=== PATIENT | female | born 1950 | race Caucasian/White ===

== ENCOUNTER → 2017-04-08 | Outpatient (CLI) | payer MEDICARE ==
[~2017-04-08] MED LIST: CLAR10CA3 PO; FURO20TA2 PO; HYDR-3716 PO; ISOS60TA2 PO; LIDO5DIS41 TD; LISI-538 PO; PLAV1TAB2 PO; TIZA2CAP3 PO
[2017-04-08 09:18] LABS: BASO % 0.6 % (0.0-1.0); EOS % 0.4 % (0.0-3.0); LARGE UNSTAINED CELL # 0.2 K/mm3 (0.0-0.4); LARGE UNSTAINED CELL % 2.7 % (0.0-4.0); LYMPH # 1.2 K/mm3 (1.5-4.5); LYMPH % 21.8 % (24.0-44.0); MEAN CORPUSCULAR HEMOGLOBIN 32.7 pg (27.0-33.0); MEAN CORPUSCULAR HGB CONC 33.8 g/dl (32.0-36.5); MEAN CORPUSCULAR VOLUME 96.7 fl (80.0-96.0); MONO # 0.4 K/mm3 (0.0-0.8); MONO % 7.3 % (0.0-5.0); NEUTROPHILS # 3.8 K/mm3 (1.8-7.7); NEUTROPHILS % 67.2 % (36.0-66.0); PLATELET COUNT, AUTOMATED 214 k/mm3 (150-450); RED CELL DISTRIBUTION WIDTH 13.7 % (11.5-14.5); WHITE BLOOD COUNT 5.6 K/mm3 (4.0-10.0)
[2017-04-08 09:41] LABS: ALBUMIN 3.7 GM/DL (3.2-5.2); ALKALINE PHOSPHATASE 71 U/L (45-117); ALT/SGPT 18 U/L (12-78); ANION GAP 8 MEQ/L (8-16); AST/SGOT 13 U/L (15-37); BILIRUBIN,TOTAL 0.4 MG/DL (0.2-1.0); BLOOD UREA NITROGEN 15 MG/DL (7-18); CARBON DIOXIDE LEVEL 28 MEQ/L (21-32); CHLORIDE LEVEL 109 MEQ/L (98-107); CHOLESTEROL LEVEL 157 MG/DL (<200); CREATININE FOR GFR 0.66 MG/DL (0.55-1.02); GLOMERULAR FILTRATION RATE > 60.0 (>45); GLUCOSE, FASTING 116 MG/DL (80-110); SODIUM LEVEL 145 MEQ/L (136-145); TOTAL PROTEIN 7.4 GM/DL (6.4-8.2); TRIGLYCERIDES LEVEL 193 MG/DL (<150)
== END ==
LOC: M WUC 08:19
PROVIDERS: ATTEND Physician Assistant
DX: I50.9 Heart failure, unspecified (principal); I11.0 Hypertensive heart disease with heart failure; R73.09 Other abnormal glucose; I25.10 Atherosclerotic heart disease of native coronary artery without angina pectoris; E55.9 Vitamin D deficiency, unspecified

== ENCOUNTER → 2017-07-15 | Outpatient (REF) | payer MEDICARE ==
[2017-07-15 14:57] LABS: BASO # 0.1 10^3/uL (0.0-0.2); BASO % 1.3 % (0.0-1.0); EOS # 0.1 10^3/uL (0.0-0.50); EOS % 1.1 % (0.0-3.0); IMMATURE GRANULOCYTE % 0.3 % (0-0); LYMPH # 1.8 10^3/uL (1.5-4.5); LYMPH % 28.2 % (24.0-44.0); MEAN CORPUSCULAR HEMOGLOBIN 30.9 pg (27.0-33.0); MEAN CORPUSCULAR HGB CONC 32.4 g/dl (32.0-36.5); MEAN CORPUSCULAR VOLUME 95.4 fl (80.0-96.0); MONO # 0.4 10^3/uL (0.0-0.8); MONO % 5.6 % (0.0-5.0); NEUTROPHILS # 4.1 10^3/uL (1.8-7.7); NEUTROPHILS % 63.5 % (36.0-66.0); PLATELET COUNT, AUTOMATED 240 10^3/uL (150-450); RED CELL DISTRIBUTION WIDTH 14.6 % (11.5-14.5); WHITE BLOOD COUNT 6.4 10^3/uL (4.0-10.0)
[2017-07-15 15:31] LABS: ALBUMIN 3.6 GM/DL (3.2-5.2); ALBUMIN/GLOBULIN RATIO 1.03 (1.00-1.93); ALKALINE PHOSPHATASE 73 U/L (45-117); ALT/SGPT 15 U/L (12-78); ANION GAP 8 MEQ/L (8-16); AST/SGOT 12 U/L (7-37); BILIRUBIN,TOTAL 0.2 MG/DL (0.2-1.0); BLOOD UREA NITROGEN 15 MG/DL (7-18); CALCIUM LEVEL 9.4 MG/DL (8.8-10.2); CARBON DIOXIDE LEVEL 25 MEQ/L (21-32); CHLORIDE LEVEL 113 MEQ/L (98-107); CHOLESTEROL LEVEL 148 MG/DL (<200); CREATININE FOR GFR 0.72 MG/DL (0.55-1.02); FREE T4 1.04 NG/DL (0.76-1.46); GLOMERULAR FILTRATION RATE > 60.0 (>45); GLUCOSE, FASTING 110 MG/DL (80-110); POTASSIUM SERUM 4.2 MEQ/L (3.5-5.1); SODIUM LEVEL 146 MEQ/L (136-145); TOTAL PROTEIN 7.1 GM/DL (6.4-8.2); TRIGLYCERIDES LEVEL 97 MG/DL (<150)
== END ==
LOC: M SFHCSACK 08:46
PROVIDERS: ATTEND Physician Assistant
DX: I11.0 Hypertensive heart disease with heart failure (principal); E11.65 Type 2 diabetes mellitus with hyperglycemia; Z13.29 Encounter for screening for other suspected endocrine disorder; E78.5 Hyperlipidemia, unspecified; E55.9 Vitamin D deficiency, unspecified; I50.9 Heart failure, unspecified; I25.2 Old myocardial infarction; Z00.00 Encounter for general adult medical examination without abnormal findings; Z23 Encounter for immunization
CPT/HCPCS: 36415; 80053; 80061; 82043; 82306; 83036; 84439; 84443; 85025; 90662; G0008

== ENCOUNTER 2017-08-11 16:06 | Emergency (ER) | payer MEDICARE ==
[~2017-08-11] VITALS: Ht 162.6 cm; Wt 71.4 kg
[2017-08-11] MEDS ORDERED: TRIA37.53 (16:16)
[2017-08-11] MEDS ORDERED: NORCO, ANEXSIA 5/325MG TABLET (HYDROcodone/ACETAMINOPHEN) PO ONE (17:15)
[2017-08-11] MEDS ORDERED: methylPREDNISolone INJ 125 MG/2 ML VIAL (J2930) IV ONE (17:15)
[2017-08-11 18:08] LABS: BASO # 0.1 10^3/uL (0.0-0.2); BASO % 0.9 % (0.0-1.0); EOS # 0.1 10^3/uL (0.0-0.50); EOS % 0.6 % (0.0-3.0); IMMATURE GRANULOCYTE % 0.1 % (0-0); LYMPH # 3.2 10^3/uL (1.5-4.5); LYMPH % 33.8 % (24.0-44.0); MEAN CORPUSCULAR HEMOGLOBIN 31.5 pg (27.0-33.0); MEAN CORPUSCULAR HGB CONC 34.6 g/dl (32.0-36.5); MONO # 0.8 10^3/uL (0.0-0.8); MONO % 8.2 % (0.0-5.0); NEUTROPHILS # 5.3 10^3/uL (1.8-7.7); NEUTROPHILS % 56.4 % (36.0-66.0); PLATELET COUNT, AUTOMATED 206 10^3/uL (150-450); RED CELL DISTRIBUTION WIDTH 13.9 % (11.5-14.5); WHITE BLOOD COUNT 9.4 10^3/uL (4.0-10.0)
[2017-08-11 18:39] LABS: ANION GAP 8 MEQ/L (8-16); BLOOD UREA NITROGEN 24 MG/DL (7-18); CALCIUM LEVEL 8.7 MG/DL (8.8-10.2); CARBON DIOXIDE LEVEL 26 MEQ/L (21-32); CHLORIDE LEVEL 106 MEQ/L (98-107); GLOMERULAR FILTRATION RATE > 60.0 (>45); GLUCOSE, FASTING 105 MG/DL (80-110); POTASSIUM SERUM 3.2 MEQ/L (3.5-5.1); SODIUM LEVEL 140 MEQ/L (136-145)
[2017-08-11 18:52] LABS: ERYTHROCYTE SEDIMENTATION RATE 8 mm/hr (0-30)
[2017-08-11] MEDS ORDERED: MORPHINE 2 MG/ML 1ML SYRINGE IV ONE (19:00)
[2017-08-11] MEDS ORDERED: NORCOTAB PO (19:02)
[2017-08-11] MEDS ORDERED: CLEO300C2 PO (19:02)
[2017-08-11] MEDS ORDERED: PRED20TA PO (19:02)
[2017-08-11 19:08] VITALS: BP 118/72
[2017-08-11] MEDS ORDERED: CLINDAMYCIN 150 MG CAP PO ONE (19:15)
[2017-08-11] MEDS ORDERED: NORCO 5/325MG TABLET (BULK FOR ED) PO ONE (19:15)
--- NOTE | 2017-08-12 01:18 | REP ---
Clinical: Right knee pain. Technique: AP, lateral, bilateral oblique and sunrise views of the right knee. Findings: Mild age-related changes include increased sclerosis to the tibial plateau and minimal medial joint space narrowing. No further overt osteoarthritic degenerative changes are appreciated. No acute fracture or dislocation. No effusion. Impression: Mild age-related degenerative changes. Signed by Shaan Vora MD 08/11/2017 10:09 P
== END 2017-08-11 19:36 | disposition home or self-care (01) ==
LOC: M ED 16:06
DX: M25.561 Pain in right knee (principal); I25.2 Old myocardial infarction; I10 Essential (primary) hypertension; Z95.5 Presence of coronary angioplasty implant and graft; F17.200 Nicotine dependence, unspecified, uncomplicated; Z79.899 Other long term (current) drug therapy; Z88.6 Allergy status to analgesic agent; Z91.02 Food additives allergy status
CPT/HCPCS: 73564; 80048; 85025; 85652; 86140; 96374; 96375; 99284; J2930

== ENCOUNTER → 2017-08-30 | Outpatient (CLI) | payer MEDICARE | LOC: M RAD 09:46 | DX: Z12.2 Encounter for screening for malignant neoplasm of respiratory organs (principal); F17.200 Nicotine dependence, unspecified, uncomplicated; F17.210 Nicotine dependence, cigarettes, uncomplicated | CPT/HCPCS: G0297 ==

== ENCOUNTER → 2017-10-28 | Outpatient (REF) | payer MEDICARE ==
[2017-10-28 14:39] LABS: BASO % 0.5 % (0.0-1.0); EOS % 0.4 % (0.0-3.0); HEMATOCRIT 43.7 % (36.0-47.0); HEMOGLOBIN 14.5 g/dl (12.0-16.0); IMMATURE GRANULOCYTE % 0.4 % (0-3.0); LYMPH # 2.2 10^3/uL (1.5-4.5); LYMPH % 29.6 % (24.0-44.0); MEAN CORPUSCULAR HEMOGLOBIN 30.3 pg (27.0-33.0); MEAN CORPUSCULAR HGB CONC 33.2 g/dl (32.0-36.5); MEAN CORPUSCULAR VOLUME 91.4 fl (80.0-96.0); MONO # 0.6 10^3/uL (0.0-0.8); MONO % 8.3 % (0.0-5.0); NEUTROPHILS # 4.4 10^3/uL (1.8-7.7); NEUTROPHILS % 60.8 % (36.0-66.0); PLATELET COUNT, AUTOMATED 273 10^3/uL (150-450); RED BLOOD COUNT 4.78 10^6/uL (4.00-5.40); RED CELL DISTRIBUTION WIDTH 13.4 % (11.5-14.5); WHITE BLOOD COUNT 7.3 10^3/uL (4.0-10.0)
[2017-10-28 15:18] LABS: ALBUMIN 3.7 GM/DL (3.2-5.2); ALBUMIN/GLOBULIN RATIO 0.93 (1.00-1.93); ALKALINE PHOSPHATASE 78 U/L (45-117); ALT/SGPT 19 U/L (12-78); ANION GAP 10 MEQ/L (8-16); AST/SGOT 15 U/L (7-37); BILIRUBIN,TOTAL 0.3 MG/DL (0.2-1.0); BLOOD UREA NITROGEN 18 MG/DL (7-18); CALCIUM LEVEL 9.6 MG/DL (8.8-10.2); CARBON DIOXIDE LEVEL 27 MEQ/L (21-32); CHLORIDE LEVEL 104 MEQ/L (98-107); CREATININE FOR GFR 0.86 MG/DL (0.55-1.30); FREE T4 1.21 NG/DL (0.76-1.46); GLOMERULAR FILTRATION RATE > 60.0 (>45); GLUCOSE, FASTING 85 MG/DL (70-100); SODIUM LEVEL 141 MEQ/L (136-145); THYROID STIMULATING HORMONE 0.266 uIU/ML (0.358-3.740); TOTAL PROTEIN 7.7 GM/DL (6.4-8.2)
[2017-10-28 15:32] LABS: ESTIMATED AVERAGE GLUCOSE 157 MG/DL (60-110); HEMOGLOBIN A1c 7.1 %
== END ==
LOC: M SFHCSACK 08:34
DX: I10 Essential (primary) hypertension (principal); E11.65 Type 2 diabetes mellitus with hyperglycemia; R94.6 Abnormal results of thyroid function studies
CPT/HCPCS: 84443

== ENCOUNTER 2017-11-06 07:44 | Emergency (ER) | payer MEDICARE ==
[2017-11-06] MEDS: LIDOCAINE 2% MDV 20 ML VIAL SC (08:15)
== END 2017-11-06 09:20 | disposition home or self-care (01) ==
LOC: M ED 07:44
DX: S93.114A Dislocation of interphalangeal joint of right lesser toe(s), initial encounter (principal); W10.8XXA Fall (on) (from) other stairs and steps, initial encounter; Y92.098 Other place in other non-institutional residence as the place of occurrence of the external cause; I10 Essential (primary) hypertension; I25.2 Old myocardial infarction; F17.200 Nicotine dependence, unspecified, uncomplicated; Z88.8 Allergy status to other drugs, medicaments and biological substances; Z91.02 Food additives allergy status; Z79.899 Other long term (current) drug therapy; Z79.02 Long term (current) use of antithrombotics/antiplatelets
CPT/HCPCS: 73630

== ENCOUNTER → 2017-11-15 | Outpatient (REF) | payer MEDICARE | LOC: M LAB REF 12:37 | DX: C09.0 Malignant neoplasm of tonsillar fossa (principal) | CPT/HCPCS: 88313 ==

== ENCOUNTER → 2017-11-18 | Outpatient (CLI) | payer MEDICARE ==
[~2017-11-18] MED LIST changes: -CLAR10CA3 PO; -FURO20TA2 PO; -HYDR-3716 PO; -ISOS60TA2 PO; +ISOVUE-370 76% 100ML VIAL (Q9967) As Ordered; -LIDO5DIS41 TD; -LISI-538 PO; -PLAV1TAB2 PO; -TIZA2CAP3 PO
== END ==
LOC: M RAD 17:37
DX: C09.0 Malignant neoplasm of tonsillar fossa (principal); R59.0 Localized enlarged lymph nodes; M50.20 Other cervical disc displacement, unspecified cervical region; I65.23 Occlusion and stenosis of bilateral carotid arteries
CPT/HCPCS: Q9967

== ENCOUNTER → 2017-11-26 | Outpatient (CLI) | payer MEDICARE | LOC: M RAD 17:35 | DX: Z01.818 Encounter for other preprocedural examination (principal); J44.9 Chronic obstructive pulmonary disease, unspecified; I25.2 Old myocardial infarction; F41.9 Anxiety disorder, unspecified; R91.8 Other nonspecific abnormal finding of lung field | CPT/HCPCS: 71046 ==

== ENCOUNTER → 2017-12-10 | Outpatient (CLI) | payer MEDICARE | LOC: M PLARAD 10:40 | DX: C83.31 Diffuse large B-cell lymphoma, lymph nodes of head, face, and neck (principal); C09.0 Malignant neoplasm of tonsillar fossa | CPT/HCPCS: 78815 ==

== ENCOUNTER → 2017-12-17 | Outpatient (CLI) | payer MEDICARE | LOC: M ONCR 12-17 09:40 | DX: C83.31 Diffuse large B-cell lymphoma, lymph nodes of head, face, and neck (principal) | CPT/HCPCS: G0463 ==

== ENCOUNTER → 2017-12-19 | Outpatient (CLI) | payer MEDICARE | LOC: M CARPUL 10:53 | DX: C85.90 Non-Hodgkin lymphoma, unspecified, unspecified site (principal) | CPT/HCPCS: 93306 ==

== ENCOUNTER → 2017-12-23 | Outpatient (REF) | payer MEDICARE ==
[2017-12-23 13:58] LABS: HEPATITIS B SURFACE ANTIBODY NEGATIVE (POSITIVE)
[2017-12-23 14:09] LABS: HEPATITIS B SURFACE ANTIGEN NEGATIVE (NEGATIVE)
[2017-12-23 14:37] LABS: HEPATITIS B CORE ANTIBODY IGM NEGATIVE (NEGATIVE)
== END ==
LOC: M LAB REF 13:01
DX: Z51.11 Encounter for antineoplastic chemotherapy (principal); C83.30 Diffuse large B-cell lymphoma, unspecified site
CPT/HCPCS: 86706

== ENCOUNTER 2018-01-05 19:07 | Emergency (ER) | payer MEDICARE ==
[2018-01-05] MEDS: MORPHINE 4 MG/ML 1ML VIAL/SYRINGE (J2270) IV (19:51)
[2018-01-05] MEDS: GI COCKTAIL 50ML BTL(HYOSCYAMINE/MAALOX/LIDOCAINE VISCOUS)(1:3:1) PO (19:54)
[2018-01-05] MEDS: CLOPIDOGREL 75 MG TAB PO (19:54)
[2018-01-05 19:57] LABS: HEMATOCRIT 42.5 % (36.0-47.0); HEMOGLOBIN 14.2 g/dl (12.0-15.5); MEAN CORPUSCULAR HEMOGLOBIN 30.5 pg (27.0-33.0); MEAN CORPUSCULAR HGB CONC 33.4 g/dl (32.0-36.5); MEAN CORPUSCULAR VOLUME 91.2 fl (80.0-96.0); PLATELET COUNT, AUTOMATED 429 10^3/uL (150-450); RED BLOOD COUNT 4.66 10^6/uL (4.00-5.40); RED CELL DISTRIBUTION WIDTH 15.1 % (11.5-14.5); WHITE BLOOD COUNT 23.1 10^3/uL (4.0-10.0)
[2018-01-05 19:59] LABS: ADD MANUAL DIFFER YES; DIFF SLIDE NUMBER 134; POS COUNT POS FLAG; POSITIVE MORPH POS FLAG
[2018-01-05 20:01] LABS: INR 1.12; PROTHROMBIN TIME 14.6 SECONDS (12.4-14.5)
[2018-01-05 20:02] LABS: PARTIAL THROMBOPLASTIN TIME 29.7 SECONDS (26.8-37.9)
[2018-01-05] MEDS: ONDANSETRON 4MG/2ML VIAL (J2405) IV (20:02)
[2018-01-05] MEDS: PANTOPRAZOLE 40MG INJ (PROTONIX) (C9113) IV (20:10)
[2018-01-05 20:11] LABS: ALBUMIN 3.2 GM/DL (3.2-5.2); ALBUMIN/GLOBULIN RATIO 0.65 (1.00-1.93); ALKALINE PHOSPHATASE 144 U/L (45-117); ALT/SGPT 18 U/L (12-78); ANION GAP 13 MEQ/L (8-16); AST/SGOT 15 U/L (7-37); BILIRUBIN,DIRECT 0.1 MG/DL (0.0-0.2); BILIRUBIN,TOTAL 0.3 MG/DL (0.2-1.0); BLOOD UREA NITROGEN 39 MG/DL (7-18); CALCIUM LEVEL 9.4 MG/DL (8.8-10.2); CARBON DIOXIDE LEVEL 24 MEQ/L (21-32); CHLORIDE LEVEL 100 MEQ/L (98-107); CK-MB VALUE MASS < 1.0 NG/ML (<3.6); CPK CREATINE PHOSPHOKINASE 20 U/L (26-192); CREATININE FOR GFR 1.35 MG/DL (0.55-1.30); GLOMERULAR FILTRATION RATE 41.8 (>45); GLUCOSE, FASTING 172 MG/DL (70-100); LIPASE 149 U/L (73-393); POTASSIUM SERUM 4.1 MEQ/L (3.5-5.1); SODIUM LEVEL 137 MEQ/L (136-145); TOTAL PROTEIN 8.1 GM/DL (6.4-8.2); TROPONIN I < 0.02 NG/ML (< 0.10)
[2018-01-05 20:14] LABS: BANDS 1 % (< 11); LYMPHOCYTES 3 % (16-52); MONOCYTES 2 % (0-8); NEUTROPHILS 94 % (35-75); PLATELET ESTIMATE NORMAL (NORMAL)
[2018-01-05] MEDS: HALOPERIDOL 5 MG/ML VIAL (J1630) IV (20:37)
[2018-01-05] MEDS: NS 1,000 ML IV (20:37)
[2018-01-05] MEDS: diphenhydrAMINE INJ 50MG/ML VIAL (J1200) IV (20:37)
[2018-01-05] MEDS ORDERED: ISOVUE-370 76% 100ML VIAL (Q9967) As Ordered (21:11)
[2018-01-06 00:06] LABS: CK-MB VALUE MASS < 1.0 NG/ML (<3.6); CPK CREATINE PHOSPHOKINASE 18 U/L (26-192); MB/CK RELATIVE INDEX 5.55 (< OR =4); TROPONIN I < 0.02 NG/ML (< 0.10)
== END 2018-01-06 01:50 | disposition home or self-care (01) ==
LOC: M ED 01-06 01:50
DX: K20.9 Esophagitis, unspecified (principal); R00.0 Tachycardia, unspecified; I10 Essential (primary) hypertension; E78.5 Hyperlipidemia, unspecified; K21.9 Gastro-esophageal reflux disease without esophagitis; G89.29 Other chronic pain; M54.9 Dorsalgia, unspecified; F17.200 Nicotine dependence, unspecified, uncomplicated; Z95.5 Presence of coronary angioplasty implant and graft; Z79.899 Other long term (current) drug therapy; Z88.6 Allergy status to analgesic agent; Z91.02 Food additives allergy status
CPT/HCPCS: C9113

== ENCOUNTER → 2018-01-13 | Outpatient (REF) | payer MEDICARE | LOC: M LAB REF 12:36 | DX: C83.30 Diffuse large B-cell lymphoma, unspecified site (principal) | CPT/HCPCS: 87493 ==

== ENCOUNTER → 2018-01-13 | Outpatient (CLI) | payer MEDICARE ==
[~2018-01-13] MED LIST changes: +GASTROGRAFIN SOLUTION 30ML (Q9963) As Ordered
== END ==
LOC: M RAD 11:50
DX: N28.1 Cyst of kidney, acquired (principal); R10.9 Unspecified abdominal pain; K92.1 Melena; C83.30 Diffuse large B-cell lymphoma, unspecified site; Z90.710 Acquired absence of both cervix and uterus; Z98.890 Other specified postprocedural states
CPT/HCPCS: Q9963

== ENCOUNTER 2018-01-15 15:42 | Inpatient (IN) | payer MEDICARE ==
[2018-01-15] MEDS: NS 1,000 ML IV ×2 (16:52→19:51)
[2018-01-15] MEDS: ONDANSETRON 4MG/2ML VIAL (J2405) IV (17:00)
[2018-01-15] MEDS: NS 500 ML IV (17:00)
[2018-01-15 17:19] LABS: BASO # 0.1 10^3/uL (0.0-0.2); BASO % 0.3 % (0.0-1.0); HEMATOCRIT 33.8 % (36.0-47.0); IMMATURE GRANULOCYTE % 3.2 % (0-3.0); LYMPH # 0.6 10^3/uL (1.5-4.5); LYMPH % 3.3 % (24.0-44.0); MEAN CORPUSCULAR HEMOGLOBIN 30.6 pg (27.0-33.0); MEAN CORPUSCULAR HGB CONC 32.5 g/dl (32.0-36.5); MEAN CORPUSCULAR VOLUME 93.9 fl (80.0-96.0); MONO # 0.8 10^3/uL (0.0-0.8); MONO % 4.5 % (0.0-5.0); NEUTROPHILS # 15.9 10^3/uL (1.8-7.7); NEUTROPHILS % 88.7 % (36.0-66.0); PLATELET COUNT, AUTOMATED 433 10^3/uL (150-450); RED CELL DISTRIBUTION WIDTH 15.8 % (11.5-14.5); WHITE BLOOD COUNT 17.9 10^3/uL (4.0-10.0)
[2018-01-15] MEDS: HYDROmorphone HCL 1 MG/ML SYRINGE (J1170) IV ×2 (17:33→19:47)
[2018-01-15 17:37] LABS: INR 0.96; PROTHROMBIN TIME 12.9 SECONDS (12.4-14.5)
[2018-01-15 17:45] LABS: ALBUMIN 2.2 GM/DL (3.2-5.2); ALBUMIN/GLOBULIN RATIO 0.51 (1.00-1.93); ALKALINE PHOSPHATASE 106 U/L (45-117); ALT/SGPT 12 U/L (12-78); ANION GAP 9 MEQ/L (8-16); AST/SGOT 14 U/L (7-37); BILIRUBIN,DIRECT < 0.1 MG/DL (0.0-0.2); BILIRUBIN,TOTAL < 0.1 MG/DL (0.2-1.0); BLOOD UREA NITROGEN 28 MG/DL (7-18); CALCIUM LEVEL 8.2 MG/DL (8.8-10.2); CARBON DIOXIDE LEVEL 23 MEQ/L (21-32); CHLORIDE LEVEL 112 MEQ/L (98-107); CREATININE FOR GFR 1.05 MG/DL (0.55-1.30); GLOMERULAR FILTRATION RATE 55.8 (>45); GLUCOSE, FASTING 125 MG/DL (70-100); LIPASE 99 U/L (73-393); POTASSIUM SERUM 4.3 MEQ/L (3.5-5.1); SODIUM LEVEL 144 MEQ/L (136-145); TOTAL PROTEIN 6.5 GM/DL (6.4-8.2)
[2018-01-15 19:27] LABS: LACTIC ACID SEPSIS PROTOCOL 2.8 MMOL/L (0.4-2.0)
[2018-01-15] MEDS: VANCOMYCIN ORAL SOL 250MG/5ML ORAL SYRINGE PO ×2 (19:58→23:03)
[2018-01-15] MEDS ORDERED: HYDROMORPHONE HCL 0.5 MG/ 0.5 ML SYRINGE (J1170 PER 1) IV (20:15)
[2018-01-15] MEDS ORDERED: ONDANSETRON 4 MG TAB (S0181) PO (21:00)
[2018-01-15] MEDS ORDERED: NITROGLYCERIN 0.4 MG SUBL TABLET SL (21:00)
[2018-01-15] MEDS: HYDROMORPHONE HCL 0.5 MG/ 0.5 ML SYRINGE (J1170 PER 1) IV (21:19)
[2018-01-16] MEDS: HYDROMORPHONE HCL 0.5 MG/ 0.5 ML SYRINGE (J1170 PER 1) IV ×4 (01:00→10:43)
[2018-01-16] MEDS: VANCOMYCIN ORAL SOL 250MG/5ML ORAL SYRINGE PO ×4 (05:00→23:56)
[2018-01-16] MEDS: NS 1,000 ML IV (05:58)
[2018-01-16 06:45] LABS: HEMATOCRIT 30.4 % (36.0-47.0); HEMOGLOBIN 9.9 g/dl (12.0-15.5); MEAN CORPUSCULAR HEMOGLOBIN 30.5 pg (27.0-33.0); MEAN CORPUSCULAR HGB CONC 32.6 g/dl (32.0-36.5); MEAN CORPUSCULAR VOLUME 93.5 fl (80.0-96.0); PLATELET COUNT, AUTOMATED 379 10^3/uL (150-450); RED BLOOD COUNT 3.25 10^6/uL (4.00-5.40); RED CELL DISTRIBUTION WIDTH 15.7 % (11.5-14.5); WHITE BLOOD COUNT 13.6 10^3/uL (4.0-10.0)
[2018-01-16 07:07] LABS: ANION GAP 7 MEQ/L (8-16); BLOOD UREA NITROGEN 17 MG/DL (7-18); CARBON DIOXIDE LEVEL 24 MEQ/L (21-32); CHLORIDE LEVEL 112 MEQ/L (98-107); CREATININE FOR GFR 0.68 MG/DL (0.55-1.30); GLOMERULAR FILTRATION RATE > 60.0 (>45); GLUCOSE, FASTING 75 MG/DL (70-100); POTASSIUM SERUM 3.6 MEQ/L (3.5-5.1); SODIUM LEVEL 143 MEQ/L (136-145)
[2018-01-16] MEDS: predniSONE 50 MG TAB PO (08:54)
[2018-01-16] MEDS: CLOPIDOGREL 75 MG TAB PO (08:54)
[2018-01-16] MEDS: ATORVASTATIN 20 MG TAB PO (08:54)
[2018-01-16] MEDS: OMEPRAZOLE 20 MG CAP PO (08:54)
[2018-01-16] MEDS: ENOXAPARIN 30 MG/0.3 ML SYR (J1650) SC (08:55)
[2018-01-16] MEDS: METOPROLOL SUCC (TopROL XL) 50MG **XL** TAB PO (08:55)
[2018-01-16] MEDS: ACETAMINOPHEN TAB 650MG DOSE (2X325MG) PO (10:42)
[2018-01-16] MEDS: MORPHINE 30 MG SA TAB PO ×2 (13:03→21:46)
[2018-01-17] MEDS: ONDANSETRON 4MG/2ML VIAL (J2405) IV (02:08)
[2018-01-17] MEDS: MORPHINE 4 MG/ML 1ML VIAL/SYRINGE (J2270) IV ×8 (02:34→22:42)
[2018-01-17] MEDS: HYDROMORPHONE HCL 0.5 MG/ 0.5 ML SYRINGE (J1170 PER 1) IV ×2 (04:38)
[2018-01-17] MEDS: VANCOMYCIN ORAL SOL 250MG/5ML ORAL SYRINGE PO ×3 (06:15→17:51)
[2018-01-17 06:57] LABS: HEMATOCRIT 33.3 % (36.0-47.0); MEAN CORPUSCULAR HEMOGLOBIN 30.3 pg (27.0-33.0); MEAN CORPUSCULAR VOLUME 91.7 fl (80.0-96.0); PLATELET COUNT, AUTOMATED 347 10^3/uL (150-450); RED BLOOD COUNT 3.63 10^6/uL (4.00-5.40); RED CELL DISTRIBUTION WIDTH 15.7 % (11.5-14.5); WHITE BLOOD COUNT 15.9 10^3/uL (4.0-10.0)
[2018-01-17 07:09] LABS: ANION GAP 9 MEQ/L (8-16); BLOOD UREA NITROGEN 13 MG/DL (7-18); CALCIUM LEVEL 8.5 MG/DL (8.8-10.2); CARBON DIOXIDE LEVEL 24 MEQ/L (21-32); CHLORIDE LEVEL 108 MEQ/L (98-107); CREATININE FOR GFR 0.55 MG/DL (0.55-1.30); GLOMERULAR FILTRATION RATE > 60.0 (>45); GLUCOSE, FASTING 106 MG/DL (70-100); POTASSIUM SERUM 3.4 MEQ/L (3.5-5.1); SODIUM LEVEL 141 MEQ/L (136-145)
[2018-01-17] MEDS: ENOXAPARIN 30 MG/0.3 ML SYR (J1650) SC (08:12)
[2018-01-17] MEDS: OMEPRAZOLE 20 MG CAP PO (08:13)
[2018-01-17] MEDS: MORPHINE 30 MG SA TAB PO ×2 (08:13→20:24)
[2018-01-17] MEDS: predniSONE 50 MG TAB PO (08:13)
[2018-01-17] MEDS: ATORVASTATIN 20 MG TAB PO (08:13)
[2018-01-17] MEDS: CLOPIDOGREL 75 MG TAB PO (08:13)
[2018-01-17] MEDS: METOPROLOL SUCC (TopROL XL) 50MG **XL** TAB PO (08:13)
[2018-01-17] MEDS ORDERED: HYDROMORPHONE HCL 0.5 MG/ 0.5 ML SYRINGE (J1170 PER 1) IV (18:00)
[2018-01-17] MEDS: METOCLOPRAMIDE 10 MG TAB PO (21:32)
[2018-01-17] MEDS: FAMOTIDINE 20 MG TAB PO (21:44)
[2018-01-17] MEDS: SIMETHICONE 80 MG CHEW TAB PO (21:44)
[2018-01-18] MEDS: MORPHINE 4 MG/ML 1ML VIAL/SYRINGE (J2270) IV ×9 (01:13→22:56)
[2018-01-18] MEDS: VANCOMYCIN ORAL SOL 250MG/5ML ORAL SYRINGE PO ×4 (01:13→17:15)
[2018-01-18 06:53] LABS: HEMOGLOBIN 10.8 g/dl (12.0-15.5); MEAN CORPUSCULAR HEMOGLOBIN 30.4 pg (27.0-33.0); MEAN CORPUSCULAR HGB CONC 32.7 g/dl (32.0-36.5); PLATELET COUNT, AUTOMATED 335 10^3/uL (150-450); RED BLOOD COUNT 3.55 10^6/uL (4.00-5.40); RED CELL DISTRIBUTION WIDTH 15.7 % (11.5-14.5); WHITE BLOOD COUNT 12.2 10^3/uL (4.0-10.0)
[2018-01-18 07:14] LABS: ANION GAP 6 MEQ/L (8-16); BLOOD UREA NITROGEN 13 MG/DL (7-18); CALCIUM LEVEL 8.7 MG/DL (8.8-10.2); CARBON DIOXIDE LEVEL 28 MEQ/L (21-32); CHLORIDE LEVEL 109 MEQ/L (98-107); CREATININE FOR GFR 0.64 MG/DL (0.55-1.30); GLOMERULAR FILTRATION RATE > 60.0 (>45); GLUCOSE, FASTING 101 MG/DL (70-100); POTASSIUM SERUM 3.7 MEQ/L (3.5-5.1); SODIUM LEVEL 143 MEQ/L (136-145)
[2018-01-18] MEDS: predniSONE 50 MG TAB PO (08:38)
[2018-01-18] MEDS: ATORVASTATIN 20 MG TAB PO (08:38)
[2018-01-18] MEDS: OMEPRAZOLE 20 MG CAP PO (08:39)
[2018-01-18] MEDS: METOPROLOL SUCC (TopROL XL) 50MG **XL** TAB PO (08:39)
[2018-01-18] MEDS: MORPHINE 30 MG SA TAB PO (08:39)
[2018-01-18] MEDS: CLOPIDOGREL 75 MG TAB PO (08:39)
[2018-01-18] MEDS: ENOXAPARIN 30 MG/0.3 ML SYR (J1650) SC (08:39)
[2018-01-18] MEDS: MORPHINE 15 MG SA TAB PO (21:39)
[2018-01-18 23:26] LABS: LIPASE 53 U/L (73-393)
[2018-01-18 23:35] LABS: LACTIC ACID SEPSIS PROTOCOL 2.2 MMOL/L (0.4-2.0)
[2018-01-18] MEDS: NS 500 ML IV (23:45)
[2018-01-19] MEDS: VANCOMYCIN ORAL SOL 250MG/5ML ORAL SYRINGE PO ×4 (01:05→17:38)
[2018-01-19] MEDS: MORPHINE 4 MG/ML 1ML VIAL/SYRINGE (J2270) IV ×3 (05:57→17:39)
[2018-01-19 06:16] LABS: HEMATOCRIT 31.6 % (36.0-47.0); HEMOGLOBIN 10.1 g/dl (12.0-15.5); MEAN CORPUSCULAR HEMOGLOBIN 30.1 pg (27.0-33.0); PLATELET COUNT, AUTOMATED 297 10^3/uL (150-450); RED BLOOD COUNT 3.36 10^6/uL (4.00-5.40); RED CELL DISTRIBUTION WIDTH 15.6 % (11.5-14.5); WHITE BLOOD COUNT 9.5 10^3/uL (4.0-10.0)
[2018-01-19 06:40] LABS: ANION GAP 6 MEQ/L (8-16); BLOOD UREA NITROGEN 12 MG/DL (7-18); CALCIUM LEVEL 8.3 MG/DL (8.8-10.2); CARBON DIOXIDE LEVEL 30 MEQ/L (21-32); CHLORIDE LEVEL 109 MEQ/L (98-107); CREATININE FOR GFR 0.57 MG/DL (0.55-1.30); GLOMERULAR FILTRATION RATE > 60.0 (>45); GLUCOSE, FASTING 86 MG/DL (70-100); POTASSIUM SERUM 3.8 MEQ/L (3.5-5.1); SODIUM LEVEL 145 MEQ/L (136-145)
[2018-01-19] MEDS: MORPHINE 15 MG SA TAB PO ×2 (08:49→20:38)
[2018-01-19] MEDS: METOPROLOL SUCC (TopROL XL) 50MG **XL** TAB PO (08:50)
[2018-01-19] MEDS: ENOXAPARIN 30 MG/0.3 ML SYR (J1650) SC (08:50)
[2018-01-19] MEDS: predniSONE 50 MG TAB PO (08:50)
[2018-01-19] MEDS: ATORVASTATIN 20 MG TAB PO (08:50)
[2018-01-19] MEDS: OMEPRAZOLE 20 MG CAP PO (08:50)
[2018-01-19] MEDS: CLOPIDOGREL 75 MG TAB PO (08:50)
[2018-01-19] MEDS ORDERED: ISOVUE-370 76% 100ML VIAL (Q9967) As Ordered (13:36)
[2018-01-20] MEDS: VANCOMYCIN ORAL SOL 250MG/5ML ORAL SYRINGE PO ×4 (01:14→17:06)
[2018-01-20] MEDS: MORPHINE 4 MG/ML 1ML VIAL/SYRINGE (J2270) IV ×4 (04:50→19:14)
[2018-01-20 06:32] LABS: HEMATOCRIT 32.5 % (36.0-47.0); HEMOGLOBIN 10.6 g/dl (12.0-15.5); MEAN CORPUSCULAR HEMOGLOBIN 30.5 pg (27.0-33.0); MEAN CORPUSCULAR HGB CONC 32.6 g/dl (32.0-36.5); MEAN CORPUSCULAR VOLUME 93.7 fl (80.0-96.0); PLATELET COUNT, AUTOMATED 282 10^3/uL (150-450); RED BLOOD COUNT 3.47 10^6/uL (4.00-5.40); RED CELL DISTRIBUTION WIDTH 15.5 % (11.5-14.5); WHITE BLOOD COUNT 11.5 10^3/uL (4.0-10.0)
[2018-01-20 06:58] LABS: ANION GAP 6 MEQ/L (8-16); BLOOD UREA NITROGEN 11 MG/DL (7-18); CALCIUM LEVEL 8.6 MG/DL (8.8-10.2); CARBON DIOXIDE LEVEL 31 MEQ/L (21-32); CHLORIDE LEVEL 104 MEQ/L (98-107); CREATININE FOR GFR 0.58 MG/DL (0.55-1.30); GLOMERULAR FILTRATION RATE > 60.0 (>45); GLUCOSE, FASTING 86 MG/DL (70-100); SODIUM LEVEL 141 MEQ/L (136-145)
[2018-01-20] MEDS: ENOXAPARIN 30 MG/0.3 ML SYR (J1650) SC (08:07)
[2018-01-20] MEDS: predniSONE 50 MG TAB PO (08:07)
[2018-01-20] MEDS: ATORVASTATIN 20 MG TAB PO (08:07)
[2018-01-20] MEDS: MORPHINE 15 MG SA TAB PO ×2 (08:07→22:17)
[2018-01-20] MEDS: METOPROLOL SUCC (TopROL XL) 50MG **XL** TAB PO (08:07)
[2018-01-20] MEDS: CLOPIDOGREL 75 MG TAB PO (08:08)
[2018-01-20] MEDS: OMEPRAZOLE 20 MG CAP PO (08:08)
[2018-01-21] MEDS: VANCOMYCIN ORAL SOL 250MG/5ML ORAL SYRINGE PO ×4 (00:56→18:18)
[2018-01-21] MEDS: MORPHINE 4 MG/ML 1ML VIAL/SYRINGE (J2270) IV ×6 (01:04→22:51)
[2018-01-21 06:57] LABS: HEMATOCRIT 33.6 % (36.0-47.0); HEMOGLOBIN 10.7 g/dl (12.0-15.5); MEAN CORPUSCULAR HEMOGLOBIN 30.1 pg (27.0-33.0); MEAN CORPUSCULAR HGB CONC 31.8 g/dl (32.0-36.5); MEAN CORPUSCULAR VOLUME 94.4 fl (80.0-96.0); PLATELET COUNT, AUTOMATED 289 10^3/uL (150-450); RED BLOOD COUNT 3.56 10^6/uL (4.00-5.40); RED CELL DISTRIBUTION WIDTH 15.5 % (11.5-14.5); WHITE BLOOD COUNT 10.9 10^3/uL (4.0-10.0)
[2018-01-21 07:21] LABS: ANION GAP 7 MEQ/L (8-16); BLOOD UREA NITROGEN 15 MG/DL (7-18); CALCIUM LEVEL 8.7 MG/DL (8.8-10.2); CARBON DIOXIDE LEVEL 33 MEQ/L (21-32); CHLORIDE LEVEL 102 MEQ/L (98-107); GLOMERULAR FILTRATION RATE > 60.0 (>45); GLUCOSE, FASTING 82 MG/DL (70-100); SODIUM LEVEL 142 MEQ/L (136-145)
[2018-01-21] MEDS: CLOPIDOGREL 75 MG TAB PO (09:06)
[2018-01-21] MEDS: predniSONE 50 MG TAB PO (09:06)
[2018-01-21] MEDS: OMEPRAZOLE 20 MG CAP PO (09:07)
[2018-01-21] MEDS: ATORVASTATIN 20 MG TAB PO (09:07)
[2018-01-21] MEDS: METOPROLOL SUCC (TopROL XL) 50MG **XL** TAB PO (09:07)
[2018-01-21] MEDS: MORPHINE 15 MG SA TAB PO ×2 (09:08→21:27)
[2018-01-21] MEDS: ENOXAPARIN 30 MG/0.3 ML SYR (J1650) SC (09:09)
[2018-01-22] MEDS: VANCOMYCIN ORAL SOL 250MG/5ML ORAL SYRINGE PO ×3 (00:48→11:34)
[2018-01-22] MEDS: MORPHINE 4 MG/ML 1ML VIAL/SYRINGE (J2270) IV ×3 (00:51→05:13)
[2018-01-22 06:51] LABS: HEMATOCRIT 31.3 % (36.0-47.0); MEAN CORPUSCULAR HEMOGLOBIN 30.1 pg (27.0-33.0); MEAN CORPUSCULAR HGB CONC 31.9 g/dl (32.0-36.5); MEAN CORPUSCULAR VOLUME 94.3 fl (80.0-96.0); PLATELET COUNT, AUTOMATED 264 10^3/uL (150-450); RED BLOOD COUNT 3.32 10^6/uL (4.00-5.40); RED CELL DISTRIBUTION WIDTH 15.5 % (11.5-14.5)
[2018-01-22 07:11] LABS: ANION GAP 6 MEQ/L (8-16); BLOOD UREA NITROGEN 19 MG/DL (7-18); CALCIUM LEVEL 8.6 MG/DL (8.8-10.2); CARBON DIOXIDE LEVEL 32 MEQ/L (21-32); CHLORIDE LEVEL 104 MEQ/L (98-107); CREATININE FOR GFR 0.58 MG/DL (0.55-1.30); GLOMERULAR FILTRATION RATE > 60.0 (>45); GLUCOSE, FASTING 109 MG/DL (70-100); POTASSIUM SERUM 3.7 MEQ/L (3.5-5.1); SODIUM LEVEL 142 MEQ/L (136-145)
[2018-01-22] MEDS: OMEPRAZOLE 20 MG CAP PO (08:15)
[2018-01-22] MEDS: CLOPIDOGREL 75 MG TAB PO (08:16)
[2018-01-22] MEDS: predniSONE 50 MG TAB PO (08:16)
[2018-01-22] MEDS: MORPHINE 15 MG SA TAB PO (08:16)
[2018-01-22] MEDS: ATORVASTATIN 20 MG TAB PO (08:17)
[2018-01-22] MEDS: ENOXAPARIN 30 MG/0.3 ML SYR (J1650) SC (08:17)
[2018-01-22] MEDS: METOPROLOL SUCC (TopROL XL) 50MG **XL** TAB PO (08:17)
== END 2018-01-22 12:45 | disposition home or self-care (01) | DRG 372 ==
LOC: M MS5PR 01-16 17:00 → M ED 15:42 → M ED INP 18:07 → M MS4PR 21:03
DX: A04.72 Enterocolitis due to Clostridium difficile, not specified as recurrent (principal); E87.2 Acidosis; C85.90 Non-Hodgkin lymphoma, unspecified, unspecified site; M10.9 Gout, unspecified; E78.5 Hyperlipidemia, unspecified; I10 Essential (primary) hypertension; I25.10 Atherosclerotic heart disease of native coronary artery without angina pectoris; I25.2 Old myocardial infarction; Z79.899 Other long term (current) drug therapy; Z88.6 Allergy status to analgesic agent; Z88.8 Allergy status to other drugs, medicaments and biological substances; M54.5 Low back pain

== ENCOUNTER → 2018-02-06 | Outpatient (REF) | payer MEDICARE | LOC: M LAB REF 17:14 | DX: R19.7 Diarrhea, unspecified (principal) ==

== ENCOUNTER 2018-02-07 20:42 | Inpatient (IN) | payer MEDICARE ==
[2018-02-07 23:50] LABS: BASO % 0.2 % (0.0-1.0); EOS % 0.1 % (0.0-3.0); HEMATOCRIT 31.6 % (36.0-47.0); HEMOGLOBIN 10.6 g/dl (12.0-15.5); IMMATURE GRANULOCYTE % 1.1 % (0-3.0); LYMPH # 0.9 10^3/uL (1.5-4.5); LYMPH % 8.3 % (24.0-44.0); MEAN CORPUSCULAR HEMOGLOBIN 29.8 pg (27.0-33.0); MEAN CORPUSCULAR HGB CONC 33.5 g/dl (32.0-36.5); MEAN CORPUSCULAR VOLUME 88.8 fl (80.0-96.0); MONO # 0.7 10^3/uL (0.0-0.8); MONO % 6.3 % (0.0-5.0); NEUTROPHILS # 9.2 10^3/uL (1.8-7.7); PLATELET COUNT, AUTOMATED 187 10^3/uL (150-450); RED BLOOD COUNT 3.56 10^6/uL (4.00-5.40); RED CELL DISTRIBUTION WIDTH 16.6 % (11.5-14.5); WHITE BLOOD COUNT 10.9 10^3/uL (4.0-10.0)
[2018-02-08] LABS: INR 1.19; PROTHROMBIN TIME 15.3 SECONDS (12.4-14.5)
[2018-02-08] MEDS ORDERED: GLUCAGON FOR INJ 1 MG VIAL (J1610) SC (00:15)
[2018-02-08] MEDS ORDERED: DEXTROSE 50% 50 ML SYRINGE IV (00:15)
[2018-02-08] MEDS ORDERED: GLUCOSE 4 GM CHEW TABLET PO (00:15)
[2018-02-08] MEDS ORDERED: METOPROLOL 5 MG/5 ML VIAL IV (00:15)
[2018-02-08] MEDS: PERCOCET 5MG/325MG TAB PO ×5 (00:22→20:53)
[2018-02-08] MEDS: NS 1,000 ML IV ×4 (00:25→20:53)
[2018-02-08 00:31] LABS: BEDSIDE GLUCOSE 115 MG/DL (80-115)
[2018-02-08 00:43] LABS: ALBUMIN 2.7 GM/DL (3.2-5.2); ALBUMIN/GLOBULIN RATIO 0.66 (1.00-1.93); ALKALINE PHOSPHATASE 112 U/L (45-117); ALT/SGPT 18 U/L (12-78); ANION GAP 14 MEQ/L (8-16); AST/SGOT 18 U/L (7-37); BILIRUBIN,TOTAL 0.3 MG/DL (0.2-1.0); BLOOD UREA NITROGEN 58 MG/DL (7-18); CARBON DIOXIDE LEVEL 20 MEQ/L (21-32); CHLORIDE LEVEL 101 MEQ/L (98-107); CREATININE FOR GFR 1.41 MG/DL (0.55-1.30); GLOMERULAR FILTRATION RATE 39.7 (>45); GLUCOSE, FASTING 123 MG/DL (70-100); POTASSIUM SERUM 4.6 MEQ/L (3.5-5.1); SODIUM LEVEL 135 MEQ/L (136-145); TOTAL PROTEIN 6.8 GM/DL (6.4-8.2)
[2018-02-08] MEDS: HumaLOG INSULIN (NovoLOG) PER UNIT SC ×4 (00:50→17:35)
[2018-02-08] MEDS: HYDROCORTISONE 100 MG/2 ML VIAL (J1720) IV ×3 (02:16→17:36)
[2018-02-08] MEDS: MORPHINE 4 MG/ML 1ML VIAL/SYRINGE (J2270) IV ×4 (02:18→17:36)
[2018-02-08 06:33] LABS: BEDSIDE GLUCOSE 133 MG/DL (80-115)
[2018-02-08 07:30] LABS: HEMATOCRIT 26.8 % (36.0-47.0); HEMOGLOBIN 9.1 g/dl (12.0-15.5); IMMATURE GRANULOCYTE % 1.5 % (0-3.0); LYMPH # 0.4 10^3/uL (1.5-4.5); LYMPH % 6.4 % (24.0-44.0); MEAN CORPUSCULAR HEMOGLOBIN 29.7 pg (27.0-33.0); MEAN CORPUSCULAR VOLUME 87.6 fl (80.0-96.0); MONO # 0.2 10^3/uL (0.0-0.8); MONO % 3.3 % (0.0-5.0); NEUTROPHILS % 88.8 % (36.0-66.0); PLATELET COUNT, AUTOMATED 157 10^3/uL (150-450); RED BLOOD COUNT 3.06 10^6/uL (4.00-5.40); RED CELL DISTRIBUTION WIDTH 16.7 % (11.5-14.5); WHITE BLOOD COUNT 6.7 10^3/uL (4.0-10.0)
[2018-02-08 07:57] LABS: ALBUMIN 2.2 GM/DL (3.2-5.2); ALBUMIN/GLOBULIN RATIO 0.65 (1.00-1.93); ALKALINE PHOSPHATASE 92 U/L (45-117); ALT/SGPT 15 U/L (12-78); ANION GAP 16 MEQ/L (8-16); AST/SGOT 11 U/L (7-37); BILIRUBIN,TOTAL 0.4 MG/DL (0.2-1.0); BLOOD UREA NITROGEN 43 MG/DL (7-18); CARBON DIOXIDE LEVEL 19 MEQ/L (21-32); CHLORIDE LEVEL 105 MEQ/L (98-107); CREATININE FOR GFR 0.83 MG/DL (0.55-1.30); GLOMERULAR FILTRATION RATE > 60.0 (>45); GLUCOSE, FASTING 129 MG/DL (70-100); MAGNESIUM LEVEL 2.1 MG/DL (1.8-2.4); POTASSIUM SERUM 3.5 MEQ/L (3.5-5.1); SODIUM LEVEL 140 MEQ/L (136-145); TOTAL PROTEIN 5.6 GM/DL (6.4-8.2)
[2018-02-08] MEDS ORDERED: GASTROGRAFIN SOLUTION 30ML (Q9963) As Ordered (08:50)
[2018-02-08] MEDS: METOPROLOL TART 50 MG TAB PO ×2 (09:00→20:53)
[2018-02-08] MEDS: PANTOPRAZOLE 40MG INJ (PROTONIX) (C9113) IV (10:06)
[2018-02-08 12:22] LABS: BEDSIDE GLUCOSE 112 MG/DL (80-115)
[2018-02-08] MEDS ORDERED: NITROGLYCERIN 0.4 MG SUBL TABLET SL (12:30)
[2018-02-08] MEDS: ATORVASTATIN 20 MG TAB PO (16:36)
[2018-02-08] MEDS: ISOSORBIDE MON. (IMDUR) 60 MG XR TAB PO (16:36)
[2018-02-08 16:49] LABS: BEDSIDE GLUCOSE 154 MG/DL (80-115)
[2018-02-08] MEDS: CLOPIDOGREL 75 MG TAB PO (18:44)
[2018-02-08] MEDS: ENOXAPARIN 40 MG/0.4 ML SYRINGE (J1650) SC (18:44)
[2018-02-09] MEDS: MORPHINE 4 MG/ML 1ML VIAL/SYRINGE (J2270) IV ×5 (00:01→19:28)
[2018-02-09 00:14] LABS: BEDSIDE GLUCOSE 109 MG/DL (80-115)
[2018-02-09] MEDS: HumaLOG INSULIN (NovoLOG) PER UNIT SC ×4 (00:16→18:10)
[2018-02-09] MEDS: HYDROCORTISONE 100 MG/2 ML VIAL (J1720) IV ×3 (02:09→18:10)
[2018-02-09] MEDS: PERCOCET 5MG/325MG TAB PO ×5 (02:15→22:12)
[2018-02-09] MEDS: NS 1,000 ML IV ×3 (05:32→22:11)
[2018-02-09 06:16] LABS: HEMATOCRIT 24.2 % (36.0-47.0); HEMOGLOBIN 8.1 g/dl (12.0-15.5); IMMATURE GRANULOCYTE % 1.1 % (0-3.0); LYMPH # 0.4 10^3/uL (1.5-4.5); LYMPH % 6.4 % (24.0-44.0); MEAN CORPUSCULAR HEMOGLOBIN 29.8 pg (27.0-33.0); MEAN CORPUSCULAR HGB CONC 33.5 g/dl (32.0-36.5); MONO # 0.3 10^3/uL (0.0-0.8); MONO % 5.3 % (0.0-5.0); NEUTROPHILS # 4.9 10^3/uL (1.8-7.7); NEUTROPHILS % 87.2 % (36.0-66.0); PLATELET COUNT, AUTOMATED 134 10^3/uL (150-450); RED BLOOD COUNT 2.72 10^6/uL (4.00-5.40); WHITE BLOOD COUNT 5.6 10^3/uL (4.0-10.0)
[2018-02-09 06:27] LABS: BEDSIDE GLUCOSE 118 MG/DL (80-115)
[2018-02-09 06:55] LABS: ALBUMIN 1.9 GM/DL (3.2-5.2); ALBUMIN/GLOBULIN RATIO 0.56 (1.00-1.93); ALKALINE PHOSPHATASE 74 U/L (45-117); ALT/SGPT 15 U/L (12-78); ANION GAP 11 MEQ/L (8-16); AST/SGOT 13 U/L (7-37); BILIRUBIN,TOTAL 0.2 MG/DL (0.2-1.0); BLOOD UREA NITROGEN 17 MG/DL (7-18); CALCIUM LEVEL 8.1 MG/DL (8.8-10.2); CARBON DIOXIDE LEVEL 23 MEQ/L (21-32); CHLORIDE LEVEL 110 MEQ/L (98-107); CREATININE FOR GFR 0.47 MG/DL (0.55-1.30); GLOMERULAR FILTRATION RATE > 60.0 (>45); GLUCOSE, FASTING 110 MG/DL (70-100); MAGNESIUM LEVEL 1.7 MG/DL (1.8-2.4); SODIUM LEVEL 144 MEQ/L (136-145); TOTAL PROTEIN 5.3 GM/DL (6.4-8.2)
[2018-02-09 07:31] LABS: POTASSIUM SERUM 2.9 MEQ/L (3.5-5.1)
[2018-02-09] MEDS: POTASSIUM CHLORIDE 10 MEQ SR TABLET PO ×2 (08:57→13:08)
[2018-02-09] MEDS: PANTOPRAZOLE 40MG INJ (PROTONIX) (C9113) IV (08:57)
[2018-02-09] MEDS: ATORVASTATIN 20 MG TAB PO (08:58)
[2018-02-09] MEDS: ISOSORBIDE MON. (IMDUR) 60 MG XR TAB PO (08:58)
[2018-02-09] MEDS: CLOPIDOGREL 75 MG TAB PO (08:58)
[2018-02-09] MEDS: METOPROLOL TART 50 MG TAB PO ×2 (08:58→21:00)
[2018-02-09] MEDS: ENOXAPARIN 40 MG/0.4 ML SYRINGE (J1650) SC (08:59)
[2018-02-09] MEDS: MAG SULF 1GM/100ML (MAG RUN) 1 GM in APPROPRIATE DILUENT 1 EA IV (08:59)
[2018-02-09 12:21] LABS: BEDSIDE GLUCOSE 120 MG/DL (80-115)
[2018-02-09 18:04] LABS: BEDSIDE GLUCOSE 170 MG/DL (80-115)
[2018-02-10 00:23] LABS: BEDSIDE GLUCOSE 209 MG/DL (80-115)
[2018-02-10] MEDS: MORPHINE 4 MG/ML 1ML VIAL/SYRINGE (J2270) IV ×5 (00:34→21:15)
[2018-02-10] MEDS: HumaLOG INSULIN (NovoLOG) PER UNIT SC ×5 (00:34→21:00)
[2018-02-10] MEDS: HYDROCORTISONE 100 MG/2 ML VIAL (J1720) IV ×3 (02:21→18:06)
[2018-02-10] MEDS: PERCOCET 5MG/325MG TAB PO ×5 (02:21→23:35)
[2018-02-10] MEDS: NS 1,000 ML IV (05:57)
[2018-02-10 06:34] LABS: BEDSIDE GLUCOSE 116 MG/DL (80-115)
[2018-02-10 06:54] LABS: HEMATOCRIT 24.8 % (36.0-47.0); HEMOGLOBIN 8.3 g/dl (12.0-15.5); LYMPH # 0.3 10^3/uL (1.5-4.5); LYMPH % 7.8 % (24.0-44.0); MEAN CORPUSCULAR HGB CONC 33.5 g/dl (32.0-36.5); MEAN CORPUSCULAR VOLUME 89.5 fl (80.0-96.0); MONO # 0.3 10^3/uL (0.0-0.8); MONO % 7.3 % (0.0-5.0); NEUTROPHILS # 3.3 10^3/uL (1.8-7.7); NEUTROPHILS % 82.9 % (36.0-66.0); PLATELET COUNT, AUTOMATED 138 10^3/uL (150-450); RED BLOOD COUNT 2.77 10^6/uL (4.00-5.40); RED CELL DISTRIBUTION WIDTH 17.8 % (11.5-14.5)
[2018-02-10 07:27] LABS: ALBUMIN 1.8 GM/DL (3.2-5.2); ALBUMIN/GLOBULIN RATIO 0.58 (1.00-1.93); ALKALINE PHOSPHATASE 81 U/L (45-117); ALT/SGPT 20 U/L (12-78); ANION GAP 10 MEQ/L (8-16); AST/SGOT 17 U/L (7-37); BILIRUBIN,TOTAL 0.2 MG/DL (0.2-1.0); BLOOD UREA NITROGEN 8 MG/DL (7-18); CALCIUM LEVEL 8.1 MG/DL (8.8-10.2); CARBON DIOXIDE LEVEL 19 MEQ/L (21-32); CHLORIDE LEVEL 116 MEQ/L (98-107); CREATININE FOR GFR 0.39 MG/DL (0.55-1.30); GLOMERULAR FILTRATION RATE > 60.0 (>45); GLUCOSE, FASTING 104 MG/DL (70-100); MAGNESIUM LEVEL 1.6 MG/DL (1.8-2.4); POTASSIUM SERUM 3.1 MEQ/L (3.5-5.1); SODIUM LEVEL 145 MEQ/L (136-145); TOTAL PROTEIN 4.9 GM/DL (6.4-8.2)
[2018-02-10] MEDS: CLOPIDOGREL 75 MG TAB PO (08:27)
[2018-02-10] MEDS: ATORVASTATIN 20 MG TAB PO (08:27)
[2018-02-10] MEDS: METOPROLOL TART 50 MG TAB PO ×2 (08:27→21:14)
[2018-02-10] MEDS: ISOSORBIDE MON. (IMDUR) 60 MG XR TAB PO (08:27)
[2018-02-10] MEDS: ENOXAPARIN 40 MG/0.4 ML SYRINGE (J1650) SC (08:28)
[2018-02-10] MEDS: PANTOPRAZOLE 40MG INJ (PROTONIX) (C9113) IV (08:28)
[2018-02-10] MEDS: MAG SULF 1GM/100ML (MAG RUN) 1 GM in APPROPRIATE DILUENT 1 EA IV (11:13)
[2018-02-10] MEDS: POTASSIUM CHLORIDE 10 MEQ SR TABLET PO (11:14)
[2018-02-10] MEDS: FUROSEMIDE 20 MG/2 ML VIAL (J1940) IV (11:14)
[2018-02-10 12:26] LABS: BEDSIDE GLUCOSE 190 MG/DL (80-115)
[2018-02-10 16:44] LABS: BEDSIDE GLUCOSE 146 MG/DL (80-115)
[2018-02-10 21:20] LABS: BEDSIDE GLUCOSE 187 MG/DL (80-115)
[2018-02-11] MEDS: MORPHINE 4 MG/ML 1ML VIAL/SYRINGE (J2270) IV ×5 (01:31→21:18)
[2018-02-11] MEDS: HYDROCORTISONE 100 MG/2 ML VIAL (J1720) IV ×3 (01:31→17:37)
[2018-02-11] MEDS: PERCOCET 5MG/325MG TAB PO ×4 (03:41→17:38)
[2018-02-11 06:30] LABS: HEMATOCRIT 25.5 % (36.0-47.0); HEMOGLOBIN 8.5 g/dl (12.0-15.5); LYMPH # 0.5 10^3/uL (1.5-4.5); LYMPH % 9.9 % (24.0-44.0); MEAN CORPUSCULAR HEMOGLOBIN 30.2 pg (27.0-33.0); MEAN CORPUSCULAR HGB CONC 33.3 g/dl (32.0-36.5); MEAN CORPUSCULAR VOLUME 90.7 fl (80.0-96.0); MONO # 0.4 10^3/uL (0.0-0.8); MONO % 7.6 % (0.0-5.0); NEUTROPHILS # 3.7 10^3/uL (1.8-7.7); NEUTROPHILS % 78.5 % (36.0-66.0); PLATELET COUNT, AUTOMATED 149 10^3/uL (150-450); RED BLOOD COUNT 2.81 10^6/uL (4.00-5.40); RED CELL DISTRIBUTION WIDTH 18.1 % (11.5-14.5); WHITE BLOOD COUNT 4.7 10^3/uL (4.0-10.0)
[2018-02-11 06:47] LABS: ALBUMIN 1.8 GM/DL (3.2-5.2); ALBUMIN/GLOBULIN RATIO 0.58 (1.00-1.93); ALKALINE PHOSPHATASE 82 U/L (45-117); ALT/SGPT 23 U/L (12-78); ANION GAP 11 MEQ/L (8-16); AST/SGOT 15 U/L (7-37); BILIRUBIN,TOTAL 0.3 MG/DL (0.2-1.0); BLOOD UREA NITROGEN 5 MG/DL (7-18); CARBON DIOXIDE LEVEL 23 MEQ/L (21-32); CHLORIDE LEVEL 113 MEQ/L (98-107); CREATININE FOR GFR 0.49 MG/DL (0.55-1.30); GLOMERULAR FILTRATION RATE > 60.0 (>45); GLUCOSE, FASTING 126 MG/DL (70-100); MAGNESIUM LEVEL 1.6 MG/DL (1.8-2.4); POTASSIUM SERUM 3.2 MEQ/L (3.5-5.1); SODIUM LEVEL 147 MEQ/L (136-145); TOTAL PROTEIN 4.9 GM/DL (6.4-8.2)
[2018-02-11] MEDS: HumaLOG INSULIN (NovoLOG) PER UNIT SC ×4 (08:01→21:00)
[2018-02-11] MEDS: ISOSORBIDE MON. (IMDUR) 60 MG XR TAB PO (08:02)
[2018-02-11] MEDS: PANTOPRAZOLE 40MG INJ (PROTONIX) (C9113) IV (08:02)
[2018-02-11] MEDS: ENOXAPARIN 40 MG/0.4 ML SYRINGE (J1650) SC (08:02)
[2018-02-11] MEDS: ATORVASTATIN 20 MG TAB PO (08:03)
[2018-02-11] MEDS: METOPROLOL TART 50 MG TAB PO ×2 (08:03→21:17)
[2018-02-11] MEDS: POTASSIUM CHLORIDE 10 MEQ SR TABLET PO ×2 (10:40→12:21)
[2018-02-11 12:03] LABS: BEDSIDE GLUCOSE 119 MG/DL (80-115)
[2018-02-11] MEDS: MAG SULF 1GM/100ML (MAG RUN) 1 GM in APPROPRIATE DILUENT 1 EA IV (12:20)
[2018-02-11] MEDS: MIRALAX *UNIT DOSE* 17GM PACKET PO (13:59)
[2018-02-11 17:17] LABS: BEDSIDE GLUCOSE 157 MG/DL (80-115)
[2018-02-11] MEDS: GOLYTELY SOLN 4000 ML BTL PO (17:36)
[2018-02-11 20:40] LABS: BEDSIDE GLUCOSE 109 MG/DL (80-115)
[2018-02-12] MEDS: PERCOCET 5MG/325MG TAB PO ×5 (01:14→20:25)
[2018-02-12] MEDS: HYDROCORTISONE 100 MG/2 ML VIAL (J1720) IV ×3 (01:14→17:50)
[2018-02-12] MEDS: MORPHINE 4 MG/ML 1ML VIAL/SYRINGE (J2270) IV ×6 (02:28→22:09)
[2018-02-12 06:14] LABS: HEMATOCRIT 26.1 % (36.0-47.0); HEMOGLOBIN 8.6 g/dl (12.0-15.5); MEAN CORPUSCULAR HEMOGLOBIN 29.9 pg (27.0-33.0); MEAN CORPUSCULAR VOLUME 90.6 fl (80.0-96.0); PLATELET COUNT, AUTOMATED 147 10^3/uL (150-450); RED BLOOD COUNT 2.88 10^6/uL (4.00-5.40); RED CELL DISTRIBUTION WIDTH 18.4 % (11.5-14.5); WHITE BLOOD COUNT 3.9 10^3/uL (4.0-10.0)
[2018-02-12 06:22] LABS: ADD MANUAL DIFFER YES; DIFF SLIDE NUMBER 16; POS COUNT POS FLAG; POSITIVE MORPH POS FLAG
[2018-02-12 06:34] LABS: ALBUMIN 1.9 GM/DL (3.2-5.2); ALBUMIN/GLOBULIN RATIO 0.66 (1.00-1.93); ALKALINE PHOSPHATASE 78 U/L (45-117); ALT/SGPT 25 U/L (12-78); ANION GAP 10 MEQ/L (8-16); AST/SGOT 24 U/L (7-37); BILIRUBIN,TOTAL 0.2 MG/DL (0.2-1.0); BLOOD UREA NITROGEN 2 MG/DL (7-18); CALCIUM LEVEL 7.1 MG/DL (8.8-10.2); CARBON DIOXIDE LEVEL 29 MEQ/L (21-32); CHLORIDE LEVEL 111 MEQ/L (98-107); CREATININE FOR GFR 0.47 MG/DL (0.55-1.30); GLOMERULAR FILTRATION RATE > 60.0 (>45); GLUCOSE, FASTING 108 MG/DL (70-100); MAGNESIUM LEVEL 1.4 MG/DL (1.8-2.4); POTASSIUM SERUM 2.4 MEQ/L (3.5-5.1); SODIUM LEVEL 150 MEQ/L (136-145); TOTAL PROTEIN 4.8 GM/DL (6.4-8.2)
[2018-02-12] MEDS: POTASSIUM CHLORIDE 10 MEQ SR TABLET PO ×3 (06:51→09:57)
[2018-02-12 08:00] LABS: BANDS 1 % (< 11); EOSINOPHILS 1 % (0-5); LYMPHOCYTES 18 % (16-52); METAMYELOCYTES 1 % (0-0); MONOCYTES 2 % (0-8); MYELOCYTES 2 % (0-0); NEUTROPHILS 75 % (35-75)
[2018-02-12 08:01] LABS: ANISOCYTOSIS 2+; PLATELET ESTIMATE NORMAL (NORMAL); POIKILOCYTOSIS 1+; POLYCHROMASIA 1+
[2018-02-12] MEDS: HumaLOG INSULIN (NovoLOG) PER UNIT SC ×4 (08:27→20:24)
[2018-02-12] MEDS: MAG SULF 1GM/100ML (MAG RUN) 1 GM in APPROPRIATE DILUENT 1 EA IV ×4 (08:28→12:53)
[2018-02-12] MEDS: PANTOPRAZOLE 40MG INJ (PROTONIX) (C9113) IV (08:28)
[2018-02-12] MEDS: ENOXAPARIN 40 MG/0.4 ML SYRINGE (J1650) SC (08:28)
[2018-02-12] MEDS: ISOSORBIDE MON. (IMDUR) 60 MG XR TAB PO (08:29)
[2018-02-12] MEDS: ATORVASTATIN 20 MG TAB PO (08:29)
[2018-02-12] MEDS: METOPROLOL TART 50 MG TAB PO ×2 (08:29→20:23)
[2018-02-12] MEDS: POTASSIUM CHLORIDE INJ 40 MEQ in D5W 1,000 ML IV (09:59)
[2018-02-12] MEDS ORDERED: PROPOFOL 200 MG/20 ML VIAL As Ordered ×3 (10:31→14:55)
[2018-02-12] MEDS ORDERED: LIDOCAINE 2% INJ 100 MG/5 ML SDV (FOR ANES.) As Ordered (10:32)
[2018-02-12 11:30] LABS: BEDSIDE GLUCOSE 97 MG/DL (80-115)
[2018-02-12 12:12] LABS: ANION GAP 10 MEQ/L (8-16); BLOOD UREA NITROGEN 3 MG/DL (7-18); CALCIUM LEVEL 7.2 MG/DL (8.8-10.2); CARBON DIOXIDE LEVEL 30 MEQ/L (21-32); CHLORIDE LEVEL 109 MEQ/L (98-107); CREATININE FOR GFR 0.64 MG/DL (0.55-1.30); GLOMERULAR FILTRATION RATE > 60.0 (>45); GLUCOSE, FASTING 90 MG/DL (70-100); MAGNESIUM LEVEL 2.4 MG/DL (1.8-2.4); PHOSPHORUS LEVEL 1.6 MG/DL (2.5-4.9); POTASSIUM SERUM 3.1 MEQ/L (3.5-5.1); SODIUM LEVEL 149 MEQ/L (136-145)
[2018-02-12] MEDS: POTASSIUM PHOSPHATE INJ 30 MMOL in D5W 500 ML IV (16:17)
[2018-02-12 16:53] LABS: BEDSIDE GLUCOSE 115 MG/DL (80-115)
[2018-02-12 17:14] LABS: ANION GAP 11 MEQ/L (8-16); BLOOD UREA NITROGEN 2 MG/DL (7-18); CALCIUM LEVEL 7.6 MG/DL (8.8-10.2); CARBON DIOXIDE LEVEL 30 MEQ/L (21-32); CHLORIDE LEVEL 108 MEQ/L (98-107); GLOMERULAR FILTRATION RATE > 60.0 (>45); GLUCOSE, FASTING 113 MG/DL (70-100); MAGNESIUM LEVEL 2.5 MG/DL (1.8-2.4); PHOSPHORUS LEVEL 1.8 MG/DL (2.5-4.9); POTASSIUM SERUM 3.9 MEQ/L (3.5-5.1); SODIUM LEVEL 149 MEQ/L (136-145)
[2018-02-12] MEDS: PIPERACILLIN/TAZOBACTAM SOD 3.375 GM in D5W MINI-BAG PLUS 50 ML IV (20:25)
[2018-02-12 20:27] LABS: BEDSIDE GLUCOSE 168 MG/DL (80-115)
[2018-02-12 21:25] LABS: PHOSPHORUS LEVEL 1.9 MG/DL (2.5-4.9)
[2018-02-13] MEDS: PERCOCET 5MG/325MG TAB PO ×3 (00:07→08:29)
[2018-02-13] MEDS: MORPHINE 4 MG/ML 1ML VIAL/SYRINGE (J2270) IV ×8 (02:05→22:17)
[2018-02-13] MEDS: HYDROCORTISONE 100 MG/2 ML VIAL (J1720) IV ×3 (02:06→17:32)
[2018-02-13] MEDS: PIPERACILLIN/TAZOBACTAM SOD 3.375 GM in D5W MINI-BAG PLUS 50 ML IV ×3 (04:10→20:11)
[2018-02-13 06:45] LABS: HEMATOCRIT 28.4 % (36.0-47.0); HEMOGLOBIN 8.9 g/dl (12.0-15.5); MEAN CORPUSCULAR HEMOGLOBIN 29.5 pg (27.0-33.0); MEAN CORPUSCULAR HGB CONC 31.3 g/dl (32.0-36.5); PLATELET COUNT, AUTOMATED 152 10^3/uL (150-450); RED BLOOD COUNT 3.02 10^6/uL (4.00-5.40); RED CELL DISTRIBUTION WIDTH 19.6 % (11.5-14.5); WHITE BLOOD COUNT 4.4 10^3/uL (4.0-10.0)
[2018-02-13 06:53] LABS: ADD MANUAL DIFFER YES; DIFF SLIDE NUMBER 20
[2018-02-13 07:11] LABS: ALBUMIN 1.9 GM/DL (3.2-5.2); ALBUMIN/GLOBULIN RATIO 0.59 (1.00-1.93); ALKALINE PHOSPHATASE 83 U/L (45-117); ALT/SGPT 29 U/L (12-78); ANION GAP 9 MEQ/L (8-16); AST/SGOT 25 U/L (7-37); BILIRUBIN,TOTAL 0.3 MG/DL (0.2-1.0); BLOOD UREA NITROGEN 4 MG/DL (7-18); CALCIUM LEVEL 7.4 MG/DL (8.8-10.2); CARBON DIOXIDE LEVEL 28 MEQ/L (21-32); CHLORIDE LEVEL 107 MEQ/L (98-107); CREATININE FOR GFR 0.66 MG/DL (0.55-1.30); GLOMERULAR FILTRATION RATE > 60.0 (>45); GLUCOSE, FASTING 128 MG/DL (70-100); MAGNESIUM LEVEL 2.1 MG/DL (1.8-2.4); POTASSIUM SERUM 3.8 MEQ/L (3.5-5.1); SODIUM LEVEL 144 MEQ/L (136-145); TOTAL PROTEIN 5.1 GM/DL (6.4-8.2)
[2018-02-13 07:23] LABS: ANISOCYTOSIS 2+; BANDS 3 % (< 11); LYMPHOCYTES 15 % (16-52); METAMYELOCYTES 3 % (0-0); MONOCYTES 5 % (0-8); MYELOCYTES 7 % (0-0); NEUTROPHILS 67 % (35-75); PLATELET ESTIMATE NORMAL (NORMAL); POIKILOCYTOSIS 1+; POLYCHROMASIA 1+
[2018-02-13] MEDS: HumaLOG INSULIN (NovoLOG) PER UNIT SC ×4 (08:27→20:10)
[2018-02-13] MEDS: ENOXAPARIN 40 MG/0.4 ML SYRINGE (J1650) SC (08:28)
[2018-02-13] MEDS: NEUTRA-PHOS 1.25 GM PACKET PO ×3 (08:28→20:10)
[2018-02-13] MEDS: PANTOPRAZOLE 40MG INJ (PROTONIX) (C9113) IV (08:28)
[2018-02-13] MEDS: ISOSORBIDE MON. (IMDUR) 60 MG XR TAB PO (08:29)
[2018-02-13] MEDS: MAGNESIUM OXIDE 400 MG TAB (MAG-OX) PO (08:29)
[2018-02-13] MEDS: POTASSIUM CHLORIDE 10 MEQ SR TABLET PO ×2 (08:30→20:07)
[2018-02-13] MEDS: ATORVASTATIN 20 MG TAB PO (08:30)
[2018-02-13] MEDS: METOPROLOL TART 50 MG TAB PO ×2 (08:30→20:10)
[2018-02-13 11:26] LABS: BEDSIDE GLUCOSE 94 MG/DL (80-115)
[2018-02-13 16:36] LABS: BEDSIDE GLUCOSE 145 MG/DL (80-115)
[2018-02-13 19:43] LABS: BEDSIDE GLUCOSE 142 MG/DL (80-115)
[2018-02-14] MEDS: MORPHINE 4 MG/ML 1ML VIAL/SYRINGE (J2270) IV ×10 (00:24→23:32)
[2018-02-14] MEDS: HYDROCORTISONE 100 MG/2 ML VIAL (J1720) IV ×3 (02:22→17:23)
[2018-02-14] MEDS: PIPERACILLIN/TAZOBACTAM SOD 3.375 GM in D5W MINI-BAG PLUS 50 ML IV ×3 (04:22→20:15)
[2018-02-14 06:15] LABS: MEAN CORPUSCULAR HEMOGLOBIN 30.1 pg (27.0-33.0); MEAN CORPUSCULAR HGB CONC 32.1 g/dl (32.0-36.5); MEAN CORPUSCULAR VOLUME 93.6 fl (80.0-96.0); PLATELET COUNT, AUTOMATED 152 10^3/uL (150-450); RED BLOOD COUNT 2.99 10^6/uL (4.00-5.40); RED CELL DISTRIBUTION WIDTH 19.7 % (11.5-14.5); WHITE BLOOD COUNT 5.4 10^3/uL (4.0-10.0)
[2018-02-14 06:17] LABS: ADD MANUAL DIFFER YES; DIFF SLIDE NUMBER 7; POS COUNT POS FLAG; POSITIVE MORPH POS FLAG
[2018-02-14 06:30] LABS: ALBUMIN 1.9 GM/DL (3.2-5.2); ALBUMIN/GLOBULIN RATIO 0.63 (1.00-1.93); ALKALINE PHOSPHATASE 81 U/L (45-117); ALT/SGPT 30 U/L (12-78); ANION GAP 11 MEQ/L (8-16); AST/SGOT 23 U/L (7-37); BILIRUBIN,TOTAL 0.3 MG/DL (0.2-1.0); BLOOD UREA NITROGEN 7 MG/DL (7-18); CALCIUM LEVEL 7.4 MG/DL (8.8-10.2); CARBON DIOXIDE LEVEL 30 MEQ/L (21-32); CHLORIDE LEVEL 106 MEQ/L (98-107); CREATININE FOR GFR 0.66 MG/DL (0.55-1.30); GLOMERULAR FILTRATION RATE > 60.0 (>45); GLUCOSE, FASTING 115 MG/DL (70-100); MAGNESIUM LEVEL 1.7 MG/DL (1.8-2.4); PHOSPHORUS LEVEL 3.3 MG/DL (2.5-4.9); POTASSIUM SERUM 3.5 MEQ/L (3.5-5.1); SODIUM LEVEL 147 MEQ/L (136-145); TOTAL PROTEIN 4.9 GM/DL (6.4-8.2)
[2018-02-14 06:54] LABS: BANDS 2 % (< 11); LYMPHOCYTES 8 % (16-52); METAMYELOCYTES 6 % (0-0); MONOCYTES 4 % (0-8); MYELOCYTES 1 % (0-0); NEUTROPHILS 79 % (35-75)
[2018-02-14 06:55] LABS: ANISOCYTOSIS 2+; PLATELET ESTIMATE NORMAL (NORMAL)
[2018-02-14] MEDS: NEUTRA-PHOS 1.25 GM PACKET PO ×3 (08:15→20:16)
[2018-02-14] MEDS: MAGNESIUM OXIDE 400 MG TAB (MAG-OX) PO (08:15)
[2018-02-14] MEDS: MAG SULF 1GM/100ML (MAG RUN) 1 GM in APPROPRIATE DILUENT 1 EA IV (08:15)
[2018-02-14] MEDS: ATORVASTATIN 20 MG TAB PO (08:15)
[2018-02-14] MEDS: METOPROLOL TART 50 MG TAB PO ×2 (08:15→20:16)
[2018-02-14] MEDS: ISOSORBIDE MON. (IMDUR) 60 MG XR TAB PO (08:16)
[2018-02-14] MEDS: POTASSIUM CHLORIDE 10 MEQ SR TABLET PO ×2 (08:16→20:16)
[2018-02-14] MEDS: HumaLOG INSULIN (NovoLOG) PER UNIT SC ×4 (08:17→21:00)
[2018-02-14] MEDS: ENOXAPARIN 40 MG/0.4 ML SYRINGE (J1650) SC (08:17)
[2018-02-14] MEDS: PANTOPRAZOLE 40MG INJ (PROTONIX) (C9113) IV (08:29)
[2018-02-14] MEDS: LACTOBACILLUS RHAMNOSUS POWDER PACKET(CULTURELLE) PO ×2 (09:00→20:16)
[2018-02-14] MEDS: LACTOBACILLUS ACIDOPHILUS CAP (BACID) PO (09:24)
[2018-02-14 12:00] LABS: BEDSIDE GLUCOSE 96 MG/DL (80-115)
[2018-02-14] MEDS: D5W 1,000 ML IV (13:34)
[2018-02-14 17:06] LABS: BEDSIDE GLUCOSE 165 MG/DL (80-115)
[2018-02-14] MEDS: VANCOMYCIN ORAL SOL 250MG/5ML ORAL SYRINGE PO (19:49)
[2018-02-14 21:26] LABS: BEDSIDE GLUCOSE 160 MG/DL (80-115)
[2018-02-15] MEDS: HYDROCORTISONE 100 MG/2 ML VIAL (J1720) IV ×3 (00:57→17:01)
[2018-02-15] MEDS: VANCOMYCIN ORAL SOL 250MG/5ML ORAL SYRINGE PO ×4 (00:57→17:08)
[2018-02-15] MEDS: MORPHINE 4 MG/ML 1ML VIAL/SYRINGE (J2270) IV ×5 (02:04→17:00)
[2018-02-15] MEDS: PIPERACILLIN/TAZOBACTAM SOD 3.375 GM in D5W MINI-BAG PLUS 50 ML IV ×3 (05:00→20:32)
[2018-02-15 06:29] LABS: HEMATOCRIT 27.8 % (36.0-47.0); HEMOGLOBIN 9.1 g/dl (12.0-15.5); MEAN CORPUSCULAR HEMOGLOBIN 30.2 pg (27.0-33.0); MEAN CORPUSCULAR HGB CONC 32.7 g/dl (32.0-36.5); MEAN CORPUSCULAR VOLUME 92.4 fl (80.0-96.0); PLATELET COUNT, AUTOMATED 152 10^3/uL (150-450); RED BLOOD COUNT 3.01 10^6/uL (4.00-5.40); RED CELL DISTRIBUTION WIDTH 18.8 % (11.5-14.5); WHITE BLOOD COUNT 5.3 10^3/uL (4.0-10.0)
[2018-02-15 06:48] LABS: ALBUMIN 1.9 GM/DL (3.2-5.2); ALBUMIN/GLOBULIN RATIO 0.61 (1.00-1.93); ALKALINE PHOSPHATASE 92 U/L (45-117); ALT/SGPT 31 U/L (12-78); ANION GAP 10 MEQ/L (8-16); AST/SGOT 24 U/L (7-37); BILIRUBIN,TOTAL 0.4 MG/DL (0.2-1.0); BLOOD UREA NITROGEN 9 MG/DL (7-18); CALCIUM LEVEL 7.2 MG/DL (8.8-10.2); CARBON DIOXIDE LEVEL 34 MEQ/L (21-32); CHLORIDE LEVEL 101 MEQ/L (98-107); CREATININE FOR GFR 0.62 MG/DL (0.55-1.30); GLOMERULAR FILTRATION RATE > 60.0 (>45); GLUCOSE, FASTING 123 MG/DL (70-100); MAGNESIUM LEVEL 1.5 MG/DL (1.8-2.4); PHOSPHORUS LEVEL 3.4 MG/DL (2.5-4.9); SODIUM LEVEL 145 MEQ/L (136-145)
[2018-02-15 06:55] LABS: POTASSIUM SERUM 2.4 MEQ/L (3.5-5.1)
[2018-02-15 07:05] LABS: ADD MANUAL DIFFER YES; DIFF SLIDE NUMBER 3; POS COUNT POS FLAG; POSITIVE MORPH POS FLAG
[2018-02-15 07:14] LABS: BANDS 1 % (< 11); LYMPHOCYTES 15 % (16-52); METAMYELOCYTES 1 % (0-0); MONOCYTES 9 % (0-8); MYELOCYTES 2 % (0-0); NEUTROPHILS 72 % (35-75)
[2018-02-15 07:15] LABS: ANISOCYTOSIS 2+; PLATELET ESTIMATE NORMAL (NORMAL)
[2018-02-15] MEDS ORDERED: POTASSIUM CHLORIDE 10 MEQ SR TABLET PO (07:15)
[2018-02-15] MEDS: PANTOPRAZOLE 40MG INJ (PROTONIX) (C9113) IV (08:03)
[2018-02-15] MEDS: POTASSIUM CHLORIDE 10 MEQ SR TABLET PO ×5 (08:05→20:32)
[2018-02-15] MEDS: ISOSORBIDE MON. (IMDUR) 60 MG XR TAB PO (08:05)
[2018-02-15] MEDS: MAG SULF 1GM/100ML (MAG RUN) 1 GM in APPROPRIATE DILUENT 1 EA IV ×2 (08:05→10:08)
[2018-02-15] MEDS: ATORVASTATIN 20 MG TAB PO (08:05)
[2018-02-15] MEDS: MAGNESIUM OXIDE 400 MG TAB (MAG-OX) PO (08:06)
[2018-02-15] MEDS: METOPROLOL TART 50 MG TAB PO ×2 (08:07→20:32)
[2018-02-15] MEDS: LACTOBACILLUS RHAMNOSUS POWDER PACKET(CULTURELLE) PO ×2 (08:11→20:32)
[2018-02-15] MEDS: ENOXAPARIN 40 MG/0.4 ML SYRINGE (J1650) SC (08:12)
[2018-02-15] MEDS: NEUTRA-PHOS 1.25 GM PACKET PO ×3 (08:12→20:32)
[2018-02-15] MEDS: HumaLOG INSULIN (NovoLOG) PER UNIT SC ×4 (08:13→20:18)
[2018-02-15] MEDS: MORPHINE 15 MG SA TAB PO ×2 (10:19→20:33)
[2018-02-15 11:59] LABS: BEDSIDE GLUCOSE 117 MG/DL (80-115)
[2018-02-15] MEDS: ACETAMINOPHEN TAB 650MG DOSE (2X325MG) PO (15:21)
[2018-02-15 16:07] LABS: POTASSIUM SERUM 3.6 MEQ/L (3.5-5.1)
[2018-02-15 16:38] LABS: BEDSIDE GLUCOSE 160 MG/DL (80-115)
[2018-02-15 20:10] LABS: BEDSIDE GLUCOSE 159 MG/DL (80-115)
[2018-02-16] MEDS: VANCOMYCIN ORAL SOL 250MG/5ML ORAL SYRINGE PO ×3 (00:38→11:48)
[2018-02-16] MEDS: HYDROCORTISONE 100 MG/2 ML VIAL (J1720) IV ×3 (02:57→18:25)
[2018-02-16] MEDS: PIPERACILLIN/TAZOBACTAM SOD 3.375 GM in D5W MINI-BAG PLUS 50 ML IV ×3 (03:02→20:47)
[2018-02-16] MEDS: MORPHINE 4 MG/ML 1ML VIAL/SYRINGE (J2270) IV ×5 (03:08→23:16)
[2018-02-16 06:18] LABS: BEDSIDE GLUCOSE 117 MG/DL (80-115)
[2018-02-16 06:27] LABS: PHOSPHORUS LEVEL 3.1 MG/DL (2.5-4.9)
[2018-02-16 07:35] LABS: HEMOGLOBIN 9.1 g/dl (12.0-15.5); MEAN CORPUSCULAR HEMOGLOBIN 29.7 pg (27.0-33.0); MEAN CORPUSCULAR HGB CONC 31.4 g/dl (32.0-36.5); MEAN CORPUSCULAR VOLUME 94.8 fl (80.0-96.0); PLATELET COUNT, AUTOMATED 149 10^3/uL (150-450); RED BLOOD COUNT 3.06 10^6/uL (4.00-5.40); RED CELL DISTRIBUTION WIDTH 19.3 % (11.5-14.5); WHITE BLOOD COUNT 6.5 10^3/uL (4.0-10.0)
[2018-02-16 07:42] LABS: ALBUMIN/GLOBULIN RATIO 0.77 (1.00-1.93); ALKALINE PHOSPHATASE 86 U/L (45-117); ALT/SGPT 29 U/L (12-78); ANION GAP 9 MEQ/L (8-16); AST/SGOT 22 U/L (7-37); BILIRUBIN,TOTAL 0.4 MG/DL (0.2-1.0); BLOOD UREA NITROGEN 10 MG/DL (7-18); CALCIUM LEVEL 7.4 MG/DL (8.8-10.2); CARBON DIOXIDE LEVEL 35 MEQ/L (21-32); CHLORIDE LEVEL 103 MEQ/L (98-107); CREATININE FOR GFR 0.48 MG/DL (0.55-1.30); GLOMERULAR FILTRATION RATE > 60.0 (>45); GLUCOSE, FASTING 118 MG/DL (70-100); MAGNESIUM LEVEL 1.8 MG/DL (1.8-2.4); POTASSIUM SERUM 3.1 MEQ/L (3.5-5.1); SODIUM LEVEL 147 MEQ/L (136-145); TOTAL PROTEIN 4.6 GM/DL (6.4-8.2)
[2018-02-16 07:45] LABS: ADD MANUAL DIFFER YES; DIFF SLIDE NUMBER 77; POS COUNT POS FLAG; POSITIVE MORPH POS FLAG
[2018-02-16] MEDS: POTASSIUM CHLORIDE 10 MEQ SR TABLET PO ×6 (08:16→20:53)
[2018-02-16] MEDS: PANTOPRAZOLE 40MG INJ (PROTONIX) (C9113) IV (08:16)
[2018-02-16] MEDS: NEUTRA-PHOS 1.25 GM PACKET PO ×3 (08:16→20:47)
[2018-02-16] MEDS: LACTOBACILLUS RHAMNOSUS POWDER PACKET(CULTURELLE) PO ×2 (08:16→20:54)
[2018-02-16] MEDS: HumaLOG INSULIN (NovoLOG) PER UNIT SC ×4 (08:17→20:52)
[2018-02-16] MEDS: MAGNESIUM OXIDE 400 MG TAB (MAG-OX) PO (08:17)
[2018-02-16 08:18] LABS: ATYPICAL LYMPH 1 % (0-5); BANDS 1 % (< 11); LYMPHOCYTES 8 % (16-52); MONOCYTES 5 % (0-8); NEUTROPHILS 85 % (35-75); NUCLEATED RED BLOOD CELL 2 % (0-0)
[2018-02-16] MEDS: ATORVASTATIN 20 MG TAB PO (08:18)
[2018-02-16] MEDS: ENOXAPARIN 40 MG/0.4 ML SYRINGE (J1650) SC (08:18)
[2018-02-16] MEDS: MORPHINE 15 MG SA TAB PO ×2 (08:18→20:52)
[2018-02-16 08:19] LABS: ANISOCYTOSIS 1+; POIKILOCYTOSIS 1+; POLYCHROMASIA 1+
[2018-02-16 08:20] LABS: OVALOCYTES 1+
[2018-02-16] MEDS: ISOSORBIDE MON. (IMDUR) 60 MG XR TAB PO (08:21)
[2018-02-16] MEDS: METOPROLOL TART 50 MG TAB PO ×2 (08:22→20:53)
[2018-02-16 08:44] LABS: PLATELET ESTIMATE NORMAL (NORMAL)
[2018-02-16] MEDS: NEOMYCIN SULFATE 500 MG TAB PO ×2 (10:19→20:54)
[2018-02-16] MEDS ORDERED: MORPHINE 4 MG/ML 1ML VIAL/SYRINGE (J2270) IV (11:15)
[2018-02-16 11:43] LABS: BEDSIDE GLUCOSE 109 MG/DL (80-115)
[2018-02-16] MEDS: MAG SULF 1GM/100ML (MAG RUN) 1 GM in APPROPRIATE DILUENT 1 EA IV (11:47)
[2018-02-16] MEDS: FUROSEMIDE 40 MG/4 ML VIAL (J1940) IV (11:48)
[2018-02-16] MEDS: POTASSIUM CHLORIDE INJ 40 MEQ in D5W 1,000 ML IV (13:01)
[2018-02-16] MEDS: FIDAXOMICIN 200 MG TAB (DIFICID) PO ×2 (13:03→20:47)
[2018-02-16] MEDS: ACETAMINOPHEN TAB 650MG DOSE (2X325MG) PO (15:10)
[2018-02-16 15:27] LABS: ANION GAP 9 MEQ/L (8-16); BLOOD UREA NITROGEN 9 MG/DL (7-18); CALCIUM LEVEL 7.6 MG/DL (8.8-10.2); CARBON DIOXIDE LEVEL 36 MEQ/L (21-32); CHLORIDE LEVEL 98 MEQ/L (98-107); CREATININE FOR GFR 0.71 MG/DL (0.55-1.30); GLOMERULAR FILTRATION RATE > 60.0 (>45); GLUCOSE, FASTING 165 MG/DL (70-100); POTASSIUM SERUM 2.8 MEQ/L (3.5-5.1); SODIUM LEVEL 143 MEQ/L (136-145)
[2018-02-16] MEDS: GOLYTELY SOLN 4000 ML BTL PO (16:38)
[2018-02-16 16:51] LABS: BEDSIDE GLUCOSE 155 MG/DL (80-115)
[2018-02-16] MEDS: ONDANSETRON 4MG/2ML VIAL (J2405) IV (18:59)
[2018-02-16 19:57] LABS: BEDSIDE GLUCOSE 174 MG/DL (80-115)
[2018-02-17] MEDS: HYDROCORTISONE 100 MG/2 ML VIAL (J1720) IV ×3 (02:40→18:00)
[2018-02-17] MEDS: MORPHINE 4 MG/ML 1ML VIAL/SYRINGE (J2270) IV ×3 (02:45→10:09)
[2018-02-17] MEDS: PIPERACILLIN/TAZOBACTAM SOD 3.375 GM in D5W MINI-BAG PLUS 50 ML IV ×3 (03:19→22:00)
[2018-02-17] MEDS: NEOMYCIN SULFATE 500 MG TAB PO (05:53)
[2018-02-17 06:33] LABS: BASO % 0.2 % (0.0-1.0); HEMATOCRIT 30.4 % (36.0-47.0); HEMOGLOBIN 9.6 g/dl (12.0-15.5); IMMATURE GRANULOCYTE % 4.6 % (0-3.0); LYMPH # 0.9 10^3/uL (1.5-4.5); LYMPH % 17.9 % (24.0-44.0); MEAN CORPUSCULAR HEMOGLOBIN 30.1 pg (27.0-33.0); MEAN CORPUSCULAR HGB CONC 31.6 g/dl (32.0-36.5); MEAN CORPUSCULAR VOLUME 95.3 fl (80.0-96.0); MONO # 0.3 10^3/uL (0.0-0.8); MONO % 6.5 % (0.0-5.0); NEUTROPHILS # 3.6 10^3/uL (1.8-7.7); NEUTROPHILS % 70.8 % (36.0-66.0); PLATELET COUNT, AUTOMATED 145 10^3/uL (150-450); RED BLOOD COUNT 3.19 10^6/uL (4.00-5.40); RED CELL DISTRIBUTION WIDTH 19.3 % (11.5-14.5)
[2018-02-17 06:44] LABS: ALBUMIN/GLOBULIN RATIO 0.65 (1.00-1.93); ALKALINE PHOSPHATASE 81 U/L (45-117); ALT/SGPT 31 U/L (12-78); ANION GAP 8 MEQ/L (8-16); AST/SGOT 24 U/L (7-37); BILIRUBIN,TOTAL 0.4 MG/DL (0.2-1.0); BLOOD UREA NITROGEN 6 MG/DL (7-18); CALCIUM LEVEL 7.7 MG/DL (8.8-10.2); CARBON DIOXIDE LEVEL 38 MEQ/L (21-32); CHLORIDE LEVEL 100 MEQ/L (98-107); CREATININE FOR GFR 0.61 MG/DL (0.55-1.30); GLOMERULAR FILTRATION RATE > 60.0 (>45); GLUCOSE, FASTING 123 MG/DL (70-100); MAGNESIUM LEVEL 1.6 MG/DL (1.8-2.4); PHOSPHORUS LEVEL 3.3 MG/DL (2.5-4.9); SODIUM LEVEL 146 MEQ/L (136-145); TOTAL PROTEIN 5.1 GM/DL (6.4-8.2)
[2018-02-17] MEDS: HumaLOG INSULIN (NovoLOG) PER UNIT SC ×4 (07:30→21:00)
[2018-02-17] MEDS: FIDAXOMICIN 200 MG TAB (DIFICID) PO ×2 (08:26→22:01)
[2018-02-17] MEDS: ISOSORBIDE MON. (IMDUR) 60 MG XR TAB PO (08:27)
[2018-02-17] MEDS: METOPROLOL TART 50 MG TAB PO ×2 (08:27→21:00)
[2018-02-17] MEDS: POTASSIUM CHLORIDE 10 MEQ SR TABLET PO ×3 (08:28→11:55)
[2018-02-17] MEDS: ATORVASTATIN 20 MG TAB PO (08:28)
[2018-02-17] MEDS: MORPHINE 15 MG SA TAB PO (08:33)
[2018-02-17] MEDS: PANTOPRAZOLE 40MG INJ (PROTONIX) (C9113) IV (08:33)
[2018-02-17] MEDS: MAGNESIUM OXIDE 400 MG TAB (MAG-OX) PO (08:33)
[2018-02-17] MEDS: MAG SULF 1GM/100ML (MAG RUN) 1 GM in APPROPRIATE DILUENT 1 EA IV (08:33)
[2018-02-17] MEDS: LACTOBACILLUS RHAMNOSUS POWDER PACKET(CULTURELLE) PO ×2 (08:35→22:01)
[2018-02-17] MEDS: NEUTRA-PHOS 1.25 GM PACKET PO ×3 (08:35→22:01)
[2018-02-17] MEDS ORDERED: BUPIVACAINE HCL 0.25% 30 ML VIAL As Ordered (10:52)
[2018-02-17 11:42] LABS: BEDSIDE GLUCOSE 141 MG/DL (80-115)
[2018-02-17] MEDS: FUROSEMIDE 40 MG/4 ML VIAL (J1940) IV (11:55)
[2018-02-17 13:15] LABS: ANION GAP 8 MEQ/L (8-16); BLOOD UREA NITROGEN 5 MG/DL (7-18); CARBON DIOXIDE LEVEL 36 MEQ/L (21-32); CHLORIDE LEVEL 100 MEQ/L (98-107); CREATININE FOR GFR 0.68 MG/DL (0.55-1.30); GLOMERULAR FILTRATION RATE > 60.0 (>45); GLUCOSE, FASTING 133 MG/DL (70-100); MAGNESIUM LEVEL 2.1 MG/DL (1.8-2.4); POTASSIUM SERUM 4.2 MEQ/L (3.5-5.1); SODIUM LEVEL 144 MEQ/L (136-145)
[2018-02-17] MEDS: ZOSYN 3.375 GM VIAL (J2543) As Ordered (13:18)
[2018-02-17] MEDS: KCL 10MEQ/100ML SWI (KRUN) X 2 DOSES (20MEQ TOTAL) IV ×5 (17:21→22:05)
[2018-02-17] MEDS ORDERED: NEOSTIGMINE 10 MG/10 ML VIAL (J2710) As Ordered (18:29)
[2018-02-17] MEDS ORDERED: HYDROCORTISONE 100 MG/2 ML VIAL (J1720) As Ordered (18:29)
[2018-02-17] MEDS ORDERED: ONDANSETRON 4MG/2ML VIAL (J2405) As Ordered (18:29)
[2018-02-17] MEDS ORDERED: GLYCOPYRROLATE INJ 0.2 MG/ML 2 ML VIAL As Ordered (18:29)
[2018-02-17] MEDS ORDERED: MIDAZOLAM INJ 2 MG/2 ML VIAL (J2250) As Ordered (18:29)
[2018-02-17] MEDS ORDERED: LIDOCAINE 2% INJ 100 MG/5 ML SDV (FOR ANES.) As Ordered (18:29)
[2018-02-17] MEDS ORDERED: PROPOFOL 200 MG/20 ML VIAL As Ordered (18:29)
[2018-02-17] MEDS ORDERED: fentaNYL 250 MCG/5 ML INJECTION (J3010) As Ordered (18:29)
[2018-02-17] MEDS ORDERED: HYDROmorphone HCL 2 MG/ML 1ML VIAL (J1170) As Ordered (18:29)
[2018-02-17] MEDS ORDERED: ROCURONIUM BROMIDE 50 MG/5 ML VIAL As Ordered (18:29)
[2018-02-17] MEDS ORDERED: NALOXONE INJ 0.4 MG/1 ML VIAL (J2310) IV (19:30)
[2018-02-17] MEDS ORDERED: EPIDURAL/PCA KEYS XX (19:30)
[2018-02-17] MEDS ORDERED: NALBUPHINE HCL 10 MG/ML AMP (J2300) IV (19:30)
[2018-02-17] MEDS ORDERED: ONDANSETRON 4MG/2ML VIAL (J2405) IV ×2 (19:30→20:00)
[2018-02-17] MEDS ORDERED: diphenhydrAMINE INJ 50MG/ML VIAL (J1200) IV (19:30)
[2018-02-17] MEDS ORDERED: fentaNYL 100 MCG/2 ML INJECTION (J3010) As Ordered (19:47)
[2018-02-17] MEDS: fentaNYL 100 MCG/2 ML INJECTION (J3010) IV ×4 (19:47→20:12)
[2018-02-17] MEDS: MEPERIDINE INJ 25 MG/ML VIAL (J2175) IV ×2 (19:59→20:11)
[2018-02-17] MEDS ORDERED: MEPERIDINE INJ 25 MG/ML VIAL (J2175) As Ordered (19:59)
[2018-02-17] MEDS: LR 1,000 ML IV ×2 (20:00→22:00)
[2018-02-17] MEDS ORDERED: HYDROMORPHONE HCL 0.5 MG/ 0.5 ML SYRINGE (J1170 PER 1) IV (20:00)
[2018-02-17] MEDS ORDERED: PERCOCET 5MG/325MG TAB PO (20:00)
[2018-02-17] MEDS ORDERED: METOCLOPRAMIDE INJ 10MG/2ML VIAL (J2765) IV (20:00)
[2018-02-17] MEDS ORDERED: MORPHINE 1MG/ML IN 0.9% NACL 100ML IV BAG As Ordered (20:14)
[2018-02-17 21:37] LABS: BEDSIDE GLUCOSE 115 MG/DL (80-115)
[2018-02-17 21:45] LABS: ANION GAP 7 MEQ/L (8-16); BLOOD UREA NITROGEN 7 MG/DL (7-18); CALCIUM LEVEL 7.4 MG/DL (8.8-10.2); CARBON DIOXIDE LEVEL 38 MEQ/L (21-32); CHLORIDE LEVEL 101 MEQ/L (98-107); CREATININE FOR GFR 0.73 MG/DL (0.55-1.30); GLOMERULAR FILTRATION RATE > 60.0 (>45); GLUCOSE, FASTING 119 MG/DL (70-100); POTASSIUM SERUM 3.5 MEQ/L (3.5-5.1); SODIUM LEVEL 146 MEQ/L (136-145)
[2018-02-17] MEDS: ALVIMOPAN 12 MG CAPSULE (ENTEREG) PO (22:01)
[2018-02-18] MEDS: HYDROCORTISONE 100 MG/2 ML VIAL (J1720) IV ×3 (02:15→17:55)
[2018-02-18] MEDS: PIPERACILLIN/TAZOBACTAM SOD 3.375 GM in D5W MINI-BAG PLUS 50 ML IV ×3 (04:36→20:32)
[2018-02-18] MEDS: LR 1,000 ML IV (05:30)
[2018-02-18 06:46] LABS: BASO % 0.2 % (0.0-1.0); HEMATOCRIT 27.2 % (36.0-47.0); HEMOGLOBIN 8.4 g/dl (12.0-15.5); IMMATURE GRANULOCYTE % 3.3 % (0-3.0); LYMPH # 0.9 10^3/uL (1.5-4.5); LYMPH % 9.4 % (24.0-44.0); MEAN CORPUSCULAR HEMOGLOBIN 30.4 pg (27.0-33.0); MEAN CORPUSCULAR HGB CONC 30.9 g/dl (32.0-36.5); MEAN CORPUSCULAR VOLUME 98.6 fl (80.0-96.0); MONO # 0.5 10^3/uL (0.0-0.8); MONO % 5.4 % (0.0-5.0); NEUTROPHILS % 81.7 % (36.0-66.0); PLATELET COUNT, AUTOMATED 141 10^3/uL (150-450); RED BLOOD COUNT 2.76 10^6/uL (4.00-5.40); WHITE BLOOD COUNT 9.8 10^3/uL (4.0-10.0)
[2018-02-18] MEDS: POTASSIUM CHLORIDE 10 MEQ SR TABLET PO ×2 (07:05→08:29)
[2018-02-18] MEDS: HumaLOG INSULIN (NovoLOG) PER UNIT SC ×5 (07:07→20:33)
[2018-02-18 07:29] LABS: BLOOD UREA NITROGEN 7 MG/DL (7-18); GLUCOSE, FASTING 178 MG/DL (70-100)
[2018-02-18 07:30] LABS: ALBUMIN 1.6 GM/DL (3.2-5.2); ALBUMIN/GLOBULIN RATIO 0.59 (1.00-1.93); ALKALINE PHOSPHATASE 62 U/L (45-117); ALT/SGPT 25 U/L (12-78); ANION GAP 7 MEQ/L (8-16); AST/SGOT 23 U/L (7-37); BILIRUBIN,TOTAL 0.5 MG/DL (0.2-1.0); CALCIUM LEVEL 7.5 MG/DL (8.8-10.2); CARBON DIOXIDE LEVEL 37 MEQ/L (21-32); CHLORIDE LEVEL 100 MEQ/L (98-107); CREATININE FOR GFR 0.73 MG/DL (0.55-1.30); GLOMERULAR FILTRATION RATE > 60.0 (>45); MAGNESIUM LEVEL 1.7 MG/DL (1.8-2.4); POTASSIUM SERUM 3.9 MEQ/L (3.5-5.1); SODIUM LEVEL 144 MEQ/L (136-145); TOTAL PROTEIN 4.3 GM/DL (6.4-8.2)
[2018-02-18] MEDS: LACTOBACILLUS RHAMNOSUS POWDER PACKET(CULTURELLE) PO ×2 (08:26→20:32)
[2018-02-18] MEDS: NEUTRA-PHOS 1.25 GM PACKET PO ×2 (08:26→17:55)
[2018-02-18] MEDS: PANTOPRAZOLE 40MG INJ (PROTONIX) (C9113) IV (08:27)
[2018-02-18] MEDS: ENOXAPARIN 40 MG/0.4 ML SYRINGE (J1650) SC (08:27)
[2018-02-18] MEDS: FIDAXOMICIN 200 MG TAB (DIFICID) PO ×2 (08:31→20:33)
[2018-02-18] MEDS: ALVIMOPAN 12 MG CAPSULE (ENTEREG) PO ×2 (08:31→20:33)
[2018-02-18] MEDS: MAGNESIUM OXIDE 400 MG TAB (MAG-OX) PO (08:31)
[2018-02-18] MEDS: ATORVASTATIN 20 MG TAB PO (08:32)
[2018-02-18] MEDS: METOPROLOL TART 50 MG TAB PO ×2 (08:32→23:31)
[2018-02-18] MEDS: ISOSORBIDE MON. (IMDUR) 60 MG XR TAB PO (08:32)
[2018-02-18 11:35] LABS: BEDSIDE GLUCOSE 112 MG/DL (80-115)
[2018-02-18] MEDS: FUROSEMIDE 20 MG/2 ML VIAL (J1940) IV (13:00)
[2018-02-18 16:16] LABS: iSTAT CA++ 4.2 MG/DL (4.5-5.3)
[2018-02-18 16:26] LABS: BEDSIDE GLUCOSE 108 MG/DL (80-115)
[2018-02-18] MEDS: MORPHINE 1MG/ML IN 0.9% NACL 100ML IV BAG IV (16:41)
[2018-02-18] MEDS: MAG SULF 1GM/100ML (MAG RUN) 1 GM in APPROPRIATE DILUENT 1 EA IV (18:51)
[2018-02-18 20:28] LABS: BEDSIDE GLUCOSE 94 MG/DL (80-115)
[2018-02-19] MEDS: PIPERACILLIN/TAZOBACTAM SOD 3.375 GM in D5W MINI-BAG PLUS 50 ML IV ×3 (04:17→21:40)
[2018-02-19 06:39] LABS: ALBUMIN 1.7 GM/DL (3.2-5.2); ALBUMIN/GLOBULIN RATIO 0.63 (1.00-1.93); ALKALINE PHOSPHATASE 65 U/L (45-117); ALT/SGPT 24 U/L (12-78); ANION GAP 5 MEQ/L (8-16); AST/SGOT 18 U/L (7-37); BILIRUBIN,TOTAL 0.4 MG/DL (0.2-1.0); BLOOD UREA NITROGEN 8 MG/DL (7-18); CALCIUM LEVEL 7.9 MG/DL (8.8-10.2); CARBON DIOXIDE LEVEL 39 MEQ/L (21-32); CHLORIDE LEVEL 99 MEQ/L (98-107); CREATININE FOR GFR 0.59 MG/DL (0.55-1.30); GLOMERULAR FILTRATION RATE > 60.0 (>45); GLUCOSE, FASTING 91 MG/DL (70-100); MAGNESIUM LEVEL 1.8 MG/DL (1.8-2.4); POTASSIUM SERUM 3.2 MEQ/L (3.5-5.1); SODIUM LEVEL 143 MEQ/L (136-145); TOTAL PROTEIN 4.4 GM/DL (6.4-8.2)
[2018-02-19] MEDS: HYDROCORTISONE 100 MG/2 ML VIAL (J1720) IV ×2 (06:50→17:49)
[2018-02-19] MEDS: HumaLOG INSULIN (NovoLOG) PER UNIT SC ×4 (07:30→21:13)
[2018-02-19] MEDS: PANTOPRAZOLE 40MG INJ (PROTONIX) (C9113) IV (09:21)
[2018-02-19] MEDS: ENOXAPARIN 40 MG/0.4 ML SYRINGE (J1650) SC (09:21)
[2018-02-19] MEDS: FIDAXOMICIN 200 MG TAB (DIFICID) PO ×2 (09:21→21:40)
[2018-02-19] MEDS: MAGNESIUM OXIDE 400 MG TAB (MAG-OX) PO (09:21)
[2018-02-19] MEDS: METOPROLOL TART 50 MG TAB PO ×2 (09:28→22:00)
[2018-02-19] MEDS: ATORVASTATIN 20 MG TAB PO (09:28)
[2018-02-19] MEDS: LACTOBACILLUS RHAMNOSUS POWDER PACKET(CULTURELLE) PO ×2 (09:29→21:40)
[2018-02-19] MEDS: ISOSORBIDE MON. (IMDUR) 60 MG XR TAB PO (09:29)
[2018-02-19] MEDS: POTASSIUM CHLORIDE 10 MEQ SR TABLET PO (09:30)
[2018-02-19] MEDS: ALVIMOPAN 12 MG CAPSULE (ENTEREG) PO ×2 (09:30→21:40)
[2018-02-19] MEDS: LR 1,000 ML IV (09:32)
[2018-02-19] MEDS: DOCUSATE SODIUM 100 MG CAP PO ×2 (10:22→21:40)
[2018-02-19] MEDS: FUROSEMIDE 40 MG/4 ML VIAL (J1940) IV (10:24)
[2018-02-19 11:33] LABS: BEDSIDE GLUCOSE 142 MG/DL (80-115)
[2018-02-19] MEDS ORDERED: REFRIGERATOR IV KEYS XX (16:30)
[2018-02-19 16:40] LABS: BEDSIDE GLUCOSE 103 MG/DL (80-115)
[2018-02-19] MEDS: MORPHINE 1MG/ML IN 0.9% NACL 100ML IV BAG IV (16:52)
[2018-02-19 19:59] LABS: BEDSIDE GLUCOSE 129 MG/DL (80-115)
[2018-02-20] MEDS: PIPERACILLIN/TAZOBACTAM SOD 3.375 GM in D5W MINI-BAG PLUS 50 ML IV ×3 (03:53→21:13)
[2018-02-20 06:32] LABS: ALBUMIN 1.5 GM/DL (3.2-5.2); ALBUMIN/GLOBULIN RATIO 0.52 (1.00-1.93); ALKALINE PHOSPHATASE 70 U/L (45-117); ALT/SGPT 22 U/L (12-78); ANION GAP 7 MEQ/L (8-16); AST/SGOT 14 U/L (7-37); BILIRUBIN,TOTAL 0.3 MG/DL (0.2-1.0); BLOOD UREA NITROGEN 8 MG/DL (7-18); CALCIUM LEVEL 7.7 MG/DL (8.8-10.2); CARBON DIOXIDE LEVEL 40 MEQ/L (21-32); CHLORIDE LEVEL 99 MEQ/L (98-107); CREATININE FOR GFR 0.44 MG/DL (0.55-1.30); GLOMERULAR FILTRATION RATE > 60.0 (>45); GLUCOSE, FASTING 108 MG/DL (70-100); POTASSIUM SERUM 2.7 MEQ/L (3.5-5.1); SODIUM LEVEL 146 MEQ/L (136-145); TOTAL PROTEIN 4.4 GM/DL (6.4-8.2)
[2018-02-20] MEDS: HYDROCORTISONE 100 MG/2 ML VIAL (J1720) IV ×2 (06:34→18:16)
[2018-02-20 07:03] LABS: MAGNESIUM LEVEL 1.8 MG/DL (1.8-2.4)
[2018-02-20] MEDS: HumaLOG INSULIN (NovoLOG) PER UNIT SC ×4 (08:23→21:14)
[2018-02-20] MEDS: MAG SULF 1GM/100ML (MAG RUN) 1 GM in APPROPRIATE DILUENT 1 EA IV (08:29)
[2018-02-20] MEDS: LR 1,000 ML IV (08:30)
[2018-02-20] MEDS: LACTOBACILLUS RHAMNOSUS POWDER PACKET(CULTURELLE) PO ×2 (08:31→21:13)
[2018-02-20] MEDS: ENOXAPARIN 40 MG/0.4 ML SYRINGE (J1650) SC (08:31)
[2018-02-20] MEDS: FIDAXOMICIN 200 MG TAB (DIFICID) PO ×2 (08:31→21:13)
[2018-02-20] MEDS: ISOSORBIDE MON. (IMDUR) 60 MG XR TAB PO (08:32)
[2018-02-20] MEDS: ATORVASTATIN 20 MG TAB PO (08:32)
[2018-02-20] MEDS: ALVIMOPAN 12 MG CAPSULE (ENTEREG) PO ×2 (08:32→21:13)
[2018-02-20] MEDS: DOCUSATE SODIUM 100 MG CAP PO ×2 (08:32→21:13)
[2018-02-20] MEDS: METOPROLOL TART 50 MG TAB PO ×2 (08:33→21:14)
[2018-02-20] MEDS: MAGNESIUM OXIDE 400 MG TAB (MAG-OX) PO (08:33)
[2018-02-20] MEDS: POTASSIUM CHLORIDE 10 MEQ SR TABLET PO ×3 (08:34→21:14)
[2018-02-20] MEDS: PANTOPRAZOLE 40MG INJ (PROTONIX) (C9113) IV (09:17)
[2018-02-20 11:38] LABS: BEDSIDE GLUCOSE 133 MG/DL (80-115)
[2018-02-20] MEDS: MORPHINE 1MG/ML IN 0.9% NACL 100ML IV BAG IV (15:49)
[2018-02-20 16:58] LABS: BEDSIDE GLUCOSE 142 MG/DL (80-115)
[2018-02-20 20:20] LABS: ANION GAP 6 MEQ/L (8-16); BLOOD UREA NITROGEN 8 MG/DL (7-18); CALCIUM LEVEL 7.8 MG/DL (8.8-10.2); CARBON DIOXIDE LEVEL 39 MEQ/L (21-32); CHLORIDE LEVEL 100 MEQ/L (98-107); CREATININE FOR GFR 0.54 MG/DL (0.55-1.30); GLOMERULAR FILTRATION RATE > 60.0 (>45); GLUCOSE, FASTING 79 MG/DL (70-100); POTASSIUM SERUM 3.1 MEQ/L (3.5-5.1); SODIUM LEVEL 145 MEQ/L (136-145)
[2018-02-20 20:28] LABS: BEDSIDE GLUCOSE 97 MG/DL (80-115)
[2018-02-21] MEDS: PIPERACILLIN/TAZOBACTAM SOD 3.375 GM in D5W MINI-BAG PLUS 50 ML IV ×3 (05:21→20:22)
[2018-02-21] MEDS: HYDROCORTISONE 100 MG/2 ML VIAL (J1720) IV (05:21)
[2018-02-21 06:45] LABS: BASO % 0.2 % (0.0-1.0); HEMATOCRIT 25.2 % (36.0-47.0); HEMOGLOBIN 7.7 g/dl (12.0-15.5); IMMATURE GRANULOCYTE % 4.5 % (0-3.0); LYMPH # 0.8 10^3/uL (1.5-4.5); LYMPH % 12.5 % (24.0-44.0); MEAN CORPUSCULAR HEMOGLOBIN 30.1 pg (27.0-33.0); MEAN CORPUSCULAR HGB CONC 30.6 g/dl (32.0-36.5); MEAN CORPUSCULAR VOLUME 98.4 fl (80.0-96.0); MONO # 0.5 10^3/uL (0.0-0.8); NEUTROPHILS # 4.9 10^3/uL (1.8-7.7); NEUTROPHILS % 74.8 % (36.0-66.0); PLATELET COUNT, AUTOMATED 147 10^3/uL (150-450); RED BLOOD COUNT 2.56 10^6/uL (4.00-5.40); RED CELL DISTRIBUTION WIDTH 19.5 % (11.5-14.5); WHITE BLOOD COUNT 6.5 10^3/uL (4.0-10.0)
[2018-02-21 07:02] LABS: ANION GAP 8 MEQ/L (8-16); BLOOD UREA NITROGEN 7 MG/DL (7-18); CARBON DIOXIDE LEVEL 35 MEQ/L (21-32); CHLORIDE LEVEL 102 MEQ/L (98-107); CREATININE FOR GFR 0.62 MG/DL (0.55-1.30); GLOMERULAR FILTRATION RATE > 60.0 (>45); GLUCOSE, FASTING 181 MG/DL (70-100); POTASSIUM SERUM 3.3 MEQ/L (3.5-5.1); SODIUM LEVEL 145 MEQ/L (136-145)
[2018-02-21 07:38] LABS: MAGNESIUM LEVEL 1.9 MG/DL (1.8-2.4)
[2018-02-21] MEDS: HumaLOG INSULIN (NovoLOG) PER UNIT SC ×4 (08:30→20:47)
[2018-02-21] MEDS: PANTOPRAZOLE 40MG INJ (PROTONIX) (C9113) IV (08:30)
[2018-02-21] MEDS: LACTOBACILLUS RHAMNOSUS POWDER PACKET(CULTURELLE) PO ×2 (08:31→20:23)
[2018-02-21] MEDS: FIDAXOMICIN 200 MG TAB (DIFICID) PO ×2 (08:31→20:23)
[2018-02-21] MEDS: ENOXAPARIN 40 MG/0.4 ML SYRINGE (J1650) SC (08:31)
[2018-02-21] MEDS: POTASSIUM CHLORIDE 10 MEQ SR TABLET PO ×3 (08:33→20:23)
[2018-02-21] MEDS: ALVIMOPAN 12 MG CAPSULE (ENTEREG) PO ×2 (08:33→20:23)
[2018-02-21] MEDS: DOCUSATE SODIUM 100 MG CAP PO ×2 (08:33→20:22)
[2018-02-21] MEDS: ATORVASTATIN 20 MG TAB PO (08:33)
[2018-02-21] MEDS: MAGNESIUM OXIDE 400 MG TAB (MAG-OX) PO (08:33)
[2018-02-21] MEDS: ISOSORBIDE MON. (IMDUR) 60 MG XR TAB PO (08:33)
[2018-02-21] MEDS: METOPROLOL TART 50 MG TAB PO ×2 (08:35→20:23)
[2018-02-21 12:15] LABS: BEDSIDE GLUCOSE 139 MG/DL (80-115)
[2018-02-21] MEDS: PERCOCET 5MG/325MG TAB PO ×2 (14:36→20:24)
[2018-02-21] MEDS: MORPHINE 4 MG/ML 1ML VIAL/SYRINGE (J2270) IV (16:14)
[2018-02-21 16:58] LABS: BEDSIDE GLUCOSE 122 MG/DL (80-115)
[2018-02-21] MEDS: FUROSEMIDE 40 MG/4 ML VIAL (J1940) IV (17:42)
[2018-02-21 20:43] LABS: BEDSIDE GLUCOSE 103 MG/DL (80-115)
[2018-02-22] MEDS: PERCOCET 5MG/325MG TAB PO ×3 (01:46→17:40)
[2018-02-22] MEDS: PIPERACILLIN/TAZOBACTAM SOD 3.375 GM in D5W MINI-BAG PLUS 50 ML IV ×3 (04:58→21:35)
[2018-02-22 05:54] LABS: BASO % 0.5 % (0.0-1.0); EOS % 0.4 % (0.0-3.0); HEMATOCRIT 25.6 % (36.0-47.0); HEMOGLOBIN 7.8 g/dl (12.0-15.5); IMMATURE GRANULOCYTE % 4.9 % (0-3.0); LYMPH # 0.9 10^3/uL (1.5-4.5); LYMPH % 16.2 % (24.0-44.0); MEAN CORPUSCULAR HGB CONC 30.5 g/dl (32.0-36.5); MEAN CORPUSCULAR VOLUME 101.6 fl (80.0-96.0); MONO # 0.4 10^3/uL (0.0-0.8); PLATELET COUNT, AUTOMATED 151 10^3/uL (150-450); RED BLOOD COUNT 2.52 10^6/uL (4.00-5.40); WHITE BLOOD COUNT 5.6 10^3/uL (4.0-10.0)
[2018-02-22 06:11] LABS: ALBUMIN 1.7 GM/DL (3.2-5.2); ALBUMIN/GLOBULIN RATIO 0.57 (1.00-1.93); ALKALINE PHOSPHATASE 71 U/L (45-117); ALT/SGPT 19 U/L (12-78); ANION GAP 6 MEQ/L (8-16); AST/SGOT 17 U/L (7-37); BILIRUBIN,TOTAL 0.4 MG/DL (0.2-1.0); BLOOD UREA NITROGEN 7 MG/DL (7-18); CALCIUM LEVEL 7.6 MG/DL (8.8-10.2); CARBON DIOXIDE LEVEL 34 MEQ/L (21-32); CHLORIDE LEVEL 109 MEQ/L (98-107); CREATININE FOR GFR 0.55 MG/DL (0.55-1.30); GLOMERULAR FILTRATION RATE > 60.0 (>45); GLUCOSE, FASTING 81 MG/DL (70-100); POTASSIUM SERUM 3.7 MEQ/L (3.5-5.1); SODIUM LEVEL 149 MEQ/L (136-145); TOTAL PROTEIN 4.7 GM/DL (6.4-8.2)
[2018-02-22] MEDS: HumaLOG INSULIN (NovoLOG) PER UNIT SC ×4 (07:30→22:11)
[2018-02-22] MEDS: METOPROLOL TART 50 MG TAB PO ×2 (09:00→21:36)
[2018-02-22] MEDS: LACTOBACILLUS RHAMNOSUS POWDER PACKET(CULTURELLE) PO ×2 (09:17→21:36)
[2018-02-22] MEDS: ALVIMOPAN 12 MG CAPSULE (ENTEREG) PO ×2 (09:17→21:35)
[2018-02-22] MEDS: POTASSIUM CHLORIDE 10 MEQ SR TABLET PO ×3 (09:17→21:35)
[2018-02-22] MEDS: FIDAXOMICIN 200 MG TAB (DIFICID) PO ×2 (09:17→21:36)
[2018-02-22] MEDS: ATORVASTATIN 20 MG TAB PO (09:18)
[2018-02-22] MEDS: DOCUSATE SODIUM 100 MG CAP PO ×2 (09:18→21:36)
[2018-02-22] MEDS: MAGNESIUM OXIDE 400 MG TAB (MAG-OX) PO (09:18)
[2018-02-22] MEDS: ISOSORBIDE MON. (IMDUR) 60 MG XR TAB PO (09:21)
[2018-02-22] MEDS: PANTOPRAZOLE 40MG INJ (PROTONIX) (C9113) IV (09:22)
[2018-02-22] MEDS: ENOXAPARIN 40 MG/0.4 ML SYRINGE (J1650) SC (09:23)
[2018-02-22] MEDS: HYDROCORTISONE 100 MG/2 ML VIAL (J1720) IV (09:25)
[2018-02-22] MEDS: MORPHINE 4 MG/ML 1ML VIAL/SYRINGE (J2270) IV ×3 (11:17→19:51)
[2018-02-22] MEDS: NS IV ×2 (11:39→22:44)
[2018-02-22] MEDS: GANCICLOVIR SODIUM IV ×2 (11:39→22:44)
[2018-02-22 13:16] LABS: BEDSIDE GLUCOSE 132 MG/DL (80-115)
[2018-02-22 17:33] LABS: BEDSIDE GLUCOSE 101 MG/DL (80-115)
[2018-02-22 22:10] LABS: BEDSIDE GLUCOSE 127 MG/DL (80-115)
[2018-02-22] MEDS: zolPIDEM TARTRATE 5 MG TAB PO (22:16)
[2018-02-23] MEDS: PERCOCET 5MG/325MG TAB PO ×3 (00:43→20:52)
[2018-02-23 01:06] LABS: IMMEDIATE SPIN CROSSMATCH 1 2
[2018-02-23] MEDS: MORPHINE 4 MG/ML 1ML VIAL/SYRINGE (J2270) IV ×7 (01:07→18:59)
[2018-02-23] MEDS: PIPERACILLIN/TAZOBACTAM SOD 3.375 GM in D5W MINI-BAG PLUS 50 ML IV ×3 (05:21→20:29)
[2018-02-23 06:00] LABS: HEMATOCRIT 35.8 % (36.0-47.0); MEAN CORPUSCULAR HEMOGLOBIN 30.3 pg (27.0-33.0); MEAN CORPUSCULAR HGB CONC 31.8 g/dl (32.0-36.5); MEAN CORPUSCULAR VOLUME 95.2 fl (80.0-96.0); PLATELET COUNT, AUTOMATED 163 10^3/uL (150-450); RED BLOOD COUNT 3.76 10^6/uL (4.00-5.40); RED CELL DISTRIBUTION WIDTH 20.1 % (11.5-14.5); WHITE BLOOD COUNT 6.3 10^3/uL (4.0-10.0)
[2018-02-23 06:04] LABS: HEMOGLOBIN 11.4 g/dl (12.0-15.5)
[2018-02-23 07:48] LABS: BEDSIDE GLUCOSE 131 MG/DL (80-115)
[2018-02-23] MEDS: HYDROCORTISONE 100 MG/2 ML VIAL (J1720) IV (09:51)
[2018-02-23] MEDS: DOCUSATE SODIUM 100 MG CAP PO ×2 (09:51→20:29)
[2018-02-23] MEDS: MAGNESIUM OXIDE 400 MG TAB (MAG-OX) PO (09:52)
[2018-02-23] MEDS: ALVIMOPAN 12 MG CAPSULE (ENTEREG) PO ×2 (09:53→20:29)
[2018-02-23] MEDS: LACTOBACILLUS RHAMNOSUS POWDER PACKET(CULTURELLE) PO ×2 (09:54→20:29)
[2018-02-23] MEDS: FIDAXOMICIN 200 MG TAB (DIFICID) PO ×2 (09:54→20:30)
[2018-02-23] MEDS: POTASSIUM CHLORIDE 10 MEQ SR TABLET PO ×4 (09:54→20:34)
[2018-02-23] MEDS: ISOSORBIDE MON. (IMDUR) 60 MG XR TAB PO (09:54)
[2018-02-23] MEDS: METOPROLOL TART 50 MG TAB PO ×2 (09:54→20:34)
[2018-02-23] MEDS: HumaLOG INSULIN (NovoLOG) PER UNIT SC ×4 (09:55→21:09)
[2018-02-23] MEDS: PANTOPRAZOLE 40MG INJ (PROTONIX) (C9113) IV (09:55)
[2018-02-23] MEDS: ATORVASTATIN 20 MG TAB PO (09:55)
[2018-02-23] MEDS: GANCICLOVIR SODIUM IV ×2 (09:56→22:07)
[2018-02-23] MEDS: NS IV ×2 (09:56→22:07)
[2018-02-23] MEDS: ENOXAPARIN 40 MG/0.4 ML SYRINGE (J1650) SC (09:56)
[2018-02-23 11:32] LABS: BEDSIDE GLUCOSE 101 MG/DL (80-115)
[2018-02-23 14:19] LABS: MAGNESIUM LEVEL 1.9 MG/DL (1.8-2.4)
[2018-02-23] MEDS: MAG SULF 1GM/100ML (MAG RUN) 1 GM in APPROPRIATE DILUENT 1 EA IV (16:10)
[2018-02-23 16:53] LABS: BEDSIDE GLUCOSE 155 MG/DL (80-115)
[2018-02-23] MEDS: zolPIDEM TARTRATE 5 MG TAB PO (20:51)
[2018-02-23 20:59] LABS: BEDSIDE GLUCOSE 95 MG/DL (80-115)
[2018-02-24] MEDS: PERCOCET 5MG/325MG TAB PO ×3 (01:00→13:05)
[2018-02-24] MEDS: PIPERACILLIN/TAZOBACTAM SOD 3.375 GM in D5W MINI-BAG PLUS 50 ML IV ×2 (03:18→13:06)
[2018-02-24] MEDS: MORPHINE 4 MG/ML 1ML VIAL/SYRINGE (J2270) IV ×2 (03:48→14:37)
[2018-02-24 06:14] LABS: HEMATOCRIT 36.9 % (36.0-47.0); HEMOGLOBIN 11.7 g/dl (12.0-15.5); MEAN CORPUSCULAR HEMOGLOBIN 30.2 pg (27.0-33.0); MEAN CORPUSCULAR HGB CONC 31.7 g/dl (32.0-36.5); MEAN CORPUSCULAR VOLUME 95.1 fl (80.0-96.0); PLATELET COUNT, AUTOMATED 162 10^3/uL (150-450); RED BLOOD COUNT 3.88 10^6/uL (4.00-5.40); RED CELL DISTRIBUTION WIDTH 19.9 % (11.5-14.5); WHITE BLOOD COUNT 6.3 10^3/uL (4.0-10.0)
[2018-02-24 06:37] LABS: ANION GAP 9 MEQ/L (8-16); BLOOD UREA NITROGEN 7 MG/DL (7-18); CALCIUM LEVEL 7.7 MG/DL (8.8-10.2); CARBON DIOXIDE LEVEL 25 MEQ/L (21-32); CHLORIDE LEVEL 112 MEQ/L (98-107); GLOMERULAR FILTRATION RATE > 60.0 (>45); GLUCOSE, FASTING 80 MG/DL (70-100); POTASSIUM SERUM 3.6 MEQ/L (3.5-5.1); SODIUM LEVEL 146 MEQ/L (136-145)
[2018-02-24] MEDS: HumaLOG INSULIN (NovoLOG) PER UNIT SC ×2 (07:30→13:07)
[2018-02-24] MEDS: PANTOPRAZOLE 40MG INJ (PROTONIX) (C9113) IV (09:37)
[2018-02-24] MEDS: NS IV (09:37)
[2018-02-24] MEDS: GANCICLOVIR SODIUM IV (09:37)
[2018-02-24] MEDS: LACTOBACILLUS RHAMNOSUS POWDER PACKET(CULTURELLE) PO (09:38)
[2018-02-24] MEDS: POTASSIUM CHLORIDE 10 MEQ SR TABLET PO (09:38)
[2018-02-24] MEDS: ENOXAPARIN 40 MG/0.4 ML SYRINGE (J1650) SC (09:38)
[2018-02-24] MEDS: FIDAXOMICIN 200 MG TAB (DIFICID) PO (09:39)
[2018-02-24] MEDS: DOCUSATE SODIUM 100 MG CAP PO (09:40)
[2018-02-24] MEDS: MAGNESIUM OXIDE 400 MG TAB (MAG-OX) PO (09:40)
[2018-02-24] MEDS: ALVIMOPAN 12 MG CAPSULE (ENTEREG) PO (09:40)
[2018-02-24] MEDS: ATORVASTATIN 20 MG TAB PO (09:40)
[2018-02-24] MEDS: HYDROCORTISONE 100 MG/2 ML VIAL (J1720) IV (09:40)
[2018-02-24] MEDS: METOPROLOL TART 50 MG TAB PO (09:41)
[2018-02-24 09:42] LABS: HIV 1&2 SCREEN CENTAUR NEGATIVE (NEGATIVE)
[2018-02-24] MEDS: ISOSORBIDE MON. (IMDUR) 60 MG XR TAB PO (09:42)
[2018-02-24 11:40] LABS: BEDSIDE GLUCOSE 137 MG/DL (80-115)
== END 2018-02-24 16:35 | disposition short-term general hospital (02) | DRG 329 ==
LOC: M MS5PR 20:42 → M MSPAV 23:20
PROVIDERS: Emergency Medicine Pediatric Emergency Medicine
PROC: 0DBP8ZX Excision of Rectum, Via Natural or Artificial Opening Endoscopic, Diagnostic (ICD-10-PCS; 2018-02-12 13:30)
PROC: 0DBN0ZZ Excision of Sigmoid Colon, Open Approach (ICD-10-PCS; principal; 2018-02-12 14:37)
PROC: 0DBP0ZZ Excision of Rectum, Open Approach (ICD-10-PCS; 2018-02-12 14:37)
PROC: 0DBB0ZZ Excision of Ileum, Open Approach (ICD-10-PCS; 2018-02-12 14:37)
PROC: 0D1N0Z4 Bypass Sigmoid Colon to Cutaneous, Open Approach (ICD-10-PCS; 2018-02-12 14:37)
DX: K63.1 Perforation of intestine (nontraumatic) (principal); K65.1 Peritoneal abscess; J95.821 Acute postprocedural respiratory failure; A04.71 Enterocolitis due to Clostridium difficile, recurrent; C85.11 Unspecified B-cell lymphoma, lymph nodes of head, face, and neck; K63.2 Fistula of intestine; E87.0 Hyperosmolality and hypernatremia; E46 Unspecified protein-calorie malnutrition; I47.1 Supraventricular tachycardia; B25.9 Cytomegaloviral disease, unspecified; E87.6 Hypokalemia; I10 Essential (primary) hypertension; E11.9 Type 2 diabetes mellitus without complications; I25.10 Atherosclerotic heart disease of native coronary artery without angina pectoris; E83.42 Hypomagnesemia; N80.9 Endometriosis, unspecified; Z79.899 Other long term (current) drug therapy; I25.2 Old myocardial infarction; E78.5 Hyperlipidemia, unspecified; M10.9 Gout, unspecified; Z88.6 Allergy status to analgesic agent; Z88.8 Allergy status to other drugs, medicaments and biological substances; Z87.891 Personal history of nicotine dependence; K62.1 Rectal polyp

== ENCOUNTER → 2018-03-24 | Outpatient (REF) | payer MEDICARE ==
[2018-03-24 14:16] LABS: BASO # 0.1 10^3/uL (0.0-0.2); BASO % 0.6 % (0.0-1.0); EOS % 0.2 % (0.0-3.0); HEMATOCRIT 36.4 % (36.0-47.0); HEMOGLOBIN 11.8 g/dl (12.0-15.5); IMMATURE GRANULOCYTE % 1.4 % (0-3.0); LYMPH # 2.7 10^3/uL (1.5-4.5); LYMPH % 29.3 % (24.0-44.0); MEAN CORPUSCULAR HEMOGLOBIN 31.1 pg (27.0-33.0); MEAN CORPUSCULAR HGB CONC 32.4 g/dl (32.0-36.5); MONO # 0.5 10^3/uL (0.0-0.8); MONO % 5.7 % (0.0-5.0); NEUTROPHILS # 5.9 10^3/uL (1.8-7.7); NEUTROPHILS % 62.8 % (36.0-66.0); PLATELET COUNT, AUTOMATED 382 10^3/uL (150-450); RED BLOOD COUNT 3.79 10^6/uL (4.00-5.40); RED CELL DISTRIBUTION WIDTH 17.3 % (11.5-14.5); WHITE BLOOD COUNT 9.4 10^3/uL (4.0-10.0)
[2018-03-24 14:38] LABS: CONTROL LINE MONO INT CTR LINE PRESENT; MONO SCRN NEGATIVE (NEGATIVE)
[2018-03-24 14:40] LABS: ALBUMIN 2.6 GM/DL (3.2-5.2); ALBUMIN/GLOBULIN RATIO 0.74 (1.00-1.93); ALKALINE PHOSPHATASE 119 U/L (45-117); ALT/SGPT 11 U/L (12-78); ANION GAP 13 MEQ/L (8-16); AST/SGOT 15 U/L (7-37); BILIRUBIN,TOTAL 0.3 MG/DL (0.2-1.0); BLOOD UREA NITROGEN 10 MG/DL (7-18); CARBON DIOXIDE LEVEL 24 MEQ/L (21-32); CHLORIDE LEVEL 108 MEQ/L (98-107); CREATININE FOR GFR 0.59 MG/DL (0.55-1.30); GLOMERULAR FILTRATION RATE > 60.0 (>45); GLUCOSE, FASTING 105 MG/DL (70-100); POTASSIUM SERUM 3.5 MEQ/L (3.5-5.1); SODIUM LEVEL 145 MEQ/L (136-145); TOTAL PROTEIN 6.1 GM/DL (6.4-8.2)
[2018-03-26 00:15] LABS: Lyme Disease IgG/IgM Antibodie <0.91 ISR (0.00-0.90); Lyme Disease IgM Ab Quantitati <0.80 index (0.00-0.79)
== END ==
LOC: M SFHCSACK 11:23
DX: M79.1 Myalgia (principal)
CPT/HCPCS: 80053

== ENCOUNTER → 2018-03-31 | Outpatient (CLI) | payer MEDICARE, SELFPAY ==
[~2018-03-31] MED LIST changes: -GASTROGRAFIN SOLUTION 30ML (Q9963) As Ordered
== END ==
LOC: M RAD 09:46
DX: R91.8 Other nonspecific abnormal finding of lung field (principal); C83.30 Diffuse large B-cell lymphoma, unspecified site
CPT/HCPCS: Q9967

== ENCOUNTER → 2018-04-01 | Outpatient (REF) | payer MEDICARE ==
[2018-04-03 00:13] LABS: Lyme Disease IgG/IgM Antibodie <0.91 ISR (0.00-0.90); Lyme Disease IgM Ab Quantitati <0.80 index (0.00-0.79)
== END ==
LOC: M LAB REF 13:31
DX: C83.30 Diffuse large B-cell lymphoma, unspecified site (principal); Z86.19 Personal history of other infectious and parasitic diseases; R10.32 Left lower quadrant pain
CPT/HCPCS: 86617

== ENCOUNTER → 2018-04-10 | Outpatient (REF) | payer MEDICARE | LOC: M LAB REF 17:06 | DX: R19.7 Diarrhea, unspecified (principal) | CPT/HCPCS: 87493 ==

== ENCOUNTER → 2018-05-07 | Outpatient (CLI) | payer MEDICARE | LOC: M PLARAD 16:18 | DX: C83.31 Diffuse large B-cell lymphoma, lymph nodes of head, face, and neck (principal) | CPT/HCPCS: 78815 ==

== ENCOUNTER → 2018-06-06 | Outpatient (REF) | payer MEDICARE ==
[2018-06-06 12:39] LABS: ESTIMATED AVERAGE GLUCOSE 123 MG/DL (60-110); HEMOGLOBIN A1c 5.9 %
[2018-06-06 12:52] LABS: CREATININE, URINE 23.5 MG/DL; MALB URINE SIEMENS 5.4 MG/L
[2018-06-06 13:34] LABS: CHOLESTEROL LEVEL 135 MG/DL (<200); CHOLESTEROL RISK RATIO 1.956 (<5); FREE T4 0.99 NG/DL (0.76-1.46); HDL CHOLESTEROL 69 MG/DL (>40); LDL CHOLESTEROL 26 MG/DL (<100); NON-HDL-C 66 MG/DL; TRIGLYCERIDES LEVEL 202 MG/DL (<150)
[2018-06-06 13:46] LABS: TOTAL 25(OH) VITAMIN D 35.1 NG/ML (30.0-100.0)
== END ==
LOC: M SFHCPLAZ 08:20
DX: E55.9 Vitamin D deficiency, unspecified (principal); E11.65 Type 2 diabetes mellitus with hyperglycemia; E78.5 Hyperlipidemia, unspecified; Z13.29 Encounter for screening for other suspected endocrine disorder; C85.10 Unspecified B-cell lymphoma, unspecified site; Z79.899 Other long term (current) drug therapy
CPT/HCPCS: 84443

== ENCOUNTER → 2018-09-05 | Outpatient (CLI) | payer MEDICARE ==
[~2018-09-05] MED LIST changes: +ALVI12CA PO; +AMBI5TAB PO; +ASPI1TAB PO; +ATOR1TAB21 PO; +CLAR10CA3 PO; +CLEO300C2 PO; +DIFI200T PO; +FURO20TA2 PO; +HYCE0.1S PO; +HYDR-3716 PO; +ISOS60TA2 PO; -ISOVUE-370 76% 100ML VIAL (Q9967) As Ordered; +KLOR20TA42 PO; +LIDO5DIS41 TD; +LIDVISCBTL; +LIDVISCBTL SS; +LISI-538 PO; +METF-415 PO; +METO10TA2 PO; +METO1TAB7 PO; +NITR4TASL SL; +NORCOTAB PO; +OMEP20CA3 PO; +ONDA8TAB7 PO; +OXYC1TAB23 PO; +PERC5TAB12 PO; +PLAV1TAB2 PO; +PRED10PA PO; +PRED20TA PO; +PRED50TA PO; +PROT1TAB2 PO; +REGL10TA6 PO; +TIZA2CAP PO; +TRIA37.53 PO; +VANC125C2 PO; +VITA50005 PO
--- NOTE | 2018-09-23 02:16 | ECWPNPC ---
PATIENT NAME: ANNIE VILLAVICENCIO : 1950 GENDER: FEMALE VISIT DATE: 09/05/2018 DISCHARGE DATE: 09/05/18 1542 VISIT LOCKED DATE TIME: PHYSICIAN: JOSE AGUIRRE MD RESOURCE: JOSE AGUIRRE MD REASON FOR APPOINTMENT 1. BACK PAIN HISTORY OF PRESENT ILLNESS FALL RISK SCREENING: SCREENING :NO FALLS IN THE PAST YEAR PAIN SCREENING: PATIENT HAS A COMPLAINT OF ACUTE OR CHRONIC PAIN :YES 68 YEAR OLD FEMALE PATIENT WITH A HISTORY OF CHRONIC BACK PAIN. THE PATIENT DESCRIBES THE PAIN ACHING AND CONTINUOUS WITH A PAIN SCORE OF 5-10/10 DEPENDING ON PHYSICAL ACTIVITY. THE PATIENT SAYS THAT SHE HAS HAD THIS PAIN FOR ABOUT 6 YEARS AND IT HAS WORSENED OVER TIME. THE PATIENT'S PAIN IS LOCATED IN THE THORACOLUMBAR AREA. THE PATIENT SAYS THAT SHE ONLY SLEEPS ABOUT 3 HOURS A NIGHT BECAUSE THE PAIN WAKES HER UP. THE PATIENT SAYS THAT SHE HAS DIFFICULTY DOING DAILY ACTIVITIES SUCH CLEANING AND COOKING DUE TO THIS PAIN. THE PATIENT HAS A COLOSTOMY DUE TO A HISTORY OF C-DIFF. THE PATIENT STATES THAT SHE WAS DIAGNOSED WITH LYMPHOMA THIS YEAR AND IS CURRENTLY DOING CHEMOTHERAPY. PATIENT DENIES UNEXPLAINABLE WEIGHT LOSS, FEVER, CHILLS, NEW CHANGES ON HER URINARY OR BOWEL CONTROL. CURRENT MEDICATIONS TAKING TRIAMTERENE-HCTZ 37.5-25 MG TABLET 1 TABLET IN THE MORNING ORALLY ONCE A DAY TAKING BLOOD GLUCOSE SYSTEM SANDRO - KIT DIRECTED INTRADERMALLY BID TAKING COOL BLOOD GLUCOSE TEST STRIPS - STRIP DIRECTED IN VITRO BID TAKING LANCETS 30G - MISCELLANEOUS DIRECTED INTRADERMALLY TWICE DAILY TAKING OMEPRAZOLE 20 MG CAPSULE DELAYED RELEASE 1 CAPSULE ORALLY ONCE A DAY TAKING PREDNISONE 50 MG TABLET 2 TABLETS ORALLY ONCE A DAY X5DAYS ON DAYS TAKING ZOFRAN ODT 8 MG TABLET DISINTEGRATING 1 TABLET ON THE TONGUE AND ALLOW TO DISSOLVE ORALLY TWICE A DAY TAKING PLAVIX 75 MG TABLET 1 TABLET ORALLY ONCE A DAY, NOTES: DR. VELIZ TAKING LIPITOR 20 MG TABLET 1 TABLET ORALLY ONCE A DAY TAKING ISOSORBIDE MONONITRATE 60MG TABLET EXTENDED RELEASE 24 HOUR 1 TABLET ORALLY ONCE A DAY TAKING METFORMIN HCL 1000 MG TABLET 1 TABLET WITH MEALS ORALLY DAILY TAKING LIDOCAINE VISCOUS 2 % SOLUTION 5 ML TO AFFECTED AREA NEEDED MOUTH/THROAT TID NEEDED NOT-TAKING TOPROL XL 100 MG TABLET EXTENDED RELEASE 24 HOUR 1 TABLET ORALLY ONCE A DAY NOT-TAKING AMLODIPINE BESYLATE 10 MG TABLET 1 TABLET ORALLY ONCE A DAY NOT-TAKING VITAMIN D-3 1000 UNIT CAPSULE 1 CAPSULE ORALLY DAILY NOT-TAKING AUGMENTIN 875-125 MG TABLET 1 TABLET ORALLY EVERY 12 HRS NOT-TAKING DRISDOL 16625 UNIT CAPSULE 1 CAPSULE ORALLY ONCE A WEEK MEDICATION LIST REVIEWED AND RECONCILED WITH THE PATIENT PAST MEDICAL HISTORY BACK PAIN HIGH BLOOD PRESSURE HIGH CHOLESTEROL SEASONAL ALLERGIES CHRONIC LOW BACK PAIN HISTORY OF NM (MYOCARDIAL INFARCTION) LUMBOSACRAL RADICULOPATHY 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 JAFFE, CHEMO LAST SATURDAY COLONOSCOPY: GARY JANUARY 2018 MAMMOGRAM: SEVERAL YEARS AGO CARDIAC STENTS X 3, [place] 2011 ECHO 2018: NORMAL GLOBAL LEFT VENTRICULAR SYSTOLIC FUNCTION. THERE ARE SOME FEATURES OF LEFT VENTRICULAR DIASTOLIC DYSFUNCTION, GRADE 1.AORTIC VALVE SCLEROSIS WITH TRACE AORTIC REGURGITATION BUT NO AORTIC STENOSIS.TRACE MITRAL REGURGITATION.TRACE TRICUSPID REGURGITATION WITH A NORMAL CALCULATED PULMONARY ARTERY STESS TEST: SLEZKA ALLERGIES ZANAFLEX: VOMITING: ALLERGY RED DYE: ANAPHYLAXIS: ALLERGY IBUPROFEN: VOMITING: ALLERGY SURGICAL HISTORY BACK SURGERY X 2 HYSTERECTOMY APPENDECTOMY COLOSTOMY BAG FAMILY HISTORY FATHER: 81 YRS, [place], DIAGNOSED WITH HEART DISEASE MOTHER: 68 YRS, LUNG CANCER, DIAGNOSED WITH CANCER SIBLINGS: ALIVE, BROTHER OF LUNG/LIVER CANCER, DIAGNOSED WITH STROKE, CANCER SON(S): ALIVE 42 YRS DAUGHTER(S): ALIVE 3 BROTHER(S) , 2 SISTER(S) . 1 SON(S) , 2 DAUGHTER(S) - HEALTHY. SISTER- OF A STROKEDAUGHTERS: 1976; 1971. SOCIAL HISTORY GENERAL: TOBACCO USE ARE YOU A:CURRENT SMOKER HOW OFTEN DO YOU SMOKE CIGARETTES?EVERY DAY HOW SOON AFTER YOU WAKE UP DO YOU SMOKE YOUR FIRST CIGARETTE?6-30 MIN HOW MANY CIGARETTES A DAY DO YOU SMOKE?11-20 ARE YOU INTERESTED IN QUITTING?THINKING ABOUT QUITTING PATIENT COUNSELED ON THE DANGERS OF TOBACCO USE AND URGED TO QUIT:06/06/2018 PREVIOUS QUIT ATTEMPTS?YES, WITHIN THE LAST 6 MONTHS. LUNG CANCER SCREENING SMOKING STATUS:FORMER SMOKER IS THE PATIENT BETWEEN THE AGE OF 56 AND 78?YES HAVE YOU QUIT SMOKING WITHIN THE PAST 15 YEARS?YES HAS THE PATIENT EVER BEEN DIAGNOSED WITH LUNG CANCER?NO CREATE REFERRAL:GENERATE AND CREATE REFERRAL TO THE ONCOLOGY NURSE NAVIGATOR (SMP) LISTING USING THE LDCT SCAN PROCEDURE 46 YEARS 1/2 TO 1 PPD BMI CARE GOAL FOLLOW-UP ABOVE NORMAL BMI FOLLOW-UPDIETARY MANAGEMENT EDUCATION, GUIDANCE, AND COUNSELING ALCOHOL SCREENING DID YOU HAVE A DRINK CONTAINING ALCOHOL IN THE PAST YEAR?NO POINTS0 INTERPRETATIONNEGATIVE RECREATIONAL DRUG USE DRUG USE?NO CAFFEINE CAFFEINE USE?YES 1 CUP COFFEE DAILY SEXUAL HX HAD SEX IN THE LAST 12 MONTHS (VAGINAL, ORAL, OR ANAL)?YES WITHMEN ONLY USE PROTECTION?NO LMP:POST MENOP. HAVE YOU EVER HAD AN STD?NO HIV / HEP-C SCREENING HEP-C TEST OFFERED TO PATIENT:YES DATE OFFERED:02/18/2017 TEST ACCEPTED:NO REASON:PATIENT DECLINED YAZIDISM [id number] AMISH LANGUAGE STATELESS. EDUCATION 2 YEARS COLLEGE. LEARNING BARRIERS / SPECIAL NEEDS BARRIERS TO LEARNING?NO HEARING IMPAIRED?NO VISION IMPAIRED?YES READING GLASSES COGNITIVELY IMPAIRED?NO READINESS TO LEARN?YES LEARNING PREFERENCES?NO LEARNING CAPABILITIES PRESENT?YES EMOTIONAL BARRIERS?NO SPECIAL DEVICES?NO CONCRETE ROD BUSTER NEEDED?NO DOMESTIC VIOLENCE STATUS: OCCUPATION: DISABLED. DIET: REGULAR. EXERCISE: WALKS. MARITAL STATUS: SINGLE. OTHERS AT HOME: [place]. PAIN CLINIC PFS, CLERGY, PUBLIC HEALTH REFERRALS HAS THE PATIENT BEEN EDUCATED REGARDING HIS/HER PLAN OF CARE?YES HAS THE PATIENT BEEN EDUCATED REGARDING PAIN, THE RISK FOR PAIN, THE IMPORTANCE OF EFFECTIVE PAIN MANAGEMENT, AND THE PAIN ASSESSMENT PROCESS?YES HOUSING: RENTS HOUSE. ADVANCE DIRECTIVE ADVANCE DIRECTIVE DISCUSSED WITH PATIENT:YES JOVI VILLAVICENCIO REVIEWED WITH PT 09/05/18 2172 BV. HOSPITALIZATION/MAJOR DIAGNOSTIC PROCEDURE BACK SURGERY X 2; DISC AND SPINAL FUSION. [place] DR. GIOVANI NEVES , DR. VILLALTA ([place]) HYSTERECTOMY APPENDECTOMY COLOSTOMY BAG INSERTION 02/2018 [facility], [place], THEN TRANSFERED TO [facility], C-DIFF, MULTIPLE INFECTIONS 01/2018 REVIEW OF SYSTEMS REVIEWED BY: PROVIDER: JOSE AGUIRRE MD . CONSTITUTIONAL: ANY CHANGE IN YOUR MEDICAL CONDITION? FINISHED CHEMO TREATMENT THIS PAST SATURDAY FOR LYMPHOMA . CHILLS NO . FEVER NO . INFECTION: DO YOU HAVE NEW INFECTIONS? NO . DO YOU HAVE HISTORY OF MRSA? NO . MUSCULOSKELETAL: ANY NEW PATTERNS OF PAIN OR NUMBNESS? NO . SYTEMIC LUPUS NO . GASTROENTEROLOGY: ANY NEW CHANGE IN BOWEL CONTROL? YES, HAD COLOSTOMY DONE IN January, . BARRETTS ESOPHAGUS NO . CIRRHOSIS NO . HEPATITIS NO . LIVER FAILURE NO . ACID REFLUX NO . UNEXPLAINED WEIGHT LOSS NO . GENITOURINARY: ANY NEW CHANGE IN BLADDER CONTROL? NO . IS THERE A CHANCE YOU COULD BE ? NO . HEMATOLOGY/LYMPH: DO YOU TAKE ANY BLOOD THINNERS? (FOR EXAMPLE- COUMADIN, PLAVIX, AGGRENOX, PLATEL, PRADAXA, OR XARELTO) YES, PLAVIX . WHEN WAS YOUR LAST DOSE? DATE: TIME: . LOW PLATELET COUNT NO . SICKLE CELL DISEASE NO . VON WILLIEBRANDS NO . FACTOR V LEIDEN NO . THALLASEMIA NO . ANEMIA NO . EASY BRUISING NO . NEUROLOGY: HAVE YOU FALLEN IN THE PAST 6 MONTHS? NO . ANY NEW EXTREMITY NUMBNESS OR WEAKNESS? NO . HEAD INJURY NO . DEMENTIA NO . CEREBRAL PALSY NO . MULTIPLE SCLEROSIS NO . DIZZINESS NO . HEADACHE GETS OCCASIONAL HEADACHES DURING CHEMO TREATMENTS. . STROKES NO . VERTIGO NO . CARDIOLOGY: DO YOU HAVE A PACEMAKER OR DEFIBRILLATOR? NO . ANGINA NO . HEART ATTACK YES . HEART SURGERY STENTS PLACED IN 2011 . CONGESTIVE HEART FAILURE/FLUID OVERLOAD NO . CHEST PAIN NO . HIGH BLOOD PRESSURE ON MEDICATION(S) . IRREGULAR HEART BEAT NO . RESPIRATORY: HAVE YOU BEEN SICK IN THE PAST WEEK? NO . FEVER NO . FLU LIKE SYMPTOMS? NO . CPAP NO . BYPAP NO . ASTHMA NO . EMPHYSEMA NO . CHRONIC LUNG DISEASES YES, COPD . SHORTNESS OF BREATH ON EXERTION NO . COUGH NO . SNORING NO . INTEGUMENTARY: DO YOU HAVE ANY RASHES OR OPEN SORES? NO . ALLERGIC/IMMUNO: ARE YOU ALLERGIC TO SHELLFISH OR IV DYE? NO . ANY NEW ALLERGIES? NO . PSYCHIATRIC: DO YOU HAVE THOUGHTS OF HURTING YOURSELF OR SOMEONE ELSE? NO . ARE YOU ABUSED, NEGLECTED, OR IN AN UNSAFE ENVIRONMENT? NO . ENDOCRINOLOGY: ARE YOU DIABETIC? YES, ON MEDICATION . THYROID DISORDER NO . OTHER: DO YOU NEED ANY PRESCRIPTIONS? NO . IF YES, PLEASE LIST: ____ . ANY NEW PROBLEMS WITH YOUR MEDICATIONS? NO . WHEN DID YOU LAST EAT? ____ . WHEN DID YOU LAST DRINK? ____ . WHAT DID YOU LAST DRINK? ____ . NAME OF PERSON DRIVING YOU HOME? ____ . DO YOU HAVE ANY OTHER QUESTIONS OR CONCERNS NO . VITAL SIGNS WT 135.0 LBS, HT 64 IN, BMI 23.17 INDEX, BP 137/76 MM HG, HR 98 /MIN, RR 20 /MIN, TEMP 98.6 F, OXYGEN SAT % 99%, NA INITIALS AW 1410, REVIEWED BY: BV. EXAMINATION GENERAL EXAMINATION: PATIENT IS ALERT O X 3 AND COOPERATIVE. LUNGS CLEAR, TO AUSCULTATION. HEART: NO MURMURS OR GALLOPS; FACIAL CRANIAL NERVES ARE GROSSLY NORMAL. GOOD SYMMETRY OF FACIAL MUSCLE MOVEMENT. NORMAL VISUAL NUNEZ. TENDERNESS IN THE LOW BACK AND THORACOLUMBAR AREA. PRESENCE OF TRIGGER POINTS AND BANDS OF TISSUE WITH RESTRICTION OF MOVEMENT OF THE BACK. ASSESSMENTS MYALGIA, OTHER SITE - M79.18 (PRIMARY) PAIN IN THORACIC SPINE - M54.6 LOW BACK PAIN - M54.5, STABLE ON CURRENT REGIMEN HISTORY OF LYMPHOMA - Z85.79 TREATMENT MYALGIA, OTHER SITE CLINICAL NOTES: WE DISCUSSED SEVERAL ISSUES WITH MRS. VILLAVICENCIO'S PAIN MANAGEMENT CASE. DUE TO THE TRIGGER POINTS, BANDS OF TISSUE, AND RESTRICTION OF MOVEMENT, I WOULD LIKE TO MOVE FORWARD WITH A TRIGGER POINT INJECTION WITHOUT STEROIDS AT THIS TIME. WE DISCUSSED THE BENEFITS, RISKS, AND ALTERNATIVES OF THE INJECTION AND THE PATIENT WOULD LIKE TO PROCEED. I WILL ALSO ORDER AN UPDATED LUMBAR AND THORACIC MRI TO GET A BETTER UNDERSTANDING OF WHERE THE PATIENT'S PAIN IS COMING FROM. I WOULD LIKE TO DISCUSS THE CASE WITH DR. OLVERA REGARDING INJECTIONS WITH STEROIDS. I WOULD THE PATIENT TO START USING TIZANIDINE AT NIGHT TO HELP HER SLEEP BETTER. THE PATIENT WILL FOLLOW UP IN 6 WEEKS. INSTRUCTIONS WERE GIVEN, QUESTIONS WERE ANSWERED, PATIENT REPORTS UNDERSTANDING AND AGREES WITH THE PLAN. I, MASON ROLON, DOCUMENTED THE ABOVE INFORMATION ACTING A SCRIBE FOR DR. AGUIRRE. I HAVE REVIEWED THE ABOVE DOCUMENT, WRITTEN BY MASON BAÑUELOSIBMary AND I VERIFY THAT IT IS ACCURATE. DEAR DR. PRINGLE:THANK YOU FOR YOUR KIND REFERRAL OF MRS. VILLAVICENCIO. IF YOU WANT TO DISCUSS HER CASE WITH ME PLEASE CALL ME AT THE PAIN CENTER AT [phone]. SINCERELY,JOSE AGUIRRE, [facility]. OTHERS NOTES: TRIGGER POINT INJECTION: YOUR EXPERIENCE MATERIAL WAS PRINTED,TRIGGER POINT INJECTION MATERIAL WAS PRINTED. PREVENTIVE MEDICINE PAIN CLINIC TEACHING: PROCEDURE TEACHING PRINTED AND REVIEWED INFORMATION ON TRIGGER POINT INJECTIONS WITH PATIENT. ALSO REVIEWED PRE-PROCEDURE INSTRUCTIONS. PATIENT VERBALIZED AN UNDERSTANDING. KIMBERLEY MACIAS 09/05/2018 4:00:49 PM > . PROCEDURE CODES FA211 ESTABILISHED PATIENT [facility] FACILITY CHARGE [id number] CURRENT MEDS W/DOSAGES DOCUMENTED [id number] PAIN ASSESS POS TOOL F/U PLAN DOC DISPOSITION & COMMUNICATION FOLLOW UP 6 WEEKS ELECTRONICALLY SIGNED BY JOSE AGUIRRE MD, MD ON 09/22/2018 AT 02:30 PM EST DISCLAIMER : THIS IS A VISIT SUMMARY EXTRACTED FROM THE [employer] CHART. IT IS NOT A COPY OF THE [employer] PROGRESS NOTE. MTDD
== END ==
LOC: M PAIN 14:15
PROVIDERS: ATTEND Anesthesiology
DX: M79.18 Myalgia, other site (principal); M54.6 Pain in thoracic spine; M54.5 Low back pain; E11.9 Type 2 diabetes mellitus without complications; I10 Essential (primary) hypertension; J44.9 Chronic obstructive pulmonary disease, unspecified; E78.00 Pure hypercholesterolemia, unspecified; I25.2 Old myocardial infarction; J30.2 Other seasonal allergic rhinitis; F17.210 Nicotine dependence, cigarettes, uncomplicated; Z79.01 Long term (current) use of anticoagulants; Z79.84 Long term (current) use of oral hypoglycemic drugs; Z79.899 Other long term (current) drug therapy; Z88.6 Allergy status to analgesic agent; Z88.8 Allergy status to other drugs, medicaments and biological substances; Z91.02 Food additives allergy status; Z86.79 Personal history of other diseases of the circulatory system; Z85.79 Personal history of other malignant neoplasms of lymphoid, hematopoietic and related tissues; Z87.39 Personal history of other diseases of the musculoskeletal system and connective tissue; Z92.21 Personal history of antineoplastic chemotherapy

== ENCOUNTER → 2018-09-08 | Outpatient (CLI) | payer MEDICARE ==
[~2018-09-08] MED LIST changes: +BUPIVACAINE HCL 0.25% 10 ML VIAL As Ordered ONE; +BUPIVACAINE HCL 0.25% 30 ML VIAL As Ordered ONE; +diazePAM 5 MG TAB As Ordered ONE; +oxyCODONE 5MG TAB As Ordered ONE
--- NOTE | 2018-09-23 00:21 | ECWPNPC ---
PATIENT NAME: ANNIE VILLAVICENCIO : 1950 GENDER: FEMALE VISIT DATE: 09/08/2018 DISCHARGE DATE: 09/08/18 161 VISIT LOCKED DATE TIME: PHYSICIAN: JOSE AGUIRRE MD RESOURCE: JOSE AGUIRRE MD REASON FOR APPOINTMENT 1. TPI NO STEROIDS HISTORY OF PRESENT ILLNESS HISTORY OF PRESENT ILLNESS: PAIN THE PATIENT DESCRIBES THE PAIN... FALL RISK SCREENING: SCREENING :NO FALLS IN THE PAST YEAR CURRENT MEDICATIONS TAKING TRIAMTERENE-HCTZ 37.5-25 MG TABLET 1 TABLET IN THE MORNING ORALLY ONCE A DAY, NOTES: 09/08/18 0600 TAKING BLOOD GLUCOSE SYSTEM SANDRO - KIT DIRECTED INTRADERMALLY BID TAKING COOL BLOOD GLUCOSE TEST STRIPS - STRIP DIRECTED IN VITRO BID TAKING LANCETS 30G - MISCELLANEOUS DIRECTED INTRADERMALLY TWICE DAILY TAKING OMEPRAZOLE 20 MG CAPSULE DELAYED RELEASE 1 CAPSULE ORALLY ONCE A DAY, NOTES: 09/08/18599 TAKING PLAVIX 75 MG TABLET 1 TABLET ORALLY ONCE A DAY, NOTES: 09/08/18599 TAKING LIPITOR 20 MG TABLET 1 TABLET ORALLY ONCE A DAY, NOTES: 09/08/18599 TAKING ISOSORBIDE MONONITRATE 60MG TABLET EXTENDED RELEASE 24 HOUR 1 TABLET ORALLY ONCE A DAY, NOTES: 09/08/18599 TAKING METFORMIN HCL 1000 MG TABLET 1 TABLET WITH MEALS ORALLY DAILY, NOTES: 09/08/18599 TAKING LIDOCAINE VISCOUS 2 % SOLUTION 5 ML TO AFFECTED AREA NEEDED MOUTH/THROAT TID NEEDED, NOTES: 09/08/18599 NOT-TAKING PREDNISONE 50 MG TABLET 2 TABLETS ORALLY ONCE A DAY X5DAYS ON DAYS NOT-TAKING ZOFRAN ODT 8 MG TABLET DISINTEGRATING 1 TABLET ON THE TONGUE AND ALLOW TO DISSOLVE ORALLY TWICE A DAY NOT-TAKING TOPROL XL 100 MG TABLET EXTENDED RELEASE 24 HOUR 1 TABLET ORALLY ONCE A DAY NOT-TAKING AMLODIPINE BESYLATE 10 MG TABLET 1 TABLET ORALLY ONCE A DAY NOT-TAKING VITAMIN D-3 1000 UNIT CAPSULE 1 CAPSULE ORALLY DAILY NOT-TAKING AUGMENTIN 875-125 MG TABLET 1 TABLET ORALLY EVERY 12 HRS NOT-TAKING DRISDOL 23000 UNIT CAPSULE 1 CAPSULE ORALLY ONCE A WEEK MEDICATION LIST REVIEWED AND RECONCILED WITH THE PATIENT PAST MEDICAL HISTORY BACK PAIN HIGH BLOOD PRESSURE HIGH CHOLESTEROL SEASONAL ALLERGIES CHRONIC LOW BACK PAIN HISTORY OF PR (MYOCARDIAL INFARCTION) LUMBOSACRAL RADICULOPATHY 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 JAFFE, CHEMO LAST SATURDAY COLONOSCOPY: GARY JANUARY 2018 MAMMOGRAM: SEVERAL YEARS AGO CARDIAC STENTS X 3, [place] 2011 ECHO 2018: NORMAL GLOBAL LEFT VENTRICULAR SYSTOLIC FUNCTION. THERE ARE SOME FEATURES OF LEFT VENTRICULAR DIASTOLIC DYSFUNCTION, GRADE 1.AORTIC VALVE SCLEROSIS WITH TRACE AORTIC REGURGITATION BUT NO AORTIC STENOSIS.TRACE MITRAL REGURGITATION.TRACE TRICUSPID REGURGITATION WITH A NORMAL CALCULATED PULMONARY ARTERY STESS TEST: SLEZKA ALLERGIES ZANAFLEX: VOMITING: ALLERGY RED DYE: ANAPHYLAXIS: ALLERGY IBUPROFEN: VOMITING: ALLERGY SURGICAL HISTORY BACK SURGERY X 2 HYSTERECTOMY APPENDECTOMY COLOSTOMY BAG FAMILY HISTORY FATHER: 81 YRS, [place], DIAGNOSED WITH HEART DISEASE MOTHER: 68 YRS, LUNG CANCER, DIAGNOSED WITH CANCER SIBLINGS: ALIVE, BROTHER OF LUNG/LIVER CANCER, DIAGNOSED WITH STROKE, CANCER SON(S): ALIVE 42 YRS DAUGHTER(S): ALIVE 3 BROTHER(S) , 2 SISTER(S) . 1 SON(S) , 2 DAUGHTER(S) - HEALTHY. SISTER- OF A STROKEDAUGHTERS: 1976; 1971. SOCIAL HISTORY GENERAL: TOBACCO USE ARE YOU A:CURRENT SMOKER ARE YOU INTERESTED IN QUITTING?THINKING ABOUT QUITTING PT HAS PATCHES THROUGH HER PRIMARY PREVIOUS QUIT ATTEMPTS?YES, WITHIN THE LAST 6 MONTHS. COUNSELED THE PATIENT ON SMOKING CESSATION, EDUCATION [id number]/14/[id number] HOW MANY CIGARETTES A DAY DO YOU SMOKE?11-20 HOW SOON AFTER YOU WAKE UP DO YOU SMOKE YOUR FIRST CIGARETTE?6-30 MIN HOW OFTEN DO YOU SMOKE CIGARETTES?EVERY DAY PATIENT COUNSELED ON THE DANGERS OF TOBACCO USE AND URGED TO QUIT:09/08/2018 LUNG CANCER SCREENING SMOKING STATUS:FORMER SMOKER IS THE PATIENT BETWEEN THE AGE OF 56 AND 78?YES HAVE YOU QUIT SMOKING WITHIN THE PAST 15 YEARS?YES HAS THE PATIENT EVER BEEN DIAGNOSED WITH LUNG CANCER?NO CREATE REFERRAL:GENERATE AND CREATE REFERRAL TO THE ONCOLOGY NURSE NAVIGATOR (SMP) LISTING USING THE LDCT SCAN PROCEDURE 46 YEARS /2 TO 1 PPD BMI CARE GOAL FOLLOW-UP ABOVE NORMAL BMI FOLLOW-UPDIETARY MANAGEMENT EDUCATION, GUIDANCE, AND COUNSELING ALCOHOL SCREENING DID YOU HAVE A DRINK CONTAINING ALCOHOL IN THE PAST YEAR?NO POINTS0 INTERPRETATIONNEGATIVE RECREATIONAL DRUG USE DRUG USE?NO CAFFEINE CAFFEINE USE?YES 1 CUP COFFEE DAILY SEXUAL HX HAD SEX IN THE LAST 12 MONTHS (VAGINAL, ORAL, OR ANAL)?YES WITHMEN ONLY USE PROTECTION?NO LMP:POST MENOP. HAVE YOU EVER HAD AN STD?NO HIV / HEP-C SCREENING HEP-C TEST OFFERED TO PATIENT:YES DATE OFFERED:02/18/2017 TEST ACCEPTED:NO REASON:PATIENT DECLINED BUDDHISM [id number] JAIN LANGUAGE LUXEMBOURGER. EDUCATION 2 YEARS COLLEGE. LEARNING BARRIERS / SPECIAL NEEDS BARRIERS TO LEARNING?NO HEARING IMPAIRED?NO VISION IMPAIRED?YES READING GLASSES COGNITIVELY IMPAIRED?NO READINESS TO LEARN?YES LEARNING PREFERENCES?NO LEARNING CAPABILITIES PRESENT?YES EMOTIONAL BARRIERS?NO SPECIAL DEVICES?NO SUPERVISOR VENDOR QUALITY NEEDED?NO DOMESTIC VIOLENCE STATUS: OCCUPATION: DISABLED. DIET: REGULAR. EXERCISE: WALKS. MARITAL STATUS: SINGLE. OTHERS AT HOME: [place]. PAIN CLINIC PFS, CLERGY, PUBLIC HEALTH REFERRALS HAS THE PATIENT BEEN EDUCATED REGARDING HIS/HER PLAN OF CARE?YES HAS THE PATIENT BEEN EDUCATED REGARDING PAIN, THE RISK FOR PAIN, THE IMPORTANCE OF EFFECTIVE PAIN MANAGEMENT, AND THE PAIN ASSESSMENT PROCESS?YES HOUSING: RENTS HOUSE. ADVANCE DIRECTIVE ADVANCE DIRECTIVE DISCUSSED WITH PATIENT:YES JOVI VILLAVICENCIO REVIEWED WITH PT 09/05/18 1422 BV. HOSPITALIZATION/MAJOR DIAGNOSTIC PROCEDURE BACK SURGERY X 2; DISC AND SPINAL FUSION. [place] DR. GIOVANI NEVES , DR. VILLALTA ([place]) HYSTERECTOMY APPENDECTOMY COLOSTOMY BAG INSERTION 02/2018 [facility], THEN TRANSFERED TO [facility], C-DIFF, MULTIPLE INFECTIONS 01/2018 REVIEW OF SYSTEMS REVIEWED BY: PROVIDER: . CONSTITUTIONAL: ANY CHANGE IN YOUR MEDICAL CONDITION? NO . CHILLS NO . FEVER NO . INFECTION: DO YOU HAVE NEW INFECTIONS? NO . DO YOU HAVE HISTORY OF MRSA? NO . MUSCULOSKELETAL: ANY NEW PATTERNS OF PAIN OR NUMBNESS? NO . GASTROENTEROLOGY: ANY NEW CHANGE IN BOWEL CONTROL? NO . GENITOURINARY: ANY NEW CHANGE IN BLADDER CONTROL? NO . IS THERE A CHANCE YOU COULD BE ? NO . HEMATOLOGY/LYMPH: DO YOU TAKE ANY BLOOD THINNERS? (FOR EXAMPLE- COUMADIN, PLAVIX, AGGRENOX, PLATEL, PRADAXA, OR XARELTO) YES, PLAVIX . WHEN WAS YOUR LAST DOSE? DATE: 09-08-18 TIME: 0630 . NEUROLOGY: HAVE YOU FALLEN IN THE PAST 6 MONTHS? NO . ANY NEW EXTREMITY NUMBNESS OR WEAKNESS? NO . CARDIOLOGY: DO YOU HAVE A PACEMAKER OR DEFIBRILLATOR? NO . RESPIRATORY: HAVE YOU BEEN SICK IN THE PAST WEEK? NO . FEVER NO . FLU LIKE SYMPTOMS? NO . COUGH NO . INTEGUMENTARY: DO YOU HAVE ANY RASHES OR OPEN SORES? NO . ALLERGIC/IMMUNO: ARE YOU ALLERGIC TO SHELLFISH OR IV DYE? NO . ANY NEW ALLERGIES? NO . PSYCHIATRIC: DO YOU HAVE THOUGHTS OF HURTING YOURSELF OR SOMEONE ELSE? NO . ARE YOU ABUSED, NEGLECTED, OR IN AN UNSAFE ENVIRONMENT? NO . ENDOCRINOLOGY: ARE YOU DIABETIC? NO . OTHER: DO YOU NEED ANY PRESCRIPTIONS? NO . IF YES, PLEASE LIST: ____ . ANY NEW PROBLEMS WITH YOUR MEDICATIONS? NO . WHEN DID YOU LAST EAT? 09-07-18 1700 . WHEN DID YOU LAST DRINK? 09-08-18 0500 . WHAT DID YOU LAST DRINK? ____ . NAME OF PERSON DRIVING YOU HOME? ____ . DO YOU HAVE ANY OTHER QUESTIONS OR CONCERNS NO . VITAL SIGNS WT 135.0 LBS, HT 64 IN, BMI 23.17 INDEX, BP 111/70 MM HG, HR 119 /MIN, RR 18 /MIN, TEMP 97.5 F, OXYGEN SAT % 99%, NA INITIALS AW 1426. ASSESSMENTS MYALGIA, OTHER SITE - M79.18 (PRIMARY) PROCEDURES PN TRIGGER POINT INJECTION NO STEROIDS DATE OF PROCEDURE 09/08/2018 : PRE PROCEDURE DIAGNOSIS 1. MYALGIA 2. PAIN AT RIGHT THORACIC AREA AND RIGHT LOW BACK AREA POST PROCEDURE DIAGNOSIS 1. MYALGIA 2. PAIN AT RIGHT THORACIC AREA AND RIGHT LOW BACK AREA PROCEDURE TRIGGER POINT INJECTION AT RIGHT THORACIC AREA AND RIGHT LOW BACK AREA SURGEON DR. JOSE AGUIRRE GRINDER LAP NONE ANESTHESIA LOCAL PRE PROCEDURE NOTE 68 YEAR-OLD PATIENT WITH HISTORY OF CHRONIC PAIN AT RIGHT THORACIC AREA AND RIGHT LOW BACK AREA. I EVALUATED THE PATIENT AND REVIEWED THE CHART. THERE IS EVIDENCE OF BANDS OF TISSUE WITH RESTRICTION OF MOVEMENT AND PRESENCE OF TRIGGER POINT AT THE AFFECTED AREA. I WENT OVER THE RISKS, ALTERNATIVES, AND BENEFITS ASSOCIATED WITH THIS PROCEDURE. THE PATIENT WOULD LIKE TO PROCEED AND GAVE CONSENT TO PERFORM THE PROCEDURE. THE PATIENT DENIES UNEXPLAINABLE WEIGHT LOSS, FEVER, CHILLS, OR NEW CHANGES IN URINARY OR BOWEL CONTROL. DESCRIPTION OF PROCEDURE THE PATIENT WAS BROUGHT TO THE PROCEDURE ROOM AND PLACED IN THE SITTING POSITION. THE AREA WAS CLEANED WITH ALCOHOL. THE PROCEDURE WAS DONE USING ASEPTIC STERILE TECHNIQUES. I CHECKED LATERALITY AND THE LEVEL WHERE THE PROCEDURE WAS GOING TO BE PERFORMED WITH THE PATIENT AND THE SUPPORTING STAFF AT THE MOMENT OF THE TIME OUT IN THE PROCEDURE ROOM. USING A 25-GAUGE NEEDLE, TRIGGER POINTS WERE INJECTED WITH A TOTAL OF 40 ML OF BUPIVACAINE 0.25%. AGREED WITH THE PATIENT THE PROCEDURE WAS DONE WITHOUT STEROIDS. THERE WAS NO EVIDENCE OF BLOOD, PARESTHESIA OR CEREBROSPINAL FLUID DURING THE PROCEDURE. THE PATIENT WAS SENT TO THE RECOVERY ROOM. THE PATIENT WAS MOVING THE EXTREMITIES AND DOING WELL. THERE WAS NO COMPLICATION DURING THE PROCEDURE. POST PROCEDURE NOTE THE PATIENT WILL BE SEEN IN A FOLLOW UP IN THE NEXT FEW WEEKS. INSTRUCTIONS WERE GIVEN, QUESTIONS WERE ANSWERED, AND THE PATIENT EXPRESSED UNDERSTANDING AND AGREED WITH THE PLAN. I, MASON ROLON, DOCUMENTED THE ABOVE INFORMATION ACTING A SCRIBE FOR DR. AGUIRRE. I HAVE REVIEWED THE ABOVE DOCUMENT, WRITTEN BY MASON BAÑUELOSIBMary AND I VERIFY THAT IT IS ACCURATE. PROCEDURE CODES 13605 INJ TRIGGER POINT /2 MUSC DISPOSITION & COMMUNICATION FOLLOW UP 3 WEEKS ELECTRONICALLY SIGNED BY JOSE AGUIRRE MD, MD ON 09/22/2018 AT 11:43 AM EST DISCLAIMER : THIS IS A VISIT SUMMARY EXTRACTED FROM THE [employer] CHART. IT IS NOT A COPY OF THE [employer] PROGRESS NOTE. SAILAJA
== END ==
LOC: M PAIN 14:30
PROVIDERS: ATTEND Anesthesiology
DX: M79.18 Myalgia, other site (principal); R03.0 Elevated blood-pressure reading, without diagnosis of hypertension; E78.00 Pure hypercholesterolemia, unspecified; J30.2 Other seasonal allergic rhinitis; M54.17 Radiculopathy, lumbosacral region; I25.2 Old myocardial infarction; F17.210 Nicotine dependence, cigarettes, uncomplicated; M10.061 Idiopathic gout, right knee; Z85.79 Personal history of other malignant neoplasms of lymphoid, hematopoietic and related tissues; Z93.3 Colostomy status; Z90.49 Acquired absence of other specified parts of digestive tract; Z79.02 Long term (current) use of antithrombotics/antiplatelets; Z79.84 Long term (current) use of oral hypoglycemic drugs; Z79.899 Other long term (current) drug therapy; Z88.6 Allergy status to analgesic agent; Z88.8 Allergy status to other drugs, medicaments and biological substances; Z91.048 Other nonmedicinal substance allergy status

== ENCOUNTER → 2018-09-11 | Outpatient (REF) | payer MEDICARE ==
[~2018-09-11] MED LIST changes: -BUPIVACAINE HCL 0.25% 10 ML VIAL As Ordered ONE; -BUPIVACAINE HCL 0.25% 30 ML VIAL As Ordered ONE; +SERT50TA PO; -diazePAM 5 MG TAB As Ordered ONE; -oxyCODONE 5MG TAB As Ordered ONE
[2018-09-11 10:48] LABS: BLOOD UREA NITROGEN 21 MG/DL (7-18); CALCIUM LEVEL 8.6 MG/DL (8.8-10.2); CARBON DIOXIDE LEVEL 27 MEQ/L (21-32); CHLORIDE LEVEL 105 MEQ/L (98-107); CREATININE FOR GFR 0.98 MG/DL (0.55-1.30); GLOMERULAR FILTRATION RATE > 60.0 (>45); GLUCOSE, FASTING 70 MG/DL (70-100); POTASSIUM SERUM 3.1 MEQ/L (3.5-5.1); SODIUM LEVEL 141 MEQ/L (136-145)
[2018-09-11 11:02] LABS: TOTAL 25(OH) VITAMIN D 17.5 NG/ML (30.0-100.0)
== END ==
LOC: M SFHCPLAZ 08:20
PROVIDERS: ATTEND Nurse Practitioner Family
DX: E55.9 Vitamin D deficiency, unspecified (principal); E11.9 Type 2 diabetes mellitus without complications
CPT/HCPCS: 36415; 80048; 82306; 83036; G0463

== ENCOUNTER → 2018-09-26 | Outpatient (CLI) | payer MEDICARE ==
[~2018-09-26] MED LIST changes: +GASTROGRAFIN SOLUTION 30ML (Q9963) As Ordered ONE; +ISOVUE-370 76% 100ML VIAL (Q9967) As Ordered ONE
--- NOTE | 2018-09-26 16:00 | REP ---
Clinical: Diffuse large B-cell lymphoma for restaging. Technique: Axial contrast enhanced images from the lung bases to the pubic symphysis using oral (per protocol) and 100 ml Isovue 370 intravenous contrast material with delayed images of the abdomen as well as coronal and sagittal re-formations. Comparison: 02/08/2018. Findings: Lung bases are clear. Visualized heart and pericardium normal. Fatty infiltration to the liver suggested without focal hepatic lesion. Spleen, pancreas, gallbladder, bilateral adrenal glands are normal. Kidneys demonstrate age-related cortical scarring and stable scattered cysts measuring up to 9 mm in the left kidney and 2.2 cm in the right kidney. The patient is status post sigmoid resection ostomy via the left anterior abdominal wall and Deshawn's pouch in the pelvis. There is evidence for partial, Sotomayor's type hernia involving the anterior mesenteric wall of the transverse colon at the site of ostomy. The small bowel is unremarkable and there is no evidence for obstruction. Pelvis demonstrates normal bladder and evidence for prior hysterectomy. No ascites. No adenopathy. Atherosclerotic changes of the aorta and vasculature noted without dissection or aneurysm. Musculoskeletal structures demonstrate degenerative changes along with fixation at the L5-S1 level. Impression: 1. Renal cysts. 2. Hepatic steatosis. 3. 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 4. No obvious for recurrence, metastatic disease, ascites, focal inflammatory stranding or adenopathy. Electronically Signed by Shaan Vora MD 09/26/2018 03:51 P
--- NOTE | 2018-09-26 16:09 | REP ---
Soft tissue CT study of the neck with IV contrast: History: Stage II diffuse large B-cell lymphoma. Restaging. History of a C. Diff. Comparison soft-tissue neck CT study is from March 31, 2018. Comparison PET-CT study May 07, 2018. CT contrast dose: 100 mL of intravenous Isovue [address] findings: There is a right posterior parotid lymph node again noted measuring 6 x 12 x 15 mm, previously, 7 x 13 x 15 mm. This is essentially unchanged. This lymph node showed avid uptake on the May 07, 2018 PET-CT. There is no other the cervical adenopathy. No neck masses seen. The lung apices are clear. Thyroid lobes are normal and symmetric. Submandibular and parotid glands are unremarkable. There is an air-fluid level and partial opacification of the left maxillary sinus. This is a new finding consistent with sinusitis. No intraorbital lesion is seen. There is some mild left ethmoid sinusitis change as well. Mucosal thickening is seen in the sphenoid sinus. No intracranial abnormalities observed. Impression: There is a persistent enhancing right parotid lymph node essentially unchanged in size, 15 x 12 x 6 mm. No other neck mass or adenopathy seen. Incidental note is made of new left maxillary, left ethmoid, and sphenoid paranasal sinusitis. Electronically Signed by Tutu Paz MD 09/29/2018 07:57 A
--- NOTE | 2018-09-26 16:10 | REP ---
Clinical: Diffuse large B-cell lymphoma for restaging. Technique: Axial contrast enhanced images from the thoracic inlet to the upper abdomen with coronal and sagittal re-formations using 100 ml Isovue 370 intravenous contrast material. Comparison: 03/31/2018. Findings: Lung sethi demonstrate minimal stable biapical and scattered chronic changes. No consolidation, effusion, significant nodule or mass lesion. Tracheobronchial tree is patent. No axillary, hilar, or mediastinal adenopathy. Atherosclerotic changes of the thoracic aorta and coronary arteries noted without aortic dissection, cardiomegaly or pericardial effusion. 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 Thyroid gland is heterogeneous and similar to prior examination. Surrounding musculoskeletal structures are intact. Mild stable compression deformity at L1 suggested. Impression: 1. Stable subtle chronic changes. 2. No acute mediastinal or pleuroparenchymal process. 3. No adenopathy, consolidation or effusion. 4. Atherosclerotic disease of the thoracic aorta and coronary arteries. 5. 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 Electronically Signed by Shaan Vora MD 09/26/2018 04:03 P
== END ==
LOC: M RAD 13:52
PROVIDERS: ATTEND Internal Medicine Medical Oncology
DX: C83.30 Diffuse large B-cell lymphoma, unspecified site (principal); Z86.19 Personal history of other infectious and parasitic diseases
CPT/HCPCS: 70491; 71260; 74177; Q9963; Q9967

== ENCOUNTER → 2018-09-29 | Outpatient (CLI) | payer MEDICARE ==
[~2018-09-29] MED LIST changes: -GASTROGRAFIN SOLUTION 30ML (Q9963) As Ordered ONE; -ISOVUE-370 76% 100ML VIAL (Q9967) As Ordered ONE
--- NOTE | 2018-09-29 10:35 | REP ---
MR LUMBAR SPINE WITHOUT CONTRAST: HISTORY: Back pain. COMPARISON: 08/27/2014. Decreased signal intensity on T2-weighted images is present in the lumbar intervertebral discs. The L1-2 through L4-5 intervertebral discs are decreased in height. These findings are consistent with disc degeneration. A diffuse disc bulge is present at the L1-2 level. There is minimal compression of the thecal sac. The L1 nerves exit the neural foramina without compression. A diffuse disc bulge is present at the L2-3 level. There is minimal compression of the thecal sac. There is hypertrophy of the posterior articulating facets. The L2 nerves exit the neural foramina without compression. A diffuse disc bulge is present at the L3-4 level. There is hypertrophy of the ligamenta flava and posterior articulating facets. These findings produce minimal central canal stenosis. The L3 nerves exit the neural foramina without compression. A diffuse disc bulge is present at the L4-5 level. There is hypertrophy of the ligamenta flava and posterior articulating facets. These findings produce minimal central canal stenosis. The L4 nerves exit the neural foramina without compression. The patient is status post L5-S1 anterior spinal fusion. Metal cages are present. A disc bulge with associated osteophyte formation is present. There is minimal compression of the thecal sac and S1 nerves greater on the right than on the left as they exit the thecal sac. There is hypertrophy of the posterior articulating facets. The L5 nerves exit the neural foramina without compression. The conus medullaris is normal in appearance terminating at the level of the L1-2 intervertebral disc. There is an old compression fracture of the L1 vertebral body with minimal height loss. Two cysts 1.2 and 1.8 cm in width are present in the right kidney. IMPRESSION: 1. Diffuse disc bulges at the L1-2 and L2-3 levels with minimal thecal sac compression. 2. Minimal central canal stenosis at the L3-4 and L4-5 levels secondary to disc bulge, ligamentous, and facet hypertrophy. 3. The patient is status post L5-S1 anterior spinal fusion. There is anatomic alignment. A disc bulge with associated osteophyte formation is present. There is minimal compression of the thecal sac and S1 nerves greater on the right than on the left as they exit the thecal sac. There is no significant change compared to the previous study. Electronically Signed by Juanjo Penn MD 09/29/2018 12:16 P
--- NOTE | 2018-09-29 10:38 | REP ---
MR THORACIC SPINE WITHOUT CONTRAST: HISTORY: Back pain. There is no disc bulge or herniation. The spinal canal and neural foramina are patent. The spinal cord is normal in signal intensity. Increased signal intensity on T2-weighted images is present at the endplates of several mid and lower thoracic vertebral bodies. This represents degenerative change. Normal signal intensity is present in the remaining thoracic vertebral bodies. There is an old compression fracture of the L1 vertebral body with minimal height loss. IMPRESSION: There is no disc bugle or herniation. Electronically Signed by Juanjo Penn MD 09/29/2018 12:17 P
== END ==
LOC: M RAD 08:43
PROVIDERS: ATTEND Anesthesiology
DX: M54.5 Low back pain (principal)

== ENCOUNTER → 2018-10-06 | Outpatient (CLI) | payer MEDICARE ==
--- NOTE | 2018-10-23 00:17 | ECWPNPC ---
PATIENT NAME: ANNIE VILLAVICENCIO : 1950 GENDER: FEMALE VISIT DATE: 10/06/2018 DISCHARGE DATE: 10/06/18 1042 VISIT LOCKED DATE TIME: PHYSICIAN: JOSE AGUIRRE MD RESOURCE: JOSE AGUIRRE MD REASON FOR APPOINTMENT 1. POST TPI HISTORY OF PRESENT ILLNESS HISTORY OF PRESENT ILLNESS: PAIN THE PATIENT DESCRIBES THE PAIN... 68 YEAR OLD FEMALE PATIENT WITH A HISTORY OF CHRONIC LOW BACK PAIN. THE PATIENT DESCRIBES THE PAIN SHARP, STABBING, AND CONTINUOUS WITH A PAIN SCORE OF 8-10/10 DEPENDING ON PHYSICAL ACTIVITY. THE PATIENT WAS HERE FOR A TRIGGER POINT INJECTION WITHOUT STEROIDS ON 09/08/2018 AND SAYS THAT IT DID NOT HELP HER. THE PATIENT SAYS THAT SHE HAS DIFFICULTY DOING DAILY ACTIVITIES SUCH COOKING, CLEANING, AND TAKING CARE OF HERSELF DUE TO THIS PAIN. THE PATIENT IS UNABLE TO USE NSAIDS DUE TO A HISTORY OF CARDIAC PROBLEMS. THE PATIENT HAS A COLOSTOMY DUE TO A HISTORY OF C-DIFF. THE PATIENT STATES THAT SHE WAS DIAGNOSED WITH LYMPHOMA THIS YEAR AND IS CURRENTLY DOING CHEMOTHERAPY. PATIENT DENIES UNEXPLAINABLE WEIGHT LOSS, FEVER, CHILLS, NEW CHANGES ON HER URINARY OR BOWEL CONTROL. FALL RISK SCREENING: SCREENING :NO FALLS IN THE PAST YEAR CURRENT MEDICATIONS TAKING PLAVIX 75 MG TABLET 1 TABLET ORALLY ONCE A DAY TAKING ISOSORBIDE MONONITRATE 60 MG TABLET EXTENDED RELEASE 24 HOUR 1 TABLET ORALLY ONCE A DAY TAKING LIPITOR 20 MG TABLET 1 TABLET ORALLY ONCE A DAY TAKING BLOOD GLUCOSE SYSTEM SANDRO - KIT DIRECTED INTRADERMALLY BID TAKING COOL BLOOD GLUCOSE TEST STRIPS - STRIP DIRECTED IN VITRO BID TAKING LANCETS 30G - MISCELLANEOUS DIRECTED INTRADERMALLY TWICE DAILY TAKING OMEPRAZOLE 20 MG CAPSULE DELAYED RELEASE 1 CAPSULE ORALLY ONCE A DAY TAKING ISOSORBIDE MONONITRATE 60MG TABLET EXTENDED RELEASE 24 HOUR 1 TABLET ORALLY ONCE A DAY TAKING LIDOCAINE VISCOUS 2 % SOLUTION 5 ML TO AFFECTED AREA NEEDED MOUTH/THROAT TID NEEDED TAKING METFORMIN HCL 1000 MG TABLET 1 TABLET WITH MEALS ORALLY DAILY TAKING TRIAMTERENE-HCTZ 37.5-25 MG TABLET 1 TABLET IN THE MORNING ORALLY ONCE A DAY TAKING KLOR-CON M20 20 MEQ TABLET EXTENDED RELEASE 1 TABLET WITH FOOD ORALLY ONCE A DAY TAKING DRISDOL 97241 UNIT CAPSULE 1 CAPSULE ORALLY ONCE A WEEK TAKING VITAMIN D 1000 UNIT TABLET 1 TABLET ORALLY ONCE A DAY TAKING TIZANIDINE HCL 2 MG TABLET 1 TABLET NEEDED ORALLY FOR SPASMS AND PAIN BEFORE BEDTIME TAKING SERTRALINE HCL 50 MG TABLET 1 TABLET ORALLY ONCE A DAY MEDICATION LIST REVIEWED AND RECONCILED WITH THE PATIENT PAST MEDICAL HISTORY BACK PAIN HIGH BLOOD PRESSURE HIGH CHOLESTEROL SEASONAL ALLERGIES CHRONIC LOW BACK PAIN HISTORY OF DC (MYOCARDIAL INFARCTION) LUMBOSACRAL RADICULOPATHY 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 JAFFE, CHEMO LAST SATURDAY COLONOSCOPY: GARY JANUARY 2018 MAMMOGRAM: SEVERAL YEARS AGO CARDIAC STENTS X 3, [place] 2011 ECHO 2018: NORMAL GLOBAL LEFT VENTRICULAR SYSTOLIC FUNCTION. THERE ARE SOME FEATURES OF LEFT VENTRICULAR DIASTOLIC DYSFUNCTION, GRADE 1.AORTIC VALVE SCLEROSIS WITH TRACE AORTIC REGURGITATION BUT NO AORTIC STENOSIS.TRACE MITRAL REGURGITATION.TRACE TRICUSPID REGURGITATION WITH A NORMAL CALCULATED PULMONARY ARTERY STESS TEST: SLEZKA HERNIA - LEFT ABDOMEN ALLERGIES ZANAFLEX: VOMITING: ALLERGY RED DYE: ANAPHYLAXIS: ALLERGY IBUPROFEN: VOMITING: ALLERGY SURGICAL HISTORY BACK SURGERY X 2 HYSTERECTOMY APPENDECTOMY COLOSTOMY BAG FAMILY HISTORY FATHER: 81 YRS, DC, DIAGNOSED WITH HEART DISEASE MOTHER: 68 YRS, LUNG CANCER, DIAGNOSED WITH CANCER SIBLINGS: ALIVE, BROTHER OF LUNG/LIVER CANCER, DIAGNOSED WITH STROKE, CANCER SON(S): ALIVE 42 YRS DAUGHTER(S): ALIVE 3 BROTHER(S) , 2 SISTER(S) . 1 SON(S) , 2 DAUGHTER(S) - HEALTHY. SISTER- OF A STROKEDAUGHTERS: 1976; 1971. SOCIAL HISTORY GENERAL: TOBACCO USE ARE YOU A:CURRENT SMOKER ARE YOU INTERESTED IN QUITTING?THINKING ABOUT QUITTING PT HAS PATCHES THROUGH HER PRIMARY PREVIOUS QUIT ATTEMPTS?YES, WITHIN THE LAST 6 MONTHS. COUNSELED THE PATIENT ON SMOKING CESSATION, EDUCATION [id number]/14/[id number] HOW MANY CIGARETTES A DAY DO YOU SMOKE?11-20 HOW SOON AFTER YOU WAKE UP DO YOU SMOKE YOUR FIRST CIGARETTE?6-30 MIN HOW OFTEN DO YOU SMOKE CIGARETTES?EVERY DAY PATIENT COUNSELED ON THE DANGERS OF TOBACCO USE AND URGED TO QUIT:10/06/2018 LUNG CANCER SCREENING SMOKING STATUS:FORMER SMOKER IS THE PATIENT BETWEEN THE AGE OF 56 AND 78?YES HAVE YOU QUIT SMOKING WITHIN THE PAST 15 YEARS?YES HAS THE PATIENT EVER BEEN DIAGNOSED WITH LUNG CANCER?NO CREATE REFERRAL:GENERATE AND CREATE REFERRAL TO THE ONCOLOGY NURSE NAVIGATOR (SMP) LISTING USING THE LDCT SCAN PROCEDURE 45 YEARS 1/2 TO 1 PPD BMI CARE GOAL FOLLOW-UP ABOVE NORMAL BMI FOLLOW-UPDIETARY MANAGEMENT EDUCATION, GUIDANCE, AND COUNSELING ALCOHOL SCREENING DID YOU HAVE A DRINK CONTAINING ALCOHOL IN THE PAST YEAR?NO POINTS0 INTERPRETATIONNEGATIVE RECREATIONAL DRUG USE DRUG USE?NO CAFFEINE CAFFEINE USE?YES 1 CUP COFFEE DAILY SEXUAL HX HAD SEX IN THE LAST 12 MONTHS (VAGINAL, ORAL, OR ANAL)?YES WITHMEN ONLY USE PROTECTION?NO LMP:POST MENOP. HAVE YOU EVER HAD AN STD?NO HIV / HEP-C SCREENING HEP-C TEST OFFERED TO PATIENT:YES DATE OFFERED:02/18/2017 TEST ACCEPTED:NO REASON:PATIENT DECLINED ANGLICAN [id number] HINDUISM LANGUAGE TAIWANESE. EDUCATION 2 YEARS COLLEGE. LEARNING BARRIERS / SPECIAL NEEDS BARRIERS TO LEARNING?NO HEARING IMPAIRED?NO VISION IMPAIRED?YES READING GLASSES COGNITIVELY IMPAIRED?NO READINESS TO LEARN?YES LEARNING PREFERENCES?NO LEARNING CAPABILITIES PRESENT?YES EMOTIONAL BARRIERS?NO SPECIAL DEVICES?NO FIELD SPECIALIST NEEDED?NO DOMESTIC VIOLENCE STATUS: OCCUPATION: DISABLED. DIET: REGULAR. EXERCISE: WALKS. MARITAL STATUS: SINGLE. OTHERS AT HOME: [place]. PAIN CLINIC PFS, CLERGY, PUBLIC HEALTH REFERRALS WAS THE PROVIDER NOTIFIED OF ANY PERTINENT INFO?YES HAS THE PATIENT BEEN EDUCATED REGARDING HIS/HER PLAN OF CARE?YES HAS THE PATIENT BEEN EDUCATED REGARDING PAIN, THE RISK FOR PAIN, THE IMPORTANCE OF EFFECTIVE PAIN MANAGEMENT, AND THE PAIN ASSESSMENT PROCESS?YES HOUSING: RENTS HOUSE. ADVANCE DIRECTIVE ADVANCE DIRECTIVE DISCUSSED WITH PATIENT:YES JOVI VILLAVICENCIO [phone] REVIEWED WITH PT 09/05/18 1422 BV. HOSPITALIZATION/MAJOR DIAGNOSTIC PROCEDURE BACK SURGERY X 2; DISC AND SPINAL FUSION. [place] DR. GIOVANI NEVES , DR. VILLALTA ([place]) HYSTERECTOMY APPENDECTOMY COLOSTOMY BAG INSERTION 02/2018 [facility], THEN TRANSFERED TO [facility], C-DIFF, MULTIPLE INFECTIONS 01/2018 REVIEW OF SYSTEMS REVIEWED BY: PROVIDER: JOSE AGUIRRE MD . CONSTITUTIONAL: ANY CHANGE IN YOUR MEDICAL CONDITION? NO . CHILLS NO . FEVER NO . INFECTION: DO YOU HAVE NEW INFECTIONS? NO . DO YOU HAVE HISTORY OF MRSA? NO . MUSCULOSKELETAL: ANY NEW PATTERNS OF PAIN OR NUMBNESS? NO . GASTROENTEROLOGY: ANY NEW CHANGE IN BOWEL CONTROL? NO . GENITOURINARY: ANY NEW CHANGE IN BLADDER CONTROL? NO . IS THERE A CHANCE YOU COULD BE ? NO . HEMATOLOGY/LYMPH: DO YOU TAKE ANY BLOOD THINNERS? (FOR EXAMPLE- COUMADIN, PLAVIX, AGGRENOX, PLATEL, PRADAXA, OR XARELTO) PLAVIX . WHEN WAS YOUR LAST DOSE? DATE: TIME: . NEUROLOGY: HAVE YOU FALLEN IN THE PAST 12 MONTHS? NO . ANY NEW EXTREMITY NUMBNESS OR WEAKNESS? NO . CARDIOLOGY: DO YOU HAVE A PACEMAKER OR DEFIBRILLATOR? NO . RESPIRATORY: HAVE YOU BEEN SICK IN THE PAST WEEK? NO . FEVER NO . FLU LIKE SYMPTOMS? NO . COUGH NO . INTEGUMENTARY: DO YOU HAVE ANY RASHES OR OPEN SORES? NO . ALLERGIC/IMMUNO: ARE YOU ALLERGIC TO IV DYE? NO . ANY NEW ALLERGIES? NO . PSYCHIATRIC: DO YOU HAVE THOUGHTS OF HURTING YOURSELF OR SOMEONE ELSE? NO . ARE YOU ABUSED, NEGLECTED, OR IN AN UNSAFE ENVIRONMENT? NO . ENDOCRINOLOGY: ARE YOU DIABETIC? YES, MANAGED BY DIET . OTHER: DO YOU NEED ANY PRESCRIPTIONS? NO . IF YES, PLEASE LIST: ____ . ANY NEW PROBLEMS WITH YOUR MEDICATIONS? NO . WHEN DID YOU LAST EAT? ____ . WHEN DID YOU LAST DRINK? ____ . WHAT DID YOU LAST DRINK? ____ . NAME OF PERSON DRIVING YOU HOME? ____ . DO YOU HAVE ANY OTHER QUESTIONS OR CONCERNS TPI DID NOT WORK, PT STATES THAT SHE CONTINUES TO BE IN PAIN . VITAL SIGNS WT 128.2 LBS, HT 64 IN, BMI 22.00 INDEX, BP 129/82 MM HG, HR 89 /MIN, RR 16 /MIN, TEMP 97.9 F, OXYGEN SAT % 98%, SAFE IN ENV? (Y/N) Y, NA INITIALS PA 09:29, REVIEWED BY: KEVEN. EXAMINATION GENERAL EXAMINATION: PATIENT IS ALERT O X 3 AND COOPERATIVE. MRI OF THE LUMBAR SPINE DONE ON 09/29/2018 SHOWS FACET ARTHROPATHY CHANGES AND POST LAMINECTOMY CHANGES AT MULTIPLE LEVELS. ASSESSMENTS SPONDYLOSIS OF LUMBAR REGION WITHOUT MYELOPATHY OR RADICULOPATHY - M47.816 (PRIMARY) LUMBAR POST-LAMINECTOMY SYNDROME - M96.1 TREATMENT SPONDYLOSIS OF LUMBAR REGION WITHOUT MYELOPATHY OR RADICULOPATHY CLINICAL NOTES: WE DISCUSSED SEVERAL ISSUES WITH MRS. VILLAVICENCIO'S PAIN MANAGEMENT CASE. DUE TO THE LUMBAR SPONDYLOSIS, I WOULD LIKE TO MOVE FORWARD WITH A THERAPEUTIC LUMBAR FACET BLOCK AT THIS TIME. WE DISCUSSED THE BENEFITS, RISKS, AND ALTERNATIVES OF THE INJECTION AND THE PATIENT WOULD LIKE TO PROCEED. I WILL NEED A CLEARANCE FROM THE PATIENT'S VARNISH MAKER HELPER FOR HER TO STOP PLAVIX PRIOR TO THE PROCEDURE. I WILL ALSO START THE PATIENT ON CODEINE. ISTOP _[id number] WAS REVIEWED. THE PATIENT WILL SIGN A NARCOTIC AGREEMENT AND PERFORM A URINE TOXICOLOGY TODAY. I WOULD ALSO LIKE TO DISCUSS THE CASE WITH THE PATIENT'S PRIMARY TO CONSIDER SWITCHING HER ZOLOFT TO CYMBALTA. THE PATIENT WILL FOLLOW UP IN 3 WEEKS. INSTRUCTIONS WERE GIVEN, QUESTIONS WERE ANSWERED, PATIENT REPORTS UNDERSTANDING AND AGREES WITH THE PLAN. I, MASON ROLON, DOCUMENTED THE ABOVE INFORMATION ACTING A SCRIBE FOR DR. AGUIRRE. I HAVE REVIEWED THE ABOVE DOCUMENT, WRITTEN BY MASON BAÑUELOSIBMary AND I VERIFY THAT IT IS ACCURATE. OTHERS START CODEINE SULFATE TABLET, 15 MG, 1 TABLET NEEDED, ORALLY, EVERY 12 HOURS NEEDED MDD2, 7 DAY(S), 10, REFILLS 0 NOTES: PT GIVEN EDUCATION PAPERWORK ON CODEINE. DS. PROCEDURE CODES FA211 ESTABILISHED PATIENT [facility] FAC[facility] CHARGE G8427 CURRENT MEDS W/DOSAGES DOCUMENTED G8730 PAIN ASSESS POS TOOL F/U PLAN DOC DISPOSITION & COMMUNICATION FOLLOW UP 3 WEEKS (REASON: LOW BACK) ELECTRONICALLY SIGNED BY JOSE AGUIRRE MD, MD ON 10/22/2018 AT 06:49 AM EST DISCLAIMER : THIS IS A VISIT SUMMARY EXTRACTED FROM THE [employer] CHART. IT IS NOT A COPY OF THE [employer] PROGRESS NOTE. SAILAJA
== END ==
LOC: M PAIN 09:15
PROVIDERS: ATTEND Anesthesiology
DX: M47.816 Spondylosis without myelopathy or radiculopathy, lumbar region (principal); M96.1 Postlaminectomy syndrome, not elsewhere classified; I10 Essential (primary) hypertension; E78.5 Hyperlipidemia, unspecified; Z87.39 Personal history of other diseases of the musculoskeletal system and connective tissue; I25.2 Old myocardial infarction; Z85.72 Personal history of non-Hodgkin lymphomas; Z93.3 Colostomy status; Z92.21 Personal history of antineoplastic chemotherapy; Z95.5 Presence of coronary angioplasty implant and graft; K46.9 Unspecified abdominal hernia without obstruction or gangrene; F17.210 Nicotine dependence, cigarettes, uncomplicated; E11.9 Type 2 diabetes mellitus without complications; Z91.02 Food additives allergy status; Z88.6 Allergy status to analgesic agent; Z88.8 Allergy status to other drugs, medicaments and biological substances; Z79.01 Long term (current) use of anticoagulants; Z79.84 Long term (current) use of oral hypoglycemic drugs; Z79.899 Other long term (current) drug therapy

== ENCOUNTER → 2018-10-14 | Outpatient (CLI) | payer MEDICARE ==
[~2018-10-14] MED LIST changes: +METF10004 PO
--- NOTE | 2018-10-15 18:35 | REP ---
Whole body PET CT scan for restaging of non-Hodgkins lymphoma: Comparison is 05/07/2018. Whole-body scanning is performed from skull base to the upper thighs. Neck and supraclavicular areas: There is hypermetabolic uptake in a cervical node in the right posterior to the right parotid gland, similar to the prior study. The maximal standard uptake value today is 5.1. The standard uptake value previously was 6.9. There is artifactual uptake in the vocal cords. No other hypermetabolic foci are identified in the neck or supraclavicular areas. Chest: There are no hypermetabolic foci. This is unchanged. Abdomen, pelvis and upper thighs: There are no hypermetabolic foci. This is unchanged. There is an anterior abdominal wall colostomy as an interval change. There is a parastomal hernia containing a loop of large bowel. There is no evidence of bowel obstruction. Impression: There is hypermetabolic uptake in a cervical node in the neck on the right as described, similar to the prior study. There are no other hypermetabolic foci. There has been an interval colostomy. There is a parastomal hernia containing a loop of colon. There is no bowel obstruction. The study is performed with 8.3 mCi of F 18 FDG. Electronically Signed by Denzel Chaves MD 10/15/2018 06:27 P
== END ==
LOC: M PLARAD 11:31
PROVIDERS: ATTEND Internal Medicine Medical Oncology
DX: C83.31 Diffuse large B-cell lymphoma, lymph nodes of head, face, and neck (principal)
CPT/HCPCS: 78815; A9552

== ENCOUNTER → 2018-10-16 | Outpatient (CLI) | payer MEDICARE ==
[~2018-10-16] MED LIST changes: -METF10004 PO
--- NOTE | 2018-10-17 08:06 | RADONC ---
RADIATION ONCOLOGY REEVALUATION/CONSULTATION DATE: 10/16/2018 CHART NUMBER: [id number] DIAGNOSIS: Diffuse large B-cell lymphoma. STAGE: IIA. ECOG PERFORMANCE STATUS: 0 CONSULTATION NOTE: The patient is a 68-year-old white female with a diagnosis of a stage IIA diffuse large B-cell lymphoma involving her right periparotid area and cervical lymph node chain. It may have actually initially involved the bilateral cervical lymph node chain according to notes from the chart. Nonetheless, she first noted swelling in her neck in September of 2017 and was seen by her family care physician and treated as though it would be consistent with an infection. She saw Dr. Coelho who biopsied the lesion on 11/27/2017 with pathology revealing a diffuse large B-cell lymphoma involving the right tonsillar region. Examination of the patient's neck biopsy showed mostly necrotic tissue and a PET scan was performed on 12/10/2017 which revealed clear hypermetabolic uptake found in her oropharynx as well as bilateral cervical and supraclavicular neck regions. The patient was seen by Dr. Zhanna Bower who recommended systemic chemotherapy and she saw Dr. Albarado on 12/17/2017. It was felt that chemotherapy should be the patient's primary modality of treatment but that she could consider radiotherapy should the lesion fail to respond in its entirety. The patient went on to receive chemotherapy under the direction of Dr. Zhanna Bower and received R-CHOP chemotherapy. Initially, she had an adverse reaction to her chemotherapy because of a C. difficile colitis requiring a colectomy and diverting colostomy. She resumed her treatment with curative intent in May of 2018 and completed cycle six. A restaging CT scan of the neck, chest, abdomen and pelvis was performed on 09/26/2018 which revealed a 1.5 cm enhancing right parotid lesion. The repeat PET scan had shown that hypermetabolic activity was noted in a cervical lymph node in the neck on the right as described similar to a prior study. There were no other apparent areas of increased FDG uptake as read on the report. She would like to have her colostomy repaired and comes today to discuss the logistics of initiating radiotherapy at this time. PAST MEDICAL HEALTH: Hypertension. Diabetes. She has had threes coronary stents placed. ALLERGIES: 1. Red dye. 2. IBUPROFEN. SOCIAL HISTORY: Tobacco: She smokes one half of pack of cigarettes and has done so for the last 48 years. She does not drinking abusively. FAMILY HISTORY: Mother and sister with breast cancer as well as a brother with lung cancer. MEDICATIONS: - Isosorb 60 mg tablets one daily - sertraline 1 tablet 50 mg daily - Klor-Con one daily - atorvastatin 20 mg one daily - vitamin D3 one daily - clopidogrel 75 mg one daily - triamterene hydrochlorothiazide 37.5/25 mg one daily - codeine 15 mg two daily REVIEW OF SYSTEMS: She has minimal dryness of the mouth, but denies headaches, nausea, vomiting or focal neurologic deficits. HEAD/NECK: Her taste appears somewhat normal or is normalizing, but she does have some alteration of her taste. LYMPHATICS: The patient notes no gross lymphadenopathy or pain in the lymphatic areas. LUNGS: She continues to smoke and has a chronic smoker's cough. HEART: She has a previous history of coronary artery stents but has had no rhythmic irregularities or chest pain. ABDOMEN: The colostomy bothers the patient a great deal because of its protrusion. She wants to have that repaired as quickly as possible. On November 18 she is seeing her surgeon for a colostomy and hopefully repair will be undertaken shortly thereafter. EXTREMITIES: Typical arthritic extremity changes. NEUROLOGIC EXAMINATION: No history of seizure activity, nausea, vomiting, headaches or focal neurologic deficits. EXAMINATION FINDINGS: Blood pressure 118/70, oxygen saturation 98% on room air, temperature 99.2, pulse 76, respirations 16, height 5 feet 4 inches, weight 127.2. HEENT: Essentially normocephalic with the exception of some epilation secondary to her chemotherapy, atraumatic. No abnormalities are noted in the head and neck region. LYMPHATICS: No palpable peripheral lymphadenopathy is appreciated. LUNGS: Clear but distant consistent with COPD. HEART: Regular without murmurs. ABDOMEN: Without evidence of hepatomegaly. She does have a colostomy in place which she wishes to have repaired. EXTREMITIES: Without cyanosis, perhaps minimal digital clubbing, but no significant edema. NEUROLOGIC EXAMINATION: Grossly physiologic. IMPRESSION: Bulky diffuse large B-cell lymphoma with BCL2 expression diagnosed in October of 2017, status post R-CHOP chemotherapy (six cycles). PLAN OF RADIOTHERAPY: The patient will require involved field radiotherapy as in the parotid areas I see two areas which show increased uptake. I would also want to treat where she had her original bulky lymphadenopathy. Prior to treatment delivery localization will be accomplished upon our CT simulator and treatment portals defined by the use of multiple leaf collimators. IMRT will be considered as a technique of choice in order to spare surrounding tissue structures and minimize head and neck side effects. Indications, possible side effects, as well as alternatives to radiotherapy have been explained to the patient in detail. She and her partner understand and are willing to proceed. Thank you for allowing us the opportunity of participation in the management of this very fine patient. cc: MD Cori Maldonado PA [place], MD
== END ==
LOC: M ONCR 10:16
PROVIDERS: ATTEND Radiology Radiation Oncology
DX: C83.30 Diffuse large B-cell lymphoma, unspecified site (principal)

== ENCOUNTER 2018-10-22 10:50 | Outpatient (RCR) | payer MEDICARE ==
[2018-10-22 11:23] LABS: HEMATOCRIT 43.2 % (36.0-47.0); HEMOGLOBIN 13.8 g/dl (12.0-15.5); MEAN CORPUSCULAR HEMOGLOBIN 31.8 pg (27.0-33.0); MEAN CORPUSCULAR HGB CONC 31.9 g/dl (32.0-36.5); MEAN CORPUSCULAR VOLUME 99.6 fl (80.0-96.0); NEUTROPHILS # 4.8 10^3/uL (1.8-7.7); NEUTROPHILS % 61.5 % (36.0-66.0); RED BLOOD COUNT 4.34 10^6/uL (4.00-5.40); WHITE BLOOD COUNT 7.8 10^3/uL (4.0-10.0)
== END 2018-10-23 ==
LOC: M ONCR 10:50
PROVIDERS: ATTEND Radiology Radiation Oncology
DX: C83.31 Diffuse large B-cell lymphoma, lymph nodes of head, face, and neck (principal)

== ENCOUNTER 2018-11-18 09:24 | Day surgery (SDC) | payer MEDICARE ==
[~2018-11-18] VITALS: Ht 162.6 cm; Wt 54.9 kg
[~2018-11-18 09:24] MED LIST changes: +LIDOCAINE 2% INJ 100 MG/5 ML SDV (FOR ANES.) As Ordered ONE; +METF10004 PO; +NS 1,000 ML IV ONE; +PROPOFOL 200 MG/20 ML VIAL As Ordered ONE
[2018-11-18] MEDS ORDERED: ONDANSETRON 4MG/2ML VIAL (J2405) IV ONE (11:30)
[2018-11-18] MEDS ORDERED: MORPHINE 4 MG/ML 1ML VIAL/SYRINGE (J2270) IV ONE (12:15)
[2018-11-18 12:29] VITALS: BP 145/67
--- NOTE | 2018-11-18 13:30 | ROOR ---
Patient Name: Maria E Molina Procedure Date: 11/18/2018 10:34 AM Date of : 1950 Age: 68 Room: [facility] Gender: Female Note Status: Finalized Procedure: Colonoscopy Indications: Preoperative assessment, evaluate colon/rectum for possible colostomy closure Providers: Devon Anaya MD Referring MD: Kemi West NP Requesting Provider: Medicines: Monitored Anesthesia Care Complications: No immediate complications. Procedure: Pre-Anesthesia Assessment: - Prior to the procedure, a History and Physical was performed, and patient medications and allergies were reviewed. The patient is competent. The risks and benefits of the procedure and the sedation options and risks were discussed with the patient. All questions were answered and informed consent was obtained. Patient identification and proposed procedure were verified by the physician, the nurse and the anesthesiologist in the procedure room. Mental Status Examination: alert and oriented. CV Examination: regular rate and rhythm. Prophylactic Antibiotics: The patient does not require prophylactic antibiotics. Prior Anticoagulants: The patient has taken no previous anticoagulant or antiplatelet agents. ASA Grade Assessment: III - A patient with severe systemic disease. After reviewing the risks and benefits, the patient was deemed in satisfactory condition to undergo the procedure. The anesthesia plan was to use monitored anesthesia care (MAC). Immediately prior to administration of medications, the patient was re-assessed for adequacy to receive sedatives. The heart rate, respiratory rate, oxygen saturations, blood pressure, adequacy of pulmonary ventilation, and response to care were monitored throughout the procedure. The physical status of the patient was re-assessed after the procedure. The Colonoscope was introduced through the anus and advanced to the rectum for evaluation. This was the intended extent. The colonoscopy was performed without difficulty. The patient tolerated the procedure well. The quality of the bowel preparation was excellent. The Colonoscope was introduced through the descending colostomy and advanced to the cecum, identified by appendiceal orifice and ileocecal valve. Findings: The digital rectal exam findings include some congelaed mucus was remove. The finger reached the end of the rectum. The distal rectum appeared normal. The rectal stump was approx 7 cm in length with a prolene suture noted at the end. A few small-mouthed diverticula were found in the descending colon and distal descending colon. An infiltrative and ulcerated non-obstructing medium-sized mass was found in the cecum. This was either adjacent to or was in fact involving the ileocecal valve. Its diameter measured thirty mm. No bleeding was present. Biopsies were taken with a cold forceps for histology. Impression: - Some congelaed mucus was remove. The finger reached the end of the rectum. found on digital rectal exam. - The distal rectum is normal. - Diverticulosis in the descending colon and in the distal descending colon. - Malignant tumor in the cecum. Biopsied. Recommendation: - Discharge patient to home. - Resume previous diet. - Continue present medications. - Await pathology results. - Return to endoscopist in 1 week. Devon Anaya MD Devon Anaya MD 11/18/2018 1:29:38 PM Electronically signed by Devon Anaya MD Number of Addenda: 0 Note Initiated On: 11/18/2018 10:34 AM Estimated Blood Loss: Estimated blood loss was minimal.
--- NOTE | 2018-11-18 15:10 | REP ---
ABDOMINAL SERIES: Left lateral decubitus and supine films of the abdomen and pelvis demonstrate no evidence of free intraperitoneal air and no evidence of bowel obstruction. No dilated small bowel loops are seen. Left abdominal ostomy is noted. Metallic clips are seen in the pelvis as well as hardware at the L5-S1 level. There are degenerative changes of the spine . An accompanying view of the chest demonstrates no acute infiltrate. The heart does not appear to be significantly enlarged. There is calcification and tortuosity of the thoracic aorta. IMPRESSION: No free air or obstruction. No infiltrate in either lung. Electronically Signed by Denzel Pro MD 11/19/2018 11:08 A
[2018-11-19] MEDS ORDERED: PERC5TAB12 PO (08:50)
== END 2018-11-18 14:14 | disposition home or self-care (01) ==
LOC: M OPP 09:24
PROVIDERS: ATTEND Surgery
DX: Z01.818 Encounter for other preprocedural examination (principal); C18.0 Malignant neoplasm of cecum; K57.30 Diverticulosis of large intestine without perforation or abscess without bleeding; K43.3 Parastomal hernia with obstruction, without gangrene; I25.2 Old myocardial infarction; Z79.84 Long term (current) use of oral hypoglycemic drugs; Z79.899 Other long term (current) drug therapy; Z88.8 Allergy status to other drugs, medicaments and biological substances; Z91.048 Other nonmedicinal substance allergy status; Z95.5 Presence of coronary angioplasty implant and graft; Z85.79 Personal history of other malignant neoplasms of lymphoid, hematopoietic and related tissues; Z90.49 Acquired absence of other specified parts of digestive tract; Z92.3 Personal history of irradiation; Z92.21 Personal history of antineoplastic chemotherapy
CPT/HCPCS: 44389; 74021; 88305; 88342; J2270; J2405

== ENCOUNTER 2018-11-19 08:29 | Outpatient (RCR) | payer MEDICARE ==
--- NOTE | 2018-11-05 07:04 | RADONC ---
RADIATION ONCOLOGY PROGRESS NOTE DATE: 11/03/2018 CHART NUMBER: [id number] Ms. Molina underwent her first fraction of radiation today to her head and neck region. It was tolerated without difficulty or discomfort. PHYSICAL EXAMINATION: The patient's physical exam at this time showed no evidence of changes. Clearly there is no evidence of radiation change since this was her first fraction of treatment. ASSESSMENT: Ms. Molina tolerated her first fraction without difficulty. Radiation will continue as scheduled.
--- NOTE | 2018-11-11 07:44 | RADONC ---
RADIATION ONCOLOGY PROGRESS NOTE DATE: 11/10/2018 CHART NUMBER: [id number] Ms. Molina is presently a dose of 1080 cGy to her head and neck and is tolerating treatments quite well at this point with no significant difficulties related to her radiation therapy other than some dryness of her mouth. REVIEW OF SYSTEMS: The patient's review of systems is positive for some dry mouth, but is otherwise noncontributory. She denies nausea, vomiting, fevers, chills, night sweats, diplopia, headaches, anxiety or depression, anorexia, weight loss, visual disturbances, chest pain, urinary or bowel difficulties, bone pain, or neurological problems. PHYSICAL EXAMINATION: The patient's skin is in good condition with no evidence of moist or dry desquamation. The remainder of her physical exam remains unchanged. Ms. Molina is tolerating treatments quite well and radiation will continue as scheduled.
--- NOTE | 2018-11-18 07:52 | RADONC ---
RADIATION ONCOLOGY PROGRESS NOTE DATE: 11/17/2018 CHART NUMBER: [id number] Ms. Molina is thus far at a dose of 1620 cGy to her head and neck region and is complaining of a sore throat and difficulty swallowing. She reports that she is using her viscous Xylocaine given to her by Dr. Bower. She is also scheduled for a colonoscopy in the morning and is undergoing her preparation at this time. She was last treated on 11/13. PHYSICAL EXAMINATION: The patient has some moderate mucositis present in her oral cavity. The remainder of her physical exam is unchanged. ASSESSMENT: The patient will be on rest today and tomorrow she will be undergoing her colonoscopy. We will be seeing her again prior to reinitiation of treatment on Saturday. She has been given instructions with regards to gargling and oral cavity care and will continue using her Xylocaine. Since she will be going under sedation tomorrow, I have not given her any narcotics at this time. This will be reevaluated also on Saturday. I did ask her why she is going through her colonoscopy in the middle of this and I am not clear why she chose to do that at this time.
[~2018-11-19 08:29] MED LIST changes: -LIDOCAINE 2% INJ 100 MG/5 ML SDV (FOR ANES.) As Ordered ONE; -NS 1,000 ML IV ONE; -PROPOFOL 200 MG/20 ML VIAL As Ordered ONE
[2018-11-19] MEDS ORDERED: PERC5TAB12 PO (08:50)
--- NOTE | 2018-11-20 12:47 | RADONC ---
RADIATION ONCOLOGY PROGRESS NOTE DATE: 11/19/2018 CHART #: [id number] Ms. Molina is thus far still at a dose of 1620 cGy and was last treated on 11/13/2017. She came in today having completed a colonoscopy yesterday, reporting she continues have a significant sore throat with difficulty swallowing. She tells me that they found a mass in her colon which they think is malignant. The patient's weight, however, at this time is stable. I have told the patient to take the remainder of this week off and we will reevaluate her on Saturday. In addition, I have sent in a prescription for pain medication. We did check I-STOP and no results were seen.
--- NOTE | 2018-11-20 12:56 | RADONC ---
RADIATION ONCOLOGY PROGRESS NOTE DATE: 11/19/2018 CHART: [id number] We got a phone call from [facility] saying the patient had a prescription for codeine. We had checked our I-STOP and saw no prescriptions and told [facility] to fill the Percocet prescription. I subsequently reviewed my I-STOP request and apparently I typed in the patient's name, but the date of 08/28/1949. The patient's actual birthday is 1950. We now rechecked I-STOP with the correct birthday and apparently she has been given multiple pain medications in the past over the past year. In light of the patient's present pain, however, it has been now almost 3 weeks since her codeine prescription and she only had a 22-day supply given at that time, which was November 03. In light of this, I will not contact [facility] and cancel my present prescription. I have now printed out the results of the new I-STOP check and we will go from there. As noted above, the patient will remain on rest at this time. We are continuing to check on her pathology biopsy status from her colonoscopy and we are planning on resuming radiation on Saturday if all goes well.
== END 2018-11-23 ==
LOC: M ONCR 08:29
PROVIDERS: ATTEND Radiology Radiation Oncology
DX: C83.31 Diffuse large B-cell lymphoma, lymph nodes of head, face, and neck (principal)

== ENCOUNTER → 2018-12-09 | Outpatient (CLI) | payer MEDICARE ==
[~2018-12-09] MED LIST changes: -ASPI1TAB PO; +ASPI81TA26 PO; +HYDR-3715 PO; -NORCOTAB PO; +PERCOCET PO; +SERT-141 PO; -SERT50TA PO; -VANC125C2 PO; +VANC125C3 PO; +diazePAM 5 MG TAB As Ordered ONE; +oxyCODONE 5MG TAB As Ordered ONE
--- NOTE | 2018-12-22 00:29 | ECWPNPC ---
PATIENT NAME: ANNIE VILLAVICENCIO : 1950 GENDER: FEMALE VISIT DATE: 12/09/2018 DISCHARGE DATE: 12/09/18 1151 VISIT LOCKED DATE TIME: PHYSICIAN: OJSE AGUIRRE MD RESOURCE: JOSE AGUIRRE MD REASON FOR APPOINTMENT 1. LOW BACK HISTORY OF PRESENT ILLNESS HISTORY OF PRESENT ILLNESS: PAIN THE PATIENT DESCRIBES THE PAIN... 68 YEAR OLD FEMALE PATIENT WITH A HISTORY OF CHRONIC LOW BACK PAIN. THE PATIENT DESCRIBES THE PAIN ACHING, STABBING, AND CONTINUOUS WITH A PAIN SCORE OF 8-9/10 DEPENDING ON PHYSICAL ACTIVITY. THE PATIENT WAS HERE FOR A TRIGGER POINT INJECTION ON 09/06/2018 AND REPORTS HAVING ABOUT 10 DAYS OF PAIN RELIEF AND THEN HER PAIN RETURNED. THE PATIENT REPORTS HAVING LYMPHOMA AND IS CURRENTLY RECEIVING CHEMOTHERAPY. PATIENT DENIES UNEXPLAINABLE WEIGHT LOSS, FEVER, CHILLS, NEW CHANGES ON HER URINARY OR BOWEL CONTROL. FALL RISK SCREENING: SCREENING :NO FALLS REPORTED IN THE LAST YEAR CURRENT MEDICATIONS TAKING PLAVIX 75 MG TABLET 1 TABLET ORALLY ONCE A DAY, NOTES: 5 DAYS AGO TAKING ISOSORBIDE MONONITRATE 60 MG TABLET EXTENDED RELEASE 24 HOUR 1 TABLET ORALLY ONCE A DAY, NOTES: 12/09 7AM TAKING LIPITOR 20 MG TABLET 1 TABLET ORALLY ONCE A DAY, NOTES: 12/09 7AM TAKING BLOOD GLUCOSE SYSTEM SANDRO - KIT DIRECTED INTRADERMALLY BID TAKING COOL BLOOD GLUCOSE TEST STRIPS - STRIP DIRECTED IN VITRO BID TAKING LANCETS 30G - MISCELLANEOUS DIRECTED INTRADERMALLY TWICE DAILY TAKING LIDOCAINE VISCOUS 2 % SOLUTION 5 ML TO AFFECTED AREA NEEDED MOUTH/THROAT TID NEEDED, NOTES: 12/08 7AM TAKING METFORMIN HCL 1000 MG TABLET 1 TABLET WITH MEALS ORALLY DAILY, NOTES: 12/08 7AM TAKING TRIAMTERENE-HCTZ 37.5-25 MG TABLET 1 TABLET IN THE MORNING ORALLY ONCE A DAY, NOTES: 12/09 7AM TAKING KLOR-CON M20 20 MEQ TABLET EXTENDED RELEASE 1 TABLET WITH FOOD ORALLY ONCE A DAY, NOTES: 12/09 7AM TAKING DRISDOL 42362 UNIT CAPSULE 1 CAPSULE ORALLY ONCE A WEEK, NOTES: 12/09 7AM TAKING VITAMIN D 1000 UNIT TABLET 1 TABLET ORALLY ONCE A DAY, NOTES: 12/09 7AM TAKING TIZANIDINE HCL 2 MG TABLET 1 TABLET NEEDED ORALLY FOR SPASMS AND PAIN BEFORE BEDTIME, NOTES: 12/09 7AM TAKING CODEINE SULFATE 15 MG TABLET 1 TABLET NEEDED ORALLY EVERY 12 HOURS NEEDED MDD2, NOTES: 12/08 7AM NOT-TAKING OMEPRAZOLE 20 MG CAPSULE DELAYED RELEASE 1 CAPSULE ORALLY ONCE A DAY NOT-TAKING ISOSORBIDE MONONITRATE 60MG TABLET EXTENDED RELEASE 24 HOUR 1 TABLET ORALLY ONCE A DAY NOT-TAKING SERTRALINE HCL 50 MG TABLET 1 TABLET ORALLY ONCE A DAY MEDICATION LIST REVIEWED AND RECONCILED WITH THE PATIENT PAST MEDICAL HISTORY BACK PAIN HIGH BLOOD PRESSURE HIGH CHOLESTEROL SEASONAL ALLERGIES CHRONIC LOW BACK PAIN 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 JAFFE, CHEMO LAST SATURDAY COLONOSCOPY: GARY JANUARY 2018 MAMMOGRAM: SEVERAL YEARS AGO CARDIAC STENTS X 3, [place] 2011 ECHO 2018: NORMAL GLOBAL LEFT VENTRICULAR SYSTOLIC FUNCTION. THERE ARE SOME FEATURES OF LEFT VENTRICULAR DIASTOLIC DYSFUNCTION, GRADE 1.AORTIC VALVE SCLEROSIS WITH TRACE AORTIC REGURGITATION BUT NO AORTIC STENOSIS.TRACE MITRAL REGURGITATION.TRACE TRICUSPID REGURGITATION WITH A NORMAL CALCULATED PULMONARY ARTERY STESS TEST: SLEZKA HERNIA - LEFT ABDOMEN ALLERGIES ZANAFLEX: VOMITING - ALLERGY RED DYE: ANAPHYLAXIS - ALLERGY IBUPROFEN: VOMITING - ALLERGY SURGICAL HISTORY BACK SURGERY X 2 HYSTERECTOMY APPENDECTOMY COLOSTOMY BAG FAMILY HISTORY FATHER: 81 YRS, [place], DIAGNOSED WITH HEART DISEASE MOTHER: 68 YRS, LUNG CANCER, CANCER SIBLINGS: ALIVE, BROTHER OF LUNG/LIVER CANCER, STROKE, CANCER SON(S): ALIVE 42 YRS DAUGHTER(S): ALIVE 3 BROTHER(S) , 2 SISTER(S) . 1 SON(S) , 2 DAUGHTER(S) - HEALTHY. SISTER- OF A STROKE\\NDAUTERS: 1976; 1971. SOCIAL HISTORY GENERAL: TOBACCO USE ARE YOU A:CURRENT SMOKER ARE YOU INTERESTED IN QUITTING?THINKING ABOUT QUITTING PT HAS PATCHES THROUGH HER PRIMARY PREVIOUS QUIT ATTEMPTS?YES, WITHIN THE LAST 6 MONTHS. COUNSELED THE PATIENT ON SMOKING CESSATION, EDUCATION [id number]/14/2019 HOW MANY CIGARETTES A DAY DO YOU SMOKE?11-20 HOW SOON AFTER YOU WAKE UP DO YOU SMOKE YOUR FIRST CIGARETTE?6-30 MIN HOW OFTEN DO YOU SMOKE CIGARETTES?EVERY DAY PATIENT COUNSELED ON THE DANGERS OF TOBACCO USE AND URGED TO QUIT:12/09/2018 LATEX QUESTIONNAIRE LATEX ALLERGY : HAVE YOU EVER DEVELOPED ANY TYPE OF REACTION AFTER HANDLING LATEX PRODUCTS SUCH RUBBER GLOVES, CONDOMS, DIAPHRAGMS, BALLOONS, SOCKS, OR UNDERWEAR?NO LATEX ALLERGY : HAVE YOU EVER DEVELOPED ANY TYPE OF REACTION DURING OR AFTER DENTAL APPOINTMENT, VAGINAL/RECTAL EXAMINATION, SURGICAL PROCEDURE, OR ANY OTHER EXPOSURE?NO LATEX RISK : HAVE YOU EVER HAD ANY DIFFICULTY BREATHING OR HIVES AFTER EATING OR HANDLING ANY FRUITS, OR VEGETABLES; SUCH KIWI, BANANAS, STONE FRUITS, OR CHESTNUTSNO LATEX RISK : DO YOU HAVE A PREVIOUS PERSONAL HISTORY OF MORE THAN NINE SURGERIES, SPINA BIFIDA, OR REPEATED CATHERTIZATIONS? NO LATEX RISK : ARE YOU FREQUENTLY EXPOSED TO LATEX PRODUCTS IN YOUR OCCUPATION?NO DATE ASKED : 12/09/2018 LUNG CANCER SCREENING SMOKING STATUS:FORMER SMOKER IS THE PATIENT BETWEEN THE AGE OF 56 AND 78?YES HAVE YOU QUIT SMOKING WITHIN THE PAST 15 YEARS?YES HAS THE PATIENT EVER BEEN DIAGNOSED WITH LUNG CANCER?NO CREATE REFERRAL:GENERATE AND CREATE REFERRAL TO THE ONCOLOGY NURSE NAVIGATOR (SMP) LISTING USING THE LDCT SCAN PROCEDURE 46 YEARS 1/2 TO 1 PPD BMI CARE GOAL FOLLOW-UP ABOVE NORMAL BMI FOLLOW-UPDIETARY MANAGEMENT EDUCATION, GUIDANCE, AND COUNSELING ALCOHOL SCREENING DID YOU HAVE A DRINK CONTAINING ALCOHOL IN THE PAST YEAR?NO POINTS0 INTERPRETATIONNEGATIVE RECREATIONAL DRUG USE DRUG USE?NO CAFFEINE CAFFEINE USE?YES 1 CUP COFFEE DAILY SEXUAL HX HAD SEX IN THE LAST 12 MONTHS (VAGINAL, ORAL, OR ANAL)?YES WITHMEN ONLY USE PROTECTION?NO LMP:POST MENOP. 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 EDUCATION 2 YEARS COLLEGE. LEARNING BARRIERS / SPECIAL NEEDS BARRIERS TO LEARNING?NO HEARING IMPAIRED?NO VISION IMPAIRED?YES READING GLASSES COGNITIVELY IMPAIRED?NO READINESS TO LEARN?YES LEARNING PREFERENCES?NO LEARNING CAPABILITIES PRESENT?YES EMOTIONAL BARRIERS?NO SPECIAL DEVICES?NO FAVOR MAKER NEEDED?NO DOMESTIC VIOLENCE STATUS: OCCUPATION: DISABLED. DIET: REGULAR. EXERCISE: WALKS. MARITAL STATUS: SINGLE. OTHERS AT HOME: [place]. PAIN CLINIC PFS, CLERGY, PUBLIC HEALTH REFERRALS WAS THE PROVIDER NOTIFIED OF ANY PERTINENT INFO?YES HAS THE PATIENT BEEN EDUCATED REGARDING HIS/HER PLAN OF CARE?YES HAS THE PATIENT BEEN EDUCATED REGARDING PAIN, THE RISK FOR PAIN, THE IMPORTANCE OF EFFECTIVE PAIN MANAGEMENT, AND THE PAIN ASSESSMENT PROCESS?YES HOUSING: RENTS HOUSE. ADVANCE DIRECTIVE ADVANCE DIRECTIVE DISCUSSED WITH PATIENT:YES JOVI VILLAVICENCIO [phone] REVIEWED WITH PT 09/05/18 1422 BV. HOSPITALIZATION/MAJOR DIAGNOSTIC PROCEDURE BACK SURGERY X 2; DISC AND SPINAL FUSION. [place] DR. GIOVANI NEVES , DR. VILLALTA ([place]) HYSTERECTOMY APPENDECTOMY COLOSTOMY BAG INSERTION 02/2018 [facility], THEN TRANSFERED TO [facility], C-DIFF, MULTIPLE INFECTIONS 01/2018 REVIEW OF SYSTEMS REVIEWED BY: PROVIDER: JOSE AGUIRRE MD . CONSTITUTIONAL: ANY CHANGE IN YOUR MEDICAL CONDITION? YES, CANCER IN COLON UPPER . CHILLS NO . FEVER NO . INFECTION: DO YOU HAVE NEW INFECTIONS? NO . DO YOU HAVE HISTORY OF MRSA? NO . MUSCULOSKELETAL: ANY NEW PATTERNS OF PAIN OR NUMBNESS? NO . GASTROENTEROLOGY: ANY NEW CHANGE IN BOWEL CONTROL? NO . GENITOURINARY: ANY NEW CHANGE IN BLADDER CONTROL? NO . IS THERE A CHANCE YOU COULD BE ? NO . HEMATOLOGY/LYMPH: DO YOU TAKE ANY BLOOD THINNERS? (FOR EXAMPLE- COUMADIN, PLAVIX, AGGRENOX, PLATEL, PRADAXA, OR XARELTO) NO . WHEN WAS YOUR LAST DOSE? DATE: TIME: . NEUROLOGY: HAVE YOU FALLEN IN THE PAST 12 MONTHS? NO . ANY NEW EXTREMITY NUMBNESS OR WEAKNESS? NO . CARDIOLOGY: DO YOU HAVE A PACEMAKER OR DEFIBRILLATOR? NO . RESPIRATORY: HAVE YOU BEEN SICK IN THE PAST WEEK? NO . FEVER NO . FLU LIKE SYMPTOMS? NO . COUGH NO . INTEGUMENTARY: DO YOU HAVE ANY RASHES OR OPEN SORES? NO . ALLERGIC/IMMUNO: ARE YOU ALLERGIC TO IV DYE? NO . ANY NEW ALLERGIES? NO . PSYCHIATRIC: DO YOU HAVE THOUGHTS OF HURTING YOURSELF OR SOMEONE ELSE? NO . ARE YOU ABUSED, NEGLECTED, OR IN AN UNSAFE ENVIRONMENT? NO . ENDOCRINOLOGY: ARE YOU DIABETIC? NO . OTHER: DO YOU NEED ANY PRESCRIPTIONS? NO . IF YES, PLEASE LIST: ____ . ANY NEW PROBLEMS WITH YOUR MEDICATIONS? NO . WHEN DID YOU LAST EAT? 12/08 5PM . WHEN DID YOU LAST DRINK? 12/09 6AM . WHAT DID YOU LAST DRINK? COFFEE . NAME OF PERSON DRIVING YOU HOME? JOVI . DO YOU HAVE ANY OTHER QUESTIONS OR CONCERNS PATIENT WAS BOOKED FOR A PROCEDURE AND IS SCHEDULED FOR SURGERY ON SATURDAY DUE TO NEW COLON CANCER. DR. AGUIRRE DECIDED NOT TO PERFORM THE PROCEDURE. APPOINTMENT SWITCHED TO FOLLOW-UP. PRE-SEDATE MEDICATIONS GIVEN TO PATIENT BEFORE DR. AGUIRRE HAD DECIDED NOT TO DO THE PROCEDURE. DR. AGUIRRE AWARE AND IS OK WITH THIS . VITAL SIGNS WT 121.8 LBS, HT 64 IN, BMI 20.90 INDEX, BP 120/75 MM HG, HR 107 /MIN, RR 18 /MIN, TEMP 97.6 F, OXYGEN SAT % 100%, SAFE IN ENV? (Y/N) Y, NA INITIALS AW 1040, REVIEWED BY: DS. EXAMINATION GENERAL EXAMINATION: PATIENT IS ALERT O X 3 AND COOPERATIVE. TENDERNESS IN THE LOW BACK AREA. MRI OF THE LUMBAR SPINE DONE ON 09/29/2018 SHOWS FACET ARTHROPATHY CHANGES AT MULTIPLE LEVELS AND A FUSION. 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 VILLAVICENCIO'S PAIN MANAGEMENT CASE. THE PATIENT REPORTS THAT SHE IS GOING TO BE HAVING SURGERY RELATED TO HER TUMOR ON SATURDAY, SO WE WILL BE HOLDING INTERVENTIONS UNTIL SHE HAS HEALED. I WILL GIVE THE PATIENT HYDROCODONE FOR A FEW DAYS TO MANAGE HER PAIN UNTIL SURGERY. THE PATIENT WILL FOLLOW UP IN 6 WEEKS. INSTRUCTIONS WERE GIVEN, QUESTIONS WERE ANSWERED, PATIENT REPORTS UNDERSTANDING AND AGREES WITH THE PLAN. I, MASON ROLON, DOCUMENTED THE ABOVE INFORMATION ACTING A SCRIBE FOR DR. AGUIRRE. I HAVE REVIEWED THE ABOVE DOCUMENT, WRITTEN BY MASON SNOW AND I VERIFY THAT IT IS ACCURATE. . PROCEDURE CODES FA211 ESTABILISHED PATIENT [facility] FACILITY CHARGE [id number] CURRENT MEDS W/DOSAGES DOCUMENTED G8730 PAIN ASSESS POS TOOL F/U PLAN DOC DISPOSITION & COMMUNICATION FOLLOW UP 6 WEEKS ELECTRONICALLY SIGNED BY JOSE AGUIRRE MD, MD ON 12/21/2018 AT 08:02 PM EDT DISCLAIMER : THIS IS A VISIT SUMMARY EXTRACTED FROM THE [employer] CHART. IT IS NOT A COPY OF THE [facility] PROGRESS NOTE. MTDD
== END ==
LOC: M PAIN 11:15
PROVIDERS: ATTEND Anesthesiology
DX: M47.816 Spondylosis without myelopathy or radiculopathy, lumbar region (principal); M96.1 Postlaminectomy syndrome, not elsewhere classified; I10 Essential (primary) hypertension; E78.00 Pure hypercholesterolemia, unspecified; I25.2 Old myocardial infarction; F17.210 Nicotine dependence, cigarettes, uncomplicated; Z88.6 Allergy status to analgesic agent; Z88.8 Allergy status to other drugs, medicaments and biological substances; Z91.02 Food additives allergy status; Z79.84 Long term (current) use of oral hypoglycemic drugs; Z79.899 Other long term (current) drug therapy

== ENCOUNTER 2018-12-12 07:30 | Inpatient (IN) | payer MEDICARE ==
[~2018-12-12] VITALS: Ht 162.6 cm; Wt 54.2 kg
[~2018-12-12 07:30] MED LIST changes: +LIDOCAINE 2% INJ 100 MG/5 ML SDV (FOR ANES.) As Ordered ONE; +LR 1,000 ML IV ONE; +MIDAZOLAM INJ 2 MG/2 ML VIAL (J2250) As Ordered ONE; +ONDANSETRON 4MG/2ML VIAL (J2405) As Ordered ONE; -PERCOCET PO; +PROPOFOL 200 MG/20 ML VIAL As Ordered ONE; +ROCURONIUM BROMIDE 50 MG/5 ML VIAL As Ordered ONE; +dexameTHASONE 4 MG/ML 1ML VIAL (J1100) As Ordered ONE; -diazePAM 5 MG TAB As Ordered ONE; +fentaNYL 250 MCG/5 ML INJECTION (J3010) As Ordered ONE; -oxyCODONE 5MG TAB As Ordered ONE
[2018-12-12] MEDS ORDERED: ROCURONIUM BROMIDE 50 MG/5 ML VIAL As Ordered ONE ×3 (08:32→12:36)
[2018-12-12] MEDS ORDERED: PROPOFOL 200 MG/20 ML VIAL As Ordered ONE ×2 (08:32→09:53)
[2018-12-12] MEDS ORDERED: LIDOCAINE 2% INJ 100 MG/5 ML SDV (FOR ANES.) As Ordered ONE ×2 (08:35→09:53)
[2018-12-12] MEDS ORDERED: GLYCOPYRROLATE INJ 0.2 MG/ML 2 ML VIAL As Ordered ONE (08:35)
[2018-12-12] MEDS ORDERED: dexameTHASONE 4 MG/ML 1ML VIAL (J1100) As Ordered ONE ×2 (08:36→09:53)
[2018-12-12] MEDS ORDERED: METHOCARBAMOL 1,000 MG/10 ML VIAL (J2800) As Ordered ONE (08:36)
[2018-12-12] MEDS ORDERED: KETOROLAC 60 MG/2 ML VIAL (J1885) As Ordered ONE (08:36)
[2018-12-12] MEDS ORDERED: ONDANSETRON 4MG/2ML VIAL (J2405) As Ordered ONE ×2 (08:36→09:53)
[2018-12-12] MEDS ORDERED: MIDAZOLAM INJ 5 MG/ML VIAL (J2250) As Ordered ONE (08:37)
[2018-12-12] MEDS ORDERED: fentaNYL 250 MCG/5 ML INJECTION (J3010) As Ordered ONE ×2 (08:37→09:51)
[2018-12-12] MEDS ORDERED: KETAMINE HCL 200 MG/20 ML VIAL As Ordered ONE (08:37)
[2018-12-12] MEDS ORDERED: SUGAMMADEX SODIUM 500 MG/5 ML VIAL (BRIDION) As Ordered ONE ×2 (08:39→15:54)
--- NOTE | 2018-12-12 09:21 | HPE ---
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 HISTORY OF PRESENT ILLNESS: The patient is a 68-year-old woman who in January 2018 had undergone a low anterior resection for colorectal perforation with a pelvic abscess. The patient was at that time undergoing treatment with chemotherapy for lymphoma, which had arisen in her tonsil and involved a lymph node in the right neck. 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 However, I think the primary cause of her abscess was from a perforated diverticulum in the rectosigmoid region. She completed her chemotherapy after recovering from her surgery. She has recently been undergoing radiation therapy to the head and neck area. She has a colostomy, which was created at the time of her surgery. As she approached the end of her radiation therapy, we performed a colonoscopy in anticipation of proceeding with a colostomy takedown. This was performed on 11/18/2018 and revealed an ulcerated mass in the region of the ileocecal valve. Biopsies were obtained which revealed moderately to poorly differentiated adenocarcinoma with mucinous features. The patient is now being admitted to undergo a right hemicolectomy. The patient and I had discussed the option of performing just the right hemicolectomy versus considering combining this with takedown of her colostomy. She does have a fairly short rectal stump. 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 After some discussion, we agreed to proceed with just the right partial colectomy and we will make any decision about additional surgery to close her colostomy at a future date. She was to perform a full mechanical and antibiotic bowel preparation at home on the and present for her surgery on 12/12/2018. ALLERGIES: The patient reports allergies to IBUPROFEN and RED DYE. CURRENT MEDICATIONS: Her current medications include: - atorvastatin 20 mg p.o. daily - triamterene hydrochlorothiazide 37.5/25 mg one daily - sertraline 50 mg p.o. twice daily - vitamin D3 1000 units p.o. daily - clopidogrel 75 mg p.o. daily - potassium chloride once daily - isosorbide mononitrate ER 60 mg p.o. daily - codeine sulfate 15 mg p.o. twice daily MEDICAL HISTORY: Significant for her lymphoma, which was diagnosed in early 2017. Other medical problems include hypertension, heart disease, and diabetes. She has some chronic obstructive pulmonary disease. She has a history of coronary artery disease, which has been treated with coronary stents. She has hyperlipidemia. PAST SURGICAL HISTORY: Surgical history is significant for an appendectomy. She has had previous back surgery. She has had coronary stents placed. She had her right tonsil resected with a right cervical lymph node biopsy as well. In January 2018, she underwent an open low anterior resection with drainage of a pelvic abscess and an end colostomy. She had her colonoscopy on 11/18/2018. FAMILY HISTORY: Significant for heart disease. Her mother had breast cancer treated in her 60s. She also had lung cancer. SOCIAL HISTORY: Patient is a continuing smoker. She smokes perhaps a half-pack per day. She denies any alcohol use. REVIEW OF SYSTEMS: The patient denies any recent chest pain or palpitations. She has no shortness of breath, cough or wheezing. She has had some throat discomfort and some issues with swallowing associated with her recent radiation therapy to the head and neck. She has not had any nausea or vomiting. She denies any dysuria or hematuria. She has no history of deep vein thrombosis (DVT) or pulmonary embolus. PHYSICAL EXAMINATION: Most recently shows a height of 64 inches with a weight of 57 kg giving her a Body Mass Index (BMI) of approximately 22. She is alert and oriented. She appears somewhat frail. Sclerae are anicteric. Neck is without palpable mass. Heart exam shows a regular rate and rhythm. The lungs are clear. The abdomen is flat. She has a colostomy in the left mid to upper abdomen. With standing there is a suggestion of a parastomal hernia. She has a healed midline scar. The abdomen is soft and nontender without appreciable mass. Extremities are without edema. LABORATORIES: The patient's most recent laboratories were from September 2018. On 10/22/2018 she had a CBC that showed a white count of 8, hemoglobin of 14, hematocrit of 43 and platelet count of 224,000 with a normal differential count. Her most recent chemistry profile in the record was August and showed normal electrolytes with a BUN of 25, creatinine 1.1 and a glucose of 80. IMPRESSION: 1. 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 3. Atherosclerotic coronary artery disease status post stenting. 4. Hypertension. 5. Diabetes mellitus type 2. 6. Hyperlipidemia. 7. Chronic obstructive pulmonary disease. 8. Degenerative joint disease of the back, status post surgery with a spinal fusion. PLAN: Patient is performing a bowel preparation on the and will be admitted on the for surgery. I anticipate proceeding with a laparoscopic approach to her right hemicolectomy. She has had multiple procedures and given her colostomy and colectomy it is certainly possible she will have significant scarring that would preclude a laparoscopic approach to her surgery. If necessary, we will convert to an open right hemicolectomy. The patient was counseled regarding the risks of procedure. These risks include but are not limited to bleeding, infection, scarring, adverse drug reaction, need for further surgery, injury to internal organ, anastomotic leak, and hernia. She had an opportunity to ask questions and desires to proceed with the surgery as I have outlined it.
[2018-12-12] MEDS ORDERED: TRIA37.53 PO (09:40)
[2018-12-12] MEDS ORDERED: ALVIMOPAN 12 MG CAPSULE (ENTEREG) PO ONE (09:45)
[2018-12-12] MEDS ORDERED: cefoTEtan DISODIUM 2 GM in D5W MINI-BAG PLUS 50 ML IV ONE (09:45)
[2018-12-12] MEDS ORDERED: MIDAZOLAM INJ 2 MG/2 ML VIAL (J2250) As Ordered ONE (09:51)
[2018-12-12] MEDS ORDERED: BUPIVACAINE HCL 0.25% 30 ML VIAL As Ordered ONE (09:58)
[2018-12-12] MEDS ORDERED: ASPIRIN 81 MG CHEW TABLET As Ordered ONE (09:59)
[2018-12-12] MEDS ORDERED: ALBUTEROL SULFATE 2.5 MG/0.5 ML INH NEB SOLN As Ordered ONE (10:01)
[2018-12-12] MEDS ORDERED: ASPIRIN 81 MG CHEW TABLET PO ONE (10:15)
[2018-12-12] MEDS ORDERED: PHENYLEPHRINE INJ 10MG/ML VIAL (J2370) As Ordered ONE (11:41)
[2018-12-12] MEDS ORDERED: PHENYLephrine HCL 500 MCG/5 ML (100MCG/ML) SYRINGE (J2370) As Ordered ONE (11:51)
[2018-12-12] MEDS ORDERED: fentaNYL 100 MCG/2 ML INJECTION (J3010) As Ordered ONE ×3 (12:09→16:35)
[2018-12-12] MEDS ORDERED: HYDROmorphone HCL 2 MG/ML 1ML VIAL (J1170) As Ordered ONE (14:00)
[2018-12-12] MEDS: fentaNYL 100 MCG/2 ML INJECTION (J3010) IV PRN ×4 (16:35→16:50)
[2018-12-12] MEDS ORDERED: HYDROMORPHONE HCL 0.5 MG/ 0.5 ML SYRINGE (J1170 PER 1) As Ordered ONE (16:35)
[2018-12-12] MEDS ORDERED: LR 1,000 ML IV SCH (16:45)
[2018-12-12] MEDS ORDERED: ONDANSETRON 4MG/2ML VIAL (J2405) IV PRN ×2 (16:45→17:15)
[2018-12-12] MEDS: HYDROMORPHONE HCL 0.5 MG/ 0.5 ML SYRINGE (J1170 PER 1) IV PRN ×10 (16:55→17:55)
[2018-12-12] MEDS ORDERED: ACETAMINOPHEN TAB 650MG DOSE (2X325MG) PO PRN (17:15)
[2018-12-12 18:15] VITALS: BP 132/63
[2018-12-12] MEDS: NORCO, ANEXSIA 5/325MG TABLET (HYDROcodone/ACETAMINOPHEN) PO PRN (18:38)
[2018-12-12 18:45] VITALS: BP 130/65
[2018-12-12] MEDS: LR 1,000 ML IV SCH (18:45)
[2018-12-12 19:15] VITALS: BP 123/56
[2018-12-12 20:15] VITALS: BP 104/55
[2018-12-12] MEDS: ALVIMOPAN 12 MG CAPSULE (ENTEREG) PO SCH (20:53)
[2018-12-12] MEDS: MORPHINE 4 MG/ML 1ML VIAL/SYRINGE (J2270) IV PRN (20:54)
[2018-12-12 21:08] VITALS: O2SAT 98
[2018-12-12 21:15] VITALS: BP 110/56
[2018-12-12] MEDS: ENOXAPARIN 40 MG/0.4 ML SYRINGE (J1650) SC SCH (23:28)
[2018-12-12] MEDS: KETOROLAC 30 MG/ML VIAL (J1885) IV PRN (23:28)
[2018-12-13] VITALS (9 sets, daily range): BP systolic 90–122; BP diastolic 50–72; O2SAT 90
[2018-12-13] MEDS: MORPHINE 4 MG/ML 1ML VIAL/SYRINGE (J2270) IV PRN ×8 (02:20→21:43)
[2018-12-13] MEDS: LR 1,000 ML IV SCH (02:20)
[2018-12-13 06:41] LABS: BASO % 0.8 % (0.0-1.0); EOS % 0.4 % (0.0-3.0); HEMATOCRIT 33.7 % (36.0-47.0); LYMPH # 0.7 10^3/uL (1.5-4.5); LYMPH % 28.2 % (24.0-44.0); MEAN CORPUSCULAR HEMOGLOBIN 29.3 pg (27.0-33.0); MEAN CORPUSCULAR HGB CONC 32.6 g/dl (32.0-36.5); MEAN CORPUSCULAR VOLUME 89.6 fl (80.0-96.0); MONO # 0.6 10^3/uL (0.0-0.8); MONO % 22.6 % (0.0-5.0); NEUTROPHILS # 1.2 10^3/uL (1.8-7.7); NEUTROPHILS % 47.6 % (36.0-66.0); PLATELET COUNT, AUTOMATED 144 10^3/uL (150-450); RED BLOOD COUNT 3.76 10^6/uL (4.00-5.40); WHITE BLOOD COUNT 2.5 10^3/uL (4.0-10.0)
[2018-12-13 07:09] LABS: ALBUMIN 2.6 GM/DL (3.2-5.2); ALT/SGPT 7 U/L (12-78); BILIRUBIN,TOTAL 0.2 MG/DL (0.2-1.0); BLOOD UREA NITROGEN 12 MG/DL (7-18); CALCIUM LEVEL 8.6 MG/DL (8.8-10.2); CARBON DIOXIDE LEVEL 30 MEQ/L (21-32); CHLORIDE LEVEL 105 MEQ/L (98-107); CREATININE FOR GFR 0.68 MG/DL (0.55-1.30); GLOMERULAR FILTRATION RATE > 60.0 (>45); GLUCOSE, FASTING 84 MG/DL (70-100); POTASSIUM SERUM 3.3 MEQ/L (3.5-5.1); SODIUM LEVEL 141 MEQ/L (136-145); TOTAL PROTEIN 5.3 GM/DL (6.4-8.2)
[2018-12-13] MEDS ORDERED: PANTOPRAZOLE 40MG INJ (PROTONIX) (C9113) IV SCH (09:00)
[2018-12-13] MEDS: DYAZIDE 37.5/25 CAP (TRIAM/HCTZ) PO SCH (09:04)
[2018-12-13] MEDS: ATORVASTATIN 20 MG TAB PO SCH (09:04)
[2018-12-13] MEDS: ALVIMOPAN 12 MG CAPSULE (ENTEREG) PO SCH ×2 (09:05→20:29)
[2018-12-13] MEDS: ISOSORBIDE MON. (IMDUR) 60 MG XR TAB PO SCH (09:07)
--- NOTE | 2018-12-13 11:13 | IPN ---
DATE: 12/13/2018 HISTORY: The patient is now postop day #1 from a laparoscopic right hemicolectomy for a carcinoma at the level of the ileocecal valve. Her surgery was somewhat prolonged because of extensive adhesions in the pelvis which required adhesiolysis before the terminal ileum could be adequately mobilized for the anastomosis. Surgery was otherwise without difficulty. She has done well since surgery. She does complain of some abdominal pain for which she has taken very little in the way of medication. She is tolerating clear liquids well, and her urine output has been good. She has a Dave catheter still in place. Vital signs: Show that she has been afebrile since surgery. Her pulse is in the 60s to 80s, and her blood pressure is good. Intake and output shows that yesterday she had 4100 in with 1560 recorded out. Her Dave catheter has some light colored urine in the bag today. PHYSICAL EXAMINATION: The patient is alert and oriented. Heart exam shows a regular rhythm. The lungs are clear. The abdomen is flat. Her dressings are dry. She has some expected tenderness on palpation. There are a few bowel sounds present. Her ostomy has not had any output yet. Laboratory studies today show a white count of 2.5, hemoglobin of 11, hematocrit of 34 and a platelet count of 144,000. Her chemistry profile shows sodium 141, potassium 3.3, chloride 105, CO2 of 30, BUN of 12, creatinine 0.7 and a glucose of 84. Liver function tests are without significant abnormality. Her preoperative CEA level was 1.4. IMPRESSION: The patient is doing very well one day postop from her laparoscopic right hemicolectomy. PLAN: The patient will have her Dave catheter and oxygen and sequential stockings removed today. She will be advanced from clear liquids to a regular diet, and she is encouraged to be up out of bed, ambulating.
[2018-12-13] MEDS: NORCO, ANEXSIA 5/325MG TABLET (HYDROcodone/ACETAMINOPHEN) PO PRN (12:37)
[2018-12-13] MEDS: KETOROLAC 30 MG/ML VIAL (J1885) IV PRN (13:55)
[2018-12-13] MEDS: ENOXAPARIN 40 MG/0.4 ML SYRINGE (J1650) SC SCH (21:42)
[2018-12-14] MEDS: MORPHINE 4 MG/ML 1ML VIAL/SYRINGE (J2270) IV PRN ×6 (00:25→19:58)
[2018-12-14 02:00] VITALS: BP 125/58
[2018-12-14 06:00] VITALS: BP 127/59
[2018-12-14] MEDS: ATORVASTATIN 20 MG TAB PO SCH (08:09)
[2018-12-14] MEDS: PANTOPRAZOLE 40MG TAB (PROTONIX) PO SCH (08:10)
[2018-12-14] MEDS: ALVIMOPAN 12 MG CAPSULE (ENTEREG) PO SCH ×2 (08:10→19:57)
[2018-12-14] MEDS: ISOSORBIDE MON. (IMDUR) 60 MG XR TAB PO SCH (08:10)
[2018-12-14] MEDS: DYAZIDE 37.5/25 CAP (TRIAM/HCTZ) PO SCH (08:10)
[2018-12-14] MEDS: PERCOCET 5MG/325MG TAB PO PRN ×3 (09:14→17:37)
[2018-12-14 10:00] VITALS: BP 105/60
[2018-12-14 14:00] VITALS: BP 102/62
[2018-12-14 18:00] VITALS: BP 118/63
[2018-12-14] MEDS: ENOXAPARIN 40 MG/0.4 ML SYRINGE (J1650) SC SCH (21:29)
--- NOTE | 2018-12-14 21:29 | IPN ---
DATE: 12/14/2018 The patient is now postoperative day #2 from a laparoscopic right hemicolectomy with an extensive lysis of adhesions and repair of a parastomal hernia. The patient was started on a regular diet yesterday. She has been tolerating the diet well. She reports that she has been up ambulating and has been voiding well. She has not noticed any stool from her ostomy yet but has had flatus. She has been having some pain. She has been using the morphine primarily because the hydrocodone has not been effective for her. Vital signs show that she has been afebrile over the last 24 hours with her pulses varied from 68-98. Intake and output shows that yesterday she had 3000 recorded in with only 500 recorded out but as she has been walking to the bathroom we apparently do not have any good records of her urine output. PHYSICAL EXAMINATION: The patient is lying quietly in the hospital bed. She is alert and oriented. She appears fairly comfortable at present. Heart exam shows a regular rhythm. The abdomen is flat and soft without undue tenderness. Her ostomy is pink and viable. She does have some bowel sounds present though these are not active. IMPRESSION: The patient is doing well now 2 days postoperative from her right hemicolectomy. PLAN: I will stop the patient's [place] and order Percocet on an as needed basis for pain. She will be allowed to take a shower. We will check labs in the morning and I anticipate she may well be ready for discharge tomorrow as well.
[2018-12-15] MEDS: PERCOCET 5MG/325MG TAB PO PRN ×3 (00:01→11:24)
[2018-12-15 02:00] VITALS: BP 133/70
[2018-12-15] MEDS: MORPHINE 4 MG/ML 1ML VIAL/SYRINGE (J2270) IV PRN ×3 (02:43→12:20)
[2018-12-15 06:00] VITALS: BP 125/72
[2018-12-15 07:28] VITALS: BP 125/72
[2018-12-15] MEDS: ATORVASTATIN 20 MG TAB PO SCH (07:28)
[2018-12-15] MEDS: PANTOPRAZOLE 40MG TAB (PROTONIX) PO SCH (07:28)
[2018-12-15] MEDS: DYAZIDE 37.5/25 CAP (TRIAM/HCTZ) PO SCH (07:28)
[2018-12-15] MEDS: ISOSORBIDE MON. (IMDUR) 60 MG XR TAB PO SCH (07:28)
--- NOTE | 2018-12-15 08:09 | RO ---
DATE OF PROCEDURE: 12/12/2018 PREOPERATIVE DIAGNOSES: 1. Ascending colon carcinoma. 2. 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 POSTOPERATIVE DIAGNOSES 1. Ascending colon carcinoma. 2. Extensive small bowel adhesions secondary to prior surgery. 3. Left upper quadrant colostomy with parastomal hernia. PROCEDURE PERFORMED: Laparoscopy, extensive lysis of adhesions, laparoscopic right hemicolectomy with ileocolonic anastomosis, and repair of parastomal hernia. SURGEON: Dr. Anaya SITE AUDITOR: Dr. Persaud. Dr. Persaud was absolutely essential to the procedure providing retraction and management of the camera during a difficult laparoscopic procedure with extensive adhesions and need for atypical port placement given her colostomy. ANESTHESIA: General. 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 Last January, she had developed a perforated colon with a pelvic abscess while performing her chemotherapy and required an exploratory laparotomy with sigmoid colectomy, drainage of pelvic abscess and an end colostomy. She recently completed her chemotherapy and was performing radiation therapy to the head and neck region for continued treatment of her lymphoma. In anticipation of a colostomy takedown, she underwent a colonoscopy recently and was found to have a malignant appearing mass just distal to the ileocecal valve. Biopsy confirmed moderately to poorly differentiated adenocarcinoma with mucinous differentiation. The patient is now being admitted to undergo a laparoscopic right hemicolectomy. She has a parastomal hernia, which has become larger over time, and I anticipate attempting to partially close the fascial defect during the procedure. Because we will be entering the bowel for her anastomosis, I do not plan to use any prosthetic mesh at this time. DESCRIPTION OF PROCEDURE: The patient was brought to the operating room and placed on the table in a supine position. She was placed under general endotracheal anesthesia. TEDs and sequentials were utilized. A Dave catheter was inserted. The patient's ostomy bag and left upper quadrant was removed. I elected to close the stoma with a pair of pursestring sutures in the skin just outside the mucocutaneous junction. The patient's abdomen was then prepped and draped in a sterile fashion. Mastisol was applied around the ostomy site and the closed stoma was covered with a folded sponge, which was held in place with an OpSite dressing. 0.25% Marcaine was infiltrated at the trocar sites as needed. A short right upper quadrant incision was made and a Veress needle was inserted. After positive hanging drop test, the abdomen was insufflated with carbon dioxide gas. The Veress needle was removed and a 5-mm port placed over a 5 mm scope was advanced through the abdominal wall without difficulty. Initial examination identified a normal-appearing right and left lobe of the liver. There was a veil of adhesions extending down the midline of the abdomen along the course of her previous midline incision. It was possible to see beyond this through various openings in this veil and there did not appear to be any significant adhesions into the anterior abdominal wall, either to the left or right. A 5 mm incision was made about the level of the umbilicus in the left side of the abdomen and a second small incision was made further down in the left lower quadrant and two additional 5 mm ports were placed in these two incisions. It was then possible to insert a harmonic scalpel and the adhesions were taken down from the anterior abdominal wall. The cecum was then readily identified. The patient was tilted to a Trendelenburg position and rolled slightly to the left. The location of the tumor was apparent as a firm area with some puckering on the anterior aspect of the cecum or proximal ascending colon. The terminal ileum showed significant scarring tethering this to the retroperitoneum and pelvic sidewall. The gallbladder was noted and appeared normal. The transverse colon was partially air-filled and easily seen. Attention was initially turned to freeing the lateral attachments of the cecum and the ascending colon. This was accomplished primarily using the harmonic scalpel. The peritoneum was scored and the colon was rotated medially working through the avascular plane lateral and posterior to the colon. The dissection was carried up along the ascending colon. The proximal transverse colon was then retracted inferiorly. A fourth trocar was placed in the right lateral abdomen. The peritoneum superior to the hepatic flexure was then divided and the hepatic flexure was freed, going proximally around the hepatic flexure to connect with the dissection of the ascending colon. The retroperitoneal duodenum was clearly identified and preserved. Attention was then turned to the terminal ileum. There was extensive scarring around the terminal ileum preventing any freedom of movement in this portion of the bowel. It was necessary to free this to allow an acceptable resection with subsequent anastomosis. Therefore a prolonged period of dissection was undertaken to free the terminal ileum. This was splayed around the inner wall of the pelvis and was covered in multiple layers of adherent loops of small bowel. A slow and careful dissection using the harmonic scalpel and scissors was performed to free the small bowel in its entirety from the pelvis. The dome of the bladder with the Dave catheter in place was identified. A site of a prior anastomosis in the terminal ileum was also identified and this prior anastomosis seems to have contributed to the scarring in the area. I would estimate that approximately 2 hours was spent freeing the small bowel from the pelvis laparoscopically, but ultimately this was accomplished and it was possible to free the terminal ileum so that there was excellent length of small bowel for resection and subsequent anastomosis. At this point, the transverse colon was identified again and the overlying mesentery was elevated away. The proximal transverse colon was divided with a firing of the 60 mm echelon stapler with a green load. To accomplish this, the 5-mm port in the left lower quadrant was converted to a 12-mm port. Also in the course of the procedure, a fifth trocar was placed in the right lower quadrant fairly medially to allow for better visualization superiorly. Once the bowel was divided, attention was turned to the terminal ileum. I elected to resect the previous anastomosis that was perhaps 10 cm proximal to the ileocecal valve. The terminal ileum was transected with the echelon stapler. Then beginning at the terminal ileum, the supporting tissues of the terminal ileum were freed from the retroperitoneum working proximally. The ileal colic vessels were identified at the base of the mesentery and thoroughly cauterized with the harmonic scalpel and divided. The dissection then proceeded distally along the ascending colon, dividing the remaining mesentery. The retroperitoneal duodenum was again carefully identified and preserved. The colon was freed completely and then set aside within the abdomen. The area was inspected for hemostasis, which was excellent. At this point, an approximately 7-8 cm low midline incision was made beginning below the umbilicus and working through an old scar. The incision was deepened into the abdomen. A Mobius retractor was placed. The specimen was delivered through the incision and set aside. The mass was clearly palpable in the expected location. There were no definite nodes palpable within the mesentery of the bowel. The specimen was subsequently sent for permanent pathology. The end of the terminal ileum and the end of the transverse colon were then delivered through the incision. A stapled anastomosis was performed with a firing of the echelon stapler and the remaining opening was closed with a TX60B stapler. Several reinforcing stitches of 3-0 Vicryl were placed. It was not feasible to perform a closure of the mesenteric defect. The anastomosis was irrigated and then reduced into the abdomen. At this point, the surgical team changed gown and gloves. The midline fascia was closed with interrupted simple sutures of #1 Vicryl. The wound was packed with a moistened gauze. The abdomen was reinflated. Inspection revealed a small amount of blood around the liver and this was irrigated and inspection showed no evidence of any significant bleeding in the area. A small trickle of blood was noted at the level of the anastomosis and this appeared to be coming from one of the staple lines and this area was cautiously cauterized. Subsequent inspection showed no evidence of any bleeding. At this point, attention was turned to the patients parastomal hernia. She clearly had some widening of the opening through the abdominal muscle and fascia. There were some adhesions of the omentum and mesentery alongside the colon into the subcutaneous tissues. I elected to close the medial and of her oblong fascial defect. Therefore three simple sutures of 1-0 Ethibond were placed using endoscopic suturing tools. These were tied individually using a knot pusher. This nicely diminished the size of the fascial defect. This was not anticipated to be a permanent repair of her hernia, but we had discussed this preoperatively and decided not to place any mesh given our potential for infection from the bowel surgery. Final inspection revealed no evidence of any bleeding. The abdomen was then deflated and the remaining trocars were all removed. The skin incisions were all closed with buried 4-0 Vicryl and Steri-Strips. Sterile dressings were applied. The sutures closing the colostomy were removed and an ostomy appliance was applied. The patient tolerated the procedure well without apparent complication. She was then awakened in the operating room, extubated and moved to the recovery room in stable condition.
[2018-12-15 08:11] LABS: BASO % 0.7 % (0.0-1.0); EOS # 0.1 10^3/uL (0.0-0.50); EOS % 1.8 % (0.0-3.0); HEMATOCRIT 40.5 % (36.0-47.0); HEMOGLOBIN 13.2 g/dl (12.0-15.5); LYMPH # 1.3 10^3/uL (1.5-4.5); LYMPH % 46.3 % (24.0-44.0); MEAN CORPUSCULAR HEMOGLOBIN 29.5 pg (27.0-33.0); MEAN CORPUSCULAR HGB CONC 32.6 g/dl (32.0-36.5); MEAN CORPUSCULAR VOLUME 90.4 fl (80.0-96.0); MONO # 0.5 10^3/uL (0.0-0.8); MONO % 17.2 % (0.0-5.0); PLATELET COUNT, AUTOMATED 178 10^3/uL (150-450); RED BLOOD COUNT 4.48 10^6/uL (4.00-5.40); WHITE BLOOD COUNT 2.9 10^3/uL (4.0-10.0)
[2018-12-15 08:32] LABS: BLOOD UREA NITROGEN 8 MG/DL (7-18); CALCIUM LEVEL 9.2 MG/DL (8.8-10.2); CARBON DIOXIDE LEVEL 32 MEQ/L (21-32); CHLORIDE LEVEL 103 MEQ/L (98-107); CREATININE FOR GFR 0.71 MG/DL (0.55-1.30); GLOMERULAR FILTRATION RATE > 60.0 (>45); GLUCOSE, FASTING 96 MG/DL (70-100); POTASSIUM SERUM 3.5 MEQ/L (3.5-5.1); SODIUM LEVEL 140 MEQ/L (136-145)
[2018-12-15 08:44] LABS: NEUTROPHILS % 33.6 % (36.0-66.0)
[2018-12-15] MEDS: ALVIMOPAN 12 MG CAPSULE (ENTEREG) PO SCH (09:37)
[2018-12-15 10:00] VITALS: BP 120/80
[2018-12-15] MEDS ORDERED: PERCOCET PO (14:16)
--- NOTE | 2018-12-15 16:50 | IPN ---
DATE: 12/15/2018 HISTORY: The patient is now postoperative day #3 from a laparoscopic right hemicolectomy for cancer. She has been doing well and has been on a regular diet for two days. She is passing flatus, but has not had any stool present in her colostomy yet. She has been voiding well and ambulating. She is having some pain and is using Percocet as needed. VITAL SIGNS: Show that she has been afebrile for the past 24 hours with a good pulse and blood pressure. INTAKE AND OUTPUT: Shows that yesterday she had 1530 in orally, with 2500 out in urine. PHYSICAL EXAMINATION: Patient is alert and oriented and asking for discharge. Heart exam shows a regular rhythm. The abdomen is flat. Her multiple incisions are all healing nicely with Steri-Strips in place. The ostomy is pink and viable, though it prolapses slightly, but the bag is empty other than some air. The abdomen is soft and she has active bowel sounds. LABORATORY STUDIES: Show a white count of 3, hemoglobin 13, hematocrit of 40 and platelet count of 178,000. Her chemistry profile shows normal electrolytes, with a BUN of 8, creatinine 0.7 and a glucose of 96. Pathology is pending from her surgery. IMPRESSION: The patient is doing very well now three days postoperatively from her right hemicolectomy. PLAN: Patient appears ready for discharge today. She is taking a regular diet and is ambulatory and voiding without difficulty. Her ostomy appears pink and viable and she has been passing some flatus. I will provide her a prescription for some Percocet 5/325 tablets to take one every 4 hours as needed for pain and I will give her 30 tablets. I encouraged her to reduce her dose as possible. I will plan on seeing her back in the office in about a week and by then we should have her final pathology for discussion. She was encouraged to pursue light activities, but to avoid any strenuous activity for the next month. If she has not had a bowel movement in the next 1-2 days, I encouraged her to use a dose of either MiraLax or milk of magnesia. She will call the office for any problems.
== END 2018-12-15 15:30 | disposition home or self-care (01) | DRG 330 ==
LOC: M OR 08:56 → M MSPAV 18:12
PROVIDERS: ADMIT Surgery; ATTEND Surgery
PROC: 0DNB4ZZ Release Ileum, Percutaneous Endoscopic Approach (ICD-10-PCS; 2018-12-12)
PROC: 0WQF4ZZ Repair Abdominal Wall, Percutaneous Endoscopic Approach (ICD-10-PCS; 2018-12-12)
PROC: 0DTK4ZZ Resection of Ascending Colon, Percutaneous Endoscopic Approach (ICD-10-PCS; principal; 2018-12-12 11:00)
DX: C18.2 Malignant neoplasm of ascending colon (principal); C85.90 Non-Hodgkin lymphoma, unspecified, unspecified site; I10 Essential (primary) hypertension; E11.9 Type 2 diabetes mellitus without complications; J44.9 Chronic obstructive pulmonary disease, unspecified; K43.5 Parastomal hernia without obstruction or gangrene; Z88.6 Allergy status to analgesic agent; Z79.899 Other long term (current) drug therapy; I25.10 Atherosclerotic heart disease of native coronary artery without angina pectoris; E78.5 Hyperlipidemia, unspecified; F17.200 Nicotine dependence, unspecified, uncomplicated

== ENCOUNTER → 2018-12-23 | Outpatient (RCR) | payer MEDICARE ==
--- NOTE | 2018-11-25 14:46 | RADONC ---
RADIATION ONCOLOGY PROGRESS NOTE DATE: 11/24/2018 CHART NUMBER: [id number] PROGRESS NOTE: Ms. Molina is presently at a dose of 1620 centigrade to her head and neck region and was last treated on 11/13/2018. She took off all last week complaining of pain. On 11/19/2018, I wrote the patient a prescription for Percocet. She had been being seen by Dr. Beth in the pain clinic, and on 11/03/2018, he had written her for codeine sulfate 45 tablets. The patient came in today complaining of pain again and saying she needed more pain medicine and stronger pain medicine. I told her at this point it has only been a few days since I wrote her the previous prescription, and therefore, I was not able to write her any further pain medication. In light of this, the patient said she could not restart her radiation yet and will see about restarting perhaps on Saturday or . I did discuss with her the loss of effectiveness with multiple days off from treatment. In light of her new colon mass, I let her know that it would be nice to finish up with the lymphoma so that she go onto the next phase of her treatment. Again, I offered to set up the patient once again to see the pain clinic but she refuses to go back there. I let her know that her medical oncologist may be able to manage her pain medications. She has over the past few months received pain medications from Dr. Anaya, Dr. Coelho, Dr. Beth, Dr. Hernandez, Dr. Malone, and myself. I think this needs to be centrally coordinated. In the meantime, we will see if she wishes to restart radiation this week.
--- NOTE | 2018-12-01 09:43 | RADONC ---
RADIATION ONCOLOGY PROGRESS NOTE DATE: 12/01/2018 CHART NUMBER: [id number] Ms. Molina is presently at a dose of 2340 cGy to her head and neck and is tolerating treatments quite well at this point with no complaints related to her radiation therapy. She is having no soreness of her throat or other problems. The patient's review of systems is noncontributory. She denies nausea, vomiting, fevers, chills, night sweats, diplopia, headaches, anxiety or depression, anorexia, weight loss, visual disturbances, chest pain, urinary or bowel difficulties, bone pain, or neurological problems. PHYSICAL EXAMINATION: The patient's skin is in good condition with no evidence of moist or dry desquamation. The remainder of her physical exam remains unchanged. Ms. Molina is tolerating treatments quite well and radiation will continue as scheduled.
--- NOTE | 2018-12-17 11:06 | RADONC ---
RADIATION ONCOLOGY PROGRESS NOTE DATE: 12/16/2018 CHART #: [id number] Ms. Molina is thus far at a dose of 2880 cGy to her head and neck and was last treated on 12/05/2018. I received a phone call from Dr. Anaya yesterday and the patient has just had a resection of her colon and is unable to come in for treatment the next day or so. I do not have the pathology of her colon resection results at this time. We have tentatively scheduled her to resume radiation on Saturday or of this week.
[~2018-12-23] MED LIST changes: -LIDOCAINE 2% INJ 100 MG/5 ML SDV (FOR ANES.) As Ordered ONE; -LR 1,000 ML IV ONE; -MIDAZOLAM INJ 2 MG/2 ML VIAL (J2250) As Ordered ONE; -ONDANSETRON 4MG/2ML VIAL (J2405) As Ordered ONE; +PERCOCET PO; -PROPOFOL 200 MG/20 ML VIAL As Ordered ONE; -ROCURONIUM BROMIDE 50 MG/5 ML VIAL As Ordered ONE; -dexameTHASONE 4 MG/ML 1ML VIAL (J1100) As Ordered ONE; -fentaNYL 250 MCG/5 ML INJECTION (J3010) As Ordered ONE
--- NOTE | 2018-12-24 07:40 | RADONC ---
RADIATION ONCOLOGY PROGRESS NOTE DATE: 12/22/2018 CHART NUMBER: [id number] Ms. Molina is presently at a dose of 3420 cGy to her head and neck and at this point is tolerating her treatments without difficulty. She has no complaints at this time related to her radiation therapy. She continues to recover from her abdominal surgery. REVIEW OF SYSTEMS: The patient's review of systems is positive for the new colostomy, but generally is otherwise noncontributory. She denies nausea, vomiting, fevers, chills, night sweats, diplopia, headaches, anxiety or depression, anorexia, weight loss, visual disturbances, chest pain, urinary or bowel difficulties, bone pain, or neurological problems. PHYSICAL EXAMINATION: The patient's skin is in good condition with no evidence of radiation change present. The patient now has a colostomy site, but otherwise review of her physical exam is largely unchanged. Radiation is well tolerated and will continue as scheduled. Once radiation is completed for her non-Hodgkin's lymphoma, she will be seeing her medical oncologist and begin discussion of her colorectal cancer treatment.
== END ==
LOC: M ONCR 11-24 08:38
PROVIDERS: ATTEND Radiology Radiation Oncology
DX: C83.31 Diffuse large B-cell lymphoma, lymph nodes of head, face, and neck (principal)

== ENCOUNTER 2018-12-30 08:02 | Outpatient (RCR) | payer MEDICARE ==
--- NOTE | 2018-12-29 11:13 | RADONC ---
RADIATION ONCOLOGY PROGRESS NOTE DATE: 12/29/2017 CHART NUMBER: [id number] Ms. Molina is presently at a dose of 4320 cGy to her head and neck and is complaining of a sore throat, weakness and overall not feeling well. REVIEW OF SYSTEMS: The patient's review of systems is positive for weakness, discomfort upon swallowing and a sore throat. She has very little energy and overall is feeling somewhat depressed. She denies nausea, vomiting, fevers, chills, night sweats, diplopia, headaches, chest pain, urinary problems or bone pain. Her colostomy is causing her no problems. PHYSICAL EXAMINATION: The patient's skin is in good condition with no evidence of moist or dry desquamation. Her colostomy is free of infection. The remainder of her physical exam remains unchanged. Ms. Molina will be at 4500 cGy tomorrow and I offered to continue radiation for 27 fractions, 4860 centigrade. She is within the range of local control dose. She has had several treatment breaks however and I had recommended the higher dose but the patient wishes to stop her treatments at 4500 centigrade. In light of her overall condition and her colon cancer, I do not think this is unreasonable. We therefore planning on completing treatments tomorrow and this way her medical oncologist can address her systemic issues. Her radiation will continue to tomorrow.
--- NOTE | 2018-12-31 09:37 | RADONC ---
RADIATION ONCOLOGY TREATMENT SUMMARY DATE: 12/30/2018 CHART NUMBER: [id number] DIAGNOSIS: Diffuse large B-cell lymphoma. STAGE: II A. ECOG PERFORMANCE STATUS: Zero. TREATMENT SUMMARY: The patient is a 68-year-old white female with the diagnosis of a stage II A diffuse large B-cell lymphoma involving her right periparotid area and cervical lymph node chain who is seen by us status post chemotherapy for consideration of postoperative radiation therapy in attempt to increase the likelihood of achieving local control. We treated the patient to her head and neck region for a total dose of 4500 cGy delivered in 25 fractions of 180 cGy each over 56 elapsed days from 11/03/2018 through 12/30/2018. The patient's head and neck region was treated on a linear accelerator utilizing a 6 MV photon beam via IMRT/IGRT. The patient had a great deal of difficulties throughout the course of treatment. Indeed therapy was interrupted on several occasions protracting her overall course. She was also found to have a colon mass and underwent a hemicolectomy with Dr. Anaya. Diagnosis of moderately differentiated colonic adenocarcinoma was made involving approximately 3.5 cm of the cecum. This went into the pericolonic fat. I had offered the patient an additional two fractions of radiation to bring her dose slightly higher to somewhat compensate for her protracted treatment course. The patient however wished to stop treatment at this point, which is reasonable considering her overall issues. I have therefore set her up for routine followup in my office in 1 months' time. She will be followed and managed closely by her medical oncologist for discussion and subsequent chemotherapy for her colonic cancer. Once again, thank you for allowing us to participate in this patient's care. As always, warm regards. cc: MD Cori Maldonado PA [place], MD Robert Kimball, MD
[2019-01-05] MEDS ORDERED: MAGICMW SSP (15:31)
== END 2019-01-23 ==
LOC: M ONCR 08:02
PROVIDERS: ATTEND Radiology Radiation Oncology
DX: C83.31 Diffuse large B-cell lymphoma, lymph nodes of head, face, and neck (principal)

== ENCOUNTER 2019-01-05 16:30 | Outpatient (CLI) | payer MEDICARE ==
[~2019-01-05] VITALS: Ht 162.6 cm; Wt 50.6 kg
[~2019-01-05 16:30] MED LIST changes: +MAGICMW SSP
[2019-01-05 16:35] VITALS: BP 119/55
[2019-01-05] MEDS ORDERED: KCL 10MEQ IN D5/0.45NS 1000ML 1,000 ML IV SCH (16:45)
[2019-01-05 17:44] VITALS: BP 127/65
== END 2019-01-05 18:00 | disposition home or self-care (01) ==
LOC: M INFU 16:30
PROVIDERS: ATTEND Internal Medicine Medical Oncology
DX: K20.9 Esophagitis, unspecified (principal); C83.37 Diffuse large B-cell lymphoma, spleen

== ENCOUNTER → 2019-01-28 | Outpatient (CLI) | payer MEDICARE ==
--- NOTE | 2019-01-29 07:00 | RADONC ---
RADIATION ONCOLOGY FOLLOWUP NOTE DATE: 01/28/2019 CHART #: [id number] DIAGNOSIS: Diffuse large B-cell lymphoma. Stage: II A. ECOG PERFORMANCE STATUS: 0. FOLLOWUP NOTE: The patient is a 68-year-old female with a diagnosis of a stage II A diffuse large B-cell lymphoma involving the right chacorta parotid area and cervical lymph node chain whom we have treated postoperatively with radiotherapy. She also received chemotherapy prior to her receiving her radiotherapy. We treated her head and neck area to a total of 4500 cGy delivered in 25 fractions over 56 elapsed days. The patient had great difficulties throughout the course of radiotherapy and indeed the radiotherapy was interrupted on several occasions protracting her overall course. She was also found to have a colon mass which has hence been resected via hemicolectomy by Dr. Anaya. The diagnosis was that of a moderately differentiated adenocarcinoma involving approximately 3.5 cm of the cecum. She is recovering from this procedure and apparently still has her colostomy. Most recently, the patient has noted a new and somewhat symptomatic mass in the right retromolar area. It measures approximately 1 to 1-1/2 cm and is slightly tender. When the patient opens her mouth, it is also noted that she experiences some discomfort located within the lymph node area. REVIEW OF SYSTEMS: She denies any nausea, vomiting, coughing, sputum production, hemoptysis, odynophagia, or significant dysphagia. Indeed, most of her side effects from her radiotherapy have healed and are no longer major issues to her. She does experience some pain in the retromolar area on the right and this pain corresponds to the 1 to 1-1/2 cm area where a mass is palpable. EXAMINATION FINDINGS: The patient has lost some weight from her radiotherapy and colonic surgery. Examination of the oral cavity reveals no intraoral lesions, although mucous membranes are somewhat dry still. A 1 to 1-1/2 cm palpable nodule is noted in the right posterior mandibular area which is somewhat tender. No additional lymphadenopathy is appreciated. Lungs are clear. Heart: Regular without murmurs. Abdomen: Negative. Extremities: Without cyanosis, clubbing or edema. Neurologic: Examination grossly physiologic and nonfocal. IMPRESSION: The patient has been treated with chemotherapy and radiotherapy for a stage II A diffuse large B-cell lymphoma. There appears to be an area of a small mass, like perhaps even a lymph node, in the right posterior molar/post mandibular area. It is somewhat tender and may be sales promotion representative of a tumor recurrence. The patient claims it is a new finding for her. PLAN: I believe that this new finding warrants investigation and I have taken the liberty of suggesting that she obtain a repeat CT/PET scan. I will order that today. Thank you for allowing us the opportunity of participation in the joint followup care of this very kiya lady. cc: MD Cori Maldonado PA [place], MD Robert Kimball, MD MTDD
== END ==
LOC: M ONCR 09:46
PROVIDERS: ATTEND Radiology Radiation Oncology
DX: C83.31 Diffuse large B-cell lymphoma, lymph nodes of head, face, and neck (principal); C49.9 Malignant neoplasm of connective and soft tissue, unspecified; C18.0 Malignant neoplasm of cecum

== ENCOUNTER → 2019-01-28 | Outpatient (CLI) | payer MEDICARE ==
--- NOTE | 2019-01-31 00:37 | ECWPNPC ---
PATIENT NAME: ANNIE VILLAVICENCIO : 1950 GENDER: FEMALE VISIT DATE: 01/28/2019 DISCHARGE DATE: 01/28/191655 VISIT LOCKED DATE TIME: PHYSICIAN: JOSE AGUIRRE MD RESOURCE: JOSE AGUIRRE MD REASON FOR APPOINTMENT 1. MEDS PER DR Medina HISTORY OF PRESENT ILLNESS HISTORY OF PRESENT ILLNESS: PAIN THE PATIENT DESCRIBES THE PAIN... 68 YEAR OLD FEMALE PATIENT WITH A HISTORY OF CHRONIC LOW BACK PAIN. THE PATIENT DESCRIBES THE PAIN STABBING, SHOOTING, AND CONTINUOUS WITH A PAIN SCORE OF 7-10/10 DEPENDING ON PHYSICAL ACTIVITY. THE PATIENT SAYS THE BACK PAIN IS ON BOTH SIDES BUT MAINLY ON HER RIGHT SIDE. THE PATIENT SAYS SHE IS ALSO EXPERIENCING NECK PAIN AND NAUSEA DUE TO THE RADIATION THERAPY PERFORMED IN THE LAST FEW WEEKS. THE PATIENT REPORTS HAVING BACK SURGERY SEVERAL YEARS AGO, BUT THE PAIN HAS SINCE PERSISTED. THE PATIENT SAYS SHE HAD DEVELOPED CLOSTRIDIUM DIFFICILE AND A TUMOR OVER HER COLON, AND HAD RECEIVED A COLOSTOMY BAG IN NOVEMBER, WHICH HAS BEEN CAUSING ABDOMINAL PAIN AND A HERNIA. THE PATIENT RECEIVED A LUMBAR TRIGGER POINT INJECTION ON 08/29/2018 WHICH SHE STATES HELPED FOR SEVERAL WEEKS BUT THE LOW BACK PAIN HAS RETURNED. THE PATIENT SAYS THE PAIN SHE IS EXPERIENCING IS AFFECTING HER ABILITY TO PERFORM HER DAILY ACTIVITIES AND SHE OFTEN HAS TO TAKE REST BREAKS OR SIT WHILE PERFORMING THEM. PATIENT DENIES UNEXPLAINABLE WEIGHT LOSS, FEVER, CHILLS, NEW CHANGES ON HER URINARY OR BOWEL CONTROL. FALL RISK SCREENING: SCREENING :NO FALLS REPORTED IN THE LAST YEAR CURRENT MEDICATIONS TAKING HYDROCODONE-ACETAMINOPHEN 5-325 MG TABLET 1 TABLET NEEDED ORALLY FOR PAIN EVERY 6 HRS MDD2, NOTES: TAKING 2 BID POST COLECTOMY 12/12/18 TAKING PLAVIX 75 MG TABLET 1 TABLET ORALLY ONCE A DAY TAKING ISOSORBIDE MONONITRATE 60 MG TABLET EXTENDED RELEASE 24 HOUR 1 TABLET ORALLY ONCE A DAY TAKING LIPITOR 20 MG TABLET 1 TABLET ORALLY ONCE A DAY TAKING COOL BLOOD GLUCOSE TEST STRIPS - STRIP DIRECTED IN VITRO BID TAKING LANCETS 30G - MISCELLANEOUS DIRECTED INTRADERMALLY TWICE DAILY TAKING LIDOCAINE VISCOUS 2 % SOLUTION 5 ML TO AFFECTED AREA NEEDED MOUTH/THROAT TID NEEDED TAKING METFORMIN HCL 1000 MG TABLET 1 TABLET WITH MEALS ORALLY DAILY TAKING KLOR-CON M20 20 MEQ TABLET EXTENDED RELEASE 1 TABLET WITH FOOD ORALLY ONCE A DAY TAKING DRISDOL 06652 UNIT CAPSULE 1 CAPSULE ORALLY ONCE A WEEK TAKING VITAMIN D 1000 UNIT TABLET 1 TABLET ORALLY ONCE A DAY TAKING TIZANIDINE HCL 2 MG TABLET 1 TABLET NEEDED ORALLY FOR SPASMS AND PAIN BEFORE BEDTIME TAKING TRIAMTERENE-HCTZ 37.5-25 MG TABLET 1 TABLET IN THE MORNING ORALLY ONCE A DAY TAKING NICORETTE 2 MG GUM 1 PIECE NEEDED MOUTH/THROAT 24 TIME(S) A DAY TAKING NICOTINE STEP 1 21 MG/24HR PATCH 24 HOUR 1 PATCH TO SKIN TRANSDERMAL ONCE A DAY NOT-TAKING BLOOD GLUCOSE SYSTEM SANDRO - KIT DIRECTED INTRADERMALLY BID NOT-TAKING CODEINE SULFATE 15 MG TABLET 1 TABLET NEEDED ORALLY FOR PAIN EVERY 12 HOURS NEEDED MDD2 NOT-TAKING OMEPRAZOLE 20 MG CAPSULE DELAYED RELEASE 1 CAPSULE ORALLY ONCE A DAY NOT-TAKING SERTRALINE HCL 50 MG TABLET 1 TABLET ORALLY ONCE A DAY DISCONTINUED ISOSORBIDE MONONITRATE 60MG TABLET EXTENDED RELEASE 24 HOUR 1 TABLET ORALLY ONCE A DAY, NOTES: DUPLICATE MEDICATION LIST REVIEWED AND RECONCILED WITH THE PATIENT PAST MEDICAL HISTORY BACK PAIN HIGH BLOOD PRESSURE HIGH CHOLESTEROL SEASONAL ALLERGIES CHRONIC LOW BACK PAIN HISTORY OF [place] (MYOCARDIAL INFARCTION) LUMBOSACRAL RADICULOPATHY 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 JAFFE, CHEMO LAST SATURDAY COLONOSCOPY: GARY JANUARY 2018 MAMMOGRAM: SEVERAL YEARS AGO CARDIAC STENTS X 3, [place] 2011 ECHO 2018: NORMAL GLOBAL LEFT VENTRICULAR SYSTOLIC FUNCTION. THERE ARE SOME FEATURES OF LEFT VENTRICULAR DIASTOLIC DYSFUNCTION, GRADE 1.AORTIC VALVE SCLEROSIS WITH TRACE AORTIC REGURGITATION BUT NO AORTIC STENOSIS.TRACE MITRAL REGURGITATION.TRACE TRICUSPID REGURGITATION WITH A NORMAL CALCULATED PULMONARY ARTERY STESS TEST: [place] HERNIA - LEFT ABDOMEN COLON CANCER CHF CDIFF ALLERGIES ZANAFLEX: VOMITING - SIDE EFFECTS RED DYE: ANAPHYLAXIS - ALLERGY IBUPROFEN: VOMITING SURGICAL HISTORY BACK SURGERY X 2 HYSTERECTOMY APPENDECTOMY COLECTOMY ( COLOSTOMY BAG) TUMOR REMOVED RIGHT NECK 11/2017 FAMILY HISTORY FATHER: 81 YRS, [place], DIAGNOSED WITH HEART DISEASE MOTHER: 68 YRS, LUNG CANCER, CANCER SIBLINGS: ALIVE, BROTHER OF LUNG/LIVER CANCER, STROKE, CANCER SON(S): ALIVE 42 YRS DAUGHTER(S): ALIVE 3 BROTHER(S) , 2 SISTER(S) . 1 SON(S) , 2 DAUGHTER(S) - HEALTHY. SISTER- OF A STROKE\\[facility]: 1976; 1971. SOCIAL HISTORY GENERAL: TOBACCO USE ARE YOU A:CURRENT SMOKER ARE YOU INTERESTED IN QUITTING?THINKING ABOUT QUITTING PT HAS PATCHES/GUM THROUGH HER PRIMARY AND STATES THEY ARE HELPING-SHE HAS CUT WAY DOWN PREVIOUS QUIT ATTEMPTS?YES, WITHIN THE LAST 6 MONTHS. COUNSELED THE PATIENT ON SMOKING CESSATION, EDUCATION [id number]/05/2019 HOW MANY CIGARETTES A DAY DO YOU SMOKE?5 OR LESS HOW SOON AFTER YOU WAKE UP DO YOU SMOKE YOUR FIRST CIGARETTE?AFTER 60 MIN HOW OFTEN DO YOU SMOKE CIGARETTES?SOME DAYS, BUT NOT EVERY DAY PATIENT COUNSELED ON THE DANGERS OF TOBACCO USE AND URGED TO QUIT:01/28/2019 HIV / HEP-C SCREENING HEP-C TEST OFFERED TO PATIENT:YES DATE OFFERED:02/18/2017 TEST ACCEPTED:NO REASON:PATIENT DECLINED OTHERS AT HOME: [place]. HOUSING: RENTS HOUSE. EDUCATION 2 YEARS COLLEGE. DIET: REGULAR. LANGUAGE GHANAIAN. DOMESTIC VIOLENCE DO YOU FEEL SAFE IN YOUR ENVIRONMENT?YES BMI CARE GOAL FOLLOW-UP ABOVE NORMAL BMI FOLLOW-UPDIETARY MANAGEMENT EDUCATION, GUIDANCE, AND COUNSELING RECREATIONAL DRUG USE DRUG USE?NO EXERCISE: WALKS. LEARNING BARRIERS / SPECIAL NEEDS BARRIERS TO LEARNING?NO HEARING IMPAIRED?NO VISION IMPAIRED?YES READING GLASSES COGNITIVELY IMPAIRED?NO READINESS TO LEARN?YES LEARNING PREFERENCES?NO LEARNING CAPABILITIES PRESENT?YES EMOTIONAL BARRIERS?NO SPECIAL DEVICES?NO PIERCING SPECIALIST NEEDED?NO LUNG CANCER SCREENING SMOKING STATUS:FORMER SMOKER IS THE PATIENT BETWEEN THE AGE OF 56 AND 78?YES HAVE YOU QUIT SMOKING WITHIN THE PAST 15 YEARS?YES HAS THE PATIENT EVER BEEN DIAGNOSED WITH LUNG CANCER?NO CREATE REFERRAL:GENERATE AND CREATE REFERRAL TO THE ONCOLOGY NURSE NAVIGATOR (SMP) LISTING USING THE LDCT SCAN PROCEDURE 46 YEARS 08/27 TO 1 PPD PAIN CLINIC PFS, CLERGY, PUBLIC HEALTH REFERRALS HAS THE PATIENT BEEN EDUCATED REGARDING HIS/HER PLAN OF CARE?YES HAS THE PATIENT BEEN EDUCATED REGARDING PAIN, THE RISK FOR PAIN, THE IMPORTANCE OF EFFECTIVE PAIN MANAGEMENT, AND THE PAIN ASSESSMENT PROCESS?YES LATEX QUESTIONNAIRE LATEX ALLERGY : HAVE YOU EVER DEVELOPED ANY TYPE OF REACTION AFTER HANDLING LATEX PRODUCTS SUCH RUBBER GLOVES, CONDOMS, DIAPHRAGMS, BALLOONS, SOCKS, OR UNDERWEAR?NO LATEX ALLERGY : HAVE YOU EVER DEVELOPED ANY TYPE OF REACTION DURING OR AFTER DENTAL APPOINTMENT, VAGINAL/RECTAL EXAMINATION, SURGICAL PROCEDURE, OR ANY OTHER EXPOSURE?NO DATE ASKED : 12/09/2018 LATEX RISK : HAVE YOU EVER HAD ANY DIFFICULTY BREATHING OR HIVES AFTER EATING OR HANDLING ANY FRUITS, OR VEGETABLES; SUCH KIWI, BANANAS, STONE FRUITS, OR CHESTNUTSNO LATEX RISK : DO YOU HAVE A PREVIOUS PERSONAL HISTORY OF MORE THAN NINE SURGERIES, SPINA BIFIDA, OR REPEATED CATHERTIZATIONS? NO LATEX RISK : ARE YOU FREQUENTLY EXPOSED TO LATEX PRODUCTS IN YOUR OCCUPATION?NO CAFFEINE CAFFEINE USE?YES 1 CUP COFFEE DAILY ADVANCE DIRECTIVE ADVANCE DIRECTIVE DISCUSSED WITH PATIENT:YES LIFE PARTNER-JOVI MAYS [phone] CAODAISM [id number] YAZIDISM MARITAL STATUS: . ALCOHOL SCREENING DID YOU HAVE A DRINK CONTAINING ALCOHOL IN THE PAST YEAR?NO POINTS0 INTERPRETATIONNEGATIVE OCCUPATION: DISABLED. SEXUAL HX HAD SEX IN THE LAST 12 MONTHS (VAGINAL, ORAL, OR ANAL)?YES WITHMEN ONLY USE PROTECTION?NO LMP:POST MENOP. HAVE YOU EVER HAD AN STD?NO REVIEWED WITH PT 09/05/18 1422 BV. HOSPITALIZATION/MAJOR DIAGNOSTIC PROCEDURE BACK SURGERY X 2; DISC AND SPINAL FUSION. [place] DR[place] GIOVANI NEVES , [facility] HYSTERECTOMY APPENDECTOMY COLOSTOMY BAG INSERTION 02/2018 [facility], THEN TRANSFERED TO [facility], C-DIFF, MULTIPLE INFECTIONS 01/2018 [facility] 2018 REVIEW OF SYSTEMS REVIEWED BY: PROVIDER: JOSE AGUIRRE MD . CONSTITUTIONAL: ANY CHANGE IN YOUR MEDICAL CONDITION? NO . CHILLS NO . FEVER NO . INFECTION: DO YOU HAVE NEW INFECTIONS? NO . DO YOU HAVE HISTORY OF MRSA? NO . MUSCULOSKELETAL: ANY NEW PATTERNS OF PAIN OR NUMBNESS? NO . GASTROENTEROLOGY: ANY NEW CHANGE IN BOWEL CONTROL? NO . GENITOURINARY: ANY NEW CHANGE IN BLADDER CONTROL? NO . IS THERE A CHANCE YOU COULD BE ? NO . HEMATOLOGY/LYMPH: DO YOU TAKE ANY BLOOD THINNERS? (FOR EXAMPLE- COUMADIN, PLAVIX, AGGRENOX, PLATEL, PRADAXA, OR XARELTO) YES, PLAVIX . WHEN WAS YOUR LAST DOSE? DATE: TIME:01/24/19 0700 . NEUROLOGY: HAVE YOU FALLEN IN THE PAST 12 MONTHS? NO . ANY NEW EXTREMITY NUMBNESS OR WEAKNESS? NO . CARDIOLOGY: DO YOU HAVE A PACEMAKER OR DEFIBRILLATOR? NO . RESPIRATORY: HAVE YOU BEEN SICK IN THE PAST WEEK? NO . FEVER NO . FLU LIKE SYMPTOMS? NO . COUGH NO . INTEGUMENTARY: DO YOU HAVE ANY RASHES OR OPEN SORES? NO . ALLERGIC/IMMUNO: ARE YOU ALLERGIC TO IV DYE? NO . ANY NEW ALLERGIES? NO . PSYCHIATRIC: DO YOU HAVE THOUGHTS OF HURTING YOURSELF OR SOMEONE ELSE? NO . ARE YOU ABUSED, NEGLECTED, OR IN AN UNSAFE ENVIRONMENT? NO . ENDOCRINOLOGY: ARE YOU DIABETIC? YES . OTHER: DO YOU NEED ANY PRESCRIPTIONS? NO . IF YES, PLEASE LIST: ____ . ANY NEW PROBLEMS WITH YOUR MEDICATIONS? NO . WHEN DID YOU LAST EAT? ____ . WHEN DID YOU LAST DRINK? ____ . WHAT DID YOU LAST DRINK? ____ . NAME OF PERSON DRIVING YOU HOME? ____ . DO YOU HAVE ANY OTHER QUESTIONS OR CONCERNS NO . VITAL SIGNS WT 109.6 LBS, HT 64 IN, BMI 18.81 INDEX, BP 120/61 MM HG, HR 100 /MIN, RR 18 /MIN, TEMP 97.3 F, OXYGEN SAT % 100, SAFE IN ENV? (Y/N) Y, NA INITIALS MP 1508, REVIEWED BY: TONY. EXAMINATION GENERAL EXAMINATION: PATIENT IS ALERT O X 3 AND COOPERATIVE. TENDERNESS IN THE LOW BACK, MAINLY ON RIGHT SIDE, OVER THE FACET JOINTS WITH EXTENSION AND LATERAL ROTATION. MRI OF THE LUMBAR SPINE DONE ON 09/29/2018 SHOWS FACET ARTHROPATHY CHANGES AND LUMBAR POST LAMINECTOMY. 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 VILLAVICENCIO'S PAIN MANAGEMENT CASE. DUE TO THE LUMBAR SPONDYLOSIS, I WOULD LIKE THE PATIENT CONSIDER A LUMBAR FACET BLOCK IN THE FUTURE. FOR NOW WE AGREED TO HOLD INJECTION THERAPY UNTIL THE PET SCAN RESULTS ARE REVIEWED REGARDING THE COLON TUMOR. I AM ALSO SEEKING A DOCTOR TO DOCTOR AGREEMENT FROM THE PATIENT'S PRIMARY CARE, WILLY PRINGLE NP. I AM INCREASING THE PATIENT'S HYDROCODONE 5-325 TO BE TAKEN NEEDED UP TO 3 PER DAY WITH 80 PER MONTH. I DISCUSSED THE RISKS ASSOCIATED WITH THE USE OF OPIOIDS INCLUDING THE POSSIBLE DEVELOPMENT OF ADDICTION OR TOLERANCE AND THE PATIENT VERBALIZED UNDERSTANDING. UTOX DONE ON 10/06/2018 SHOWS CONCURRENT RESULTS. ISTOP _# [id number] WAS REVIEWED. THE PATIENT WAS ADVISED TO BRING MEDICATIONS TO EACH APPOINTMENT. THE PATIENT WILL FOLLOW UP IN SEVERAL WEEKS AND WAS TOLD TO CALL FOR REFILLS IF NEEDED BEFORE THEN. INSTRUCTIONS WERE GIVEN, QUESTIONS WERE ANSWERED, PATIENT REPORTS UNDERSTANDING AND AGREES WITH THE PLAN. I, SAMARIA SORENSEN, DOCUMENTED THE ABOVE INFORMATION ACTING A SCRIBE FOR DR. AGUIRRE. I HAVE REVIEWED THE ABOVE DOCUMENT, WRITTEN BY SAMARIA SORENSEN SCRIBMary AND I VERIFY THAT IT IS ACCURATE. . PROCEDURE CODES G8427 CURRENT MEDS W/DOSAGES DOCUMENTED G8730 PAIN ASSESS POS TOOL F/U PLAN DOC FA211 ESTABILISHED PATIENT [facility] FACILITY CHARGE DISPOSITION & COMMUNICATION FOLLOW UP 2 MONTHS ELECTRONICALLY SIGNED BY JSOE AGUIRRE MD, ON 01/30/2019 AT 05:19 PM EDT DISCLAIMER : THIS IS A VISIT SUMMARY EXTRACTED FROM THE [employer] CHART. IT IS NOT A COPY OF THE [employer] PROGRESS NOTE. MTDYsabel
== END ==
LOC: M PAIN 15:15
PROVIDERS: ATTEND Anesthesiology
DX: M47.816 Spondylosis without myelopathy or radiculopathy, lumbar region (principal); M47.817 Spondylosis without myelopathy or radiculopathy, lumbosacral region; M96.1 Postlaminectomy syndrome, not elsewhere classified; I10 Essential (primary) hypertension; E11.9 Type 2 diabetes mellitus without complications; E78.00 Pure hypercholesterolemia, unspecified; I25.2 Old myocardial infarction; Z95.5 Presence of coronary angioplasty implant and graft; Z88.6 Allergy status to analgesic agent; Z88.8 Allergy status to other drugs, medicaments and biological substances; Z91.02 Food additives allergy status; Z86.19 Personal history of other infectious and parasitic diseases; Z79.01 Long term (current) use of anticoagulants; Z79.84 Long term (current) use of oral hypoglycemic drugs; Z79.899 Other long term (current) drug therapy
CPT/HCPCS: G0463 ×2

== ENCOUNTER → 2019-02-09 | Outpatient (REF) | payer MEDICARE ==
[2019-02-09 14:00] LABS: ALBUMIN 3.7 GM/DL (3.2-5.2); ALT/SGPT 13 U/L (12-78); BILIRUBIN,TOTAL 0.4 MG/DL (0.2-1.0); BLOOD UREA NITROGEN 19 MG/DL (7-18); CALCIUM LEVEL 9.9 MG/DL (8.8-10.2); CARBON DIOXIDE LEVEL 25 MEQ/L (21-32); CHLORIDE LEVEL 108 MEQ/L (98-107); CREATININE FOR GFR 0.74 MG/DL (0.55-1.30); GLOMERULAR FILTRATION RATE > 60.0 (>45); GLUCOSE, FASTING 80 MG/DL (70-100); POTASSIUM SERUM 3.5 MEQ/L (3.5-5.1); SODIUM LEVEL 141 MEQ/L (136-145)
[2019-02-09 14:06] LABS: HEMOGLOBIN A1c 5.8 %
== END ==
LOC: M SFHCPLAZ 11:42
PROVIDERS: ATTEND Nurse Practitioner Family
DX: E11.9 Type 2 diabetes mellitus without complications (principal); E78.5 Hyperlipidemia, unspecified
CPT/HCPCS: 36415; 80053; 83036; G0463

== ENCOUNTER → 2019-02-10 | Outpatient (CLI) | payer MEDICARE ==
--- NOTE | 2019-02-10 14:00 | REP ---
PET/CT: HISTORY: Restaging B-cell lymphoma. Status post chemo and radiation therapy. There is also a history of adenocarcinoma of the colon status post right hemicolectomy. COMPARISONS: Comparison PET/CT October 14, 2018 and May 07, 2018. TECHNIQUE: 56 minutes following the intravenous injection of a 9.32 mCi dose of F-18 FDG, three-dimensional PET scintigraphy is acquired from the skull base to the proximal thighs. Triplanar noncontrast CT scanning is acquired through the same anatomic range for attenuation correction, and image registration with scan parameters optimized to minimize radiation exposure to the patient. PET scintigraphy and CT datasets were fused and displayed on a workstation with multiplanar and projection display capability. PET/CT FINDINGS: The previously noted hypermetabolic uptake seen in the right parotid or periparotid lymph node is resolved. Maximum standard uptake value in this region is 2.4, previously 5.1. There is no longer any definite hypermetabolic uptake here. The head and neck soft tissues are otherwise unremarkable. No abnormal hypermetabolic uptake is seen in the chest. No abnormal hypermetabolic uptake is seen in the abdomen or pelvis. IMPRESSION: No abnormal hypermetabolic uptake seen. The previously noted right parotid or periparotid kaitlin uptake is no longer apparent. Electronically Signed by Tutu Paz MD 02/10/2019 04:06 P
== END ==
LOC: M PLARAD 10:09
PROVIDERS: ATTEND Radiology Radiation Oncology
DX: C83.31 Diffuse large B-cell lymphoma, lymph nodes of head, face, and neck (principal)
CPT/HCPCS: 78815; A9552

== ENCOUNTER → 2019-02-13 | Outpatient (CLI) | payer MEDICARE ==
[~2019-02-13] MED LIST changes: -OMEP20CA3 PO; +OMEP20CA4 PO
== END ==
LOC: M ONCR 08:20
PROVIDERS: ATTEND Radiology Radiation Oncology
DX: C83.31 Diffuse large B-cell lymphoma, lymph nodes of head, face, and neck (principal)

== ENCOUNTER → 2019-03-05 | Outpatient (REF) | payer MEDICARE ==
[2019-03-05 15:03] LABS: BLOOD UREA NITROGEN 16 MG/DL (7-18); CALCIUM LEVEL 9.5 MG/DL (8.8-10.2); CARBON DIOXIDE LEVEL 26 MEQ/L (21-32); CHLORIDE LEVEL 106 MEQ/L (98-107); CREATININE FOR GFR 0.82 MG/DL (0.55-1.30); GLOMERULAR FILTRATION RATE > 60.0 (>45); GLUCOSE, FASTING 90 MG/DL (70-100); POTASSIUM SERUM 3.2 MEQ/L (3.5-5.1); SODIUM LEVEL 140 MEQ/L (136-145)
== END ==
LOC: M SFHCPLAZ 11:42
PROVIDERS: ATTEND Nurse Practitioner Family
DX: I10 Essential (primary) hypertension (principal)
CPT/HCPCS: 36415; 80048; G0463

== ENCOUNTER → 2019-04-02 | Outpatient (REF) | payer MEDICARE ==
[2019-04-02 13:44] LABS: BLOOD UREA NITROGEN 11 MG/DL (7-18); CALCIUM LEVEL 10.2 MG/DL (8.8-10.2); CARBON DIOXIDE LEVEL 24 MEQ/L (21-32); CHLORIDE LEVEL 111 MEQ/L (98-107); GLOMERULAR FILTRATION RATE > 60.0 (>45); GLUCOSE, FASTING 83 MG/DL (70-100); POTASSIUM SERUM 4.2 MEQ/L (3.5-5.1); SODIUM LEVEL 141 MEQ/L (136-145)
== END ==
LOC: M SFHCPLAZ 09:06
PROVIDERS: ATTEND Nurse Practitioner Family
DX: I10 Essential (primary) hypertension (principal); E87.6 Hypokalemia

== ENCOUNTER → 2019-05-06 | Outpatient (CLI) | payer MEDICARE ==
[~2019-05-06] MED LIST changes: +HYDR-3713 PO
--- NOTE | 2019-05-16 01:06 | ECWPNPC ---
PATIENT NAME: ANNIE VILLAVICENCIO : 1950 GENDER: FEMALE VISIT DATE: 05/06/2019 DISCHARGE DATE: 05/06/19 1540 VISIT LOCKED DATE TIME: PHYSICIAN: JOSE AGUIRRE MD RESOURCE: JOSE AGUIRRE MD REASON FOR APPOINTMENT 1. BACK HISTORY OF PRESENT ILLNESS HISTORY OF PRESENT ILLNESS: PAIN THE PATIENT DESCRIBES THE PAIN... 68 YEAR OLD FEMALE PATIENT WITH A HISTORY OF CHRONIC LOW BACK PAIN. THE PATIENT DESCRIBES THE PAIN ACHING, SHARP, AND CONTINUOUS WITH A PAIN SCORE OF 6-9/10 DEPENDING ON PHYSICAL ACTIVITY. THE PATIENT STATES SHE HAD A COLON RESECTION AND COLOSTOMY IN JANUARY OF THIS YEAR. THE PATIENT SAYS SHE HAD A RECENT PET SCAN DONE AND IT CAME BACK NEGATIVE AND SHE IS NOW IN REMISSION. THE PATIENT SAYS SHE IS USING HYDROCODONE 2-3 TABLETS DAILY THAT HELPS WITH HER PAIN. PATIENT DENIES UNEXPLAINABLE WEIGHT LOSS, FEVER, CHILLS, NEW CHANGES ON HER URINARY OR BOWEL CONTROL. FALL RISK SCREENING: SCREENING :NO FALLS REPORTED IN THE LAST YEAR CURRENT MEDICATIONS TAKING LIPITOR 20 MG TABLET 1 TABLET ORALLY ONCE A DAY TAKING COOL BLOOD GLUCOSE TEST STRIPS - STRIP DIRECTED IN VITRO BID TAKING LANCETS 30G - MISCELLANEOUS DIRECTED INTRADERMALLY TWICE DAILY TAKING DRISDOL 46569 UNIT CAPSULE 1 CAPSULE ORALLY ONCE A WEEK TAKING VITAMIN D 1000 UNIT TABLET 1 TABLET ORALLY ONCE A DAY, NOTES: PT REPORTS WHEN DRISDOL DONE TAKING PLAVIX 75 MG TABLET 1 TABLET ORALLY ONCE A DAY TAKING METFORMIN HCL 1000 MG TABLET 1/2 TABLET WITH MEALS ORALLY BID TAKING HYDROCODONE-ACETAMINOPHEN 5-325 MG TABLET 1 TABLET NEEDED ORALLY FOR PAIN EVERY 8 HRS MDD3 NOT-TAKING LIDOCAINE VISCOUS 2 % SOLUTION 5 ML TO AFFECTED AREA NEEDED MOUTH/THROAT TID NEEDED, NOTES: DONE NOT-TAKING NICORETTE 2 MG GUM 1 PIECE NEEDED MOUTH/THROAT 24 TIME(S) A DAY NOT-TAKING NICOTINE STEP 1 21 MG/24HR PATCH 24 HOUR 1 PATCH TO SKIN TRANSDERMAL ONCE A DAY MEDICATION LIST REVIEWED AND RECONCILED WITH THE PATIENT PAST MEDICAL HISTORY BACK PAIN HIGH BLOOD PRESSURE HIGH CHOLESTEROL SEASONAL ALLERGIES CHRONIC LOW BACK PAIN HISTORY OF DE (MYOCARDIAL INFARCTION) LUMBOSACRAL RADICULOPATHY RIGHT KNEE GOUT 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 JAFFE AND DELORES COLONOSCOPY: GARY JANUARY 2018 MAMMOGRAM: SEVERAL YEARS AGO CARDIAC STENTS X 3, [place] 2012 ECHO 2018: NORMAL GLOBAL LEFT VENTRICULAR SYSTOLIC FUNCTION. 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 VEGA, RIGHT HEMICOLECTOMY 11/2018 FAMILY HISTORY FATHER: 81 YRS, [place], DIAGNOSED WITH UNSPECIFIED HEART DISEASE MOTHER: 68 YRS, LUNG CANCER, OTHER MALIGNANT NEOPLASM OF UNSPECIFIED SITE SIBLINGS: ALIVE, BROTHER OF LUNG/LIVER CANCER, UNSPECIFIED CEREBRAL ARTERY OCCLUSION WITH CEREBRAL INFARCTION, OTHER MALIGNANT NEOPLASM OF UNSPECIFIED SITE SON(S): ALIVE 42 YRS DAUGHTER(S): ALIVE 3 BROTHER(S) , 2 SISTER(S) . 1 SON(S) , 2 DAUGHTER(S) - HEALTHY. SISTER- OF A STROKE\\NDAUGHTERS: 1976; 1971. SOCIAL HISTORY GENERAL: TOBACCO USE ARE YOU A:CURRENT SMOKER ARE YOU INTERESTED IN QUITTING?THINKING ABOUT QUITTING PT HAS PATCHES/GUM THROUGH HER PRIMARY AND STATES THEY ARE HELPING-SHE HAS CUT WAY DOWN PREVIOUS QUIT ATTEMPTS?YES, WITHIN THE LAST 6 MONTHS. COUNSELED THE PATIENT ON SMOKING CESSATION, EDUCATION [id number]/11/2019 HOW MANY CIGARETTES A DAY DO YOU SMOKE?5 OR LESS HOW SOON AFTER YOU WAKE UP DO YOU SMOKE YOUR FIRST CIGARETTE?AFTER 60 MIN HOW OFTEN DO YOU SMOKE CIGARETTES?SOME DAYS, BUT NOT EVERY DAY PATIENT COUNSELED ON THE DANGERS OF TOBACCO USE AND URGED TO QUIT:01/28/2019 HIV / HEP-C SCREENING HEP-C TEST OFFERED TO PATIENT:YES DATE OFFERED:02/18/2017 TEST ACCEPTED:NO REASON:PATIENT DECLINED OTHERS AT HOME: [place]. HOUSING: RENTS HOUSE. EDUCATION 2 YEARS COLLEGE. DIET: REGULAR. LANGUAGE [facility] HELENIAN. DOMESTIC VIOLENCE DO YOU FEEL SAFE IN YOUR ENVIRONMENT?YES BMI CARE GOAL FOLLOW-UP ABOVE NORMAL BMI FOLLOW-UPDIETARY MANAGEMENT EDUCATION, GUIDANCE, AND COUNSELING RECREATIONAL DRUG USE DRUG USE?NO EXERCISE: WALKS. LEARNING BARRIERS / SPECIAL NEEDS BARRIERS TO LEARNING?NO HEARING IMPAIRED?NO VISION IMPAIRED?YES READING GLASSES COGNITIVELY IMPAIRED?NO READINESS TO LEARN?YES LEARNING PREFERENCES?NO LEARNING CAPABILITIES PRESENT?YES EMOTIONAL BARRIERS?NO SPECIAL DEVICES?NO ELASTIC ATTACHER CHAINSTITCH NEEDED?NO LUNG CANCER SCREENING SMOKING STATUS:FORMER SMOKER IS THE PATIENT BETWEEN THE AGE OF 56 AND 78?YES HAVE YOU QUIT SMOKING WITHIN THE PAST 15 YEARS?YES HAS THE PATIENT EVER BEEN DIAGNOSED WITH LUNG CANCER?NO CREATE REFERRAL:GENERATE AND CREATE REFERRAL TO THE ONCOLOGY NURSE NAVIGATOR (SMP) LISTING USING THE LDCT SCAN PROCEDURE 46 YEARS 08/27 TO 1 [facility] [place] [place] PFS, CLERGY, PUBLIC HEALTH REFERRALS HAS THE PATIENT BEEN EDUCATED REGARDING HIS/HER PLAN OF CARE?YES HAS THE PATIENT BEEN EDUCATED REGARDING PAIN, THE RISK FOR PAIN, THE IMPORTANCE OF EFFECTIVE PAIN MANAGEMENT, AND THE PAIN ASSESSMENT PROCESS?YES LATEX QUESTIONNAIRE LATEX ALLERGY : HAVE YOU EVER DEVELOPED ANY TYPE OF REACTION AFTER HANDLING LATEX PRODUCTS SUCH RUBBER GLOVES, CONDOMS, DIAPHRAGMS, BALLOONS, SOCKS, OR UNDERWEAR?NO LATEX ALLERGY : HAVE YOU EVER DEVELOPED ANY TYPE OF REACTION DURING OR AFTER DENTAL APPOINTMENT, VAGINAL/RECTAL EXAMINATION, SURGICAL PROCEDURE, OR ANY OTHER EXPOSURE?NO DATE ASKED : 12/09/2018 LATEX RISK : HAVE YOU EVER HAD ANY DIFFICULTY BREATHING OR HIVES AFTER EATING OR HANDLING ANY FRUITS, OR VEGETABLES; SUCH KIWI, BANANAS, STONE FRUITS, OR CHESTNUTSNO LATEX RISK : DO YOU HAVE A PREVIOUS PERSONAL HISTORY OF MORE THAN NINE SURGERIES, SPINA BIFIDA, OR REPEATED CATHERIZATIONS? NO LATEX RISK : ARE YOU FREQUENTLY EXPOSED TO LATEX PRODUCTS IN YOUR OCCUPATION?NO CAFFEINE CAFFEINE USE?YES 1 CUP COFFEE DAILY ADVANCE DIRECTIVE ADVANCE DIRECTIVE DISCUSSED WITH PATIENT:YES LIFE PARTNER-JOVI MAYS [phone] QUAKER [id number] GNOSTICISM MARITAL STATUS: . ALCOHOL SCREENING DID YOU HAVE A DRINK CONTAINING ALCOHOL IN THE PAST YEAR?NO POINTS0 INTERPRETATIONNEGATIVE OCCUPATION: DISABLED. SEXUAL HX HAD SEX IN THE LAST 12 MONTHS (VAGINAL, ORAL, OR ANAL)?YES WITHMEN ONLY USE PROTECTION?NO LMP:POST MENOP. HAVE YOU EVER HAD AN STD?NO REVIEWED WITH PT 09/05/18 1422 BV. HOSPITALIZATION/MAJOR DIAGNOSTIC PROCEDURE BACK SURGERY X 2; DISC AND SPINAL FUSION. [place] DR. GIOVANI NEVES , DR. VILLALTA ([place]) HYSTERECTOMY APPENDECTOMY COLOSTOMY BAG INSERTION 02/2018 [facility], THEN TRANSFERED TO [facility], C-DIFF, MULTIPLE INFECTIONS 01/2018 CDIFF 2018 REVIEW OF SYSTEMS REVIEWED BY: PROVIDER: JOSE AGUIRRE MD . CONSTITUTIONAL: ANY CHANGE IN YOUR MEDICAL CONDITION? NO . CHILLS NO . FEVER NO . INFECTION: DO YOU HAVE NEW INFECTIONS? NO . DO YOU HAVE HISTORY OF MRSA? NO . MUSCULOSKELETAL: ANY NEW PATTERNS OF PAIN OR NUMBNESS? NO . GASTROENTEROLOGY: ANY NEW CHANGE IN BOWEL CONTROL? NO . GENITOURINARY: ANY NEW CHANGE IN BLADDER CONTROL? NO . IS THERE A CHANCE YOU COULD BE ? NO . HEMATOLOGY/LYMPH: DO YOU TAKE ANY BLOOD THINNERS? (FOR EXAMPLE- COUMADIN, PLAVIX, AGGRENOX, PLATEL, PRADAXA, OR XARELTO) YES, PLAVIX . WHEN WAS YOUR LAST DOSE? DATE: TIME: . NEUROLOGY: HAVE YOU FALLEN IN THE PAST 12 MONTHS? NO . ANY NEW EXTREMITY NUMBNESS OR WEAKNESS? NO . CARDIOLOGY: DO YOU HAVE A PACEMAKER OR DEFIBRILLATOR? NO . RESPIRATORY: HAVE YOU BEEN SICK IN THE PAST WEEK? NO . FEVER NO . FLU LIKE SYMPTOMS? NO . COUGH NO . INTEGUMENTARY: DO YOU HAVE ANY RASHES OR OPEN SORES? NO . ALLERGIC/IMMUNO: ARE YOU ALLERGIC TO IV DYE? NO . ANY NEW ALLERGIES? NO . PSYCHIATRIC: DO YOU HAVE THOUGHTS OF HURTING YOURSELF OR SOMEONE ELSE? NO . ARE YOU ABUSED, NEGLECTED, OR IN AN UNSAFE ENVIRONMENT? NO . ENDOCRINOLOGY: ARE YOU DIABETIC? YES . OTHER: DO YOU NEED ANY PRESCRIPTIONS? YES, HYDROCODONE . IF YES, PLEASE LIST: ____ . ANY NEW PROBLEMS WITH YOUR MEDICATIONS? NO . WHEN DID YOU LAST EAT? ____ . WHEN DID YOU LAST DRINK? ____ . WHAT DID YOU LAST DRINK? ____ . NAME OF PERSON DRIVING YOU HOME? ____ . DO YOU HAVE ANY OTHER QUESTIONS OR CONCERNS NO . VITAL SIGNS WT 103.6 LBS, HT 64 IN, BMI 17.78 INDEX, BP 127/60 MM HG, HR 89 /MIN, RR 16 /MIN, TEMP 97.4 F, OXYGEN SAT % 100%, NA INITIALS SC 14:09, REVIEWED BY: EM. EXAMINATION GENERAL EXAMINATION: PATIENT IS ALERT O X 3 AND COOPERATIVE. TENDERNESS IN THE LOW BACK AREA. PAIN INCREASES OVER THE LUMBAR FACET JOINTS WITH EXTENSION AND LATERAL ROTATION OF THE BACK. MRI OF THE LUMBAR SPINE DONE ON 09/29/2018 SHOWS FACET ARTHROPATHY CHANGES AND A SPINAL FUSION AT L5-S1. ASSESSMENTS SPONDYLOSIS OF LUMBAR REGION WITHOUT MYELOPATHY OR RADICULOPATHY - M47.816 (PRIMARY) LUMBAR POST-LAMINECTOMY SYNDROME - M96.1 TREATMENT SPONDYLOSIS OF LUMBAR REGION WITHOUT MYELOPATHY OR RADICULOPATHY REFILL HYDROCODONE-ACETAMINOPHEN TABLET, 5-325 MG, 1 TABLET NEEDED, ORALLY FOR PAIN, EVERY 8 HRS MDD3, 30 DAYS, 80, REFILLS 0 CLINICAL NOTES: WE DISCUSSED SEVERAL ISSUES WITH MS. VILLAVICENCIO'S PAIN MANAGEMENT CASE. DUE TO THE LUMBAR SPONDYLOSIS, I WOULD LIKE TO MOVE FORWARD WITH A BILATERAL L4-L5, L5-S1 THERAPEUTIC LUMBAR FACET BLOCK AT THIS TIME. WE DISCUSSED THE BENEFITS, RISKS, AND ALTERNATIVES OF THE INJECTION AND THE PATIENT WOULD LIKE TO PROCEED. I REFILLED THE PATIENT'S HYDROCODONE-ACETAMINOPHEN TABLET, 5-325 MG, AT TODAY'S VISIT. I DISCUSSED THE RISKS ASSOCIATED WITH THE USE OF OPIOIDS INCLUDING THE POSSIBLE DEVELOPMENT OF ADDICTION OR TOLERANCE AND THE PATIENT VERBALIZED UNDERSTANDING. I AM REQUESTING FOR A DOCTOR TO DOCTOR AGREEMENT FROM THE PATIENT'S PRIMARY CARE IN ORDER TO CONTINUE PRESCRIBING NARCOTICS FOR THE PATIENT. THE PATIENT WAS REMINDED TO BRING HER MEDICATION IN THEIR ORIGINAL BOTTLES TO EACH VISIT AND THE PATIENT UNDERSTANDS AND AGREES. ISTOP # [id number] WAS REVIEWED. URINE TOXICOLOGY DONE ON 10/06/2018 SHOWS CONCURRENT RESULTS. ANOTHER UTOX WILL BE PERFORMED AT THE NEXT VISIT SINCE THE PATIENT HAD DIFFICULTIES TRYING TODAY. THE PATIENT WILL FOLLOW UP IN 6 WEEKS WITH THE NURSE PRACTITIONER. INSTRUCTIONS WERE GIVEN, QUESTIONS WERE ANSWERED, PATIENT REPORTS UNDERSTANDING AND AGREES WITH THE PLAN. I, SAMARIA SORENSEN, DOCUMENTED THE ABOVE INFORMATION ACTING A SCRIBE FOR DR. AGUIRRE. I HAVE REVIEWED THE ABOVE DOCUMENT, WRITTEN BY SAMARIA SNOW AND I VERIFY THAT IT IS ACCURATE. . PREVENTIVE MEDICINE PAIN CLINIC TEACHING: PROCEDURE TEACHING PRINTED INFORMATION ON LUMBAR FACET BLOCK GIVEN TO AND REVIEWED WITH PT ALONG WITH PRINTED PRE-PROCEDURE INSTRUCTIONS AND PATIENT VERBALIZED UNDERSTANDING. AD. 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 IT IS NOT A COPY OF THE [employer] PROGRESS NOTE. QUED
== END ==
LOC: M PAIN 14:45
PROVIDERS: ATTEND Anesthesiology
DX: M47.816 Spondylosis without myelopathy or radiculopathy, lumbar region (principal); M96.1 Postlaminectomy syndrome, not elsewhere classified; R03.0 Elevated blood-pressure reading, without diagnosis of hypertension; E78.00 Pure hypercholesterolemia, unspecified; M54.16 Radiculopathy, lumbar region; C83.30 Diffuse large B-cell lymphoma, unspecified site; I50.9 Heart failure, unspecified; J30.2 Other seasonal allergic rhinitis; I25.2 Old myocardial infarction; M10.061 Idiopathic gout, right knee; F17.210 Nicotine dependence, cigarettes, uncomplicated; Z93.3 Colostomy status; Z85.828 Personal history of other malignant neoplasm of skin; Z95.5 Presence of coronary angioplasty implant and graft; Z85.038 Personal history of other malignant neoplasm of large intestine; Z90.49 Acquired absence of other specified parts of digestive tract; Z79.02 Long term (current) use of antithrombotics/antiplatelets; Z79.84 Long term (current) use of oral hypoglycemic drugs; Z79.891 Long term (current) use of opiate analgesic; Z79.899 Other long term (current) drug therapy; Z88.6 Allergy status to analgesic agent; Z88.8 Allergy status to other drugs, medicaments and biological substances; Z91.048 Other nonmedicinal substance allergy status

== ENCOUNTER → 2019-06-04 | Outpatient (REF) | payer MEDICARE ==
[2019-06-04 13:18] LABS: ALBUMIN 4.3 GM/DL (3.2-5.2); ALT/SGPT 18 U/L (12-78); BILIRUBIN,TOTAL 0.3 MG/DL (0.2-1.0); BLOOD UREA NITROGEN 11 MG/DL (7-18); CALCIUM LEVEL 9.7 MG/DL (8.8-10.2); CARBON DIOXIDE LEVEL 25 MEQ/L (21-32); CHLORIDE LEVEL 107 MEQ/L (98-107); CHOLESTEROL LEVEL 172 MG/DL (<200); CHOLESTEROL RISK RATIO 3.071 (<5); CREATININE FOR GFR 0.72 MG/DL (0.55-1.30); GLOMERULAR FILTRATION RATE > 60.0 (>45); GLUCOSE, FASTING 73 MG/DL (70-100); HDL CHOLESTEROL 56 MG/DL (>40); LDL CHOLESTEROL 84 MG/DL (<100); NON-HDL-C 116 MG/DL; POTASSIUM SERUM 4.1 MEQ/L (3.5-5.1); SODIUM LEVEL 139 MEQ/L (136-145); TOTAL PROTEIN 7.9 GM/DL (6.4-8.2); TRIGLYCERIDES LEVEL 159 MG/DL (<150)
[2019-06-04 14:11] LABS: HEMOGLOBIN A1c 5.7 %
== END ==
LOC: M SFHCPLAZ 10:22
PROVIDERS: ATTEND Nurse Practitioner Family
DX: E11.9 Type 2 diabetes mellitus without complications (principal); I10 Essential (primary) hypertension; I25.10 Atherosclerotic heart disease of native coronary artery without angina pectoris
CPT/HCPCS: 36415; 80053; 80061; 83036; 90682; G0008; G0463

== ENCOUNTER → 2019-06-08 | Outpatient (REF) | payer MEDICARE ==
[2019-06-08 16:57] LABS: CREATININE, URINE 63.4 MG/DL; MALB URINE SIEMENS 5.6 MG/L; MAU/CREAT RATIO 8.8 MCG/MG (0.0-30.0)
== END ==
LOC: M SFHCPLAZ 15:27
PROVIDERS: ATTEND Nurse Practitioner Family
DX: E11.9 Type 2 diabetes mellitus without complications (principal); I25.10 Atherosclerotic heart disease of native coronary artery without angina pectoris; I10 Essential (primary) hypertension

== ENCOUNTER → 2019-06-30 | Outpatient (CLI) | payer MEDICARE ==
[~2019-06-30] MED LIST changes: +GASTROGRAFIN SOLUTION 30ML (Q9963) As Ordered ONE; +ISOVUE-370 76% 100ML VIAL (Q9967) As Ordered ONE
--- NOTE | 2019-06-30 15:29 | REP ---
CT of the chest with IV contrast for follow up of diffuse large B-cell lymphoma: Comparisons are the chest CT of 09/26/2018 and PET scan of 02/10/2019. There are no lung nodules or masses. There are no infiltrates or pleural effusions. The lung apices are excluded from the study. There is chronic mild pleural thickening posterolaterally in the right apex, unchanged. There is a calcified granuloma posterior laterally in the left apex, unchanged. There is no mediastinal or hilar lymph node enlargement. The thyroid is excluded from the study. There is calcified atheroma in the aortic arch. There is a small saccular aneurysm along the lateral margin of the aortic arch measuring 12 mm along its base, unchanged. There is no axillary lymph node enlargement. The cardiac size is normal. There is no pericardial There is grade 1 compression deformity of the L1 vertebral body. This is unchanged. There are no lytic, blastic or destructive skeletal changes. Impression: There is no adenopathy or mass. There are no infiltrates or pleural effusions. There are chronic stable findings as described. 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 Grade 1 compression deformity of the L1 vertebral body, unchanged. The lung apices are excluded from the study for reasons unknown to this examiner. Electronically Signed by Denzel Chaves MD 06/30/2019 03:19 P
--- NOTE | 2019-06-30 15:38 | REP ---
CT of the abdomen and pelvis with IV and oral contrast: Comparison is 09/26/2018. Immediate and delayed scanning are performed. The studies performed for reevaluation of diffuse large B-cell lymphoma. There has refer to the chest CT performed this same date. The hepatic parenchyma is homogeneous on both phases of the study. There are no focal hepatic masses. The gallbladder, pancreas and spleen are unremarkable. The adrenals are unremarkable. There are bilateral renal cortical cysts, not significantly changed. There are no renal masses. There is no hydronephrosis. The abdominal aorta is unremarkable except for calcified atheroma. There is no periaortic adenopathy or mass. There is no mesenteric adenopathy. There is no ascites. There is a colostomy in the anterior abdominal wall to the left of midline as previously. The peristomal colonic Sotomayor hernia on the prior study has spontaneously reduced and is no longer present. Pelvis: The bladder is unremarkable. There is no pelvic adenopathy or ascites. There is a hysterectomy. Vaginal cuff and adnexa are unremarkable. There are no lytic, blastic or destructive skeletal changes. There is grade 1 compression deformity of the L1 vertebral body, unchanged. There is neither intervertebral disc spacer surgically placed at the L5 S1 wound. This is unchanged. Impression: No adenopathy, mass or ascites. Colostomy as described. The peristomal Sotomayor hernia on the comparison study has spontaneously reduced. Chronic grade 1 compression deformity of the L1 vertebral body. Surgically placed intervertebral disc spacer at L5 S1. Unchanged. Electronically Signed by Denzel Chaves MD 06/30/2019 03:30 P
== END ==
LOC: M RAD 08:54
PROVIDERS: ATTEND Internal Medicine Medical Oncology
DX: C83.30 Diffuse large B-cell lymphoma, unspecified site (principal); C18.9 Malignant neoplasm of colon, unspecified
CPT/HCPCS: 71260; 74177; Q9963; Q9967

== ENCOUNTER → 2019-07-01 | Outpatient (CLI) | payer MEDICARE ==
[~2019-07-01] MED LIST changes: -GASTROGRAFIN SOLUTION 30ML (Q9963) As Ordered ONE; -ISOVUE-370 76% 100ML VIAL (Q9967) As Ordered ONE
--- NOTE | 2019-07-01 11:08 | RADONC ---
RADIATION ONCOLOGY FOLLOWUP NOTE DATE: 07/01/2019 CHART NUMBER: [id number] DIAGNOSIS: Diffuse large B-cell lymphoma. STAGE: IIA. ECOG PERFORMANCE STATUS: 0. FOLLOWUP NOTE: The patient is a 68-year-old female with a diagnosis of a stage IIA diffuse large B-cell lymphoma involving the right periparotid area and cervical lymph node chain whom we have treated postoperatively with radiotherapy. She also received chemotherapy prior to receiving her radiotherapy. We treated her to the head and neck area to a total of 4500 cGy administered in 25 fractions over 56 elapsed days. The patient had some difficulties with her radiotherapy, but returns today for followup visit. She was having some ringing in her right ear however myringotomy tube was placed which helped with the tinnitus. She also has a dry mouth which is chronic. Her energy level is such that she is able to maintain most day-to-day activities without any alteration of her lifestyle. Most recently a CT scan was ordered and the results are pending. EXAMINATION FINDINGS: The patient has had some weight loss from her radiotherapy and colonic surgery and from the xerostomia causing her to consume larger amounts of water. Examination of the oral cavity reveals no intraoral lesions. Mucous membranes are somewhat dry. There is no palpable peripheral lymphadenopathy appreciated. Lungs are clear. Heart regular without murmurs. Abdomen without evidence of hepatomegaly, masses, deep abdominal tenderness. Extremities without cyanosis, clubbing or edema. Neurologic examination grossly physiologic and nonfocal. IMPRESSION: The patient is been treated with chemotherapy and radiotherapy for a stage IIA diffuse large B-cell lymphoma. She appears to be clinically ABE at this time. PLAN: We would like to see her on an as needed basis and we have advised her to return to her referring physicians as per their directions and instructions. Thank you for allowing us the opportunity of participation in the joint followup care of this very kiya lady. cc: MD Cori Maldonado PA [place], MD Robert Kimball, MD
== END ==
LOC: M ONCR 09:49
PROVIDERS: ATTEND Radiology Radiation Oncology
DX: C83.31 Diffuse large B-cell lymphoma, lymph nodes of head, face, and neck (principal); R68.2 Dry mouth, unspecified; R63.4 Abnormal weight loss; Z92.21 Personal history of antineoplastic chemotherapy; Z92.3 Personal history of irradiation

== ENCOUNTER → 2019-07-28 | Outpatient (CLI) | payer MEDICARE ==
--- NOTE | 2019-07-30 03:10 | ECWPNPC ---
PATIENT NAME: ANNIE VILLAVICENCIO : 1950 GENDER: FEMALE VISIT DATE: 07/28/2019 DISCHARGE DATE: 07/28/19 1055 VISIT LOCKED DATE TIME: PHYSICIAN: KAMRAN BELLO RESOURCE: KAMRAN BELLO REASON FOR APPOINTMENT 1. BACK HISTORY OF PRESENT ILLNESS HISTORY OF PRESENT ILLNESS: 61-YEAR-OLD FEMALE IN FOR CHRONIC PAIN FOLLOW-UP. SHE RATES HER PAIN CURRENTLY AT A 7 OUT OF 10 AND DESCRIBES IT ACHING, AND SHARP. SHE IS ON HYDROCODONE CURRENTLY AND FEELS THIS MEDICATION IS HELPFUL AND DENIES MED SIDE EFFECTS AT THIS TIME. SHE DOES ADMITS TO AN UPCOMING PROCEDURE WITH DR. AGUIRRE IN AUGUST. PAIN THE PATIENT DESCRIBES THE PAIN... FALL RISK SCREENING: SCREENING :NO FALLS REPORTED IN THE LAST YEAR CURRENT MEDICATIONS TAKING PLAVIX 75 MG TABLET 1 TABLET ORALLY ONCE A DAY TAKING METFORMIN HCL 1000 MG TABLET 1/2 TABLET WITH MEALS ORALLY BID TAKING COOL BLOOD GLUCOSE TEST STRIPS - STRIP DIRECTED IN VITRO BID TAKING LANCETS 30G - MISCELLANEOUS DIRECTED INTRADERMALLY TWICE DAILY TAKING HYDROCODONE-ACETAMINOPHEN 5-325 MG TABLET 1 TABLET NEEDED ORALLY FOR PAIN EVERY 8 HRS MDD3 DISCONTINUED LIPITOR 20 MG TABLET 1 TABLET ORALLY ONCE A DAY DISCONTINUED DRISDOL 75804 UNIT CAPSULE 1 CAPSULE ORALLY ONCE A WEEK DISCONTINUED VITAMIN D 1000 UNIT TABLET 1 TABLET ORALLY ONCE A DAY, NOTES: PT REPORTS WHEN [place] DONE MEDICATION LIST REVIEWED AND RECONCILED WITH THE PATIENT PAST MEDICAL HISTORY BACK PAIN HIGH BLOOD PRESSURE HIGH CHOLESTEROL SEASONAL ALLERGIES CHRONIC LOW BACK PAIN HISTORY OF [place] (MYOCARDIAL INFARCTION) LUMBOSACRAL RADICULOPATHY RIGHT KNEE GOUT 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 JAFFE AND DELORES COLONOSCOPY: GARY JANUARY 2018 MAMMOGRAM: SEVERAL YEARS AGO CARDIAC STENTS X 3, [place] 2011 ECHO 2018: NORMAL GLOBAL LEFT VENTRICULAR SYSTOLIC FUNCTION. 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 VEGA ALLERGIES ZANAFLEX: VOMITING - SIDE EFFECTS RED DYE: ANAPHYLAXIS - ALLERGY IBUPROFEN: VOMITING SURGICAL HISTORY BACK SURGERY X 2 HYSTERECTOMY APPENDECTOMY COLECTOMY ( COLOSTOMY BAG) TUMOR REMOVED RIGHT NECK 11/2017 DR. VEGA, RIGHT HEMICOLECTOMY 11/2018 FAMILY HISTORY FATHER: 81 YRS, [place], DIAGNOSED WITH UNSPECIFIED HEART DISEASE MOTHER: 68 YRS, LUNG CANCER, OTHER MALIGNANT NEOPLASM OF UNSPECIFIED SITE SIBLINGS: ALIVE, BROTHER OF LUNG/LIVER CANCER, UNSPECIFIED CEREBRAL ARTERY OCCLUSION WITH CEREBRAL INFARCTION, OTHER MALIGNANT NEOPLASM OF UNSPECIFIED SITE SON(S): ALIVE 42 YRS DAUGHTER(S): ALIVE 3 BROTHER(S) , 2 SISTER(S) . 1 SON(S) , 2 DAUGHTER(S) - HEALTHY. SISTER- OF A STROKE\\NDAUGHTERS: 1976; 1971. SOCIAL HISTORY GENERAL: TOBACCO USE ARE YOU A:CURRENT SMOKER ARE YOU INTERESTED IN QUITTING?READY TO QUIT PT HAS GUM COUNSELED THE PATIENT ON TOBACCO USE, CESSATION [id number]/03/2019 HOW MANY CIGARETTES A DAY DO YOU SMOKE?6-10 HOW SOON AFTER YOU WAKE UP DO YOU SMOKE YOUR FIRST CIGARETTE?AFTER 60 MIN HOW OFTEN DO YOU SMOKE CIGARETTES?EVERY DAY PATIENT COUNSELED ON THE DANGERS OF TOBACCO USE AND URGED TO QUIT:06/04/2019 HIV / HEP-C SCREENING HEP-C TEST OFFERED TO PATIENT:YES DATE OFFERED:02/18/2017 TEST ACCEPTED:NO REASON:PATIENT DECLINED OTHERS AT HOME: [place]. HOUSING: [employer] HOU[employer]. EDUCATION 2 YEARS COLLEGE. DIET: REGULAR. LANGUAGE GERMAN. DOMESTIC VIOLENCE DO YOU FEEL SAFE IN YOUR ENVIRONMENT?YES BMI CARE GOAL FOLLOW-UP ABOVE NORMAL BMI FOLLOW-UPDIETARY MANAGEMENT EDUCATION, GUIDANCE, AND COUNSELING RECREATIONAL DRUG USE DRUG USE?NO EXERCISE: WALKS. LEARNING BARRIERS / SPECIAL NEEDS BARRIERS TO LEARNING?NO HEARING IMPAIRED?NO VISION IMPAIRED?YES READING GLASSES COGNITIVELY IMPAIRED?NO READINESS TO LEARN?YES LEARNING PREFERENCES?NO LEARNING CAPABILITIES PRESENT?YES EMOTIONAL BARRIERS?NO SPECIAL DEVICES?NO SHEET METAL PATTERN CUTTER NEEDED?NO LUNG CANCER SCREENING SMOKING STATUS:FORMER SMOKER IS THE PATIENT BETWEEN THE AGE OF 56 AND 78?YES HAVE YOU QUIT SMOKING WITHIN THE PAST 15 YEARS?YES HAS THE PATIENT EVER BEEN DIAGNOSED WITH LUNG CANCER?NO CREATE REFERRAL:GENERATE AND CREATE REFERRAL TO THE ONCOLOGY NURSE NAVIGATOR (SMP) LISTING USING THE LDCT SCAN PROCEDURE 45 YEARS 1/2 TO 1 [facility] PFS, CLERGY, PUBLIC HEALTH REFERRALS HAS THE PATIENT BEEN EDUCATED REGARDING HIS/HER PLAN OF CARE?YES HAS THE PATIENT BEEN EDUCATED REGARDING PAIN, THE RISK FOR PAIN, THE IMPORTANCE OF EFFECTIVE PAIN MANAGEMENT, AND THE PAIN ASSESSMENT PROCESS?YES LATEX QUESTIONNAIRE LATEX ALLERGY : HAVE YOU EVER DEVELOPED ANY TYPE OF REACTION AFTER HANDLING LATEX PRODUCTS SUCH RUBBER GLOVES, CONDOMS, DIAPHRAGMS, BALLOONS, SOCKS, OR UNDERWEAR?NO LATEX ALLERGY : HAVE YOU EVER DEVELOPED ANY TYPE OF REACTION DURING OR AFTER DENTAL APPOINTMENT, VAGINAL/RECTAL EXAMINATION, SURGICAL PROCEDURE, OR ANY OTHER EXPOSURE?NO DATE ASKED : 12/09/2018 LATEX RISK : HAVE YOU EVER HAD ANY DIFFICULTY BREATHING OR HIVES AFTER EATING OR HANDLING ANY FRUITS, OR VEGETABLES; SUCH KIWI, BANANAS, STONE FRUITS, OR CHESTNUTSNO LATEX RISK : DO YOU HAVE A PREVIOUS PERSONAL HISTORY OF MORE THAN NINE SURGERIES, SPINA BIFIDA, OR REPEATED CATHERIZATIONS? NO LATEX RISK : ARE YOU FREQUENTLY EXPOSED TO LATEX PRODUCTS IN YOUR OCCUPATION?NO CAFFEINE CAFFEINE USE?YES 1 CUP COFFEE DAILY ADVANCE DIRECTIVE ADVANCE DIRECTIVE DISCUSSED WITH PATIENT:YES LIFE PARTNER-JOVI MAYS [phone] HOAHAOISM [id number] JAIN MARITAL STATUS: . ALCOHOL SCREENING DID YOU HAVE A DRINK CONTAINING ALCOHOL IN THE PAST YEAR?NO POINTS0 INTERPRETATIONNEGATIVE OCCUPATION: DISABLED. SEXUAL HX HAD SEX IN THE LAST 12 MONTHS (VAGINAL, ORAL, OR ANAL)?YES WITHMEN ONLY USE PROTECTION?NO LMP:POST MENOP. HAVE YOU EVER HAD AN STD?NO REVIEWED WITH PT 09/05/18 1422 BV. HOSPITALIZATION/MAJOR DIAGNOSTIC PROCEDURE BACK SURGERY X 2; DISC AND SPINAL FUSION. [place] DR. GIOVANI NEVES , DR. VILLALTA ([place]) HYSTERECTOMY APPENDECTOMY COLOSTOMY BAG INSERTION 02/2018 [facility], THEN TRANSFERED TO [facility], C-DIFF, MULTIPLE INFECTIONS 01/2018 CDIFF 2018 REVIEW OF SYSTEMS REVIEWED BY: PROVIDER: JONAS MENDIOLA . CONSTITUTIONAL: ANY CHANGE IN YOUR MEDICAL CONDITION? NO . CHILLS NO . FEVER NO . INFECTION: DO YOU HAVE NEW INFECTIONS? NO . DO YOU HAVE HISTORY OF MRSA? NO . MUSCULOSKELETAL: ANY NEW PATTERNS OF PAIN OR NUMBNESS? NO . GASTROENTEROLOGY: ANY NEW CHANGE IN BOWEL CONTROL? NO . GENITOURINARY: ANY NEW CHANGE IN BLADDER CONTROL? NO . IS THERE A CHANCE YOU COULD BE ? NO . HEMATOLOGY/LYMPH: DO YOU TAKE ANY BLOOD THINNERS? (FOR EXAMPLE- COUMADIN, PLAVIX, AGGRENOX, PLATEL, PRADAXA, OR XARELTO) PLAVIX . WHEN WAS YOUR LAST DOSE? DATE: TIME: . NEUROLOGY: HAVE YOU FALLEN IN THE PAST 12 MONTHS? NO . ANY NEW EXTREMITY NUMBNESS OR WEAKNESS? NO . CARDIOLOGY: DO YOU HAVE A PACEMAKER OR DEFIBRILLATOR? NO . RESPIRATORY: HAVE YOU BEEN SICK IN THE PAST WEEK? NO . FEVER NO . FLU LIKE SYMPTOMS? NO . COUGH NO . INTEGUMENTARY: DO YOU HAVE ANY RASHES OR OPEN SORES? NO . ALLERGIC/IMMUNO: ARE YOU ALLERGIC TO IV DYE? NO . ANY NEW ALLERGIES? NO . PSYCHIATRIC: DO YOU HAVE THOUGHTS OF HURTING YOURSELF OR SOMEONE ELSE? NO . ARE YOU ABUSED, NEGLECTED, OR IN AN UNSAFE ENVIRONMENT? NO . ENDOCRINOLOGY: ARE YOU DIABETIC? YES . OTHER: DO YOU NEED ANY PRESCRIPTIONS? NO . IF YES, PLEASE LIST: ____ . ANY NEW PROBLEMS WITH YOUR MEDICATIONS? NO . WHEN DID YOU LAST EAT? ____ . WHEN DID YOU LAST DRINK? ____ . WHAT DID YOU LAST DRINK? ____ . NAME OF PERSON DRIVING YOU HOME? ____ . DO YOU HAVE ANY OTHER QUESTIONS OR CONCERNS NO . VITAL SIGNS WT 99 LBS, HT 64 IN, BMI 16.99 INDEX, BP 149/75 MM HG, HR 95 /MIN, RR 18 /MIN, TEMP 96.0 F, OXYGEN SAT % 100%, NA INITIALS AW 1015, REVIEWED BY: EM. EXAMINATION GENERAL EXAMINATION: GENERALNO ACUTE DISTRESS, WELL NOURISHED AND HYDRATED. PSYCHAPPROPRIATE MOOD AND AFFECT . LUNGS:CLEAR TO AUSCULTATION BILATERALLY, NO WHEEZES, RHONCHI, RALES. HEART:NO MURMURS, REGULAR RATE AND RHYTHM. ASSESSMENTS SPONDYLOSIS OF LUMBAR REGION WITHOUT MYELOPATHY OR RADICULOPATHY - M47.816 (PRIMARY) USE OF OPIATES FOR THERAPEUTIC PURPOSES - Z79.891 TREATMENT SPONDYLOSIS OF LUMBAR REGION WITHOUT MYELOPATHY OR RADICULOPATHY REFILL HYDROCODONE-ACETAMINOPHEN TABLET, 5-325 MG, 1 TABLET NEEDED, ORALLY FOR PAIN, EVERY 8 HRS MDD3, 30 DAYS, 80, REFILLS 0 CLINICAL NOTES: 69-YEAR-OLD FEMALE IN FOR CHRONIC PAIN FOLLOW-UP. GIVEN PRESENTING SYMPTOMS AND RESULTS OF PHYSICAL EXAMINATION RECOMMENDED U TOX TODAY IN OFFICE, CONTINUATION OF CURRENT MEDICATION, AND FOLLOW-UP AFTER PROCEDURE IN AUGUST. PATIENT HAS EXPRESSED UNDERSTANDING OF AND WAS IN AGREEMENT WITH TREATMENT PLAN. GIVEN TIME TO ASK QUESTIONS AND EXPRESS CONCERNS., ISTOP REGISTRY REVIEWED AND DEMONSTRATES COMPLLIANCE. (REF # [id number] ) BRINGS IN MEDICATIONS WHICH IS APPROPRIATE FOR WHAT WAS DISPENSED. RECENT URINE TOXICOLOGY REVIEWED. NO UNAUTHORIZED MEDICATIONS. NO ILLICIT SUBSTANCES AND PRESCRIBED MEDICATIONS WERE PRESENT. PROCEDURE CODES [id number] ESTABILISHED PATIENT [facility] CHARGE DISPOSITION & COMMUNICATION FOLLOW UP AFTER PROCEDURE IN AUGUST (REASON: LOW BACK PAIN) ELECTRONICALLY SIGNED BY LEA SOLOMON ON 07/29/2019 AT 01:14 PM EST DISCLAIMER : THIS IS A VISIT SUMMARY EXTRACTED FROM THE [employer] CHART. IT IS NOT A COPY OF THE [employer] PROGRESS NOTE. SAILAJA
== END ==
LOC: M PAIN 10:30
PROVIDERS: ATTEND Family Medicine
DX: M47.816 Spondylosis without myelopathy or radiculopathy, lumbar region (principal); Z79.891 Long term (current) use of opiate analgesic

== ENCOUNTER → 2019-08-31 | Outpatient (CLI) | payer MEDICARE ==
[~2019-08-31] MED LIST changes: +BUPIVACAINE HCL 0.25% 30 ML VIAL As Ordered ONE; +ISOVUE-M 300 61% 15ML VIAL (Q9967) As Ordered ONE; +LIDOCAINE 1% SDV INJ 30 ML VIAL As Ordered ONE; +OMEP1CAP73 PO; -OMEP20CA4 PO; +ONDA8TAB10 PO; -ONDA8TAB7 PO; +TRIAMCINOLONE ACETONIDE SUSP 40 MG/ML VIAL (J3301) As Ordered ONE; +diazePAM 5 MG TAB As Ordered ONE; +diphenhydrAMINE INJ 50MG/ML VIAL (J1200) As Ordered ONE; +oxyCODONE 5MG TAB As Ordered ONE
--- NOTE | 2019-08-31 12:24 | REP ---
Partial lumbar spine series: To views . History: Injection procedure for pain. 42 seconds of fluoroscopy time is reported. Findings: A sequence of two fluoroscopically obtained last image hold procedural spot radiographs of the lumbar spine document needle position and contrast injection associated with injection procedure. Electronically Signed by Tutu Paz MD 08/31/2019 12:16 P
--- NOTE | 2019-09-09 05:15 | ECWPNPC ---
PATIENT NAME: ANNIE VILLAVICENCIO : 1950 GENDER: FEMALE VISIT DATE: 08/31/2019 DISCHARGE DATE: 08/31/19 1206 VISIT LOCKED DATE TIME: PHYSICIAN: JOSE AGUIRRE MD RESOURCE: JOSE AGUIRRE MD REASON FOR APPOINTMENT 1. LUMBAR THERAPEUTIC FACET BLOCK HISTORY OF PRESENT ILLNESS HISTORY OF PRESENT ILLNESS: PAIN THE PATIENT DESCRIBES THE PAIN... FALL RISK SCREENING: SCREENING :NO FALLS REPORTED IN THE LAST YEAR CURRENT MEDICATIONS TAKING PLAVIX 75 MG TABLET 1 TABLET ORALLY ONCE A DAY, NOTES: PT WILL STOP PLAVIX 08-24-19 TAKING METFORMIN HCL 1000 MG TABLET 1/2 TABLET WITH MEALS ORALLY BID, NOTES: 08/30/19 TAKING COOL BLOOD GLUCOSE TEST STRIPS - STRIP DIRECTED IN VITRO BID TAKING LANCETS 30G - MISCELLANEOUS DIRECTED INTRADERMALLY TWICE DAILY TAKING HYDROCODONE-ACETAMINOPHEN 5-325 MG TABLET 1 TABLET NEEDED ORALLY FOR PAIN EVERY 8 HRS MDD3, NOTES: 08/30/19 MEDICATION LIST REVIEWED AND RECONCILED WITH THE PATIENT PAST MEDICAL HISTORY BACK PAIN HIGH BLOOD PRESSURE HIGH CHOLESTEROL SEASONAL ALLERGIES CHRONIC LOW BACK PAIN 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 JAFFE AND DELORES COLONOSCOPY: GARY JANUARY 2018 MAMMOGRAM: SEVERAL YEARS AGO CARDIAC STENTS X 3, [place] 2011 ECHO 2018: NORMAL GLOBAL LEFT VENTRICULAR SYSTOLIC FUNCTION. 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 VEGA ALLERGIES ZANAFLEX: VOMITING - SIDE EFFECTS RED DYE: ANAPHYLAXIS - ALLERGY IBUPROFEN: VOMITING SURGICAL HISTORY BACK SURGERY X 2 HYSTERECTOMY APPENDECTOMY COLECTOMY ( COLOSTOMY BAG) TUMOR REMOVED RIGHT NECK 11/2017 DR. VEGA, RIGHT HEMICOLECTOMY 11/2018 FAMILY HISTORY FATHER: 81 YRS, [place], DIAGNOSED WITH UNSPECIFIED HEART DISEASE MOTHER: 68 YRS, LUNG CANCER, OTHER MALIGNANT NEOPLASM OF UNSPECIFIED SITE SIBLINGS: ALIVE, BROTHER OF LUNG/LIVER CANCER, UNSPECIFIED CEREBRAL ARTERY OCCLUSION WITH CEREBRAL INFARCTION, OTHER MALIGNANT NEOPLASM OF UNSPECIFIED SITE SON(S): ALIVE 42 YRS DAUGHTER(S): ALIVE 3 BROTHER(S) , 2 SISTER(S) . 1 SON(S) , 2 DAUGHTER(S) - HEALTHY. SISTER- OF A STROKE\\NDAUGHTERS: 1976; 1971. SOCIAL HISTORY GENERAL: TOBACCO USE ARE YOU A:CURRENT SMOKER ARE YOU INTERESTED IN QUITTING?READY TO QUIT PT HAS GUM COUNSELED THE PATIENT ON TOBACCO USE, CESSATION [id number]/03/2019 HOW MANY CIGARETTES A DAY DO YOU SMOKE?6-10 HOW SOON AFTER YOU WAKE UP DO YOU SMOKE YOUR FIRST CIGARETTE?AFTER 60 MIN HOW OFTEN DO YOU SMOKE CIGARETTES?EVERY DAY PATIENT COUNSELED ON THE DANGERS OF TOBACCO USE AND URGED TO QUIT:06/04/2019 SMOKING CESSATION INFORMATION GIVEN08/24/2019 HIV / HEP-C SCREENING HEP-C TEST OFFERED TO PATIENT:YES DATE OFFERED:02/18/2017 TEST ACCEPTED:NO REASON:PATIENT DECLINED OTHERS AT HOME: [place]. HOUSING: [employer] HOUSE. EDUCATION 2 YEARS COLLEGE. DIET: REGULAR. LANGUAGE PARAGUAYAN. DOMESTIC VIOLENCE DO YOU FEEL SAFE IN YOUR ENVIRONMENT?YES BMI CARE GOAL FOLLOW-UP ABOVE NORMAL BMI FOLLOW-UPDIETARY MANAGEMENT EDUCATION, GUIDANCE, AND COUNSELING RECREATIONAL DRUG USE DRUG USE?NO EXERCISE: WALKS. LEARNING BARRIERS / SPECIAL NEEDS BARRIERS TO LEARNING?NO HEARING IMPAIRED?NO VISION IMPAIRED?YES READING GLASSES COGNITIVELY IMPAIRED?NO READINESS TO LEARN?YES LEARNING PREFERENCES?NO LEARNING CAPABILITIES PRESENT?YES EMOTIONAL BARRIERS?NO SPECIAL DEVICES?NO DROP CREW LABORER NEEDED?NO LUNG CANCER SCREENING SMOKING STATUS:FORMER SMOKER IS THE PATIENT BETWEEN THE AGE OF 56 AND 78?YES HAVE YOU QUIT SMOKING WITHIN THE PAST 15 YEARS?YES HAS THE PATIENT EVER BEEN DIAGNOSED WITH LUNG CANCER?NO CREATE REFERRAL:GENERATE AND CREATE REFERRAL TO THE ONCOLOGY NURSE NAVIGATOR (SMP) LISTING USING THE LDCT SCAN PROCEDURE 45 YEARS 1/2 TO 1 [facility] PFS, CLERGY, PUBLIC HEALTH REFERRALS HAS THE PATIENT BEEN EDUCATED REGARDING HIS/HER PLAN OF CARE?YES HAS THE PATIENT BEEN EDUCATED REGARDING PAIN, THE RISK FOR PAIN, THE IMPORTANCE OF EFFECTIVE PAIN MANAGEMENT, AND THE PAIN ASSESSMENT PROCESS?YES LATEX QUESTIONNAIRE LATEX ALLERGY : HAVE YOU EVER DEVELOPED ANY TYPE OF REACTION AFTER HANDLING LATEX PRODUCTS SUCH RUBBER GLOVES, CONDOMS, DIAPHRAGMS, BALLOONS, SOCKS, OR UNDERWEAR?NO LATEX ALLERGY : HAVE YOU EVER DEVELOPED ANY TYPE OF REACTION DURING OR AFTER DENTAL APPOINTMENT, VAGINAL/RECTAL EXAMINATION, SURGICAL PROCEDURE, OR ANY OTHER EXPOSURE?NO DATE ASKED : 12/09/2018 LATEX RISK : HAVE YOU EVER HAD ANY DIFFICULTY BREATHING OR HIVES AFTER EATING OR HANDLING ANY FRUITS, OR VEGETABLES; SUCH KIWI, BANANAS, STONE FRUITS, OR CHESTNUTSNO LATEX RISK : DO YOU HAVE A PREVIOUS PERSONAL HISTORY OF MORE THAN NINE SURGERIES, SPINA BIFIDA, OR REPEATED CATHERIZATIONS? NO LATEX RISK : ARE YOU FREQUENTLY EXPOSED TO LATEX PRODUCTS IN YOUR OCCUPATION?NO CAFFEINE CAFFEINE USE?YES 1 CUP COFFEE DAILY ADVANCE DIRECTIVE ADVANCE DIRECTIVE DISCUSSED WITH PATIENT:YES LIFE PARTNER-JOVI MAYS [phone] ANABAPTISM [id number] CHRISTIANITY MARITAL STATUS: . ALCOHOL SCREENING DID YOU HAVE A DRINK CONTAINING ALCOHOL IN THE PAST YEAR?NO POINTS0 INTERPRETATIONNEGATIVE OCCUPATION: DISABLED. SEXUAL HX HAD SEX IN THE LAST 12 MONTHS (VAGINAL, ORAL, OR ANAL)?YES WITHMEN ONLY USE PROTECTION?NO LMP:POST MENOP. HAVE YOU EVER HAD AN STD?NO REVIEWED WITH PT 09/05/18 1422 08-24-19 PRESCREENING COMPLETED FOR PROCEDURE KEG. HOSPITALIZATION/MAJOR DIAGNOSTIC PROCEDURE BACK SURGERY X 2; DISC AND SPINAL FUSION. [place] DR. GIOVANI NEVES , DR. VILLALTA ([place]) HYSTERECTOMY APPENDECTOMY COLOSTOMY BAG INSERTION 02/2018 [facility], THEN TRANSFERED TO [facility], C-DIFF, MULTIPLE INFECTIONS 01/2018 CDIFF 2018 REVIEW OF SYSTEMS REVIEWED BY: PROVIDER: . CONSTITUTIONAL: ANY CHANGE IN YOUR MEDICAL CONDITION? NO . CHILLS NO . FEVER NO . INFECTION: DO YOU HAVE NEW INFECTIONS? NO . DO YOU HAVE HISTORY OF MRSA? NO . MUSCULOSKELETAL: ANY NEW PATTERNS OF PAIN OR NUMBNESS? NO . GASTROENTEROLOGY: ANY NEW CHANGE IN BOWEL CONTROL? NO . GENITOURINARY: ANY NEW CHANGE IN BLADDER CONTROL? NO . IS THERE A CHANCE YOU COULD BE ? NO . HEMATOLOGY/LYMPH: DO YOU TAKE ANY BLOOD THINNERS? (FOR EXAMPLE- COUMADIN, PLAVIX, AGGRENOX, PLATEL, PRADAXA, OR XARELTO) YES, PLAVIX 08/24/19 . WHEN WAS YOUR LAST DOSE? DATE: TIME: . NEUROLOGY: HAVE YOU FALLEN IN THE PAST 12 MONTHS? NO . ANY NEW EXTREMITY NUMBNESS OR WEAKNESS? NO . CARDIOLOGY: DO YOU HAVE A PACEMAKER OR DEFIBRILLATOR? NO . RESPIRATORY: HAVE YOU BEEN SICK IN THE PAST WEEK? NO . FEVER NO . FLU LIKE SYMPTOMS? NO . COUGH NO . INTEGUMENTARY: DO YOU HAVE ANY RASHES OR OPEN SORES? NO . ALLERGIC/IMMUNO: ARE YOU ALLERGIC TO IV DYE? NO . ANY NEW ALLERGIES? NO . PSYCHIATRIC: DO YOU HAVE THOUGHTS OF HURTING YOURSELF OR SOMEONE ELSE? NO . ARE YOU ABUSED, NEGLECTED, OR IN AN UNSAFE ENVIRONMENT? NO . ENDOCRINOLOGY: ARE YOU DIABETIC? YES, FS 110 TODAY @ 0600 . OTHER: DO YOU NEED ANY PRESCRIPTIONS? NO . IF YES, PLEASE LIST: ____ . ANY NEW PROBLEMS WITH YOUR MEDICATIONS? NO . WHEN DID YOU LAST EAT? 08/30/19 1830 . WHEN DID YOU LAST DRINK? 08/30/192099 . WHAT DID YOU LAST DRINK? WATER . NAME OF PERSON DRIVING YOU HOME? JOVI . DO YOU HAVE ANY OTHER QUESTIONS OR CONCERNS NO . VITAL SIGNS WT 99.4 LBS, HT 64 IN, BMI 17.06 INDEX, BP 170/79 MM HG, HR 95 /MIN, RR 18 /MIN, TEMP 96.4 F, OXYGEN SAT % 100%, NA INITIALS AW 0940, REVIEWED BY: EM. ASSESSMENTS SPONDYLOSIS OF LUMBAR REGION WITHOUT MYELOPATHY OR RADICULOPATHY - M47.816 (PRIMARY) SPONDYLOSIS WITHOUT MYELOPATHY OR RADICULOPATHY, LUMBOSACRAL REGION - M47.817 TREATMENT SPONDYLOSIS OF LUMBAR REGION WITHOUT MYELOPATHY OR RADICULOPATHY SMC FACET BLOCK (PAIN)[id number] PROCEDURES PN LUMBAR FACET BLOCK THERAPEUTIC PRE PROCEDURE DIAGNOSIS LUMBAR SPONDYLOSIS, LUMBOSACRAL SPONDYLOSIS POST PROCEDURE DIAGNOSIS LUMBAR SPONDYLOSIS, LUMBOSACRAL SPONDYLOSIS PROCEDURE BILATERAL L4-L5 AND L5-S1 LUMBAR FACET THERAPEUTIC BLOCK SURGEON DR. JOSE AGUIRRE EXTERNAL RELATIONS DIRECTOR NONE ANESTHESIA LOCAL PRE PROCEDURE NOTE THE PATIENT HAS A HISTORY OF CHRONIC LOW BACK PAIN. I EVALUATED THE PATIENT AND REVIEWED THE CHART. I WENT OVER THE RISKS, ALTERNATIVES, AND BENEFITS ASSOCIATED WITH THIS PROCEDURE. THE PATIENT WOULD LIKE TO PROCEED AND GIVES CONSENT TO PERFORM THE PROCEDURE. THE PATIENT DENIES UNEXPLAINABLE WEIGHT LOSS, FEVER, CHILLS, OR NEW CHANGES IN URINARY OR BOWEL CONTROL DESCRIPTION OF PROCEDURE THE PATIENT WAS BROUGHT TO THE PROCEDURE ROOM AND PLACED IN THE PRONE POSITION. THE LUMBOSACRAL AREA WAS CLEANED WITH CHLORAPREP SOLUTION AND DRAPED ASEPTICALLY. THE PROCEDURE WAS DONE UNDER STERILE CONDITIONS. I CHECKED LATERALITY AND THE LEVEL WHERE THE PROCEDURE WAS GOING TO BE PERFORMED WITH THE PATIENT AND THE SUPPORTING STAFF AT THE MOMENT OF THE TIME OUT IN THE PROCEDURE ROOM. UNDER FLUOROSCOPIC GUIDANCE, THE TARGET POINT WAS SELECTED AT THE RIGHT AND LEFT L4-L5 AND RIGHT AND LEFT L5-S1 FACET JOINT. TARGET POINT WAS SELECTED AFTER LATERAL ROTATION AND TILT OF THE MAGNIFIER OF THE C-ARM. LIDOCAINE 0.5% WAS USED TO NUMB THE SKIN AND THE SUBCUTANEOUS TISSUE BELOW IT. SPINAL NEEDLES, 22-GAUGE, WERE ADVANCED UNDER FLUOROSCOPIC GUIDANCE AND FOLLOWING PATIENT FEEDBACK UNTIL THE TARGETS WERE TOUCHED. THE POSITION OF THE NEEDLES WAS VERIFIED WITH AP AND LATERAL VIEWS. AFTER PROPER POSITION OF THE NEEDLES WAS ACHIEVED, ISOVUE-M DYE 30% 0.1 ML WAS INJECTED SHOWING ADEQUATE SPREAD OF THE DYE. THEN A SOLUTION OF 1.9 ML OF BUPIVACAINE 0.125% OF KENALOG 10 MG WAS INJECTED AT EACH SITE. THERE WAS NO EVIDENCE OF BLOOD, PARESTHESIA OR CEREBROSPINAL FLUID DURING THE PROCEDURE. THE PATIENT WAS SENT TO THE RECOVERY ROOM. THE PATIENT WAS MOVING THE EXTREMITIES AND DOING WELL. THERE WAS NO COMPLICATION DURING THE PROCEDURE. FLUOROSCOPY TIME WAS 41 SECONDS POST PROCEDURE NOTE THE PATIENT WILL BE SEEN IN A FOLLOW UP IN THE NEXT FEW WEEKS. I AM LOOKING FOR LONG LASTING PAIN RELIEF WITH THIS INTERVENTION. INSTRUCTIONS WERE GIVEN, QUESTIONS WERE ANSWERED, AND THE PATIENT EXPRESSED UNDERSTANDING AND AGREES WITH THE PLAN. I, SAMARIA SORENSEN, DOCUMENTED THE ABOVE INFORMATION ACTING A SCRIBE FOR DR. AGUIRRE. I HAVE REVIEWED THE ABOVE DOCUMENT, WRITTEN BY SAMARIA SORENSEN SCRIBMary AND I VERIFY THAT IT IS ACCURATE. PROCEDURE CODES 71640 INJ PARAVERT F JNT L/S 1 LEV, MODIFIERS: 50 [id number] INJ PARAVERT F JNT L/S 2 LEV, MODIFIERS: 50 [id number] RADXPS IN END [id number] PXD DISPOSITION & COMMUNICATION FOLLOW UP 3 WEEKS ELECTRONICALLY SIGNED BY JOSE AGUIRRE MD, MD ON 09/08/2019 AT 09:21 AM EST DISCLAIMER : THIS IS A VISIT SUMMARY EXTRACTED FROM THE [employer] CHART. IT IS NOT A COPY OF THE [employer] PROGRESS NOTE. MTDD
== END ==
LOC: M PAIN 09:30
PROVIDERS: ATTEND Anesthesiology
DX: M47.816 Spondylosis without myelopathy or radiculopathy, lumbar region (principal); M47.817 Spondylosis without myelopathy or radiculopathy, lumbosacral region; I10 Essential (primary) hypertension; I25.2 Old myocardial infarction; F17.210 Nicotine dependence, cigarettes, uncomplicated; Z88.6 Allergy status to analgesic agent; Z88.8 Allergy status to other drugs, medicaments and biological substances; Z91.02 Food additives allergy status; Z79.01 Long term (current) use of anticoagulants; Z79.84 Long term (current) use of oral hypoglycemic drugs; Z79.899 Other long term (current) drug therapy
CPT/HCPCS: 64493; 64494; J1200; J3301; Q9967

== ENCOUNTER → 2019-11-02 | Outpatient (CLI) | payer MEDICARE ==
[~2019-11-02] MED LIST changes: -BUPIVACAINE HCL 0.25% 30 ML VIAL As Ordered ONE; -ISOVUE-M 300 61% 15ML VIAL (Q9967) As Ordered ONE; -LIDOCAINE 1% SDV INJ 30 ML VIAL As Ordered ONE; -TRIAMCINOLONE ACETONIDE SUSP 40 MG/ML VIAL (J3301) As Ordered ONE; -diazePAM 5 MG TAB As Ordered ONE; -diphenhydrAMINE INJ 50MG/ML VIAL (J1200) As Ordered ONE; -oxyCODONE 5MG TAB As Ordered ONE
--- NOTE | 2019-11-04 02:42 | ECWPNPC ---
PATIENT NAME: ANNIE VILLAVICENCIO : 1950 GENDER: FEMALE VISIT DATE: 11/02/2019 DISCHARGE DATE: 11/02/19 1040 VISIT LOCKED DATE TIME: PHYSICIAN: KAMRAN BELLO RESOURCE: KAMRAN BELLO REASON FOR APPOINTMENT 1. POST PROC HISTORY OF PRESENT ILLNESS HISTORY OF PRESENT ILLNESS: PAIN THE PATIENT DESCRIBES THE PAIN... 69-YEAR-OLD FEMALE IN FOR POST FACET BLOCK FOLLOW-UP. SHE FEELS THE PROCEDURE WAS INEFFECTIVE OVERALL. SHE RATES HER PAIN CURRENTLY AT A 6 OUT OF 10 AND DESCRIBES IT SHARP. SHE FEELS HER MEDICATIONS ARE WORKING WELL AND DENIES MED SIDE EFFECTS AT THIS TIME. FALL RISK SCREENING: SCREENING :NO FALLS REPORTED IN THE LAST YEAR CURRENT MEDICATIONS TAKING PLAVIX 75 MG TABLET 1 TABLET ORALLY ONCE A DAY TAKING METFORMIN HCL 1000 MG TABLET 1/2 TABLET WITH MEALS ORALLY BID TAKING COOL BLOOD GLUCOSE TEST STRIPS - STRIP DIRECTED IN VITRO BID TAKING LANCETS 30G - MISCELLANEOUS DIRECTED INTRADERMALLY TWICE DAILY TAKING HYDROCODONE-ACETAMINOPHEN 5-325 MG TABLET 1 TABLET NEEDED ORALLY FOR PAIN EVERY 8 HRS MDD3 MEDICATION LIST REVIEWED AND RECONCILED WITH THE PATIENT PAST MEDICAL HISTORY BACK PAIN HIGH BLOOD PRESSURE HIGH CHOLESTEROL SEASONAL ALLERGIES CHRONIC LOW BACK PAIN HISTORY OF [place] (MYOCARDIAL INFARCTION) LUMBOSACRAL RADICULOPATHY RIGHT KNEE GOUT 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 JAFFE AND DELORES COLONOSCOPY: GARY JANUARY 2018 MAMMOGRAM: SEVERAL YEARS AGO CARDIAC STENTS X 3, [place] 2011 ECHO 2018: NORMAL GLOBAL LEFT VENTRICULAR SYSTOLIC FUNCTION. 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 VEGA ALLERGIES ZANAFLEX: VOMITING - SIDE EFFECTS RED DYE: ANAPHYLAXIS - ALLERGY IBUPROFEN: VOMITING SURGICAL HISTORY BACK SURGERY X 2 HYSTERECTOMY APPENDECTOMY COLECTOMY ( COLOSTOMY BAG) TUMOR REMOVED RIGHT NECK 11/2017 DR. VEGA, RIGHT HEMICOLECTOMY 11/2018 FAMILY HISTORY FATHER: 81 YRS, [place], DIAGNOSED WITH UNSPECIFIED HEART DISEASE MOTHER: 68 YRS, LUNG CANCER, OTHER MALIGNANT NEOPLASM OF UNSPECIFIED SITE SIBLINGS: ALIVE, BROTHER OF LUNG/LIVER CANCER, UNSPECIFIED CEREBRAL ARTERY OCCLUSION WITH CEREBRAL INFARCTION, OTHER MALIGNANT NEOPLASM OF UNSPECIFIED SITE SON(S): ALIVE 43 YRS DAUGHTER(S): ALIVE 3 BROTHER(S) , 2 SISTER(S) . 1 SON(S) , 2 DAUGHTER(S) - HEALTHY. SISTER- OF A STROKE\\NDAUGHTERS: 1976; 1971. SOCIAL HISTORY GENERAL: TOBACCO USE ARE YOU A:CURRENT SMOKER ARE YOU INTERESTED IN QUITTING?THINKING ABOUT QUITTING PT HAS GUM COUNSELED THE PATIENT ON SMOKING CESSATION, EDUCATION [id number]/09/2020 HOW MANY CIGARETTES A DAY DO YOU SMOKE?6-10 HOW SOON AFTER YOU WAKE UP DO YOU SMOKE YOUR FIRST CIGARETTE?AFTER 60 MIN HOW OFTEN DO YOU SMOKE CIGARETTES?EVERY DAY PATIENT COUNSELED ON THE DANGERS OF TOBACCO USE AND URGED TO QUIT:06/04/2019 SMOKING CESSATION INFORMATION GIVEN08/24/2019 HIV / HEP-C SCREENING HEP-C TEST OFFERED TO PATIENT:YES DATE OFFERED:02/18/2017 TEST ACCEPTED:NO REASON:PATIENT DECLINED OTHERS AT HOME: FIANCE. HOUSING: [employer] HOUSE. EDUCATION 2 YEARS COLLEGE. DIET: REGULAR. LANGUAGE ERITREAN. DOMESTIC VIOLENCE DO YOU FEEL SAFE IN YOUR ENVIRONMENT?YES BMI CARE GOAL FOLLOW-UP ABOVE NORMAL BMI FOLLOW-UPDIETARY MANAGEMENT EDUCATION, GUIDANCE, AND COUNSELING RECREATIONAL DRUG USE DRUG USE?NO EXERCISE: WALKS. LEARNING BARRIERS / SPECIAL NEEDS BARRIERS TO LEARNING?NO HEARING IMPAIRED?NO VISION IMPAIRED?YES READING GLASSES COGNITIVELY IMPAIRED?NO READINESS TO LEARN?YES LEARNING PREFERENCES?NO LEARNING CAPABILITIES PRESENT?YES EMOTIONAL BARRIERS?NO SPECIAL DEVICES?NO SHOULDER SAWYER NEEDED?NO LUNG CANCER SCREENING SMOKING STATUS:FORMER SMOKER IS THE PATIENT BETWEEN THE AGE OF 56 AND 78?YES HAVE YOU QUIT SMOKING WITHIN THE PAST 15 YEARS?YES HAS THE PATIENT EVER BEEN DIAGNOSED WITH LUNG CANCER?NO CREATE REFERRAL:GENERATE AND CREATE REFERRAL TO THE ONCOLOGY NURSE NAVIGATOR (SMP) LISTING USING THE LDCT SCAN PROCEDURE 45 YEARS / TO 1 PPD PAIN CLINIC PFS, CLERGY, PUBLIC HEALTH REFERRALS HAS THE PATIENT BEEN EDUCATED REGARDING HIS/HER PLAN OF CARE?YES HAS THE PATIENT BEEN EDUCATED REGARDING PAIN, THE RISK FOR PAIN, THE IMPORTANCE OF EFFECTIVE PAIN MANAGEMENT, AND THE PAIN ASSESSMENT PROCESS?YES LATEX QUESTIONNAIRE LATEX ALLERGY : HAVE YOU EVER DEVELOPED ANY TYPE OF REACTION AFTER HANDLING LATEX PRODUCTS SUCH RUBBER GLOVES, CONDOMS, DIAPHRAGMS, BALLOONS, SOCKS, OR UNDERWEAR?NO LATEX ALLERGY : HAVE YOU EVER DEVELOPED ANY TYPE OF REACTION DURING OR AFTER DENTAL APPOINTMENT, VAGINAL/RECTAL EXAMINATION, SURGICAL PROCEDURE, OR ANY OTHER EXPOSURE?NO DATE ASKED : 12/09/2018 LATEX RISK : HAVE YOU EVER HAD ANY DIFFICULTY BREATHING OR HIVES AFTER EATING OR HANDLING ANY FRUITS, OR VEGETABLES; SUCH KIWI, BANANAS, STONE FRUITS, OR CHESTNUTSNO LATEX RISK : DO YOU HAVE A PREVIOUS PERSONAL HISTORY OF MORE THAN NINE SURGERIES, SPINA BIFIDA, OR REPEATED CATHERIZATIONS? NO LATEX RISK : ARE YOU FREQUENTLY EXPOSED TO LATEX PRODUCTS IN YOUR OCCUPATION?NO CAFFEINE CAFFEINE USE?YES 1 CUP COFFEE DAILY ADVANCE DIRECTIVE ADVANCE DIRECTIVE DISCUSSED WITH PATIENT:YES LIFE PARTNER-JOVI MAYS [phone] YAZIDI [id number] [employer] MARITAL STATUS: . ALCOHOL SCREENING DID YOU HAVE A DRINK CONTAINING ALCOHOL IN THE PAST YEAR?NO POINTS0 INTERPRETATIONNEGATIVE OCCUPATION: DISABLED. SEXUAL HX HAD SEX IN THE LAST 12 MONTHS (VAGINAL, ORAL, OR ANAL)?YES WITHMEN ONLY USE PROTECTION?NO LMP:POST MENOP. HAVE YOU EVER HAD AN STD?NO REVIEWED WITH PT 09/05/18 1422 08-24-19 PRESCREENING COMPLETED FOR PROCEDURE KEG. HOSPITALIZATION/MAJOR DIAGNOSTIC PROCEDURE BACK SURGERY X 2; DISC AND SPINAL FUSION. [place] DR. GIOVANI NEVES , DR. VILLALAT ([place]) HYSTERECTOMY APPENDECTOMY COLOSTOMY BAG INSERTION 02/2018 [facility], THEN TRANSFERED TO [facility], C-DIFF, MULTIPLE INFECTIONS 01/2018 CDIFF 2018 REVIEW OF SYSTEMS REVIEWED BY: PROVIDER: JONAS BELLO ORTHOPEDIC ASSISTANT-C . CONSTITUTIONAL: ANY CHANGE IN YOUR MEDICAL CONDITION? NO . CHILLS NO . FEVER NO . INFECTION: DO YOU HAVE NEW INFECTIONS? NO . DO YOU HAVE HISTORY OF MRSA? NO . MUSCULOSKELETAL: ANY NEW PATTERNS OF PAIN OR NUMBNESS? NO . GASTROENTEROLOGY: ANY NEW CHANGE IN BOWEL CONTROL? NO . GENITOURINARY: ANY NEW CHANGE IN BLADDER CONTROL? NO . IS THERE A CHANCE YOU COULD BE ? NO . HEMATOLOGY/LYMPH: DO YOU TAKE ANY BLOOD THINNERS? (FOR EXAMPLE- COUMADIN, PLAVIX, AGGRENOX, PLATEL, PRADAXA, OR XARELTO) PLAVIX . WHEN WAS YOUR LAST DOSE? DATE: TIME: . NEUROLOGY: HAVE YOU FALLEN IN THE PAST 12 MONTHS? NO . ANY NEW EXTREMITY NUMBNESS OR WEAKNESS? NO . CARDIOLOGY: DO YOU HAVE A PACEMAKER OR DEFIBRILLATOR? NO . RESPIRATORY: HAVE YOU BEEN SICK IN THE PAST WEEK? NO . FEVER NO . FLU LIKE SYMPTOMS? NO . COUGH NO . INTEGUMENTARY: DO YOU HAVE ANY RASHES OR OPEN SORES? NO . ALLERGIC/IMMUNO: ARE YOU ALLERGIC TO IV DYE? NO . ANY NEW ALLERGIES? NO . PSYCHIATRIC: DO YOU HAVE THOUGHTS OF HURTING YOURSELF OR SOMEONE ELSE? NO . ARE YOU ABUSED, NEGLECTED, OR IN AN UNSAFE ENVIRONMENT? NO . ENDOCRINOLOGY: ARE YOU DIABETIC? YES . OTHER: DO YOU NEED ANY PRESCRIPTIONS? NO . IF YES, PLEASE LIST: ____ . ANY NEW PROBLEMS WITH YOUR MEDICATIONS? NO . WHEN DID YOU LAST EAT? ____ . WHEN DID YOU LAST DRINK? ____ . WHAT DID YOU LAST DRINK? ____ . NAME OF PERSON DRIVING YOU HOME? ____ . DO YOU HAVE ANY OTHER QUESTIONS OR CONCERNS NO . VITAL SIGNS WT 96 LBS, HT 64 IN, BMI 16.48 INDEX, BP 153/77 MM HG, HR 116 /MIN, RR 16 /MIN, TEMP 97.0 F, OXYGEN SAT % 96, REVIEWED BY: EM. EXAMINATION GENERAL EXAMINATION: GENERALNO ACUTE DISTRESS, WELL NOURISHED AND HYDRATED. PSYCHAPPROPRIATE MOOD AND AFFECT . LUNGS:CLEAR TO AUSCULTATION BILATERALLY, NO WHEEZES, RHONCHI, RALES. HEART:NO MURMURS, REGULAR RATE AND RHYTHM. ASSESSMENTS SPONDYLOSIS OF LUMBOSACRAL REGION WITHOUT MYELOPATHY OR RADICULOPATHY - M47.817 (PRIMARY) TREATMENT SPONDYLOSIS OF LUMBOSACRAL REGION WITHOUT MYELOPATHY OR RADICULOPATHY CLINICAL NOTES: 69-YEAR-OLD FEMALE IN FOR POST FACET BLOCK FOLLOW-UP. GIVEN PRESENTING SYMPTOMS AND RESULTS OF PHYSICAL EXAMINATION RECOMMENDED CONTINUATION OF CURRENT MEDICATION REGIMEN WITH FOLLOW-UP IN 3 MONTHS. PATIENT HAS EXPRESSED UNDERSTANDING OF AND WAS IN AGREEMENT WITH TREATMENT PLAN. GIVEN TIME TO ASK QUESTIONS AND EXPRESS CONCERNS., ISTOP REGISTRY REVIEWED AND DEMONSTRATES COMPLLIANCE. (REF # [id number] ) BRINGS IN MEDICATIONS WHICH IS APPROPRIATE FOR WHAT WAS DISPENSED. RECENT URINE TOXICOLOGY REVIEWED. NO UNAUTHORIZED MEDICATIONS. NO ILLICIT SUBSTANCES AND PRESCRIBED MEDICATIONS WERE PRESENT. PROCEDURE CODES FA211 ESTABILISHED PATIENT [facility] FACILITY CHARGE DISPOSITION & COMMUNICATION FOLLOW UP 3 MONTHS (REASON: BACK PAIN) ELECTRONICALLY SIGNED BY LEA SOLOMON ON 11/03/2019 AT 03:27 PM EDT DISCLAIMER : THIS IS A VISIT SUMMARY EXTRACTED FROM THE [employer] CHART. IT IS NOT A COPY OF THE [employer] PROGRESS NOTE. SAILAJA
== END ==
LOC: M PAIN 10:15
PROVIDERS: ATTEND Family Medicine
DX: M47.817 Spondylosis without myelopathy or radiculopathy, lumbosacral region (principal); I10 Essential (primary) hypertension; E78.00 Pure hypercholesterolemia, unspecified; F17.210 Nicotine dependence, cigarettes, uncomplicated; Z79.02 Long term (current) use of antithrombotics/antiplatelets; Z79.891 Long term (current) use of opiate analgesic; Z79.899 Other long term (current) drug therapy; Z88.8 Allergy status to other drugs, medicaments and biological substances; Z91.048 Other nonmedicinal substance allergy status

== ENCOUNTER → 2020-02-02 | Outpatient (CLI) | payer MEDICARE ==
--- NOTE | 2020-02-04 03:59 | ECWPNPC ---
PATIENT NAME: ANNIE VILLAVICENCIO : 1950 GENDER: FEMALE VISIT DATE: 02/02/2020 DISCHARGE DATE: 02/02/20 1126 VISIT LOCKED DATE TIME: PHYSICIAN: KAMRAN BELLO RESOURCE: KAMRAN BELLO REASON FOR APPOINTMENT 1. BACK PAIN PAT DONE HISTORY OF PRESENT ILLNESS GENERAL: -PERMISSION REQUESTED AND RECEIVED FROM PATIENT TO PERFORM TELEPHONE VISIT. 69-YEAR-OLD FEMALE IN FOR CHRONIC PAIN FOLLOW-UP. SHE RATES HER PAIN CURRENTLY AT AN 8 OUT OF 10 AND DESCRIBES IT SHARP AND NAGGING. SHE FEELS HER MEDICATIONS HELP TAKE THE EDGE OFF BUT DOESN'T COMPLETELY HELP HER PAIN. PAIN SCREENING: PATIENT HAS A COMPLAINT OF ACUTE OR CHRONIC PAIN :YES LOCATION OF PAIN:LOW BACK INTENSITY OF PAIN (SCALE OF 1 TO 10):8 WHAT DOES YOUR PAIN FEEL LIKE:ACHING, SHARP DURATION:CONTINOUS, CONSTANT, ALL DAY PAIN IS INCREASED BY:ACTIVITIES, PROLONGED STANDING PAIN IS DECREASED BY:USE OF PAIN MEDICATIONS, SITTING PLAN/GOALS/TREATMENT/INTERVENTION/FOLLOW UP:SEE PLAN FALL RISK SCREENING: SCREENING :NO FALLS REPORTED IN THE LAST YEAR NURSING NOTE: DISCUSS INCREASE IN HYDROCODONE-. PAIN CENTER INTAKE QUESTIONS: DO YOU HAVE A HISTORY OF MRSA? :NO DO YOU TAKE A BLOOD THINNERS? :YES PLAVIX 02/01/20 @6:30AM DO YOU HAVE ANY BLEEDING DISORDERS? :NO ANY NEW NUMBNESS OR WEAKNESS IN YOUR LEGS OR ARMS? :NO ANY PACEMAKER,DEFIBRILLATOR, OR DORSAL COLUMN STIMULATOR? :NO DO YOU HAVE ANY RASHES OR OPEN SORES? :NO ARE YOU ALLERGIC TO IV DYE? :YES ARE YOU DIABETIC? :YES ANY NEW PROBLEMS WITH YOUR MEDICATIONS? :NO HAVE YOU RECEIVED A VACCINE IN THE PAST 30 DAYS? :NO DO YOU PLAN TO RECEIVE A VACCINE IN THE NEXT 21 DAYS? :NO DO YOU NEED ANY PRESCRIPTION? :NO DO YOU TAKE ANY IMMUNOSUPPRESSIVE MEDICATIONS? :NO IS THERE A CHANCE YOU COULD BE ? :NO ARE YOU BREAST FEEDING? 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 JAFFE AND DELORES COLONOSCOPY: GARY JANUARY 2018 MAMMOGRAM: SEVERAL YEARS AGO CARDIAC STENTS X 3, [place] 2011 ECHO 2018: NORMAL GLOBAL LEFT VENTRICULAR SYSTOLIC FUNCTION. 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 VEGA ALLERGIES ZANAFLEX: VOMITING - SIDE EFFECTS RED DYE: ANAPHYLAXIS - ALLERGY IBUPROFEN: VOMITING SURGICAL HISTORY BACK SURGERY X 2 HYSTERECTOMY APPENDECTOMY COLECTOMY ( COLOSTOMY BAG) TUMOR REMOVED RIGHT NECK 11/2017 DR. VEGA, RIGHT HEMICOLECTOMY 11/2018 FAMILY HISTORY FATHER: 81 YRS, [place], DIAGNOSED WITH UNSPECIFIED HEART DISEASE MOTHER: 68 YRS, LUNG CANCER, OTHER MALIGNANT NEOPLASM OF UNSPECIFIED SITE SIBLINGS: ALIVE, BROTHER OF LUNG/LIVER CANCER, UNSPECIFIED CEREBRAL ARTERY OCCLUSION WITH CEREBRAL INFARCTION, OTHER MALIGNANT NEOPLASM OF UNSPECIFIED SITE SON(S): ALIVE 43 YRS DAUGHTER(S): ALIVE 3 BROTHER(S) , 2 SISTER(S) . 1 SON(S) , 2 DAUGHTER(S) - HEALTHY. SISTER- OF A STROKE\\NDAUTERS: 1976; 1971. SOCIAL HISTORY GENERAL: TOBACCO USE ARE YOU A:CURRENT SMOKER ARE YOU INTERESTED IN QUITTING?THINKING ABOUT QUITTING PT HAS GUM COUNSELED THE PATIENT ON SMOKING CESSATION, EDUCATION [id number]/08/2020 HOW MANY CIGARETTES A DAY DO YOU SMOKE?6-10 HOW SOON AFTER YOU WAKE UP DO YOU SMOKE YOUR FIRST CIGARETTE?AFTER 60 MIN HOW OFTEN DO YOU SMOKE CIGARETTES?EVERY DAY PATIENT COUNSELED ON THE DANGERS OF TOBACCO USE AND URGED TO QUIT:02/01/2020 SMOKING CESSATION INFORMATION GIVEN02/01/2020 LATEX QUESTIONNAIRE LATEX ALLERGY : HAVE YOU EVER DEVELOPED ANY TYPE OF REACTION AFTER HANDLING LATEX PRODUCTS SUCH RUBBER GLOVES, CONDOMS, DIAPHRAGMS, BALLOONS, SOCKS, OR UNDERWEAR?NO LATEX ALLERGY : HAVE YOU EVER DEVELOPED ANY TYPE OF REACTION DURING OR AFTER DENTAL APPOINTMENT, VAGINAL/RECTAL EXAMINATION, SURGICAL PROCEDURE, OR ANY OTHER EXPOSURE?NO LATEX RISK : HAVE YOU EVER HAD ANY DIFFICULTY BREATHING OR HIVES AFTER EATING OR HANDLING ANY FRUITS, OR VEGETABLES; SUCH KIWI, BANANAS, STONE FRUITS, OR CHESTNUTSNO LATEX RISK : DO YOU HAVE A PREVIOUS PERSONAL HISTORY OF MORE THAN NINE SURGERIES, SPINA BIFIDA, OR REPEATED CATHERIZATIONS? NO LATEX RISK : ARE YOU FREQUENTLY EXPOSED TO LATEX PRODUCTS IN YOUR OCCUPATION?NO DATE ASKED : 02/01/2020 LUNG CANCER SCREENING SMOKING STATUS:FORMER SMOKER IS THE PATIENT BETWEEN THE AGE OF 56 AND 78?YES HAVE YOU QUIT SMOKING WITHIN THE PAST 15 YEARS?YES HAS THE PATIENT EVER BEEN DIAGNOSED WITH LUNG CANCER?NO CREATE REFERRAL:GENERATE AND CREATE REFERRAL TO THE ONCOLOGY NURSE NAVIGATOR (SMP) LISTING USING THE LDCT SCAN PROCEDURE 45 YEARS /2 TO 1 PPD BMI CARE GOAL FOLLOW-UP ABOVE NORMAL BMI FOLLOW-UPDIETARY MANAGEMENT EDUCATION, GUIDANCE, AND COUNSELING ALCOHOL SCREENING DID YOU HAVE A DRINK CONTAINING ALCOHOL IN THE PAST YEAR?NO POINTS0 INTERPRETATIONNEGATIVE RECREATIONAL DRUG USE DRUG USE?NO CAFFEINE CAFFEINE USE?YES 1 CUP COFFEE DAILY SEXUAL HX HAD SEX IN THE LAST 12 MONTHS (VAGINAL, ORAL, OR ANAL)?YES WITHMEN ONLY USE PROTECTION?NO LMP:POST MENOP. HAVE YOU EVER HAD AN STD?NO HIV / HEP-C SCREENING HEP-C TEST OFFERED TO PATIENT:YES DATE OFFERED:02/18/2017 TEST ACCEPTED:NO REASON:PATIENT DECLINED NONDENOMINATIONAL [id number] FAITH LANGUAGE FRISIAN. EDUCATION 2 YEARS COLLEGE. LEARNING BARRIERS / SPECIAL NEEDS BARRIERS TO LEARNING?NO HEARING IMPAIRED?NO VISION IMPAIRED?YES READING GLASSES COGNITIVELY IMPAIRED?NO READINESS TO LEARN?YES LEARNING PREFERENCES?NO LEARNING CAPABILITIES PRESENT?YES EMOTIONAL BARRIERS?NO SPECIAL DEVICES?NO COFFEE HOST NEEDED?NO DOMESTIC VIOLENCE DO YOU FEEL SAFE IN YOUR ENVIRONMENT?YES OCCUPATION: DISABLED. DIET: REGULAR. EXERCISE: WALKS. MARITAL STATUS: . OTHERS AT HOME: [employer]. PAIN CLINIC PFS, CLERGY, PUBLIC HEALTH REFERRALS HAS THE PATIENT BEEN EDUCATED REGARDING HIS/HER PLAN OF CARE?YES HAS THE PATIENT BEEN EDUCATED REGARDING PAIN, THE RISK FOR PAIN, THE IMPORTANCE OF EFFECTIVE PAIN MANAGEMENT, AND THE PAIN ASSESSMENT PROCESS?YES HOUSING: RENTS HOUSE. ADVANCE DIRECTIVE ADVANCE DIRECTIVE DISCUSSED WITH PATIENT:YES LIFE PARTNER-JOVI MAYS [phone] HOSPITALIZATION/MAJOR DIAGNOSTIC PROCEDURE BACK SURGERY X 2; DISC AND SPINAL FUSION. [place] DR. GIOVANI NEVES , DR. VILLALTA ([place]) HYSTERECTOMY APPENDECTOMY COLOSTOMY BAG INSERTION 02/2018 [facility], THEN TRANSFERED TO [facility], C-DIFF, MULTIPLE INFECTIONS 01/2018 CDIFF 2018 REVIEW OF SYSTEMS CONSTITUTIONAL: ANY RECENT FEVER OR ILLNESS NO . CHILLS NO . GASTROENTEROLOGY: BOWEL INCONTINENCE NO . ANY NEW CHANGE IN BOWEL CONTROL? NO . ABDOMINAL PAIN NO . CONSTIPATION NO . GENITOURINARY: ANY NEW CHANGE IN BLADDER CONTROL? NO . URINARY INCONTINENCE NO . CARDIOLOGY: CHEST PRESSURE NO . CHEST PAIN NO . RESPIRATORY: COUGH NO . SHORTNESS OF BREATH NO . EXAMINATION GENERAL EXAMINATION: PSYCHAPPROPRIATE MOOD AND AFFECT , ORIENTED X 3. ASSESSMENTS SPONDYLOSIS OF LUMBOSACRAL REGION WITHOUT MYELOPATHY OR RADICULOPATHY - M47.817 (PRIMARY) TREATMENT SPONDYLOSIS OF LUMBOSACRAL REGION WITHOUT MYELOPATHY OR RADICULOPATHY INCREASE HYDROCODONE-ACETAMINOPHEN TABLET, 7.5-325 MG, 1 TABLET NEEDED, ORALLY, EVERY 8 HRS MDD3, 30 DAYS, 80, REFILLS 0 CLINICAL NOTES: 69-YEAR-OLD FEMALE IN FOR CHRONIC PAIN FOLLOW-UP. GIVEN PRESENTING SYMPTOMS RECOMMEND INCREASING HYDROCODONE TO 7.5 WITH FOLLOW-UP IN ONE MONTH TO DETERMINE EFFICACY OF TREATMENT. PATIENT HAS EXPRESSED UNDERSTANDING OF AND WAS IN AGREEMENT WITH TREATMENT PLAN. GIVEN TIME TO ASK QUESTIONS AND EXPRESS CONCERNS. , ISTOP REGISTRY REVIEWED AND DEMONSTRATES COMPLLIANCE. (REF # [id number] ) BRINGS IN MEDICATIONS WHICH IS APPROPRIATE FOR WHAT WAS DISPENSED. RECENT URINE TOXICOLOGY REVIEWED. NO UNAUTHORIZED MEDICATIONS. NO ILLICIT SUBSTANCES AND PRESCRIBED MEDICATIONS WERE PRESENT. VISIT TO BE BILLED BASED ON TIME SPENT WITH PATIENT. TIME SPENT WITH PATIENT 11 MINUTES. OTHERS NOTES: VITALS NOT OBTAINED DUE TO VIRTUAL VISIT, PRE-SCREENING COMPLETED, NA, 02/01/20. DISPOSITION & COMMUNICATION FOLLOW UP 4 WEEKS (REASON: MED INCREASE, BACK PAIN ) ELECTRONICALLY SIGNED BY LEA SOLOMON ON 02/03/2020 AT 02:09 PM EDT DISCLAIMER : THIS IS A VISIT SUMMARY EXTRACTED FROM THE [employer] CHART. IT IS NOT A COPY OF THE [employer] PROGRESS NOTE. QUED
== END ==
LOC: M PAIN 10:30
PROVIDERS: ATTEND Family Medicine
DX: M47.817 Spondylosis without myelopathy or radiculopathy, lumbosacral region (principal)

== ENCOUNTER → 2020-03-01 | Outpatient (CLI) | payer MEDICARE ==
--- NOTE | 2020-03-03 02:13 | ECWPNPC ---
PATIENT NAME: ANNIE VILLAVICENCIO : 1950 GENDER: FEMALE VISIT DATE: 03/01/2020 DISCHARGE DATE: 03/01/20 0937 VISIT LOCKED DATE TIME: PHYSICIAN: KAMRAN BELLO RESOURCE: KAMRAN BELLO REASON FOR APPOINTMENT 1. MED INCREASE, BACK PAIN [phone] PAT DONE HISTORY OF PRESENT ILLNESS GENERAL: PERMISSION REQUESTED AND RECEIVED FROM PATIENT TO PERFORM TELEPHONE VISIT.- 69-YEAR-OLD FEMALE IN FOR CHRONIC PAIN FOLLOW-UP. AT LAST VISIT PATIENT'S HYDROCODONE WAS INCREASED AND SHE ADMITS TODAY THAT THIS HAS BEEN HELPFUL IN ALLEVIATING HER PAIN SYMPTOMS. SHE REPORTS INCREASED ACTIVITY AND BETTER SLEEP AT NIGHT WITH THE INCREASE IN MEDICATION. SHE RATES HER PAIN CURRENTLY AT A 7 OUT OF 10 AND DESCRIBES IT SHARP AND STABBING. SHE FEELS THE INCREASED PAIN IS DUE TO [place] RECENTLY. FALL RISK SCREENING: SCREENING :NO FALLS REPORTED IN THE LAST YEAR PAIN SCREENING: PATIENT HAS A COMPLAINT OF ACUTE OR CHRONIC PAIN :YES LOCATION OF PAIN:LOW BACK INTENSITY OF PAIN (SCALE OF 1 TO 10):7 WHAT DOES YOUR PAIN FEEL LIKE:SHARP, STABBING DURATION:CONTINOUS, CONSTANT, ALL DAY PAIN IS INCREASED BY:ACTIVITIES, PROLONGED STANDING PAIN IS DECREASED BY:USE OF PAIN MEDICATIONS PAIN HAS INTERFERED WITH THE FOLLOWING:MOOD, HOUSEWORK, RELATIONSHIP WITH OTHERS, ENJOYMENT OF LIFE PLAN/GOALS/TREATMENT/INTERVENTION/FOLLOW UP:SEE PLAN NURSING NOTE: -. PAIN CENTER INTAKE QUESTIONS: DO YOU HAVE A HISTORY OF MRSA? :NO DO YOU TAKE A BLOOD THINNERS? :NO DO YOU HAVE ANY BLEEDING DISORDERS? :NO ANY NEW NUMBNESS OR WEAKNESS IN YOUR LEGS OR ARMS? :NO ANY PACEMAKER,DEFIBRILLATOR, OR DORSAL COLUMN STIMULATOR? :NO DO YOU HAVE ANY RASHES OR OPEN SORES? :NO ARE YOU ALLERGIC TO IV DYE? :NO ARE YOU DIABETIC? :NO ANY NEW PROBLEMS WITH YOUR MEDICATIONS? :NO HAVE YOU RECEIVED A VACCINE IN THE PAST 30 DAYS? :NO DO YOU PLAN TO RECEIVE A VACCINE IN THE NEXT 21 DAYS? :NO DO YOU NEED ANY PRESCRIPTION? :YES HYDROCODONE DO YOU TAKE ANY IMMUNOSUPPRESSIVE MEDICATIONS? :NO IS THERE A CHANCE YOU COULD BE ? :NO ARE YOU BREAST FEEDING? 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 JAFFE AND DELORES COLONOSCOPY: GARY JANUARY 2018 MAMMOGRAM: SEVERAL YEARS AGO CARDIAC STENTS X 3, [place] 2011 ECHO 2018: NORMAL GLOBAL LEFT VENTRICULAR SYSTOLIC FUNCTION. 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 VEGA ALLERGIES ZANAFLEX: VOMITING - SIDE EFFECTS RED DYE: ANAPHYLAXIS - ALLERGY IBUPROFEN: VOMITING SURGICAL HISTORY BACK SURGERY X 2 HYSTERECTOMY APPENDECTOMY COLECTOMY ( COLOSTOMY BAG) TUMOR REMOVED RIGHT NECK 11/2017 DR. VEGA, RIGHT HEMICOLECTOMY 11/2018 FAMILY HISTORY FATHER: 81 YRS, [place], DIAGNOSED WITH UNSPECIFIED HEART DISEASE MOTHER: 68 YRS, LUNG CANCER, OTHER MALIGNANT NEOPLASM OF UNSPECIFIED SITE SIBLINGS: ALIVE, BROTHER OF LUNG/LIVER CANCER, UNSPECIFIED CEREBRAL ARTERY OCCLUSION WITH CEREBRAL INFARCTION, OTHER MALIGNANT NEOPLASM OF UNSPECIFIED SITE SON(S): ALIVE 43 YRS DAUGHTER(S): ALIVE 3 BROTHER(S) , 2 SISTER(S) . 1 SON(S) , 2 DAUGHTER(S) - HEALTHY. SISTER- OF A STROKE\\NDAUGHTERS: 1976; 1971. SOCIAL HISTORY GENERAL: TOBACCO USE ARE YOU A:CURRENT SMOKER ARE YOU INTERESTED IN QUITTING?THINKING ABOUT QUITTING PT HAS GUM COUNSELED THE PATIENT ON SMOKING CESSATION, EDUCATION [id number]/2020 HOW MANY CIGARETTES A DAY DO YOU SMOKE?6-10 HOW SOON AFTER YOU WAKE UP DO YOU SMOKE YOUR FIRST CIGARETTE?AFTER 60 MIN HOW OFTEN DO YOU SMOKE CIGARETTES?EVERY DAY PATIENT COUNSELED ON THE DANGERS OF TOBACCO USE AND URGED TO QUIT:03/01/2020 SMOKING CESSATION INFORMATION GIVEN03/01/2020 LATEX QUESTIONNAIRE LATEX ALLERGY : HAVE YOU EVER DEVELOPED ANY TYPE OF REACTION AFTER HANDLING LATEX PRODUCTS SUCH RUBBER GLOVES, CONDOMS, DIAPHRAGMS, BALLOONS, SOCKS, OR UNDERWEAR?NO LATEX ALLERGY : HAVE YOU EVER DEVELOPED ANY TYPE OF REACTION DURING OR AFTER DENTAL APPOINTMENT, VAGINAL/RECTAL EXAMINATION, SURGICAL PROCEDURE, OR ANY OTHER EXPOSURE?NO LATEX RISK : HAVE YOU EVER HAD ANY DIFFICULTY BREATHING OR HIVES AFTER EATING OR HANDLING ANY FRUITS, OR VEGETABLES; SUCH KIWI, BANANAS, STONE FRUITS, OR CHESTNUTSNO LATEX RISK : DO YOU HAVE A PREVIOUS PERSONAL HISTORY OF MORE THAN NINE SURGERIES, SPINA BIFIDA, OR REPEATED CATHERIZATIONS? NO LATEX RISK : ARE YOU FREQUENTLY EXPOSED TO LATEX PRODUCTS IN YOUR OCCUPATION?NO DATE ASKED : 03/01/2020 LUNG CANCER SCREENING SMOKING STATUS:FORMER SMOKER IS THE PATIENT BETWEEN THE AGE OF 56 AND 78?YES HAVE YOU QUIT SMOKING WITHIN THE PAST 15 YEARS?YES HAS THE PATIENT EVER BEEN DIAGNOSED WITH LUNG CANCER?NO CREATE REFERRAL:GENERATE AND CREATE REFERRAL TO THE ONCOLOGY NURSE NAVIGATOR (SMP) LISTING USING THE LDCT SCAN PROCEDURE 46 YEARS 08/27 TO 1 PPD BMI CARE GOAL FOLLOW-UP ABOVE NORMAL BMI FOLLOW-UPDIETARY MANAGEMENT EDUCATION, GUIDANCE, AND COUNSELING ALCOHOL SCREENING DID YOU HAVE A DRINK CONTAINING ALCOHOL IN THE PAST YEAR?NO POINTS0 INTERPRETATIONNEGATIVE RECREATIONAL DRUG USE DRUG USE?NO CAFFEINE CAFFEINE USE?YES 1 CUP COFFEE DAILY SEXUAL HX HAD SEX IN THE LAST 12 MONTHS (VAGINAL, ORAL, OR ANAL)?YES WITHMEN ONLY USE PROTECTION?NO LMP:POST MENOP. 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 EDUCATION 2 YEARS COLLEGE. LEARNING BARRIERS / SPECIAL NEEDS BARRIERS TO LEARNING?NO HEARING IMPAIRED?NO VISION IMPAIRED?YES READING GLASSES COGNITIVELY IMPAIRED?NO READINESS TO LEARN?YES LEARNING PREFERENCES?NO LEARNING CAPABILITIES PRESENT?YES EMOTIONAL BARRIERS?NO SPECIAL DEVICES?NO CURTAIN CLEANER NEEDED?NO DOMESTIC VIOLENCE DO YOU FEEL SAFE IN YOUR ENVIRONMENT?YES OCCUPATION: DISABLED. DIET: REGULAR. EXERCISE: WALKS. MARITAL STATUS: . OTHERS AT HOME: [place]. PAIN CLINIC PFS, CLERGY, PUBLIC HEALTH REFERRALS HAS THE PATIENT BEEN EDUCATED REGARDING HIS/HER PLAN OF CARE?YES HAS THE PATIENT BEEN EDUCATED REGARDING PAIN, THE RISK FOR PAIN, THE IMPORTANCE OF EFFECTIVE PAIN MANAGEMENT, AND THE PAIN ASSESSMENT PROCESS?YES HOUSING: RENTS HOUSE. ADVANCE DIRECTIVE ADVANCE DIRECTIVE DISCUSSED WITH PATIENT:YES LIFE PARTNER-JOVI MAYS [phone] HOSPITALIZATION/MAJOR DIAGNOSTIC PROCEDURE BACK SURGERY X 2; DISC AND SPINAL FUSION. [place] DR. GIOVANI NEVES , DR. VILLALTA ([place]) HYSTERECTOMY APPENDECTOMY COLOSTOMY BAG INSERTION 02/2018 [facility], THEN TRANSFERED TO [facility], C-DIFF, MULTIPLE INFECTIONS 01/2018 CDIFF 2018 REVIEW OF SYSTEMS CONSTITUTIONAL: ANY RECENT FEVER NO . CHILLS NO . WEIGHT CHANGE OF UNKNOWN REASONS NO . GASTROENTEROLOGY: NEW UNEXPLAINABLE CHANGES IN BOWEL CONTROL NO . CONSTIPATION NO . GENITOURINARY: ANY NEW CHANGE IN BLADDER CONTROL? NO . NEUROLOGY: NEW ONSET DIZZINESS OR NEUROLOGICAL CHANGES NOT MENTIONED NO . NEW NUMBNESS OR PAIN PATTERNS NOT MENTIONED AND PERTINENT TO TODAY'S VISIT NO . CARDIOLOGY: NEW CHEST PRESSURE NO . NEW CHEST PAIN NO . RESPIRATORY: UNEXPLAINABLE COUGH NO . NEW SHORTNESS OF BREATH NO . EXAMINATION GENERAL EXAMINATION: GENERALNO ACUTE DISTRESS, WELL NOURISHED AND HYDRATED. PSYCHAPPROPRIATE MOOD AND AFFECT . LUNGS:CLEAR TO AUSCULTATION BILATERALLY, NO WHEEZES, RHONCHI, RALES. HEART:NO MURMURS, REGULAR RATE AND RHYTHM. ASSESSMENTS SPONDYLOSIS OF LUMBOSACRAL REGION WITHOUT MYELOPATHY OR RADICULOPATHY - M47.817 (PRIMARY) TREATMENT SPONDYLOSIS OF LUMBOSACRAL REGION WITHOUT MYELOPATHY OR RADICULOPATHY CLINICAL NOTES: 69-YEAR-OLD FEMALE IN FOR CHRONIC PAIN FOLLOW-UP. GIVEN PRESENTING SYMPTOMS RECOMMEND CONTINUATION OF CURRENT MEDICATION REGIMEN WITH FOLLOW-UP IN 3 MONTHS. PATIENT HAS EXPRESSED UNDERSTANDING OF AND WAS IN AGREEMENT WITH TREATMENT PLAN. GIVEN TIME TO ASK QUESTIONS AND EXPRESS CONCERNS. , ISTOP REGISTRY REVIEWED AND DEMONSTRATES COMPLLIANCE. (REF # [id number] ) BRINGS IN MEDICATIONS WHICH IS APPROPRIATE FOR WHAT WAS DISPENSED. RECENT URINE TOXICOLOGY REVIEWED. NO UNAUTHORIZED MEDICATIONS. NO ILLICIT SUBSTANCES AND PRESCRIBED MEDICATIONS WERE PRESENT. VISIT TO BE BILLED BASED ON TIME SPENT WITH PATIENT. TIME SPENT WITH PATIENT 11 MINUTES. OTHERS NOTES: VITALS NOT OBTAINED DUE TO PHONE VISIT, PRE-SCREENING COMPLETED, 03/01/20, NA. DISPOSITION & COMMUNICATION FOLLOW UP 3 MONTHS (REASON: BACK PAIN ) ELECTRONICALLY SIGNED BY LEA SOLOMON ON 03/02/2020 AT 08:11 AM EDT DISCLAIMER : THIS IS A VISIT SUMMARY EXTRACTED FROM THE [employer] CHART. IT IS NOT A COPY OF THE [employer] PROGRESS NOTE. SAILAJA
== END ==
LOC: M PAIN 09:15
PROVIDERS: ATTEND Family Medicine
DX: M47.817 Spondylosis without myelopathy or radiculopathy, lumbosacral region (principal)

== ENCOUNTER → 2020-06-14 | Outpatient (CLI) | payer MEDICARE ==
--- NOTE | 2020-06-15 10:13 | ECWPNPC ---
PATIENT NAME: ANNIE VILLAVICENCIO : 1950 GENDER: FEMALE VISIT DATE: 06/14/2020 DISCHARGE DATE: 06/14/20 1107 VISIT LOCKED DATE TIME: PHYSICIAN: KAMRAN BELLO RESOURCE: KAMRAN BELLO REASON FOR APPOINTMENT 1. BACK PAIN HISTORY OF PRESENT ILLNESS GENERAL: 70-YEAR-OLD FEMALE IN FOR CHRONIC PAIN FOLLOW-UP. SHE RATES HER PAIN CURRENTLY AT A 4 OUT OF 10 AND DESCRIBES IT ACHING, SHARP, AND SHOOTING. PATIENT FEELS HER MEDICATIONS ARE HELPFUL AND DENIES MED SIDE EFFECTS AT THIS TIME. -. FALL RISK SCREENING: SCREENING :NO FALLS REPORTED IN THE LAST YEAR PAIN SCREENING: PATIENT HAS A COMPLAINT OF ACUTE OR CHRONIC PAIN :YES LOCATION OF PAIN:MID BACK, LOW BACK INTENSITY OF PAIN (SCALE OF 1 TO 10):4 WHAT DOES YOUR PAIN FEEL LIKE:ACHING, SHARP, SHOOTING DURATION:INTERMITTENT, AWAKENS FROM SLEEP PAIN IS INCREASED BY:ACTIVITIES, PROLONGED STANDING PAIN IS DECREASED BY:USE OF PAIN MEDICATIONS NURSING NOTE: -. PAIN CENTER INTAKE QUESTIONS: DO YOU HAVE A HISTORY OF MRSA? :NO DO YOU TAKE A BLOOD THINNERS? :NO DO YOU HAVE ANY BLEEDING DISORDERS? :NO ANY NEW NUMBNESS OR WEAKNESS IN YOUR LEGS OR ARMS? :NO ANY PACEMAKER,DEFIBRILLATOR, OR DORSAL COLUMN STIMULATOR? :NO DO YOU HAVE ANY RASHES OR OPEN SORES? :NO ARE YOU ALLERGIC TO IV DYE? :NO ARE YOU DIABETIC? :NO ANY NEW PROBLEMS WITH YOUR MEDICATIONS? :NO HAVE YOU RECEIVED A VACCINE IN THE PAST 30 DAYS? :YES PATIENT HAD A FLU SHOT 3 WEEKS AGO. DO YOU PLAN TO RECEIVE A VACCINE IN THE NEXT 21 DAYS? :NO DO YOU NEED ANY PRESCRIPTION? :NO DO YOU TAKE ANY IMMUNOSUPPRESSIVE MEDICATIONS? :NO IS THERE A CHANCE YOU COULD BE ? :NO ARE YOU BREAST FEEDING? :NO CURRENT MEDICATIONS TAKING HYDROCODONE-ACETAMINOPHEN 7.5-325 MG TABLET 1 TABLET NEEDED ORALLY EVERY 8 HRS MDD3 TAKING ASPIRIN 81 81 MG TABLET DELAYED RELEASE 1 TABLET ORALLY ONCE A DAY NOT-TAKING PLAVIX 75 MG TABLET 1 TABLET ORALLY ONCE A DAY NOT-TAKING METFORMIN HCL 1000 MG TABLET 1/2 TABLET WITH MEALS ORALLY BID NOT-TAKING COOL BLOOD GLUCOSE TEST STRIPS - STRIP DIRECTED IN VITRO BID NOT-TAKING LANCETS 30G - MISCELLANEOUS DIRECTED INTRADERMALLY TWICE DAILY MEDICATION LIST REVIEWED AND RECONCILED WITH THE PATIENT PAST MEDICAL HISTORY BACK PAIN HIGH BLOOD PRESSURE HIGH CHOLESTEROL SEASONAL ALLERGIES CHRONIC LOW BACK PAIN 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 JAFFE AND DELORES COLONOSCOPY: GARY JANUARY 2018 MAMMOGRAM: SEVERAL YEARS AGO CARDIAC STENTS X 3, [place] 2011 ECHO 2018: NORMAL GLOBAL LEFT VENTRICULAR SYSTOLIC FUNCTION. 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 VEGA ALLERGIES ZANAFLEX: VOMITING - SIDE EFFECTS RED DYE: ANAPHYLAXIS - ALLERGY IBUPROFEN: VOMITING SURGICAL HISTORY BACK SURGERY X 2 HYSTERECTOMY APPENDECTOMY COLECTOMY ( COLOSTOMY BAG) TUMOR REMOVED RIGHT NECK 11/2017 DR. VEGA, RIGHT HEMICOLECTOMY 11/2018 FAMILY HISTORY FATHER: 81 YRS, [place], DIAGNOSED WITH UNSPECIFIED HEART DISEASE MOTHER: 68 YRS, LUNG CANCER, OTHER MALIGNANT NEOPLASM OF UNSPECIFIED SITE SIBLINGS: ALIVE, BROTHER OF LUNG/LIVER CANCER, UNSPECIFIED CEREBRAL ARTERY OCCLUSION WITH CEREBRAL INFARCTION, OTHER MALIGNANT NEOPLASM OF UNSPECIFIED SITE SON(S): ALIVE 43 YRS DAUGHTER(S): ALIVE 3 BROTHER(S) , 2 SISTER(S) . 1 SON(S) , 2 DAUGHTER(S) - HEALTHY. SISTER- OF A STROKE\\[facility]OS[facility]ITAL[facility]: 1976; 1971. SOCIAL HISTORY GENERAL: TOBACCO USE ARE YOU A:FORMER SMOKER SMOKING CESSATION INFORMATION GIVEN03/01/2020 LATEX QUESTIONNAIRE LATEX ALLERGY : HAVE YOU EVER DEVELOPED ANY TYPE OF REACTION AFTER HANDLING LATEX PRODUCTS SUCH RUBBER GLOVES, CONDOMS, DIAPHRAGMS, BALLOONS, SOCKS, OR UNDERWEAR?NO LATEX ALLERGY : HAVE YOU EVER DEVELOPED ANY TYPE OF REACTION DURING OR AFTER DENTAL APPOINTMENT, VAGINAL/RECTAL EXAMINATION, SURGICAL PROCEDURE, OR ANY OTHER EXPOSURE?NO DATE ASKED : 03/01/2020 LATEX RISK : HAVE YOU EVER HAD ANY DIFFICULTY BREATHING OR HIVES AFTER EATING OR HANDLING ANY FRUITS, OR VEGETABLES; SUCH KIWI, BANANAS, STONE FRUITS, OR CHESTNUTSNO LATEX RISK : DO YOU HAVE A PREVIOUS PERSONAL HISTORY OF MORE THAN NINE SURGERIES, SPINA BIFIDA, OR REPEATED CATHERIZATIONS? NO LATEX RISK : ARE YOU FREQUENTLY EXPOSED TO LATEX PRODUCTS IN YOUR OCCUPATION?NO LUNG CANCER SCREENING SMOKING STATUS:FORMER SMOKER IS THE PATIENT BETWEEN THE AGE OF 56 AND 78?YES HAVE YOU QUIT SMOKING WITHIN THE PAST 15 YEARS?YES HAS THE PATIENT EVER BEEN DIAGNOSED WITH LUNG CANCER?NO CREATE REFERRAL:GENERATE AND CREATE REFERRAL TO THE ONCOLOGY NURSE NAVIGATOR (SMP) LISTING USING THE LDCT SCAN PROCEDURE 46 YEARS 2 TO 1 PPD BMI CARE GOAL FOLLOW-UP ABOVE NORMAL BMI FOLLOW-UPDIETARY MANAGEMENT EDUCATION, GUIDANCE, AND COUNSELING ALCOHOL SCREENING DID YOU HAVE A DRINK CONTAINING ALCOHOL IN THE PAST YEAR?NO POINTS0 INTERPRETATIONNEGATIVE RECREATIONAL DRUG USE DRUG USE?NO CAFFEINE CAFFEINE USE?YES 1 CUP COFFEE DAILY SEXUAL HX HAD SEX IN THE LAST 12 MONTHS (VAGINAL, ORAL, OR ANAL)?YES WITHMEN ONLY USE PROTECTION?NO LMP:POST MENOP. HAVE YOU EVER HAD AN STD?NO HIV / HEP-C SCREENING HEP-C TEST OFFERED TO PATIENT:YES DATE OFFERED:02/18/2017 TEST ACCEPTED:NO REASON:PATIENT DECLINED ALEVISM [id number] [employer]LIM LANGUAGE [place]. EDUCATION 2 YEARS COLLEGE. LEARNING BARRIERS / SPECIAL NEEDS BARRIERS TO LEARNING?NO HEARING IMPAIRED?NO VISION IMPAIRED?YES READING GLASSES COGNITIVELY IMPAIRED?NO READINESS TO LEARN?YES LEARNING PREFERENCES?NO LEARNING CAPABILITIES PRESENT?YES EMOTIONAL BARRIERS?NO SPECIAL DEVICES?NO MELT HELPER NEEDED?NO DOMESTIC VIOLENCE DO YOU FEEL SAFE IN YOUR ENVIRONMENT?YES OCCUPATION: DISABLED. DIET: REGULAR. EXERCISE: WALKS. MARITAL STATUS: . OTHERS AT HOME: [place]. PAIN CLINIC PFS, CLERGY, PUBLIC HEALTH REFERRALS HAS THE PATIENT BEEN EDUCATED REGARDING HIS/HER PLAN OF CARE?YES HAS THE PATIENT BEEN EDUCATED REGARDING PAIN, THE RISK FOR PAIN, THE IMPORTANCE OF EFFECTIVE PAIN MANAGEMENT, AND THE PAIN ASSESSMENT PROCESS?YES HOUSING: RENTS HOUSE. ADVANCE DIRECTIVE ADVANCE DIRECTIVE DISCUSSED WITH PATIENT:YES LIFE PARTNER-JOVI MAYS [phone] HOSPITALIZATION/MAJOR DIAGNOSTIC PROCEDURE BACK SURGERY X 2; DISC AND SPINAL FUSION. [place] DR. GIOVANI NEVES , DR. VILLALTA ([place]) HYSTERECTOMY APPENDECTOMY COLOSTOMY BAG INSERTION 02/2018 [facility], THEN TRANSFERED TO [facility], C-DIFF, MULTIPLE INFECTIONS 01/2018 CDIFF 2018 REVIEW OF SYSTEMS CONSTITUTIONAL: ANY RECENT FEVER NO . CHILLS NO . WEIGHT CHANGE OF UNKNOWN REASONS NO . GASTROENTEROLOGY: NEW UNEXPLAINABLE CHANGES IN BOWEL CONTROL NO . CONSTIPATION NO . GENITOURINARY: ANY NEW CHANGE IN BLADDER CONTROL? NO . NEUROLOGY: NEW ONSET DIZZINESS OR NEUROLOGICAL CHANGES NOT MENTIONED NO . NEW NUMBNESS OR PAIN PATTERNS NOT MENTIONED AND PERTINENT TO TODAY'S VISIT NO . CARDIOLOGY: NEW CHEST PRESSURE NO . NEW CHEST PAIN NO . RESPIRATORY: UNEXPLAINABLE COUGH NO . NEW SHORTNESS OF BREATH NO . VITAL SIGNS WT 94.8 LBS, HT 64 IN, BMI 16.27 INDEX, BP 170/90 MM HG, HR 93 /MIN, RR 18 /MIN, TEMP 97.8 F, OXYGEN SAT % 98%, SAFE IN ENV? (Y/N) YES, NA INITIALS AW 1039, REVIEWED BY: DM. EXAMINATION GENERAL EXAMINATION: GENERALNO ACUTE DISTRESS, WELL NOURISHED AND HYDRATED. PSYCHAPPROPRIATE MOOD AND AFFECT . LUNGS:CLEAR TO AUSCULTATION BILATERALLY, NO WHEEZES, RHONCHI, RALES. HEART:NO MURMURS, REGULAR RATE AND RHYTHM. ASSESSMENTS SPONDYLOSIS OF LUMBAR REGION WITHOUT MYELOPATHY OR RADICULOPATHY - M47.816 (PRIMARY) TREATMENT SPONDYLOSIS OF LUMBAR REGION WITHOUT MYELOPATHY OR RADICULOPATHY CLINICAL NOTES: 70-YEAR-OLD FEMALE IN FOR CHRONIC PAIN FOLLOW-UP. GIVEN PRESENTING SYMPTOMS RECOMMENDED CONTINUATION OF CURRENT MEDICATION REGIMEN WITH FOLLOW-UP IN 3 MONTHS. PATIENT HAS EXPRESSED UNDERSTANDING OF AND WAS IN AGREEMENT WITH TREATMENT PLAN. GIVEN TIME TO ASK QUESTIONS AND EXPRESS CONCERNS. , ISTOP REGISTRY REVIEWED AND DEMONSTRATES COMPLLIANCE. (REF # [id number] ) BRINGS IN MEDICATIONS WHICH IS APPROPRIATE FOR WHAT WAS DISPENSED. RECENT URINE TOXICOLOGY REVIEWED. NO UNAUTHORIZED MEDICATIONS. NO ILLICIT SUBSTANCES AND PRESCRIBED MEDICATIONS WERE PRESENT. PREVENTIVE MEDICINE PAIN CLINIC TEACHING: THE PATIENT HAS BEEN EDUCATED REGARDING PAIN, THE RISK FOR PAIN, THE IMPORTANCE OF EFFECTIVE PAIN MANAGEMENT, AND THE PAIN ASSESSMENT PROCESS. : DISCUSSED CARE PLAN WITH PATIENT, PATIENT VERBALIZES UNDERSTANDING. NARCOTIC AGREEMENT AND UTOX SCREENING DONE. PROCEDURE CODES [id number] ESTABILISHED PATIENT [facility] CHARGE DISPOSITION & COMMUNICATION FOLLOW UP 3 MONTHS (REASON: BACK PAIN) ELECTRONICALLY SIGNED BY LEA SOLOMON ON 06/15/2020 AT 08:39 AM EDT DISCLAIMER : THIS IS A VISIT SUMMARY EXTRACTED FROM THE [employer] CHART. IT IS NOT A COPY OF THE [employer] PROGRESS NOTE. MTDD
== END ==
LOC: M PAIN 10:15
PROVIDERS: ATTEND Family Medicine
DX: M47.816 Spondylosis without myelopathy or radiculopathy, lumbar region (principal); G89.29 Other chronic pain; I10 Essential (primary) hypertension; I25.2 Old myocardial infarction; Z95.5 Presence of coronary angioplasty implant and graft; Z87.891 Personal history of nicotine dependence; Z88.6 Allergy status to analgesic agent; Z88.8 Allergy status to other drugs, medicaments and biological substances; Z91.02 Food additives allergy status; Z79.82 Long term (current) use of aspirin; Z79.899 Other long term (current) drug therapy

== ENCOUNTER → 2020-08-04 | Outpatient (CLI) | payer MEDICARE ==
[~2020-08-04] MED LIST changes: +ASPI81TA27 PO
== END ==
LOC: M LABSMTC 09:31
PROVIDERS: ATTEND Anesthesiology
DX: Z01.812 Encounter for preprocedural laboratory examination (principal); Z20.828 Contact with and (suspected) exposure to other viral communicable diseases

== ENCOUNTER → 2020-10-03 | Outpatient (REF) | payer MEDICARE ==
[~2020-10-03] MED LIST changes: +ISOS1TAB36 PO; -ISOS60TA2 PO; -LISI-538 PO; +LISI20TA33 PO
[2020-10-03 15:57] LABS: EOS % 0.5 % (0.0-3.0); HEMATOCRIT 41.8 % (36.0-47.0); HEMOGLOBIN 13.5 g/dl (12.0-15.5); LYMPH # 1.3 10^3/uL (1.5-5.0); LYMPH % 31.1 % (24.0-44.0); MEAN CORPUSCULAR HEMOGLOBIN 33.7 pg (27.0-33.0); MEAN CORPUSCULAR HGB CONC 32.3 g/dl (32.0-36.5); MEAN CORPUSCULAR VOLUME 104.2 fl (80.0-96.0); MONO # 0.5 10^3/uL (0.0-0.8); MONO % 12.5 % (0.0-5.0); NEUTROPHILS # 2.3 10^3/uL (1.5-8.5); NEUTROPHILS % 54.7 % (36.0-66.0); PLATELET COUNT, AUTOMATED 173 10^3/uL (150-450); RED BLOOD COUNT 4.01 10^6/uL (4.00-5.40); WHITE BLOOD COUNT 4.2 10^3/uL (4.0-10.0)
[2020-10-03 16:33] LABS: ALBUMIN 3.6 GM/DL (3.2-5.2); ALT/SGPT 11 U/L (12-78); BILIRUBIN,TOTAL 0.3 MG/DL (0.2-1.0); BLOOD UREA NITROGEN 11 MG/DL (7-18); CALCIUM LEVEL 9.6 MG/DL (8.8-10.2); CARBON DIOXIDE LEVEL 28 MEQ/L (21-32); CHLORIDE LEVEL 106 MEQ/L (98-107); CHOLESTEROL LEVEL 162 MG/DL (<200); CHOLESTEROL RISK RATIO 3.446 (<5); CREATININE FOR GFR 0.73 MG/DL (0.55-1.30); FREE T4 0.89 NG/DL (0.76-1.46); GLOMERULAR FILTRATION RATE > 60.0 (>45); GLUCOSE, FASTING 98 MG/DL (70-100); HDL CHOLESTEROL 47 MG/DL (>40); LDL CHOLESTEROL 95 MG/DL (<100); NON-HDL-C 115 MG/DL; POTASSIUM SERUM 4.7 MEQ/L (3.5-5.1); SODIUM LEVEL 139 MEQ/L (136-145); THYROID STIMULATING HORMONE 0.449 uIU/ML (0.358-3.740); TOTAL PROTEIN 7.4 GM/DL (6.4-8.2); TRIGLYCERIDES LEVEL 98 MG/DL (<150)
[2020-10-03 16:36] LABS: CREATININE, URINE 34.1 MG/DL; MALB URINE SIEMENS 8.3 MG/L; MAU/CREAT RATIO 24.3 MCG/MG (0.0-30.0)
[2020-10-03 16:41] LABS: TOTAL 25(OH) VITAMIN D 13.7 NG/ML (30.0-100.0)
== END ==
LOC: M PLALAB 10:12
PROVIDERS: ATTEND Nurse Practitioner Family
DX: Z85.79 Personal history of other malignant neoplasms of lymphoid, hematopoietic and related tissues (principal); I25.10 Atherosclerotic heart disease of native coronary artery without angina pectoris; R63.6 Underweight; E11.9 Type 2 diabetes mellitus without complications; E55.9 Vitamin D deficiency, unspecified

== ENCOUNTER → 2020-10-31 | Outpatient (CLI) | payer MEDICARE ==
--- NOTE | 2020-11-02 03:18 | ECWPNPC ---
PATIENT NAME: ANNIE VILLAVICENCIO : 1950 GENDER: FEMALE VISIT DATE: 10/31/2020 DISCHARGE DATE: 10/31/20 1147 VISIT LOCKED DATE TIME: PHYSICIAN: KAMRAN BELLO PHYSICIAN PAGER NO: ACTIVE RESOURCE: KAMRAN BELLO REASON FOR APPOINTMENT 1. BACK PAIN HISTORY OF PRESENT ILLNESS GENERAL: - 70-YEAR-OLD FEMALE IN FOR CHRONIC PAIN FOLLOW-UP. SHE RATES HER PAIN CURRENTLY AT A 1 OUT OF 10 AND IS CURRENTLY ACHING, AND INTERMITTENT. PATIENT FEELS THE MEDICATIONS ARE HELPFUL AND DENIES BEEN SIDE EFFECTS AT THIS TIME. FALL RISK SCREENING: SCREENING : NO FALLS REPORTED IN THE LAST YEAR. PAIN SCREENING: PATIENT HAS A COMPLAINT OF ACUTE OR CHRONIC PAIN :YES LOCATION OF PAIN:LOW BACK INTENSITY OF PAIN (SCALE OF 1 TO 10):1 WHAT DOES YOUR PAIN FEEL LIKE:ACHING, INTERMITTENT DURATION:STEADY, INTERMITTENT, AWAKENS FROM SLEEP PAIN IS INCREASED BY:ACTIVITIES, PROLONGED STANDING PAIN IS DECREASED BY:USE OF PAIN MEDICATIONS, OTHERS HEATING PAD NURSING NOTE: -. PAIN CENTER INTAKE QUESTIONS: DO YOU HAVE A HISTORY OF MRSA? :NO DO YOU TAKE A BLOOD THINNERS? :NO DO YOU HAVE ANY BLEEDING DISORDERS? :NO ANY NEW NUMBNESS OR WEAKNESS IN YOUR LEGS OR ARMS? :NO ANY PACEMAKER,DEFIBRILLATOR, OR DORSAL COLUMN STIMULATOR? :NO DO YOU HAVE ANY RASHES OR OPEN SORES? :NO ARE YOU ALLERGIC TO IV DYE? :NO ARE YOU DIABETIC? :NO ANY NEW PROBLEMS WITH YOUR MEDICATIONS? :NO HAVE YOU RECEIVED A VACCINE IN THE PAST 30 DAYS? :YES IF SO WHAT VACCINE AND WHEN? PATIENT RECEIVED SECOND COVIDVACCINATION ON 10/24/20 DO YOU PLAN TO RECEIVE A VACCINE IN THE NEXT 21 DAYS? :NO DO YOU NEED ANY PRESCRIPTION? :NO DO YOU TAKE ANY IMMUNOSUPPRESSIVE MEDICATIONS? :NO DO YOU HAVE ANY KIDNEY OR LIVER DISEASE? :NO IS THERE A CHANCE YOU COULD BE ? :NO ARE YOU BREAST FEEDING? 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 JAFFE AND DELORES COLONOSCOPY: GARY JANUARY 2018 MAMMOGRAM: SEVERAL YEARS AGO CARDIAC STENTS X 3, [place] 2011 ECHO 2018: NORMAL GLOBAL LEFT VENTRICULAR SYSTOLIC FUNCTION. 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 VEGA ALLERGIES ZANAFLEX: VOMITING - SIDE EFFECTS RED DYE: ANAPHYLAXIS - ALLERGY IBUPROFEN: VOMITING SOCIAL HISTORY GENERAL: TOBACCO USE ARE YOU A:FORMER SMOKER SMOKING CESSATION INFORMATION GIVEN03/01/2020 LATEX QUESTIONNAIRE LATEX ALLERGY : HAVE YOU EVER DEVELOPED ANY TYPE OF REACTION AFTER HANDLING LATEX PRODUCTS SUCH RUBBER GLOVES, CONDOMS, DIAPHRAGMS, BALLOONS, SOCKS, OR UNDERWEAR?NO LATEX ALLERGY : HAVE YOU EVER DEVELOPED ANY TYPE OF REACTION DURING OR AFTER DENTAL APPOINTMENT, VAGINAL/RECTAL EXAMINATION, SURGICAL PROCEDURE, OR ANY OTHER EXPOSURE?NO LATEX RISK : HAVE YOU EVER HAD ANY DIFFICULTY BREATHING OR HIVES AFTER EATING OR HANDLING ANY FRUITS, OR VEGETABLES; SUCH KIWI, BANANAS, STONE FRUITS, OR CHESTNUTSNO LATEX RISK : DO YOU HAVE A PREVIOUS PERSONAL HISTORY OF MORE THAN NINE SURGERIES, SPINA BIFIDA, OR REPEATED CATHERIZATIONS? NO LATEX RISK : ARE YOU FREQUENTLY EXPOSED TO LATEX PRODUCTS IN YOUR OCCUPATION?NO DATE ASKED : 10/31/2020 ALCOHOL USE: YES. OCCASIONAL. ONCE A MONTH MAYBE. LUNG CANCER SCREENING SMOKING STATUS:FORMER SMOKER IS THE PATIENT BETWEEN THE AGE OF 56 AND 78?YES HAVE YOU QUIT SMOKING WITHIN THE PAST 15 YEARS?YES HAS THE PATIENT EVER BEEN DIAGNOSED WITH LUNG CANCER?NO CREATE REFERRAL:GENERATE AND CREATE REFERRAL TO THE ONCOLOGY NURSE NAVIGATOR (SMP) LISTING USING THE LDCT SCAN PROCEDURE 45 YEARS 1/2 TO 1 PPD BMI CARE GOAL FOLLOW-UP ABOVE NORMAL BMI FOLLOW-UPDIETARY MANAGEMENT EDUCATION, GUIDANCE, AND COUNSELING ALCOHOL SCREENING DID YOU HAVE A DRINK CONTAINING ALCOHOL IN THE PAST YEAR?NO POINTS0 INTERPRETATIONNEGATIVE RECREATIONAL DRUG USE DRUG USE?NO CAFFEINE CAFFEINE USE?YES 1 CUP COFFEE DAILY SEXUAL HX HAD SEX IN THE LAST 12 MONTHS (VAGINAL, ORAL, OR ANAL)?YES WITHMEN ONLY USE PROTECTION?NO LMP:POST MENOP. HAVE YOU EVER HAD AN STD?NO HIV / HEP-C SCREENING HEP-C TEST OFFERED TO PATIENT:YES DATE OFFERED:02/18/2017 TEST ACCEPTED:NO REASON:PATIENT DECLINED GNOSTICIST [id number] RESTORATIONIST LANGUAGE SAMOAN. EDUCATION 2 YEARS COLLEGE. LEARNING BARRIERS / SPECIAL NEEDS CHANGE FROM LAST VISIT?NO BARRIERS TO LEARNING?NO HEARING IMPAIRED?NO VISION IMPAIRED?YES READING GLASSES COGNITIVELY IMPAIRED?NO READINESS TO LEARN?YES LEARNING PREFERENCES?NO LEARNING CAPABILITIES PRESENT?YES EMOTIONAL BARRIERS?NO SPECIAL DEVICES?NO GO GO DANCER NEEDED?NO DOMESTIC VIOLENCE DO YOU FEEL SAFE IN YOUR ENVIRONMENT?YES OCCUPATION: DISABLED. DIET: REGULAR. EXERCISE: WALKS. MARITAL STATUS: . OTHERS AT HOME: [place]. - HAS THE PATIENT BEEN EDUCATED REGARDING HIS/HER PLAN OF CARE?YES HAS THE PATIENT BEEN EDUCATED REGARDING PAIN, THE RISK FOR PAIN, THE IMPORTANCE OF EFFECTIVE PAIN MANAGEMENT, AND THE PAIN ASSESSMENT PROCESS?YES HOUSING: RENTS HOUSE. ADVANCE DIRECTIVE ADVANCE DIRECTIVE DISCUSSED WITH PATIENT:YES LIFE PARTNER-JOVI MAYS [phone] REVIEW OF SYSTEMS CONSTITUTIONAL: ANY RECENT FEVER NO . CHILLS NO . WEIGHT CHANGE OF UNKNOWN REASONS NO . GASTROENTEROLOGY: NEW UNEXPLAINABLE CHANGES IN BOWEL CONTROL NO . CONSTIPATION NO . GENITOURINARY: ANY NEW CHANGE IN BLADDER CONTROL? NO . NEUROLOGY: NEW ONSET DIZZINESS OR NEUROLOGICAL CHANGES NOT MENTIONED NO . NEW NUMBNESS OR PAIN PATTERNS NOT MENTIONED AND PERTINENT TO TODAY'S VISIT NO . CARDIOLOGY: NEW CHEST PRESSURE NO . PATIENT DENIES NO . RESPIRATORY: UNEXPLAINABLE COUGH NO . NEW SHORTNESS OF BREATH NO . VITAL SIGNS WT 96.0 LBS, HT 64 IN, BMI 16.48 INDEX, BP 134/64 MM HG, HR 80 /MIN, RR 18 /MIN, TEMP 98.6 F, OXYGEN SAT % 98%, SAFE IN ENV? (Y/N) YES, NA INITIALS AW 1103, REVIEWED BY: MISTI SHEFFIELD MA. EXAMINATION GENERAL EXAMINATION: GENERALNO ACUTE DISTRESS, WELL NOURISHED AND HYDRATED. PSYCHAPPROPRIATE MOOD AND AFFECT . LUNGS:CLEAR TO AUSCULTATION BILATERALLY, NO WHEEZES, RHONCHI, RALES. HEART:NO MURMURS, REGULAR RATE AND RHYTHM. 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 GIVEN PRESENTING SYMPTOMS RECOMMEND CONTINUATION CURRENT MEDICATION REGIMEN WITH FOLLOW-UP IN 3 MONTHS. PATIENT HAS EXPRESSED UNDERSTANDING OF AND WAS IN AGREEMENT WITH TREATMENT PLAN. TIME TO ASK QUESTIONS AND EXPRESS CONCERNS. , ISTOP REGISTRY REVIEWED AND DEMONSTRATES COMPLLIANCE. (REF # [id number] ) BRINGS IN MEDICATIONS WHICH IS APPROPRIATE FOR WHAT WAS DISPENSED. RECENT URINE TOXICOLOGY REVIEWED. NO UNAUTHORIZED MEDICATIONS. NO ILLICIT SUBSTANCES AND PRESCRIBED MEDICATIONS WERE PRESENT. PROCEDURE CODES FA211 ESTABILISHED PATIENT [facility] FACILITY CHARGE DISPOSITION & COMMUNICATION FOLLOW UP 3 MONTHS (REASON: BACK PAIN) ELECTRONICALLY SIGNED BY LEA SOLOMON ON 11/01/2020 AT 12:50 PM EST DISCLAIMER : THIS IS A VISIT SUMMARY EXTRACTED FROM THE [employer] CHART. IT IS NOT A COPY OF THE [employer] PROGRESS NOTE. SAILAJA
== END ==
LOC: M PAIN 10:45
PROVIDERS: ATTEND Family Medicine
DX: M47.817 Spondylosis without myelopathy or radiculopathy, lumbosacral region (principal); G89.29 Other chronic pain; I25.2 Old myocardial infarction; Z87.891 Personal history of nicotine dependence; Z88.6 Allergy status to analgesic agent; Z88.8 Allergy status to other drugs, medicaments and biological substances; Z91.02 Food additives allergy status; Z79.82 Long term (current) use of aspirin; Z79.899 Other long term (current) drug therapy

== ENCOUNTER → 2020-11-23 | Outpatient (CLI) | payer MEDICARE | LOC: M LABSMTC 10:52 | PROVIDERS: ATTEND Internal Medicine Cardiovascular Disease | DX: Z20.822 Contact with and (suspected) exposure to COVID-19 (principal); I25.10 Atherosclerotic heart disease of native coronary artery without angina pectoris ==

== ENCOUNTER → 2021-01-31 | Outpatient (CLI) | payer MEDICARE ==
--- NOTE | 2021-02-02 06:21 | ECWPNPC ---
PATIENT NAME: ANNIE VILLAVICENCIO : 1950 GENDER: FEMALE VISIT DATE: 01/31/2021 DISCHARGE DATE: 01/31/21905 VISIT LOCKED DATE TIME: PHYSICIAN: KAMRAN BELLO PHYSICIAN PAGER NO: ACTIVE RESOURCE: KAMRAN BELLO REASON FOR APPOINTMENT 1. BACK PAIN HISTORY OF PRESENT ILLNESS PAIN CENTER INTAKE QUESTIONS: DO YOU HAVE A HISTORY OF MRSA? :NO DO YOU TAKE A BLOOD THINNERS? :NO DO YOU HAVE ANY BLEEDING DISORDERS? :NO ANY NEW NUMBNESS OR WEAKNESS IN YOUR LEGS OR ARMS? :NO ANY PACEMAKER,DEFIBRILLATOR, OR DORSAL COLUMN STIMULATOR? :NO DO YOU HAVE ANY RASHES OR OPEN SORES? :NO ARE YOU ALLERGIC TO IV DYE? :NO ARE YOU DIABETIC? :NO ANY NEW PROBLEMS WITH YOUR MEDICATIONS? :NO HAVE YOU RECEIVED A VACCINE IN THE PAST 30 DAYS? :NO DO YOU PLAN TO RECEIVE A VACCINE IN THE NEXT 21 DAYS? :NO DO YOU NEED ANY PRESCRIPTION? :NO DO YOU TAKE ANY IMMUNOSUPPRESSIVE MEDICATIONS? :NO DO YOU HAVE ANY KIDNEY OR LIVER DISEASE? :NO IS THERE A CHANCE YOU COULD BE ? :NO ARE YOU BREAST FEEDING? :NO GENERAL: HPI 70-YEAR-OLD FEMALE IN FOR CHRONIC PAIN FOLLOW-UP. PATIENT FEELS HER MEDICATIONS ARE HELPFUL AND DENIES MED SIDE EFFECTS AT THIS TIME. SHE RATES HER PAIN CURRENTLY AT A 3 OUT OF 10.. -. FALL RISK SCREENING: SCREENING : NO FALLS REPORTED IN THE LAST YEAR. PAIN SCREENING: PATIENT HAS A COMPLAINT OF ACUTE OR CHRONIC PAIN :YES LOCATION OF PAIN:MID BACK, LOW BACK INTENSITY OF PAIN (SCALE OF 1 TO 10):3 WHAT DOES YOUR PAIN FEEL LIKE:INTERMITTENT, STABBING NURSING NOTE: -. CURRENT MEDICATIONS TAKING ASPIRIN 81 81 MG TABLET DELAYED RELEASE 1 TABLET ORALLY ONCE A DAY TAKING ERGOCALCIFEROL 1.25 MG (56263 UT) CAPSULE 1 CAPSULE ORALLY ONCE A WEEK WITH A MEAL TAKING ATORVASTATIN CALCIUM 20 MG TABLET TAKE 1 TABLET BY MOUTH NIGHTLY ORAL TAKING METOPROLOL TARTRATE 25 MG TABLET TAKE 1 2 (ONE HALF) TABLET BY MOUTH TWICE DAILY ORAL TAKING HYDROCODONE-ACETAMINOPHEN 7.5-325 MG TABLET 1 TABLET NEEDED ORALLY EVERY 8 HRS MDD3 TAKING TYLENOL 325 MG TABLET 1 TABLET NEEDED ORALLY EVERY 4 HRS, NOTES: "WHEN NOT THAT BAD" NOT-TAKING BUSPIRONE HCL 7.5 MG TABLET 1 TABLET ORALLY TWICE A DAY MEDICATION LIST REVIEWED AND RECONCILED WITH THE PATIENT PAST MEDICAL HISTORY BACK PAIN HIGH BLOOD PRESSURE HIGH CHOLESTEROL SEASONAL ALLERGIES CHRONIC LOW BACK PAIN HISTORY OF [place] (MYOCARDIAL INFARCTION) LUMBOSACRAL RADICULOPATHY RIGHT KNEE GOUT 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 JAFFE AND DELORES COLONOSCOPY: [place] JANUARY 2018 MAMMOGRAM: SEVERAL YEARS AGO CARDIAC STENTS X 3, [place] 2011 ECHO 2018: NORMAL GLOBAL LEFT VENTRICULAR SYSTOLIC FUNCTION. 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 VEGA ALLERGIES ZANAFLEX: VOMITING - SIDE EFFECTS RED DYE: ANAPHYLAXIS - ALLERGY IBUPROFEN: VOMITING - SIDE EFFECTS ZOLOFT: NAUSEA/VOMITING - SIDE EFFECTS SURGICAL HISTORY BACK SURGERY X 2 HYSTERECTOMY APPENDECTOMY COLECTOMY ( COLOSTOMY BAG) TUMOR REMOVED RIGHT NECK 11/2017 DR. VEGA, RIGHT HEMICOLECTOMY 11/2018 HOSPITALIZATION/MAJOR DIAGNOSTIC PROCEDURE BACK SURGERY X 2; DISC AND SPINAL FUSION. [place] DR. GIOVANI NEVES , DR. VILLALTA ([place]) HYSTERECTOMY APPENDECTOMY COLOSTOMY BAG INSERTION 02/2018 [facility], THEN TRANSFERED TO [facility], C-DIFF, MULTIPLE INFECTIONS 01/2018 CDIFF 2018 REVIEW OF SYSTEMS CONSTITUTIONAL: ANY RECENT FEVER NO . CHILLS NO . WEIGHT CHANGE OF UNKNOWN REASONS NO . GASTROENTEROLOGY: NEW UNEXPLAINABLE CHANGES IN BOWEL CONTROL NO . CONSTIPATION NO . GENITOURINARY: ANY NEW CHANGE IN BLADDER CONTROL? NO . NEUROLOGY: NEW ONSET DIZZINESS OR NEUROLOGICAL CHANGES NOT MENTIONED NO . NEW NUMBNESS OR PAIN PATTERNS NOT MENTIONED AND PERTINENT TO TODAY'S VISIT NO . CARDIOLOGY: NEW CHEST PRESSURE NO . PATIENT DENIES NO . RESPIRATORY: UNEXPLAINABLE COUGH NO . NEW SHORTNESS OF BREATH NO . VITAL SIGNS WT 92.6 LBS, HT 64 IN, BMI 15.89 INDEX, BP 150/81 MM HG, HR 83 /MIN, RR 18 /MIN, TEMP 97.2 F, OXYGEN SAT % 100%, SAFE IN ENV? (Y/N) YES, NA INITIALS SC 08:56, REVIEWED BY: BARBARA. EXAMINATION GENERAL EXAMINATION: GENERALNO ACUTE DISTRESS, WELL NOURISHED AND HYDRATED. PSYCHAPPROPRIATE MOOD AND AFFECT . LUNGS:CLEAR TO AUSCULTATION BILATERALLY, NO WHEEZES, RHONCHI, RALES. HEART:NO MURMURS, REGULAR RATE AND RHYTHM. ASSESSMENTS SPONDYLOSIS OF LUMBOSACRAL REGION WITHOUT MYELOPATHY OR RADICULOPATHY - M47.817 (PRIMARY) TREATMENT SPONDYLOSIS OF LUMBOSACRAL REGION WITHOUT MYELOPATHY OR RADICULOPATHY NOTES: 70-YEAR-OLD FEMALE IN FOR CHRONIC PAIN FOLLOW-UP. GIVEN PRESENTING SYMPTOMS RECOMMENDED CONTINUATION OF CURRENT MEDICATION REGIMEN WITH FOLLOW-UP IN 3 MONTHS. PATIENT HAS EXPRESSED UNDERSTANDING OF AND WAS IN AGREEMENT WITH TREATMENT PLAN. GIVEN TIME TO ASK QUESTIONS AND EXPRESS CONCERNS. ISTOP REGISTRY REVIEWED AND DEMONSTRATES COMPLLIANCE. (REF # [id number] ) BRINGS IN MEDICATIONS WHICH IS APPROPRIATE FOR WHAT WAS DISPENSED. RECENT URINE TOXICOLOGY REVIEWED. NO UNAUTHORIZED MEDICATIONS. NO ILLICIT SUBSTANCES AND PRESCRIBED MEDICATIONS WERE PRESENT. PROCEDURE CODES FA211 ESTABILISHED PATIENT [facility] CHARGE DISPOSITION & COMMUNICATION FOLLOW UP 3 MONTHS (REASON: BACK PAIN ) ELECTRONICALLY SIGNED BY LEA SOLOMON ON 02/01/2021 AT 08:14 AM EDT DISCLAIMER : THIS IS A VISIT SUMMARY EXTRACTED FROM THE [employer] CHART. IT IS NOT A COPY OF THE [employer] PROGRESS NOTE. SAILAJA
== END ==
LOC: M PAIN 09:15
PROVIDERS: ATTEND Family Medicine
DX: M47.817 Spondylosis without myelopathy or radiculopathy, lumbosacral region (principal); G89.29 Other chronic pain; I25.2 Old myocardial infarction; Z88.6 Allergy status to analgesic agent; Z88.8 Allergy status to other drugs, medicaments and biological substances; Z91.02 Food additives allergy status; Z79.82 Long term (current) use of aspirin; Z79.899 Other long term (current) drug therapy

== ENCOUNTER → 2021-03-02 | Outpatient (CLI) | payer MEDICARE ==
[~2021-03-02] MED LIST changes: +ACET1TAB55 PO; +ACET325C5 PO; +ATOR1TAB19 PO; +ENTR1TAB PO; +HYDR-4514 PO; -KLOR20TA42 PO; +LASI20TA3 PO; +METO1TAB33 PO; +ONDA-84 PO; -ONDA8TAB10 PO; +OXYC-517 PO; +POTA-141 PO
== END ==
LOC: M LABSMTC 10:35
PROVIDERS: ATTEND Anesthesiology
DX: Z01.812 Encounter for preprocedural laboratory examination (principal)

== ENCOUNTER 2021-03-07 06:16 | Inpatient (IN) | payer MEDICARE ==
--- NOTE | 2021-03-06 22:41 | HPE ---
HISTORY AND PHYSICAL DATE OF ADMISSION: 03/07/2021 ADMITTING DIAGNOSIS: End descending colostomy for elective colostomy takedown and coloproctostomy. HISTORY OF PRESENT ILLNESS: The patient is a 70-year-old woman who had undergone a laparotomy and low anterior resection with end colostomy and Deshawn's procedure for a rectosigmoid perforation with a perirectal abscess back in January of 2018. 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 After her colorectal resection for control of her pelvic sepsis, she was able to return to treatment of her lymphoma. Once she had completed her treatment, she returned for evaluation for a possible colostomy closure. She underwent a colonoscopy in October of 2018. This was in preparation for colostomy closure. However at the colonoscopy, she was found to have a lesion in the right colon which on biopsy proved to be moderately to poorly differentiated adenocarcinoma with mucinous features. This was actually described as being in the cecum. In November of 2018 she underwent a laparoscopic right hemicolectomy with ileocolonic anastomosis and repair of a parastomal hernia. She did well following this. We had discussed that because of her short rectal stump as well as the overall shortening of her colon, that she might have problems with loose stools or even trouble controlling her bowels. She elected not to undergo any further treatment at that time. She then returned in June of 2020 inquiring about the possibility of doing an anastomosis. She had a follow up colonoscopy on August 092019. This revealed a rectal stump approximately 7 cm in length. Her remaining colon revealed a healthy ileocolonic anastomosis in the proximal transverse colon. The patient and I discussed possible closure of her colostomy and she had decided that she would like to proceed with closure despite the possibility of poor bowel function. We were planning to operate earlier this year but her surgery was delayed by the need for a preoperative cardiac evaluation. Her care was subsequently delayed further by my injury. I saw her back on February 15 and we discussed the risks and benefits of surgery. She is now eager to proceed with closure of the colostomy to reestablish bowel continuity. She understands that there is a risk that she would have incontinence or even frequent loose bowel movements. She is willing to accept this risk to try to return to having more normal bowel function. She is optimistic about the surgery. She is now being admitted to undergo a robotic assisted laparoscopic takedown of her colostomy with a coloproctostomy. ALLERGIES: Reportedly to: 1. Red dye. 2. Lisinopril which causes a cough. 3. Ibuprofen which apparently has caused nausea in the past. CURRENT MEDICATIONS: As listed in her cardiac record include: 1. Tylenol 650 mg orally as needed for discomfort. 2. Aspirin 81 mg p.o. daily. 3. Atorvastatin 20 mg p.o. daily. 4. Hydrocodone Acetaminophen 7.5/325 mg tablets, take one by mouth three times daily as needed for pain. 5. Metoprolol Succinate -Toprol XL 100 mg p.o. daily. 6. Sacubitril/Valsartan (Entresto) 24/26 mg tablets, one tablet by mouth twice daily. SOCIAL HISTORY: The patient is a former smoker who quit in 2019. She denies any significant alcohol intake. MEDICAL HISTORY: The patient's past medical history is significant for: 1. Atherosclerotic coronary artery disease, status post stenting in 2011. 2. Chronic obstructive pulmonary disease. 3. Degenerative joint disease. 4. Hypertension. 5. History of lymphoma. 6. Mixed hyperlipidemia. 7. Myocardial infarction 2011. 8. History of right colon cancer resected in 2018. SURGICAL HISTORY: The patient's past surgical history is significant for: 1. Cardiac catheterization was stenting in 2011. 2. She has undergone back surgery with fusion x2. 3. She had a hysterectomy. 4. She has had a right hemicolectomy for cancer in 2019. 5. She had her low anterior resection for a colorectal perforation with a pelvic abscess back in 2018. FAMILY HISTORY: Father is from a heart attack. Mother succumbed to lung cancer. She has a brother who is from lung cancer and a sister from a stroke. REVIEW OF SYSTEMS: The patient's review of systems reveals no recent chest pain or palpitations. She has no history of seizure or stroke. She denies any shortness of breath at rest. Her weight has been relatively stable at about 95 pounds. She denies any history of gastrointestinal bleeding, peptic ulcer disease, hepatitis or pancreatitis. She is not having any new orthopedic issues. She denies any history of DVT or pulmonary embolus. PHYSICAL EXAMINATION: GENERAL APPEARANCE: The patient is a very pleasant, thin woman in no obvious distress. She is alert, oriented and cooperative. HEENT: Sclerae are anicteric and the mucous membranes are moist. HEART: Regular rate and rhythm. LUNGS: Clear breath sounds bilaterally though the breath sounds may be slightly distant. ABDOMEN: A healthy appearing colostomy in the left upper quadrant. The abdomen is quite thin and flat. She has an old low midline scar as well as several old trocar sites noted. SKIN: Warm and dry with no evidence of rashes. There is no peripheral edema. IMPRESSION: The patient is a 70-year-old woman who now desires closure of her colostomy. She had undergone a low anterior resection with an end colostomy back in 2018 for a pelvic abscess from a colorectal perforation. She subsequently had a right hemicolectomy for a right sided colon cancer. She has been doing well with her colostomy but now would like to have the colostomy closed. She has a very short rectal stump and I anticipate she will have extensive scarring in the pelvis. She was counseled that she may have problems maintaining continence and that she will likely have multiple loose stools, particularly soon after the surgery. She is optimistic that she will be able to manage her bowel activity well. I did day camp counselor her that if she has problems at first, these may well improve somewhat as she heals from her surgery. She understands that there are significant risks associated with the surgery as well, but still wishes to proceed and she is therefore being admitted for takedown of her colostomy. MEDICAL DIAGNOSES: Include therefore: 1. End descending colostomy for takedown with coloproctostomy. 2. Atherosclerotic coronary artery disease, status post myocardial infarction with coronary artery stenting in 2011. 3. Chronic obstructive pulmonary disease secondary to tobacco use. 4. Adenocarcinoma of the colon, status post resection in 2018. 5. Lymphoma, status post treatment in 2018. 6. History of diabetes mellitus, not currently on any treatment. 7. Degenerative joint disease. 8. Hypertension. 9. Mixed hyperlipidemia. 10. Heart failure with reduced ejection fraction with left ventricular ejection fraction 25% by SPECT scanning October 2020. PLAN: 1. The patient will perform a mechanical bowel preparation before surgery using Suprep as well as a Fleet's enema for the rectum. 2. She will use preoperative Neomycin and Flagyl antibiotics. 3. She was counseled regarding the risks of the procedure and these include but are not limited to: bleeding, infection, scarring, adverse drug reaction, need for further surgery, injury of internal organ, anastomotic leak, hernia, and severe problems with diarrhea or incontinence that may lead her to wish re-creation of a colostomy. 4. The patient will be admitted on the morning of the 07 of March and we will proceed with a robotic assisted procedure. SAILAJA
[~2021-03-07] VITALS: Ht 160 cm; Wt 42.6 kg
[~2021-03-07 06:16] MED LIST changes: -ACET1TAB55 PO; -ACET325C5 PO; +ALVIMOPAN 12 MG CAPSULE (ENTEREG) PO ONE; -ENTR1TAB PO; -HYDR-4514 PO; +KLOR20TA42 PO; -LASI20TA3 PO; +LR 1,000 ML IV ONE; -ONDA-84 PO; +ONDA8TAB10 PO; -OXYC-517 PO; -POTA-141 PO; +cefoTEtan DISODIUM 2 GM in D5W MINI-BAG PLUS 50 ML IV ONE
[2021-03-07] MEDS ORDERED: ENTR1TAB PO (06:37)
[2021-03-07] MEDS ORDERED: ACET325C5 PO (06:37)
[2021-03-07] MEDS ORDERED: BUPIVACAINE HCL 0.25% 30ML VIAL As Ordered ONE (07:12)
[2021-03-07] MEDS ORDERED: ROCURONIUM BROMIDE 50 MG/5 ML VIAL As Ordered ONE ×2 (07:14→08:52)
[2021-03-07] MEDS ORDERED: propofoL 200 MG/20 ML VIAL As Ordered ONE (07:14)
[2021-03-07] MEDS ORDERED: LIDOCAINE 2% 100MG/5ML SDV (FOR ANES.) As Ordered ONE (07:14)
[2021-03-07] MEDS ORDERED: fentaNYL 250 MCG/5 ML INJECTION (J3010) As Ordered ONE (07:16)
[2021-03-07] MEDS ORDERED: MIDAZOLAM INJ 2MG/2ML VIAL (J2250 PER 1MG) As Ordered ONE (07:16)
[2021-03-07] MEDS ORDERED: LACRILUBE (AKWA TEARS) OPHTH OINT 3.5 GM As Ordered ONE (08:16)
[2021-03-07] MEDS ORDERED: PHENYLephrine 500MCG 5ML (100MCG/ML) SYRINGE As Ordered ONE (08:48)
[2021-03-07] MEDS ORDERED: SUGAMMADEX SODIUM 500 MG/5 ML VIAL (BRIDION) As Ordered ONE (10:30)
[2021-03-07] MEDS ORDERED: ACETAMINOPHEN 1000MG 100ML IV BTL (OFIRMEV) (J0131 PER 10MG) As Ordered ONE (10:30)
[2021-03-07] MEDS ORDERED: HYDROmorphone HCL 2 MG/ML 1ML VIAL (J1170) As Ordered ONE (11:53)
[2021-03-07] MEDS ORDERED: MEPERIDINE INJ 25 MG/ML VIAL (J2175) IV PRN (13:35)
[2021-03-07] MEDS ORDERED: LR 1,000 ML IV SCH (13:35)
[2021-03-07] MEDS ORDERED: ONDANSETRON 4MG/2ML VIAL IV PRN ×2 (13:35)
[2021-03-07] MEDS: LR 1,000 ML IV SCH (13:35)
[2021-03-07] MEDS: HYDROMORPHONE HCL 0.5 MG/ 0.5 ML SYRINGE (J1170 PER 1) IV PRN ×4 (13:46→14:55)
[2021-03-07] MEDS: oxyCODONE 5MG TAB PO PRN ×2 (14:18→20:15)
[2021-03-07 15:24] VITALS: BP 130/62
[2021-03-07 16:00] VITALS: BP 128/62
[2021-03-07] MEDS: KETOROLAC 30 MG/ML 1ML VIAL IV PRN ×2 (16:40→23:47)
[2021-03-07] MEDS: MORPHINE 2 MG/ML 1ML VIAL (J2270) IV PRN (16:59)
[2021-03-07 17:30] VITALS: BP 121/58
[2021-03-07] MEDS: DOCUSATE SODIUM 100MG CAPSULE PO SCH (20:14)
[2021-03-07] MEDS: ENTRESTO 24-26MG TABLET (SACUBITRIL/VALSARTAN) PO SCH (20:15)
[2021-03-07] MEDS: ALVIMOPAN 12 MG CAPSULE (ENTEREG) PO SCH (20:15)
[2021-03-07] MEDS ORDERED: METOPROLOL SUCC (TopROL XL) 100MG *XL* TAB PO SCH (21:00)
[2021-03-07 22:00] VITALS: BP 138/63
[2021-03-08] MEDS ORDERED: UNRESOLVED CLARIFICATION ENTRY XX SCH ×2 (00:01)
[2021-03-08 02:00] VITALS: BP 131/60
[2021-03-08] MEDS: oxyCODONE 5MG TAB PO PRN ×3 (03:07→15:48)
[2021-03-08] MEDS: LR 1,000 ML IV SCH (05:13)
[2021-03-08] MEDS: ACETAMINOPHEN TAB 650MG DOSE (2X325MG) PO PRN (05:20)
[2021-03-08 06:00] VITALS: BP 122/60
[2021-03-08 06:38] LABS: BASO % 0.1 % (0.0-1.0); HEMATOCRIT 32.5 % (36.0-47.0); HEMOGLOBIN 10.8 g/dl (12.0-15.5); LYMPH # 0.9 10^3/uL (1.5-5.0); LYMPH % 7.8 % (24.0-44.0); MEAN CORPUSCULAR HEMOGLOBIN 32.9 pg (27.0-33.0); MEAN CORPUSCULAR HGB CONC 33.2 g/dl (32.0-36.5); MEAN CORPUSCULAR VOLUME 99.1 fl (80.0-96.0); MONO # 0.7 10^3/uL (0.0-0.8); MONO % 6.3 % (2.0-8.0); NEUTROPHILS % 85.5 % (36.0-66.0); PLATELET COUNT, AUTOMATED 125 10^3/uL (150-450); RED BLOOD COUNT 3.28 10^6/uL (4.00-5.40); WHITE BLOOD COUNT 11.7 10^3/uL (4.0-10.0)
[2021-03-08 07:00] LABS: BLOOD UREA NITROGEN 9 MG/DL (7-18); CALCIUM LEVEL 8.2 MG/DL (8.8-10.2); CARBON DIOXIDE LEVEL 24 MEQ/L (21-32); CHLORIDE LEVEL 111 MEQ/L (98-107); CREATININE FOR GFR 0.68 MG/DL (0.55-1.30); GLOMERULAR FILTRATION RATE > 60.0 (>45); GLUCOSE, FASTING 102 MG/DL (70-100); POTASSIUM SERUM 4.2 MEQ/L (3.5-5.1); SODIUM LEVEL 143 MEQ/L (136-145)
[2021-03-08] MEDS: MORPHINE 2 MG/ML 1ML VIAL (J2270) IV PRN ×2 (07:56→18:26)
[2021-03-08] MEDS: ENOXAPARIN 40MG/0.4ML SYRINGE (J1650 PER 10MG) SC SCH (07:57)
[2021-03-08] MEDS: ENTRESTO 24-26MG TABLET (SACUBITRIL/VALSARTAN) PO SCH ×2 (07:57→20:09)
[2021-03-08] MEDS: DOCUSATE SODIUM 100MG CAPSULE PO SCH ×2 (07:57→20:09)
[2021-03-08] MEDS: ALVIMOPAN 12 MG CAPSULE (ENTEREG) PO SCH ×2 (07:57→20:09)
[2021-03-08] MEDS: METOPROLOL SUCC (TopROL XL) 100MG *XL* TAB PO SCH (09:00)
--- NOTE | 2021-03-08 11:00 | IPNPDOC ---
Text Note Date of Service The patient was seen on 03/08/21. NOTE General surgery. Dr. Anaya The patient is a 70-year-old female status post colostomy reversal as per Dr. Anaya 03/07/2021 The patient is reporting incisional pain this morning. Denies nausea or vomiting. Denies flatus or bowel movement. Tolerating clear liquids. Afebrile VSS 97% 2 L nasal cannula MMM Lungs clear to auscultation S1-S2 regular rate rhythm Abdomen with surgical sites clean/dry/intact, patient reports tenderness around incision sites. Extremities no edema. WBC 11.7, hemoglobin 10.8, platelets 125 Assessment/plan Status post colostomy reversal as per Dr. Anaya 03/07/2021. Patient is reviewed and examined as per Dr. Anaya this morning. Plan to advance to regular diet Discontinue Dave Encourage out of bed and ambulation We will adjust oxycodone for additional pain control Entereg Continue to monitor Adenocarcinoma of the colon status post resection 2019 CAD/cardiac stents/CHF, EF 25%. IV fluids discontinued Entresto. Toprol XL. History of lymphoma, status post treatment 2018 DVT prophylaxis. Lovenox. VS,Fishbone, I+O VS, Fishbone, I+O Laboratory Tests 03/08/21 06:19 Vital Signs Date Time Temp Pulse Resp B/P (MAP) Pulse Ox O2 Delivery O2 Flow Rate FiO2 03/08/21 08:10 18 2 Room Air 03/08/21 07:56 2.0 03/08/21 06:00 97.1 73 122/60 (80) I&O- Last 24 Hours up to 6 AM 03/08/21 06:00 Intake Total 4735 ml Output Total 560 ml Balance 4175 ml Attending Note Attending Note Agree with note by TR. Pt doing well POD #1. Mindy Monae Mar 08, 2021 11:00 Devon Anaya Mar 14, 2021 21:55
[2021-03-08] MEDS: KETOROLAC 30 MG/ML 1ML VIAL IV PRN ×2 (11:24→20:10)
[2021-03-08 14:00] VITALS: BP 119/64
[2021-03-08 16:00] VITALS: BP 120/62
[2021-03-08] MEDS ORDERED: IPRATROPIUM 0.5MG/ALBUTEROL 2.5MG INH SOL UD 3ML (DUONEB) NEB PRN (18:00)
[2021-03-08 19:04] LABS: ABG BASE EXCESS -2.2 (-2.0-2.0); ABG HCO3 22.1 MEQ/L (22.0-26.0); ABG PARTIAL PRESSURE CO2 36.1 mmHg (35.0-45.0); ABG PARTIAL PRESSURE O2 62.9 mmHg (75.0-100.0); ABG STANDARD HCO3 22.5 MEQ/L (22.0-26.0); ABG TOTAL CO2 23.2 MEQ/L (23.0-31.0); ABG pH (ARTERIAL) 7.404 UNITS (7.350-7.450)
[2021-03-08] MEDS ORDERED: FUROSEMIDE 40MG/4ML VIAL (J1940) IV ONE (19:10)
--- NOTE | 2021-03-08 19:47 | REP ---
INDICATION: SOB. COMPARISON: Frontal view of the chest obtained 11/18/2018 the latest prior TECHNIQUE: Portable FINDINGS: The technique utilized in obtaining the radiograph has magnified the cardiac silhouette and accentuated the interstitial markings. There is mild cardiomegaly accentuated by technique. There is a diffuse increase in the interstitial markings throughout the lung sethi with evidence of pulmonary vascular redistribution seen on this portable exam and Marley's B lines. There is an asymmetric patchy opacity in the right lower lobe. The pleural angles are sharp. There is significant left-sided subcutaneous emphysema. There is no perceivable pneumothorax. There is no significant change in the osseous structures. IMPRESSION: 1. There is evidence of diffuse interstitial edema. 2. There is a patchy opacity in the right lower lobe. Asymmetric pulmonary edema versus concomitant pneumonia. 3. There is left-sided subcutaneous emphysema the etiology of which is uncertain at this time. There is no perceivable pneumothorax. 4. CT examination the chest should be considered. <Electronically signed by Paramjit Pickering > 03/08/211942
[2021-03-08 19:56] LABS: HEMATOCRIT 35.8 % (36.0-47.0); HEMOGLOBIN 11.8 g/dl (12.0-15.5); MEAN CORPUSCULAR HEMOGLOBIN 33.4 pg (27.0-33.0); MEAN CORPUSCULAR VOLUME 101.4 fl (80.0-96.0); PLATELET COUNT, AUTOMATED 143 10^3/uL (150-450); RED BLOOD COUNT 3.53 10^6/uL (4.00-5.40); WHITE BLOOD COUNT 14.1 10^3/uL (4.0-10.0)
[2021-03-08 20:03] LABS: BLOOD UREA NITROGEN 14 MG/DL (7-18); CALCIUM LEVEL 8.3 MG/DL (8.8-10.2); CARBON DIOXIDE LEVEL 24 MEQ/L (21-32); CHLORIDE LEVEL 112 MEQ/L (98-107); CK-MB VALUE MASS 1.9 NG/ML (<3.6); CPK CREATINE PHOSPHOKINASE 219 U/L (26-192); CREATININE FOR GFR 0.81 MG/DL (0.55-1.30); GLOMERULAR FILTRATION RATE > 60.0 (>45); GLUCOSE, FASTING 124 MG/DL (70-100); MB/CK RELATIVE INDEX 0.87 (< OR =4); SODIUM LEVEL 145 MEQ/L (136-145)
[2021-03-08 21:00] VITALS: BP 128/77
[2021-03-08 21:26] LABS: TROPONIN I 0.03 NG/ML (< 0.10)
[2021-03-09] MEDS: oxyCODONE 5MG TAB PO PRN ×3 (00:10→18:03)
[2021-03-09] MEDS: MORPHINE 2 MG/ML 1ML VIAL (J2270) IV PRN ×4 (01:12→19:16)
[2021-03-09] MEDS: KETOROLAC 30 MG/ML 1ML VIAL IV PRN ×4 (03:18→23:52)
[2021-03-09] MEDS ORDERED: KETOROLAC 30 MG/ML 1ML VIAL IV ONE (03:50)
[2021-03-09 06:00] VITALS: BP 138/73
[2021-03-09] MEDS: ACETAMINOPHEN TAB 650MG DOSE (2X325MG) PO PRN ×2 (06:45→15:55)
--- NOTE | 2021-03-09 09:26 | IPNPDOC ---
Text Note Date of Service The patient was seen on 03/09/21. NOTE General surgery. Dr. Anaya The patient is a 70-year-old female status post colostomy reversal as per Dr. Anaya 03/07/2021 The patient is reporting persistent incisional pain this morning, worse when she moves around. Denies nausea or vomiting, eating breakfast this AM. Reports some flatus but no bowel movement yet. Afebrile VSS 91% 1 L nasal cannula MMM Lungs clear to auscultation S1-S2 regular rate rhythm Abdomen with surgical sites clean/dry/intact, patient reports tenderness around incision sites. Extremities no edema. WBC 14.1 last evening. Assessment/plan Status post colostomy reversal as per Dr. Anaya 03/07/2021. Patient is reviewed by Dr Anaya No bowel movement yet but reports some flatus. Reports persistent incisional pain, received Toradol 15 mg IV x1 dose overnight. Tolerating regular diet Encourage out of bed and ambulation Entereg Continue to monitor SOB. Patient reported shortness of breath yesterday evening. The patient reports her breathing is currently comfortable. IV Lasix 40 mg x 1 dose at 8 PM. Nebulizer every 4 as needed. troponin negative. Sats 90 to 91% on 1 L nasal cannula. Adenocarcinoma of the colon status post resection 2019 CAD/cardiac stents/CHF, EF 25%. IV fluids discontinued Entresto. Toprol XL. History of lymphoma, status post treatment 2018 DVT prophylaxis. Lovenox. VS,Fishbone, I+O VS, Fishbone, I+O Laboratory Tests 03/08/21 19:05 03/08/21 19:06 Vital Signs Date Time Temp Pulse Resp B/P (MAP) Pulse Ox O2 Delivery O2 Flow Rate FiO2 03/09/21 06:45 18 90 Nasal Cannula 1.0 03/09/21 06:00 97.8 87 138/73 (94) 03/08/21 21:00 92 I&O- Last 24 Hours up to 6 AM 03/09/21 06:00 Intake Total 1420 ml Output Total 1150 ml Balance 270 ml Attending Note Attending Note Patient had episode of SOB with tachycardia last pm. Had cough with increased need for oxygen. Troponin and CK MB not sig elevated. Responded well to one dose of lasix. I suspect this was transient fluid overload. Agree with note by Mindy Dawson Mar 09, 2021 09:25 Devon Anaya Mar 14, 2021 21:59
[2021-03-09 10:00] VITALS: BP 135/72
[2021-03-09] MEDS: DOCUSATE SODIUM 100MG CAPSULE PO SCH ×2 (10:26→20:26)
[2021-03-09] MEDS: METOPROLOL SUCC (TopROL XL) 100MG *XL* TAB PO SCH (10:26)
[2021-03-09] MEDS: ENTRESTO 24-26MG TABLET (SACUBITRIL/VALSARTAN) PO SCH ×2 (10:26→20:26)
[2021-03-09] MEDS: ALVIMOPAN 12 MG CAPSULE (ENTEREG) PO SCH ×2 (10:26→20:26)
[2021-03-09] MEDS: ENOXAPARIN 40MG/0.4ML SYRINGE (J1650 PER 10MG) SC SCH (10:27)
[2021-03-09 14:00] VITALS: BP 131/69
[2021-03-09 22:00] VITALS: BP 147/88
[2021-03-10 02:00] VITALS: BP 131/80
[2021-03-10] MEDS: oxyCODONE 5MG TAB PO PRN ×2 (04:38→11:35)
[2021-03-10 05:15] VITALS: BP 143/86
[2021-03-10 08:29] LABS: BASO % 0.3 % (0.0-1.0); HEMATOCRIT 36.7 % (36.0-47.0); HEMOGLOBIN 12.3 g/dl (12.0-15.5); LYMPH # 1.1 10^3/uL (1.5-5.0); MEAN CORPUSCULAR HEMOGLOBIN 33.2 pg (27.0-33.0); MEAN CORPUSCULAR HGB CONC 33.5 g/dl (32.0-36.5); MEAN CORPUSCULAR VOLUME 99.2 fl (80.0-96.0); MONO # 0.7 10^3/uL (0.0-0.8); MONO % 7.2 % (2.0-8.0); NEUTROPHILS # 7.4 10^3/uL (1.5-8.5); NEUTROPHILS % 80.2 % (36.0-66.0); PLATELET COUNT, AUTOMATED 159 10^3/uL (150-450); WHITE BLOOD COUNT 9.2 10^3/uL (4.0-10.0)
[2021-03-10 08:49] LABS: BLOOD UREA NITROGEN 14 MG/DL (7-18); CALCIUM LEVEL 8.7 MG/DL (8.8-10.2); CARBON DIOXIDE LEVEL 28 MEQ/L (21-32); CHLORIDE LEVEL 111 MEQ/L (98-107); CREATININE FOR GFR 0.67 MG/DL (0.55-1.30); GLOMERULAR FILTRATION RATE > 60.0 (>45); GLUCOSE, FASTING 96 MG/DL (70-100); POTASSIUM SERUM 3.9 MEQ/L (3.5-5.1); SODIUM LEVEL 145 MEQ/L (136-145)
--- NOTE | 2021-03-10 09:03 | REP ---
INDICATION: follow pulm edema COMPARISON: 03/08/2021 TECHNIQUE: PA and lateral. FINDINGS: Mediastinum and cardiac silhouette stable. Perihilar and lower lobe opacities (right greater than left) are again noted and there appears to be a new small right pleural effusion. No obvious pneumothorax. Small amount of subcutaneous emphysema along the left lateral chest wall is decreased from prior examination. IMPRESSION: 1. Bilateral infiltrates similar to prior examination with new small right pleural effusion. 2. Slight decreased in the left-sided subcutaneous emphysema. <Electronically signed by Shaan Vora > 03/10/21 08
[2021-03-10 10:00] VITALS: BP 134/76
[2021-03-10] MEDS: ENOXAPARIN 40MG/0.4ML SYRINGE (J1650 PER 10MG) SC SCH (10:08)
[2021-03-10] MEDS: KETOROLAC 30 MG/ML 1ML VIAL IV PRN (10:09)
[2021-03-10] MEDS: ENTRESTO 24-26MG TABLET (SACUBITRIL/VALSARTAN) PO SCH (10:09)
[2021-03-10] MEDS: DOCUSATE SODIUM 100MG CAPSULE PO SCH (10:09)
[2021-03-10] MEDS: ALVIMOPAN 12 MG CAPSULE (ENTEREG) PO SCH (10:09)
[2021-03-10 10:10] VITALS: BP 143/87
[2021-03-10] MEDS: METOPROLOL SUCC (TopROL XL) 100MG *XL* TAB PO SCH (10:10)
[2021-03-10] MEDS: MORPHINE 2 MG/ML 1ML VIAL (J2270) IV PRN (13:11)
[2021-03-10] MEDS ORDERED: OXYC-517 PO (13:15)
--- NOTE | 2021-03-10 19:12 | RO ---
OPERATIVE NOTE DATE OF OPERATION: 03/10/2021 PREOPERATIVE DIAGNOSIS: Colostomy for takedown and coloproctostomy. POSTOPERATIVE DIAGNOSIS: Colostomy for takedown and coloproctostomy, extensive intra-abdominal adhesions, and parastomal hernia. PROCEDURE PERFORMED: Robotic-assisted laparoscopic lysis of extensive adhesions, takedown of descending colostomy with coloproctostomy, and repair of ventral (parastomal) hernia. SURGEON: Dveon Anaya MD INTER COM INSTALLER: Marcos Glynn MD whose assistance was essential for preparation of the colon for anastomosis and the actual deployment of the stapling device to create the anastomosis as well as endoscopic evaluation of the anastomosis. SECOND DAM OPERATOR: LEA Beard and Carole's assistance was essential for management of the robotic platform with adjustment of the arms, passage of insruments and assistance in retraction and closure of the incisions at the conclusion of the procedure. ANESTHESIA: General INDICATIONS FOR THE PROCEDURE: The patient is a 70-year-old woman who had undergone a low anterior colorectal resection back in 2018 for a rectal perforation with pelvic abscess. She was undergoing treatment for lymphoma at the time which delayed her reconnection for about a year. At that time, we began the evaluation for her anastomosis but a colonoscopy identified a mass in the right colon which proved to be cancer and she underwent a right hemicolectomy in early 2019. She has now requested to proceed with takedown of her colostomy. She has a short rectal stump but adquate length of colon for an anastomosis and is now for a robotic assisted laparoscopic takedown of her colostomy and closure with a coloproctostomy. OPERATIVE PROCEDURE: The patient was brought to the operating room and placed on the table in a supine position. She was placed under general endotracheal anesthesia. She was moved into a low lithotomy position on the operating table. TEDs and sequentials were utilized. A Dave catheter was inserted. Digital rectal examination was performed and several small chunks of congealed mucus were removed along with several old sutures which appeared to be free in the lumen of the rectum. The ostomy appliance was removed and her stoma was closed with a purse-string suture of 2-0 silk. The patient's abdomen and perineum were then prepped and draped in sterile fashion. 1/4% Marcaine was infiltrated at each of the trocar sites as needed. The initial attempt at placement of a Veress needle was high in the right upper quadrant where I had attempted to avoid adhesions. A short incision was made and the Veress needle was inserted. Flows were limited and ultimately I removed this Veress needle and attempted a placement in the left upper quadrant just medial to the colostomy. Again, there was some resistance to insufflation in this area possibly related to adhesions around the stoma so the Veress needle was removed. I then infiltrated local in a supraumbilical position and made a midline incision with placement of the Veress needle with excellent insufflation and an 8 mm robotic port was placed over the scope and advanced through the abdominal wall without difficulty. Initial examination showed a small puncture wound in the anterior aspect of the right lobe of the liver underlying the Veress site in the right upper quadrant. There was no active bleeding, just a small amount of clot evident. There were some significant adhesions of omentum around the stoma site in the left upper quadrant. Two additional 8 mm ports were placed spaced to the right in the right mid and right lateral abdomen. A final 8 mm port was placed in the left upper quadrant slightly above and lateral to the stoma. The patient cart of the da Coretta XI robot was brought into position. The patient was tilted into a 15 degree Trendelenburg position prior to docking. The endoscope arm was docked to the right mid-abdominal port site. Targeting took place in the mid-lower abdomen. An endoscopic cauterizing scissor was inserted in the right lateral port and a fenestrated bipolar and grasping retractor were placed in the supraumbilical and left upper quadrant sites. I then moved to the control console to proceed. Inspection in the lower abdomen showed some adhesions of omentum to the anterior abdominal wall particularly in the right lower quadrant. I began by lysing these adhesions to the anterior abdominal wall and thus began a roughly two hour process of lysing extensive adhesions of the small bowel to the anterior abdominal wall, to the pelvic sidewalls and to each other, working down into the pelvis. This was a combination of sharp and cautery dissection. No small bowel injuries occurred. The left ureter was clearly exposed along the left retroperitoneum and pelvic sidewall and this was preserved. The rectal stump was identified with some Prolene sutures identifying the end of the stump and this was dissected free from surrounding fibrofatty tissues. It was possible to identify the location of the balloon within the bladder. After the rectal stump had been identified, I continued with dissection of the adhesions of the small bowel in the left lower quadrant to allow these to be mobilized medially so that the colon would be able to lie against the retroperitoneum and shorten the distance between the left upper quadrant and the rectal stump. I then proceeded to take down adhesions of the omentum in the area around the stoma site. Some adhesions also of the mesentery of the colon to the omentum in the left upper quadrant were lysed again to gain added mobility. Care was taken to avoid injury to the vascular structures of the colon mesentery. After the internal dissection had progressed as far as necessary, I returned to the patient's bedside. Dr. Glynn joined me in the operating room to assist. The patient was returned to a flat position. The robot was undocked and withdrawn. A transverse elliptical incision was made about the stoma site and the end of the colon was mobilized by dividing the adhesions of the colon and mesocolon to the subcutaneous tissues and fascia and muscle of the abdominal wall. There appeared to be excellent free length of colon. The very end of the colon was excised using the cautery. A purse-string suture of 2-0 Prolene was placed in the end of the bowel and the anvil of a 25 mm EEA stapler was inserted and the purse-string tied down. The end of the bowel was reduced into the abdomen. With some additional dissection, the mucles and fascia at the stoma site were freed of some adhesions to the subcutaneous tissues and scar tissue. The stoma site appeared appropriate for a longitudinal closure. The fascia and muscle were then closed with a running suture of 2-0 PDS. This appeared to give a good closure of the abdominal wall. The patient was then tilted back to a Trendelenburg position. Dr. Glynn moved to the perineum. Carole Arceo assisted me with management of the camera. The end of the colon with the anvil of the stapler in place was identified and then pulled down into the pelvis which it reached without tension. Care was taken to avoid twisting the colon. Working with Dr. Glynn, we selected the site for advancement of the post of the stapler through the anterosuperior end of the rectal stump. The anvil was attached and the stapler was then closed and fired. Two excellent tissue donuts were recovered from the stapler. I then filled the pelvis with some saline and gently clamped the descending colon above the anastomosis and Dr. Glynn proceeded with a flexible sigmoidoscopic exam which identified the anastomosis. There was no bleeding. The anastomosis appeared to lie perhaps 7-8 cm above the anal verge. There was no evidence of air leak. Dr. Glynn was then released from further assisting at the procedure. The patient was again returned to a flat position. The abdomen was deflated and trocars were removed. The subcutaneous tissues at the ostomy site were approximated with several buried sutures of 3-0 Chromic. The incision was then closed transversely with interrupted simple sutures of 3-0 nylon. The trocar sites were all closed with buried sutures of 4-0 Vicryl and Steri-Strips and Carole Arceo closed approximately half of these incisions. Light dressings were applied. The patient tolerated the procedure well. I elected to continue the Dave catheter for another day. She was awakened in the operating room, extubated and moved to the recovery room in stable condition. SAILAJA
--- NOTE | 2021-03-10 20:35 | IPN ---
PROGRESS NOTE DATE: 03/10/2021 HISTORY: The patient is now postop day number three from a robotic assisted laparoscopic takedown of colostomy with coloproctostomy. She reports that she is feeling somewhat better today. She is eating well and denies any nausea or vomiting. She reports one small bowel movement earlier today and has been voiding well. She has been walking in the hallway. Occasionally she complains of some mild shortness of breath with activity. OBJECTIVE: VITAL SIGNS: She has been afebrile over the past 24 hours. Her pulse is in the 80's and low 90's. Blood pressure is good and her room air oxygen saturation is normal. INTAKE AND OUTPUT: Yesterday she had 1,000 mL recorded in with 500 mL of urine recorded in four voids. PHYSICAL EXAMINATION: GENERAL APPEARANCE: The patient is sitting up in the bed looking quite comfortable. She is alert and oriented. HEART: Regular rhythm. LUNGS: Generally clear breath sounds bilaterally. ABDOMEN: Flat. Her dressings are removed today and her incisions all look clean without evidence of infection. She has bowel sounds present in all four quadrants. LABORATORY STUDIES: Today she had a CBC with a differential showing a white count of 9 with a differential showing 80% neutrophils and 12% lymphocytes with 7% monocytes. Hemoglobin and hematocrit are 12 and 37 and her platelet count is 159,000. Chemistry profile showed normal electrolytes with the exception of a minimal elevation of the chloride to 111 and her BUN and creatinine are normal with a glucose of 96. IMAGING: She had a follow up chest x-ray today to follow up on her fluid overload from the . The x-ray shows a minimal pleural effusion on the right. The lung sethi have cleared quite a bit. Her subcutaneous emphysema and free air in the abdomen have also diminished significantly. IMPRESSION: The patient is doing very well now postop day number three from her surgery. She has had at least one small bowel movement. She is tolerating a regular diet. She is breathing well and her lung sethi appear somewhat clearer on her chest x-ray. PLAN: 1. The patient will be discharged home today. 2. She should continue her usual medications. 3. She can take a diet as tolerated. 4. She was advised against any strenuous physical activity. 5. She has some sutures in her colostomy site which will need to come out in another 10 days or so and we will schedule her an appointment for the 20 of March to have these removed. 6. She is to contact the office for any signs of increasing abdominal pain or infection. 7. I will provide her a prescription for Oxycodone to take on an as-needed basis for pain and will provide her with 20 pills, to take one every 6 hours as needed. SAILAJA
--- NOTE | 2021-03-10 21:03 | IPN ---
PROGRESS NOTE DATE: 03/09/2021 HISTORY: The patient is now postop day number two from her robotic assisted laparoscopic takedown of her colostomy with coloproctostomy. She had an episode yesterday evening of increased shortness of breath with some tachycardia and some coughing up of some sputum with evidence on a chest x-ray of some fluid overload. She received a single dose of Lasix and reports that she is feeling much better today. Her requirement for extra oxygen has resolved. Her vital signs have returned to baseline. OBJECTIVE: VITAL SIGNS: Today show that she has been afebrile over past 24 hours. Her pulse which was as high as 117 last evening has now been in the 80-90 range generally. Her blood pressure is good and her oxygen saturation on room air now is in the low 90's. INTAKE AND OUTPUT: From yesterday show 2,400 in with 800 recorded out. She does report that she voided quite a bit overnight, all of which may not have been measured. PHYSICAL EXAMINATION: GENERAL APPEARANCE: She appears comfortable at rest. HEART: Regular rate and rhythm. LUNGS: Her breathing is non labored. She has a few faint wheezes or rhonchi bilaterally. She is moving air well. ABDOMEN: Flat with active bowel sounds. Her dressings are clean and dry. IMPRESSION: The patient is improved from last evening when she appeared to be somewhat fluid overloaded with some increased need for oxygen and some shortness of breath. PLAN: 1. The patient is encouraged to be up and about today. 2. She is off any supplementary fluid and can take a diet as tolerated. 3. I have encouraged her to be up, ambulating as able. 4. We will anticipate discharge tomorrow. 5. I will recheck her chest x-ray tomorrow with labs at that time. SAILAJA
--- NOTE | 2021-03-10 22:26 | ECGEPIP ---
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
--- NOTE | 2021-03-14 23:50 | DSES ---
DISCHARGE SUMMARY DATE OF ADMISSION: 03/07/2021 DATE OF DISCHARGE: 03/10/2021 ADMITTING DIAGNOSIS: End descending colostomy for elective colostomy takedown and coloproctostomy. HISTORY OF PRESENT ILLNESS: The patient is a 70-year-old woman who had undergone a low anterior resection with end colostomy and Deshawn's procedure for a rectosigmoid perforation with perirectal abscess in January of 2018. At that time she was undergoing treatment for lymphoma and anastomosis was not planned until after she had completed her treatment. She underwent a colonoscopy in October of 2018 in anticipation of reconnection but was found to have an adenocarcinoma of the cecum. Therefore in November of 2018 she underwent a laparoscopic right hemicolectomy. She did well from the surgery but elected not to proceed with anastomosis after an appropriate period of time. She subsequently returned to be evaluated for possible closure. She was found to have a roughly 7 cm rectal stump and after much discussion, she has decided that she would like to proceed with takedown of her colostomy with anastomosis and she is now admitted for this surgery. HOSPITAL COURSE: The patient had performed a mechanical and antibiotic bowel preparation on the 06 of March. She was admitted on the and was taken directly to the Operating Room where she underwent a robotic assisted laparoscopic lysis of extensive adhesions, takedown of her descending colostomy with a coloproctostomy and repair of a ventral parastomal hernia. She tolerated the surgery well. She was started on clear liquids postop. A Dave catheter was left in place until the following day. On the she was advanced to a regular diet. Late on the she had a brief episode of tachycardia and shortness of breath with requirement for additional oxygen. This was felt to represent an episode of fluid overload, and she responded very well to one dose of Lasix. Her postoperative course was otherwise uncomplicated and she was discharged home on the February. FINAL DIAGNOSES: End descending colostomy for elective takedown and coloproctostomy. ADDITIONAL DIAGNOSES: 1. Ventral (parastomal) hernia. 2. Atherosclerotic coronary artery disease, status post stenting in 2011. 3. Congestive heart failure with reduced ejection fraction. 4. Chronic obstructive pulmonary disease. 5. Degenerative joint disease. 6. Hypertension. 7. History of lymphoma. 8. Mixed hyperlipidemia. 9. History of myocardial infarction in 2011. 10. History of right colon cancer, resected in 2019. PROCEDURE PERFORMED: Robotic assisted laparoscopic takedown of extensive adhesions with takedown of colostomy and coloproctostomy with repair of ventral (parastomal) hernia. DISPOSITION: The patient was discharged home on the 10 of March. She was advised to avoid any strenuous physical activity. She could take a diet as tolerated. She was to schedule a follow up with Mindy Monae on the 20 of March to have her sutures removed from her ostomy site. She could shower as desired but was to leave her Steri-Strips to come off on their own. She was to take Tylenol for mild pain, her current prescription of Hydrocodone/Acetaminophen for moderate pain, and was provided a prescription for some Oxycodone for severe pain. She was to call the office for any significant postoperative problems or concerns.
[2021-03-16] MEDS ORDERED: LASI20TA3 PO (01:09)
== END 2021-03-10 15:57 | disposition home or self-care (01) | DRG 330 ==
LOC: M OR 06:16 → M MSPAV 15:29
PROVIDERS: ADMIT Surgery; ATTEND Surgery
PROC: 0DQG4ZZ Repair Left Large Intestine, Percutaneous Endoscopic Approach (ICD-10-PCS; principal; 2021-03-10)
PROC: 0DN84ZZ Release Small Intestine, Percutaneous Endoscopic Approach (ICD-10-PCS; 2021-03-10)
PROC: 8E0W4CZ Robotic Assisted Procedure of Trunk Region, Percutaneous Endoscopic Approach (ICD-10-PCS; 2021-03-10)
DX: Z43.3 Encounter for attention to colostomy (principal); I50.22 Chronic systolic (congestive) heart failure; J44.9 Chronic obstructive pulmonary disease, unspecified; I11.0 Hypertensive heart disease with heart failure; E11.9 Type 2 diabetes mellitus without complications; I25.10 Atherosclerotic heart disease of native coronary artery without angina pectoris; E87.70 Fluid overload, unspecified; I25.2 Old myocardial infarction; E78.5 Hyperlipidemia, unspecified; Z95.2 Presence of prosthetic heart valve; Z85.038 Personal history of other malignant neoplasm of large intestine

== ENCOUNTER 2021-03-15 16:18 | Emergency (ER) | payer MEDICARE ==
[~2021-03-15] VITALS: Ht 160 cm; Wt 43.1 kg
[~2021-03-15 16:18] MED LIST changes: +ACET325C5 PO; -ALVIMOPAN 12 MG CAPSULE (ENTEREG) PO ONE; +ENTR1TAB PO; -LR 1,000 ML IV ONE; +OXYC-517 PO; -cefoTEtan DISODIUM 2 GM in D5W MINI-BAG PLUS 50 ML IV ONE
[2021-03-15 17:24] LABS: BASO % 0.7 % (0.0-1.0); EOS % 0.6 % (0.0-3.0); HEMATOCRIT 36.2 % (36.0-47.0); HEMOGLOBIN 11.8 g/dl (12.0-15.5); LYMPH # 0.7 10^3/uL (1.5-5.0); LYMPH % 12.6 % (24.0-44.0); MEAN CORPUSCULAR HEMOGLOBIN 32.9 pg (27.0-33.0); MEAN CORPUSCULAR HGB CONC 32.6 g/dl (32.0-36.5); MEAN CORPUSCULAR VOLUME 100.8 fl (80.0-96.0); MONO # 0.7 10^3/uL (0.0-0.8); NEUTROPHILS # 3.9 10^3/uL (1.5-8.5); NEUTROPHILS % 72.7 % (36.0-66.0); PLATELET COUNT, AUTOMATED 188 10^3/uL (150-450); RED BLOOD COUNT 3.59 10^6/uL (4.00-5.40); WHITE BLOOD COUNT 5.4 10^3/uL (4.0-10.0)
--- NOTE | 2021-03-15 17:32 | REP ---
INDICATION: DYSPNEA/COUGH. COMPARISON: Comparison chest x-ray March 10, 2021. TECHNIQUE: Portable upright AP chest radiograph. FINDINGS: There is progressive consolidation in the right lower lobe consistent with pneumonia. Interstitial markings are prominent diffusely. Mild cardiomegaly is observed and pulmonary vasculature is cephalized. Right hemidiaphragm is slightly elevated. There is sub pulmonic pleural thickening above the gastric air bubble on the left suggesting bilateral pleural effusions.. IMPRESSION: Increased density in the right lower lobe infiltrate. Findings suggest small bilateral pleural effusions. Cardiomegaly with vascular cephalization.. <Electronically signed by Bertin Paz > 03/15/21 [id number]
[2021-03-15 17:59] LABS: ALBUMIN 3.3 GM/DL (3.2-5.2); ALT/SGPT 15 U/L (12-78); BILIRUBIN,DIRECT 0.2 MG/DL (0.0-0.2); BILIRUBIN,TOTAL 0.6 MG/DL (0.2-1.0); BLOOD UREA NITROGEN 11 MG/DL (7-18); CALCIUM LEVEL 9.1 MG/DL (8.8-10.2); CARBON DIOXIDE LEVEL 25 MEQ/L (21-32); CHLORIDE LEVEL 111 MEQ/L (98-107); CK-MB VALUE MASS < 1.0 NG/ML (<3.6); CPK CREATINE PHOSPHOKINASE 41 U/L (26-192); CREATININE FOR GFR 0.95 MG/DL (0.55-1.30); GLOMERULAR FILTRATION RATE > 60.0 (>45); GLUCOSE, FASTING 103 MG/DL (70-100); MB/CK RELATIVE INDEX 2.44 (< OR =4); POTASSIUM SERUM 4.2 MEQ/L (3.5-5.1); SODIUM LEVEL 144 MEQ/L (136-145); TOTAL PROTEIN 6.8 GM/DL (6.4-8.2); TROPONIN I < 0.02 NG/ML (< 0.10)
--- NOTE | 2021-03-15 18:00 | ECGEPIP ---
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
[2021-03-15] MEDS ORDERED: MORPHINE 2 MG/ML 1ML VIAL (J2270) IV ONE (19:20)
[2021-03-15] MEDS ORDERED: FUROSEMIDE 40MG/4ML VIAL (J1940) IV ONE (19:20)
[2021-03-15 20:21] LABS: NT-PRO BNP 18551 PG/ML (<125)
[2021-03-15 21:00] VITALS: BP 148/87
[2021-03-16] MEDS ORDERED: LASI20TA3 PO (01:09)
--- NOTE | 2021-03-19 15:37 | ED PDOC ---
Post-Departure Follow-Up radiology report faxed to Rachel Andrews MD Mar 19, 2021 15:37
== END 2021-03-15 21:30 | disposition left against medical advice (07) ==
LOC: M ED 16:18
DX: I11.0 Hypertensive heart disease with heart failure (principal); I50.9 Heart failure, unspecified; E78.5 Hyperlipidemia, unspecified; Z88.8 Allergy status to other drugs, medicaments and biological substances; Z53.20 Procedure and treatment not carried out because of patient's decision for unspecified reasons
CPT/HCPCS: 71045; 80048; 80076; 82550; 82553; 83880; 84484; 85025; 93005; 93041; 94760; 96374; 96375; 99285; J1940; J2270

== ENCOUNTER 2021-05-07 03:10 | Inpatient (IN) | payer MEDICARE ==
[~2021-05-07] VITALS: Ht 162.6 cm; Wt 42.9 kg
[~2021-05-07 03:10] MED LIST changes: -KLOR20TA42 PO; +LASI20TA3 PO; +POTA-141 PO
[2021-05-07 03:54] LABS: BASO % 0.7 % (0.0-1.0); EOS % 0.2 % (0.0-3.0); HEMATOCRIT 34.4 % (36.0-47.0); HEMOGLOBIN 11.3 g/dl (12.0-15.5); LYMPH # 0.5 10^3/uL (1.5-5.0); LYMPH % 11.4 % (24.0-44.0); MEAN CORPUSCULAR HEMOGLOBIN 34.1 pg (27.0-33.0); MEAN CORPUSCULAR HGB CONC 32.8 g/dl (32.0-36.5); MEAN CORPUSCULAR VOLUME 103.9 fl (80.0-96.0); MONO # 0.4 10^3/uL (0.0-0.8); MONO % 7.8 % (2.0-8.0); NEUTROPHILS # 3.6 10^3/uL (1.5-8.5); NEUTROPHILS % 79.5 % (36.0-66.0); PLATELET COUNT, AUTOMATED 110 10^3/uL (150-450); RED BLOOD COUNT 3.31 10^6/uL (4.00-5.40); WHITE BLOOD COUNT 4.5 10^3/uL (4.0-10.0)
[2021-05-07] MEDS ORDERED: methylPREDNISolone 125MG 2ML VIAL IV ONE (04:55)
--- NOTE | 2021-05-07 05:06 | REPVR ---
PROCEDURE INFORMATION: Exam: XR Chest Exam date and time: 05/07/2021 4:54 AM Age: 70 years old Clinical indication: Other: Dyspnea/cough TECHNIQUE: Imaging protocol: XR of the chest. Views: 1 view. COMPARISON: [place] PORTABLE CHEST X-RAY 03/15/2021 5:05 PM FINDINGS: Lungs: The lungs are hyper expanded. There is bilateral mid to lower lung zones infiltrates. There is overall slightly prominent interstitial lung markings. There is a 3 mm left upper lobe possibly calcified granuloma. Pleural spaces: Small layering pleural effusions cannot be excluded. There is right apical pleural thickening slightly more prominent than the left, grossly unchanged since the prior exam. Heart/Mediastinum: Unremarkable. No cardiomegaly. Vasculature: There is aortic knob calcifications. Bones/joints: Unremarkable. IMPRESSION: Nonspecific lung changes which can be seen with interstitial edema versus bilateral mid to lower lung zones infiltrates with questionable small layering effusions. Electronically signed by: Miah Santoro On 05/07/2021 05:06:08 AM
[2021-05-07 05:41] LABS: ALBUMIN 3.1 GM/DL (3.2-5.2); ALT/SGPT 15 U/L (12-78); BILIRUBIN,DIRECT 0.2 MG/DL (0.0-0.2); BILIRUBIN,TOTAL 0.4 MG/DL (0.2-1.0); BLOOD UREA NITROGEN 11 MG/DL (7-18); CALCIUM LEVEL 8.9 MG/DL (8.8-10.2); CARBON DIOXIDE LEVEL 22 MEQ/L (21-32); CHLORIDE LEVEL 115 MEQ/L (98-107); CPK CREATINE PHOSPHOKINASE 76 U/L (26-192); CREATININE FOR GFR 0.52 MG/DL (0.55-1.30); GLOMERULAR FILTRATION RATE > 60.0 (>45); GLUCOSE, FASTING 93 MG/DL (70-100); MB/CK RELATIVE INDEX 2.63 (< OR =4); NT-PRO BNP 14388 PG/ML (<125); POTASSIUM SERUM 3.9 MEQ/L (3.5-5.1); SODIUM LEVEL 144 MEQ/L (136-145); TOTAL PROTEIN 6.4 GM/DL (6.4-8.2); TROPONIN I 0.02 NG/ML (< 0.10)
[2021-05-07] MEDS ORDERED: FUROSEMIDE 40MG/4ML VIAL (J1940) IV ONE (06:05)
[2021-05-07] MEDS ORDERED: NORCO, ANEXSIA 5/325MG TABLET (HYDROcodone/ACETAMINOPHEN) PO ONE (06:35)
[2021-05-07 06:43] VITALS: O2SAT 93
[2021-05-07] MEDS ORDERED: HYDR-4514 PO (08:01)
[2021-05-07] MEDS ORDERED: ACET1TAB55 PO (08:01)
[2021-05-07] MEDS ORDERED: HOME MED LIST COMPLETE! XX SCH (08:05)
[2021-05-07] MEDS ORDERED: ISOVUE-370 76% 100ML VIAL As Ordered ONE (08:07)
[2021-05-07] MEDS ORDERED: NITROGLYCERIN 0.4 MG SUBL TABLET SL PRN (08:45)
[2021-05-07] MEDS ORDERED: ACETAMINOPHEN TAB 650MG DOSE (2X325MG) PO PRN (08:45)
--- NOTE | 2021-05-07 08:54 | REPVR ---
PROCEDURE INFORMATION: Exam: CTA Chest With Contrast Exam date and time: 05/07/2021 8:31 AM Age: 70 years old Clinical indication: Dyspnea; Additional info: Dyspnea, history of cancer, pe? TECHNIQUE: Imaging protocol: Computed tomographic angiography of the chest with contrast. 3D rendering (Not supervised by radiologist): MIP and/or 3D reconstructed images were created by the technologist. Radiation optimization: All CT scans at this facility use at least one of these dose optimization techniques: automated exposure control; mA and/or kV adjustment per patient size (includes targeted exams where dose is matched to clinical indication); or iterative reconstruction. Contrast material: ISOVUE 370; Contrast volume: 75 ml; Contrast route: INTRAVENOUS (IV); COMPARISON: CT ANGIO CHEST 01/05/2018 9:16 PM FINDINGS: Pulmonary arteries: Normal. No pulmonary emboli. Aorta: There is severe calcification of the thoracic and abdominal aorta. There is focal outpouching in the lateral aspect of the aortic arch on axial image 66. Lungs: There is bilateral lower lobes atelectatic changes versus infiltrates. There is bronchial wall thickening. There is right middle lobe infiltrates. There are patchy infiltrates in the right and left upper lobes. There is biapical pleural based symmetric scarring. There is centrilobular emphysematous lung changes. Pleural spaces: There is moderate bilateral pleural effusions. Heart: There is severe coronary vascular calcifications. Lymph nodes: Unremarkable. No enlarged lymph nodes. Kidneys and ureters: There is 6 mm left renal dense nodule. There is 2.6 cm partially imaged right renal cyst. Bones/joints: There is diffuse bony osteopenia. There is L1 mild chronic compression deformity unchanged since the prior exam. Soft tissues: There is irregular left paratracheal soft tissue density measuring 1.7 x 2.7 centimetres in the AP window on axial image 75. Similar finding seen in the precarinal image measuring 2.9 x 1.6 cm on axial image 82. There is subcarinal soft tissue measuring 4.5 x 2.7 centimetres. IMPRESSION: 1. No CT evidence of pulmonary embolism or right heart strain. 2. Moderate bilateral pleural effusions with bilateral lower lobes atelectatic changes and or infiltrates and more prominent right middle lobe consolidation and infiltrates in addition to patchy bilateral upper lobes infiltrates. Findings could be on the basis of infectious/inflammatory etiology however neoplastic/metastatic disease cannot be excluded. 3. Bronchial wall thickening suggestive of an element of bronchitis. 4. Centrilobular emphysematous lung changes. 5. Mediastinal adenopathy. 6. 6 mm dense left renal nodule likely cysts containing proteinaceous material or blood products. If clinically indicated this can be further evaluated with MRI with contrast on a nonemergent basis. 7. 2.6 cm partially imaged simple right renal cyst. 8. Focal mild aneurysmal dilatation of the aortic arch unchanged since the prior exam. 9. Severe aortic and coronary vascular calcifications. COMMENTS: Consistent with the [employer]'s Incidental Findings Committee white paper (J Am Iker Radiol 2018): Any incidental renal lesion less than 1 cm or classified as too small to characterize, or any incidental cystic renal lesion characterized as simple-appearing, is likely benign. No follow-up imaging is recommended for these lesions per consensus recommendations based on imaging criteria. Electronically signed by: Miah Santoro On 05/07/2021 08:53:41 AM
[2021-05-07] MEDS ORDERED: FUROSEMIDE 40MG/4ML VIAL (J1940) IV SCH (09:00)
[2021-05-07] MEDS: ATORVASTATIN 10 MG TAB PO SCH (10:25)
[2021-05-07] MEDS: ASPIRIN 81MG ENTERIC TABLET PO SCH (10:26)
[2021-05-07] MEDS: NICOTINE 14 MG/24 HR TRANSDERMAL TD SCH (10:26)
[2021-05-07] MEDS: METOPROLOL SUCC (TopROL XL) 100MG *XL* TAB PO SCH (10:26)
[2021-05-07] MEDS: FUROSEMIDE 40MG/4ML VIAL (J1940) IV SCH ×2 (11:00→16:13)
[2021-05-07] MEDS: ANEXSIA, NORCO 7.5MG/325MG TABLET(HYDROCODONE/APAP) PO PRN (13:45)
[2021-05-07 15:35] VITALS: BP 128/67
[2021-05-07] MEDS ORDERED: oxyCODONE 5MG TAB PO PRN (15:55)
[2021-05-07] MEDS: ENTRESTO 24-26MG TABLET (SACUBITRIL/VALSARTAN) PO SCH ×2 (15:58→21:08)
[2021-05-07] MEDS: LIDOCAINE 5% (LIDODERM) PATCH TD SCH (16:13)
[2021-05-07] MEDS: oxyCODONE 5MG TAB PO PRN (16:14)
--- NOTE | 2021-05-07 16:19 | HPEPDOC ---
General Date of Admission May 07, 2021 at 07:52 Date of Service: May 07, 2021 Chief Complaint The patient is a 70-year-old female admitted with a reason for visit of Chf Exacerbation. Source: Patient History of Present Illness Mrs. Molina is a 70-year-old female with history of CAD status post stents, CHF, and colon cancer status post resection, colostomy bag, and colostomy bag takedown who presents with worsening shortness of breath. Patient tells me she has a history of CHF and she was told to watch her salt. She likes salty food such as soups, chips, and cold cuts. She denies being on a fluid restriction. She tells me she follows with Dr. Ortiz. Yesterday, she progressively felt more short of breath. Dyspnea is worse on exertion. She also had an episode of dull substernal chest pain while folding laundry. She had to sit down and rest. Resolved after a few minutes. Patient came to the ED for evaluation. While here, vital signs have been stable. She has been afebrile and nontachycardic. She requires almost 3 L of oxygen. At baseline she uses no oxygen. Labs are significant for a BNP of 14,380. Chest x-ray demonstrated interstitial edema an d small layering effusions. We do not have a recent echocardiogram in our system. Patient will be admitted for CHF exacerbation. Home Medications Scheduled Aspirin (Aspirin EC) 81 Mg Tablet.dr, 81 MG PO DAILY, (Reported) Atorvastatin Calcium (Atorvastatin Calcium) 10 Mg Tablet, 10 MG PO DAILY, (Reported) Metoprolol Succinate (Metoprolol Succinate) 100 Mg Tab.er.24h, 100 MG PO DAILY, (Reported) Sacubitril/Valsartan (Entresto 24 mg-26 mg Tablet) 1 Each Tablet, 1 TAB PO BID, (Reported) Scheduled PRN Acetaminophen (Acetaminophen) 325 Mg Tablet, 650 MG PO Q8H PRN for PAIN LEVEL 1- 4, (Reported) Hydrocodone/Acetaminophen (Hydrocodone-Acetamin 7.5-325) 1 Each Tablet, 1 TAB PO TID PRN for PAIN LEVEL 5-10, (Reported) Nitroglycerin (Nitrostat) 0.4 Mg Subl, 0.4 MG SL Q5MP PRN for CHEST PAIN, (Reported) Allergies Coded Allergies: red dye (Verified Allergy, Intermediate, hives, 02/21/21) ibuprofen (Verified Adverse Reaction, Mild, GI upset/Vomiting, 02/21/21) Past Medical History Medical History 1. Chronic low back pain 2. Hypertension 3. Hyperlipidemia 4. Seasonal allergies 5. History of NC x2 6. Lumbosacral radiculopathy 7. Right knee gout 8. 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 Diffuse large B-cell lymphoma 11. CHF 12. History of CHF 13. Moderately differentiated adenocarcinoma involving the cecum Surgical History 1. Back surgery x2 2. Hysterectomy 3. Appendectomy 4. Colectomy and colostomy bag and takedown of colostomy bag 5. Tumor removed right neck 6. Right hemicolectomy Family History Father: at 81 years old, history of NC Mother: at 68 years old, history of lung cancer Social History * Smoker: current smoker Alcohol: Denies Drugs: denies A-FIB/CHADSVASC A-FIB History Current/History of A-Fib/PAF?: No Review of Systems Constitutional: Denies: Chills, Fever Eyes: Denies: Vision change ENT: Denies: Sore Throat Skin: Denies: Rash Pulmonary: Reports: Dyspnea, Cough (Dry cough) Cardiovascular: Denies: Chest Pain Gastrointestinal: Reports: Diarrhea (Reports on and off diarrhea); Denies: Abdominal Pain Genitourinary: Denies: Dysuria Hematologic: Denies: Bruising Neurological: Denies: Numbness Psych: Reports: Anxiety Physical Examination General Exam: Positive: Alert, Cooperative Eye Exam: Positive: EOMI; Negative: Sclera icteric ENT Exam: Positive: Atraumatic Neck Exam: Positive: Supple Chest Exam: Positive: Diminished Heart Exam: Positive: Rate Normal, Regular Rhythm Abdomen Exam: Positive: Normal bowel sounds, Soft; Negative: Tenderness Extremity Exam: Positive: Edema Neuro Exam: Positive: Normal Speech, Cranial Nerves 3-12 NL Psych Exam: Positive: Mental status NL, Mood NL Vital Signs Vital Signs Date Time Temp Pulse Resp B/P (MAP) Pulse Ox O2 Delivery O2 Flow Rate FiO2 05/07/21 15:35 97.6 68 20 128/67 (87) 95 Nasal Cannula 2.0 Laboratory Data Labs 24H Laboratory Tests 2 05/07/21 03:41: Immature Granulocyte % (Auto) 0.4, Neutrophils (%) (Auto) 79.5H, Lymphocytes (%) (Auto) 11.4L, Monocytes (%) (Auto) 7.8, Eosinophils (%) (Auto) 0.2, Basophils (%) (Auto) 0.7, Neutrophils # (Auto) 3.6, Lymphocytes # (Auto) 0.5L, Monocytes # (Auto) 0.4, Eosinophils # (Auto) 0.0, Basophils # (Auto) 0.0, Nucleated Red Blood Cells % (auto) 0.0, Lactic Acid Level 1.6 05/07/21 03:55: POC pH (Misc Panel) 7.396, POC Base Excess (Misc Panel) -3.0L, POC Saturated Per cent O2 (Misc) 95, POC pO2 (Misc Panel) 74.0L, POC pCO2 (Misc Panel) 35.1, POC HCO3 (Misc Panel) 21.6L, POC Total CO2 (Misc Panel) 23.0 05/07/21 05:12: Anion Gap 7L, Glomerular Filtration Rate > 60.0, Calcium Level 8.9, Total Bilirubin 0.4, Direct Bilirubin 0.2, Aspartate Amino Transf (AST/SGOT) 17, Alanine Aminotransferase (ALT/SGPT) 15, Alkaline Phosphatase 82, Total Creatine Kinase 76, Creatine Kinase MB 2.0, Creatine Kinase MB Relative Index 2.63, Troponin I 0.02, PM-Wzu-A-Type Natriuretic Peptide 62163Y, Total Protein 6.4, Albumin 3.1L, Albumin/Globulin Ratio 0.9L CBC/BMP Laboratory Tests 05/07/21 03:41 05/07/21 05:12 Microbiology Microbiology 05/07/21 Respiratory Virus Panel (PCR) ([facility]) - Final, Complete Assessment/Plan Mrs. Molina is a 70-year-old female with history of CAD status post stents, CHF, and colon cancer status post resection, colostomy bag, and colostomy bag takedown who presents with worsening shortness of breath. Patient's CHF exacerbation is most likely secondary to dietary noncompliance. She likes salty foods. We will put her on a 2 g sodium diet and monitor daily weights and I's/O's. We will diurese the patient. Otherwise patient does not have a recent echocardiogram in our system. She is on Entresto, and I suspect that she has heart failure with reduced ejection fraction. We will obtain an echocardiogram. Plan / VTE VTE Prophylaxis Ordered?: Yes Plan Plan 1. Acute CHF exacerbation Secondary to dietary noncompliance We do not have recent echocardiogram. Suspect patient to have reduced ejection fraction as patient is on Entresto Start IV Lasix, 2 g sodium diet, daily weights, and I's and O's Continue Toprol-XL and Entresto 2. CAD status post stents No active chest pain at this time Initial troponin negative. Will order second troponin Continue aspirin, atorvastatin, metoprolol succinate, and Entresto 3. Nicotine use disorder Patient still smoking half a pack per day Nicotine patch 4. Chronic low back pain Continue Powell as needed Added on lidocaine patch and as needed oxycodone 5. DVT prophylaxis SCDs and teds Disposition: Pending clinical improvement and improvement in oxygen requirements BEV CARTER DO May 07, 2021 16:19
[2021-05-07 17:20] LABS: INR 1.07; PARTIAL THROMBOPLASTIN TIME 39.6 SECONDS (25.9-37.0); PROTHROMBIN TIME 14.3 SECONDS (12.7-14.5)
--- NOTE | 2021-05-07 20:06 | ECGEPIP ---
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
[2021-05-07] MEDS ORDERED: **NOTE PATIENT COMMENT** MISC XX SCH (21:00)
[2021-05-07 22:00] VITALS: BP 143/72
[2021-05-08] MEDS: oxyCODONE 5MG TAB PO PRN ×2 (00:01→10:22)
[2021-05-08 05:59] LABS: HEMATOCRIT 34.9 % (36.0-47.0); MEAN CORPUSCULAR HEMOGLOBIN 34.3 pg (27.0-33.0); MEAN CORPUSCULAR HGB CONC 34.4 g/dl (32.0-36.5); MEAN CORPUSCULAR VOLUME 99.7 fl (80.0-96.0); PLATELET COUNT, AUTOMATED 130 10^3/uL (150-450); WHITE BLOOD COUNT 6.6 10^3/uL (4.0-10.0)
[2021-05-08 06:00] VITALS: BP 140/80
[2021-05-08 06:33] LABS: BLOOD UREA NITROGEN 17 MG/DL (7-18); CALCIUM LEVEL 9.1 MG/DL (8.8-10.2); CARBON DIOXIDE LEVEL 24 MEQ/L (21-32); CHLORIDE LEVEL 108 MEQ/L (98-107); CREATININE FOR GFR 0.54 MG/DL (0.55-1.30); GLOMERULAR FILTRATION RATE > 60.0 (>45); GLUCOSE, FASTING 96 MG/DL (70-100); POTASSIUM SERUM 3.6 MEQ/L (3.5-5.1); SODIUM LEVEL 142 MEQ/L (136-145)
[2021-05-08] MEDS: ANEXSIA, NORCO 7.5MG/325MG TABLET(HYDROCODONE/APAP) PO PRN (06:49)
[2021-05-08] MEDS ORDERED: FURO20TA2 PO (07:52)
[2021-05-08 10:00] VITALS: BP 115/70
[2021-05-08] MEDS: METOPROLOL SUCC (TopROL XL) 100MG *XL* TAB PO SCH (10:00)
[2021-05-08] MEDS: ATORVASTATIN 10 MG TAB PO SCH (10:21)
[2021-05-08] MEDS: ASPIRIN 81MG ENTERIC TABLET PO SCH (10:21)
[2021-05-08] MEDS: ENTRESTO 24-26MG TABLET (SACUBITRIL/VALSARTAN) PO SCH (10:21)
[2021-05-08] MEDS: FUROSEMIDE 40MG/4ML VIAL (J1940) IV SCH (10:23)
[2021-05-08] MEDS: NICOTINE 14 MG/24 HR TRANSDERMAL TD SCH (10:23)
[2021-05-08] MEDS: LIDOCAINE 5% (LIDODERM) PATCH TD SCH (10:23)
--- NOTE | 2021-05-08 22:45 | DS.PDOC ---
Discharge Summary General Date of Admission May 07, 2021 at 07:52 Date of Discharge May 08, 2021 Discharge Summary PROCEDURES PERFORMED DURING STAY: None ADMITTING DIAGNOSES: 1. Acute congestive heart failure (suspected to be heart failure with reduced ejection fraction) 2. CAD s/p stents 3. Nicotine use disorder 4. Chronic low back pain 5. Underweight DISCHARGE DIAGNOSES: 1. Acute congestive heart failure (suspected to be heart failure with reduced ejection fraction) 2. CAD s/p stents 3. Nicotine use disorder 4. Chronic low back pain 5. Underweight COMPLICATIONS/CHIEF COMPLAINT: Chf Exacerbation. HISTORY OF PRESENT ILLNESS: Mrs. Molina is a 70-year-old female with history of CAD status post stents, CHF, and colon cancer status post resection, colostomy bag, and colostomy bag takedown who presents with worsening shortness of breath. Patient tells me she has a history of CHF and she was told to watch her salt. She likes salty food such as soups, chips, and cold cuts. She denies being on a fluid restriction. She tells me she follows with Dr. Ortiz. Yesterday, she progressively felt more short of breath. Dyspnea is worse on exertion. She also had an episode of dull substernal chest pain while folding laundry. She had to sit down and rest. Resolved after a few minutes. Patient came to the ED for evaluation. While here, vital signs have been stable. She has been afebrile and nontachycardic. She requires almost 3 L of oxygen. At baseline she uses no oxygen. Labs are significant for a BNP of 14,380. Chest x-ray demonstrated interstitial edema and small layering effusions. We do not have a recent echocardiogram in our system. Patient will be admitted for CHF exac erbation. HOSPITAL COURSE: Patient recovered faster than expected. Patient was diuresed and rapidly weaned off of oxygen. The following day, she looked better and breathing more comfortably. She appeared more vibrant. She felt better and felt ready for home. Denied any dyspnea or chest pain and she was able to ambulate in the room. I started patient on furosemide 20mg PO once a day and recommended that she follow up with her maritime officer to determine if she need to continue furosemide, increase furosemide, or discontinue furosemide. Patient felt ready for home and was discharged home. DISCHARGE MEDICATIONS: Please see below. ALLERGIES: Please see below. PHYSICAL EXAMINATION ON DISCHARGE: VITAL SIGNS: Please see below. GENERAL: Comfortable, in no apparent distress HEENT: Head normocephalic, atraumatic NECK: Supple CARDIOVASCULAR EXAMINATION: Regular rate and rhythm RESPIRATORY EXAMINATION: Lungs clear to auscultation bilaterally ABDOMINAL EXAMINATION: Soft, non-tender, normal bowel sounds SKIN: Warm and dry NEUROLOGICAL EXAMINATION: CN 3-12 grossly intact PSYCHIATRIC EXAMINATION: Normal mood and affect LABORATORY DATA: Please see below. IMAGING: Radiologist interpretation CT angio chest 1. No CT evidence of pulmonary embolism or right heart strain. 2. Moderate bilateral pleural effusions with bilateral lower lobes atelectatic changes and or infiltrates and more prominent right middle lobe consolidation and infiltrates in addition to patchy bilateral upper lobes infiltrates. Findings could be on the basis of infectious/inflammatory etiology however neoplastic/metastatic disease cannot be excluded. 3. Bronchial wall thickening suggestive of an element of bronchitis. 4. Centrilobular emphysematous lung changes. 5. Mediastinal adenopathy. 6. 6 mm dense left renal nodule likely cysts containing proteinaceous material or blood products. If clinically indicated this can be further evaluated with MRI with contrast on a nonemergent basis. 7. 2.6 cm partially imaged simple right renal cyst. 8. Focal mild aneurysmal dilatation of the aortic arch unchanged since the prior exam. 9. Severe aortic and coronary vascular calcifications. PROGNOSIS: Good ACTIVITY: As tolerated. DIET: 2gm sodium diet DISCHARGE PLAN: Home DISPOSITION: 01 Home, Self-Care. DISCHARGE INSTRUCTIONS: 1. Follow up with your PCP within 1 week 2. Follow up with your maritime officer within 1 week ITEMS TO FOLLOWUP ON ON OUTPATIENT: 1. 6mm dense left renal nodule which may be evaluated with MRI with contrast 2. Bilateral pleural effusions seen on CT angio chest DISCHARGE CONDITION: Stable. Total time spent on discharge planning, discharge summary, and medication reconciliation: 45 minutes Vital Signs/I&Os Vital Signs Date Time Temp Pulse Resp B/P (MAP) Pulse Ox O2 Delivery O2 Flow Rate FiO2 05/08/21 10:52 18 95 Room Air 05/08/21 10:00 70 115/70 (85) 05/08/21 06:00 98.4 05/07/21 16:12 1.0 I&O- Last 24 Hours up to 6 AM 05/08/21 06:00 Output Total 1550 ml Balance -1550 ml Laboratory Data Labs 24H Laboratory Tests 2 05/08/21 05:26: Nucleated Red Blood Cells % (auto) 0.0, Anion Gap 10, Glomerular Filtration Rate > 60.0, Calcium Level 9.1 CBC/BMP Laboratory Tests 05/08/21 05:26 Microbiology Microbiology 05/07/21 Respiratory Virus Panel (PCR) ([facility]) - Final, Complete Discharge Medications Scheduled Aspirin (Aspirin EC) 81 Mg Tablet.dr, 81 MG PO DAILY, (Reported) Atorvastatin Calcium (Atorvastatin Calcium) 10 Mg Tablet, 10 MG PO DAILY, (Reported) Furosemide (Furosemide) 20 Mg Tablet, 20 MG PO DAILY Metoprolol Succinate (Metoprolol Succinate) 100 Mg Tab.er.24h, 100 MG PO DAILY, (Reported) Sacubitril/Valsartan (Entresto 24 mg-26 mg Tablet) 1 Each Tablet, 1 TAB PO BID, (Reported) Scheduled PRN Acetaminophen (Acetaminophen) 325 Mg Tablet, 650 MG PO Q8H PRN for PAIN LEVEL 1- 4, (Reported) Hydrocodone/Acetaminophen (Hydrocodone-Acetamin 7.5-325) 1 Each Tablet, 1 TAB PO TID PRN for PAIN LEVEL 5-10, (Reported) Nitroglycerin (Nitrostat) 0.4 Mg Subl, 0.4 MG SL Q5MP PRN for CHEST PAIN, (Reported) Allergies Coded Allergies: red dye (Verified Allergy, Intermediate, hives, 02/21/21) ibuprofen (Verified Adverse Reaction, Mild, GI upset/Vomiting, 02/21/21) BEV CARTER DO May 08, 2021 22:44
== END 2021-05-08 11:37 | disposition home or self-care (01) | DRG 292 ==
LOC: M ED 03:10 → M ED INP 07:52 → ENRESERV 13:28 → M MSPAV 15:28
PROVIDERS: ADMIT Internal Medicine; ATTEND Internal Medicine
DX: I11.0 Hypertensive heart disease with heart failure (principal); Z68.1 Body mass index [BMI] 19.9 or less, adult; I50.23 Acute on chronic systolic (congestive) heart failure; R63.6 Underweight; I25.10 Atherosclerotic heart disease of native coronary artery without angina pectoris; Z95.2 Presence of prosthetic heart valve; F17.200 Nicotine dependence, unspecified, uncomplicated; M54.5 Low back pain; Z85.038 Personal history of other malignant neoplasm of large intestine; Z79.82 Long term (current) use of aspirin; Z79.899 Other long term (current) drug therapy; Z88.6 Allergy status to analgesic agent; M10.9 Gout, unspecified; E78.5 Hyperlipidemia, unspecified; I25.2 Old myocardial infarction; Z85.818 Personal history of malignant neoplasm of other sites of lip, oral cavity, and pharynx; Z91.19 Patient's noncompliance with other medical treatment and regimen

== ENCOUNTER → 2021-06-05 | Outpatient (CLI) | payer MEDICARE ==
[~2021-06-05] MED LIST changes: +ACET1TAB55 PO; +HYDR-4514 PO; +PROHANCE 279.3MG/ML 5ML VIAL ONE
--- NOTE | 2021-06-05 10:01 | REP ---
INDICATION: NODULE KIDNEY. COMPARISON: Multiple prior CTs the latest CT of the chest of 05/07/2021 after intravenous contrast. TECHNIQUE: Pre and post contrast 3T MRI of the abdomen was performed with attention to the left kidney utilizing various sequences. Gadolinium utilized: 8.5 cc of ProHance FINDINGS: The 7 mm sized hyperdense left renal lesion seen not only on the prior CT of the chest but on multiple prior CTs is of near complete signal void on both fat suppressed and non fat suppressed T2 weighted sequences. Secondary to the small size of the lesion and significant motion artifact on the post gadolinium enhanced sequences precise evaluation for enhancement cannot be made. There are multiple bilateral renal cysts. There is mild right-sided hydronephrosis and in the region of the right ureteral pelvic junction there is a 7 mm sized signal void. This region was not imaged on the latest prior CT and not present on other older CTs. Although seen in a limited fashion the imaged portion of the liver is within normal limits. The gallbladder, adrenal glands, and pancreas shows no evidence of an abnormality. There is no evidence of para-aortic adenopathy. There is no evidence of free fluid. IMPRESSION: 1. The 7 mm sized left renal lesion seen on the latest prior CT was also present on other older CTs. MRI findings of today are consistent with a benign hyperdense cyst. 2. There is right-sided hydronephrosis and a focal filling defect seen in the ureteropelvic junction consistent with obstructive uropathy. Noncontrast enhanced stone protocol CT should be considered for further evaluation. 3. Bilateral simple renal cysts. 4. Other findings as described above. <Electronically signed by Paramjit Pickering > 06/05/21 0945
== END ==
LOC: M PLAIMG 07:51
PROVIDERS: ATTEND Family Medicine
DX: N28.89 Other specified disorders of kidney and ureter (principal)
CPT/HCPCS: 74183; A9576

== ENCOUNTER → 2021-09-29 | Outpatient (CLI) | payer MEDICARE ==
[~2021-09-29] MED LIST changes: +ONDA-84 PO; -ONDA8TAB10 PO; -PROHANCE 279.3MG/ML 5ML VIAL ONE
== END ==
LOC: M PAIN 13:45
PROVIDERS: ATTEND Anesthesiology
DX: M47.816 Spondylosis without myelopathy or radiculopathy, lumbar region (principal); M54.6 Pain in thoracic spine; G89.29 Other chronic pain; I25.2 Old myocardial infarction; Z87.891 Personal history of nicotine dependence; Z88.6 Allergy status to analgesic agent; Z88.8 Allergy status to other drugs, medicaments and biological substances; Z91.02 Food additives allergy status; Z79.82 Long term (current) use of aspirin; Z79.899 Other long term (current) drug therapy

== ENCOUNTER → 2022-02-07 | Outpatient (CLI) | payer MEDICARE ==
[~2022-02-07] MED LIST changes: -TRIA37.53 PO; +TRIA37.577 PO
== END ==
LOC: M PAIN 11:15
PROVIDERS: ATTEND Anesthesiology
DX: M96.1 Postlaminectomy syndrome, not elsewhere classified (principal); F17.210 Nicotine dependence, cigarettes, uncomplicated; Z88.6 Allergy status to analgesic agent; Z88.8 Allergy status to other drugs, medicaments and biological substances; Z91.02 Food additives allergy status; Z79.82 Long term (current) use of aspirin; Z79.899 Other long term (current) drug therapy

== ENCOUNTER → 2022-07-04 | Outpatient (CLI) | payer MEDICARE ==
[~2022-07-04] MED LIST changes: +CLOP75TA99 PO; -PLAV1TAB2 PO
== END ==
LOC: M PAIN 09:45
PROVIDERS: ATTEND Anesthesiology
DX: M47.816 Spondylosis without myelopathy or radiculopathy, lumbar region (principal); G89.29 Other chronic pain; I10 Essential (primary) hypertension; I25.2 Old myocardial infarction; F17.210 Nicotine dependence, cigarettes, uncomplicated; Z88.6 Allergy status to analgesic agent; Z88.8 Allergy status to other drugs, medicaments and biological substances; Z91.02 Food additives allergy status; Z79.82 Long term (current) use of aspirin; Z79.899 Other long term (current) drug therapy

== ENCOUNTER 2022-07-08 09:51 | Inpatient (IN) | payer MEDICARE ==
[~2022-07-08] VITALS: Ht 162.6 cm; Wt 46.9 kg
[2022-07-08] VITALS (7 sets, daily range): BP systolic 133–154; BP diastolic 81–96; O2SAT 89–94
[2022-07-08 11:11] LABS: BASO # 0.1 10^3/uL (0.0-0.2); EOS % 0.3 % (0.0-3.0); HEMATOCRIT 39.2 % (36.0-47.0); HEMOGLOBIN 12.5 g/dl (12.0-15.5); LYMPH # 0.8 10^3/uL (1.5-5.0); LYMPH % 13.6 % (24.0-44.0); MEAN CORPUSCULAR HEMOGLOBIN 33.6 pg (27.0-33.0); MEAN CORPUSCULAR HGB CONC 31.9 g/dl (32.0-36.5); MEAN CORPUSCULAR VOLUME 105.4 fl (80.0-96.0); MONO # 0.7 10^3/uL (0.0-0.8); MONO % 11.6 % (2.0-8.0); NEUTROPHILS # 4.5 10^3/uL (1.5-8.5); NEUTROPHILS % 73.2 % (36.0-66.0); PLATELET COUNT, AUTOMATED 188 10^3/uL (150-450); RED BLOOD COUNT 3.72 10^6/uL (4.00-5.40); WHITE BLOOD COUNT 6.1 10^3/uL (4.0-10.0)
[2022-07-08 11:18] LABS: VENOUS BASE EXCESS -4.8 (-2.0-2.0); VENOUS HCO3 21.3 MEQ/L (23.0-27.0); VENOUS O2 SATURATION 60.2 % (60.0-80.0); VENOUS PARTIAL PRESSURE CO2 43.4 mmHg (38.0-50.0); VENOUS PARTIAL PRESSURE O2 36.4 mmHg (30.0-50.0); VENOUS PH 7.309 UNITS (7.330-7.430); VENOUS STANDARD HCO3 19.7 MEQ/L; VENOUS TOTAL CO2 22.6 MEQ/L (24.0-28.0)
[2022-07-08] MEDS ORDERED: AZITHROMYCIN INJ 500 MG, VIAL MATE ADAPTER 1 EACH in D5W 250 ML IV ONE (11:35)
[2022-07-08] MEDS ORDERED: NS 1,000 ML IV ONE (11:35)
[2022-07-08] MEDS ORDERED: ALBUTEROL 90 MCG/ACT 8GM HFA INHALER INH ONE (11:35)
[2022-07-08] MEDS ORDERED: cefTRIAXone SOD 2 GM in D5W MINI-BAG PLUS 50 ML IV ONE (11:35)
[2022-07-08] MEDS ORDERED: methylPREDNISolone 125MG 2ML VIAL IV ONE (11:35)
[2022-07-08 11:44] LABS: CK-MB VALUE MASS 1.3 NG/ML (<3.6); MB/CK RELATIVE INDEX 3.61 (< OR =4)
[2022-07-08 11:55] LABS: ALBUMIN 3.7 GM/DL (3.2-5.2); ALT/SGPT 9 U/L (12-78); BILIRUBIN,DIRECT 0.1 MG/DL (0.0-0.2); BILIRUBIN,TOTAL 0.4 MG/DL (0.2-1.0); BLOOD UREA NITROGEN 10 MG/DL (7-18); CALCIUM LEVEL 9.3 MG/DL (8.8-10.2); CARBON DIOXIDE LEVEL 24 MEQ/L (21-32); CHLORIDE LEVEL 108 MEQ/L (98-107); CREATININE FOR GFR 0.94 MG/DL (0.55-1.30); GLOMERULAR FILTRATION RATE > 60.0 (>39); GLUCOSE, FASTING 156 MG/DL (70-100); NT-PRO BNP 10989 PG/ML (<125); POTASSIUM SERUM 3.6 MEQ/L (3.5-5.1); SODIUM LEVEL 138 MEQ/L (136-145); TOTAL PROTEIN 7.4 GM/DL (6.4-8.2)
[2022-07-08 12:09] LABS: RSV AMPLIFICATION NEGATIVE (NEGATIVE)
[2022-07-08] MEDS ORDERED: ACETAMINOPHEN 325 MG TAB PO ONE (12:15)
[2022-07-08] MEDS ORDERED: MORPHINE 2 MG/ML 1ML VIAL IV ONE (13:30)
[2022-07-08] MEDS ORDERED: HOME MED LIST COMPLETE! XX SCH (14:40)
[2022-07-08] MEDS ORDERED: ISOVUE-370 76% 100ML VIAL As Ordered ONE (14:40)
[2022-07-08 15:31] LABS: RSV AMPLIFICATION NEGATIVE (NEGATIVE)
[2022-07-08] MEDS ORDERED: NITROGLYCERIN 0.4 MG SUBL TABLET SL PRN (15:35)
[2022-07-08] MEDS ORDERED: ACETAMINOPHEN TAB 650MG DOSE (2X325MG) PO PRN (15:35)
[2022-07-08 16:41] LABS: C REACTIVE PROTEIN QUANTITATIV 1.52 MG/DL (0.00-0.30); FERRITIN 193 NG/ML (8-252); LDH LACTATE DEHYDROGENASE 187 U/L (84-246)
[2022-07-08 16:54] LABS: INR 1.08; PROTHROMBIN TIME 14.3 SECONDS (12.5-14.5)
[2022-07-08 16:55] LABS: PARTIAL THROMBOPLASTIN TIME 28.6 SECONDS (24.8-34.2)
[2022-07-08 16:58] LABS: D-DIMER QUANT 963.57 ng/ml (<500)
[2022-07-08] MEDS: ENOXAPARIN 30MG/0.3ML SYRINGE (J1650 PER 10MG) SC SCH (18:11)
[2022-07-08] MEDS: ASPIRIN 81MG ENTERIC TABLET PO SCH (18:11)
[2022-07-08] MEDS: FUROSEMIDE 40MG/4ML VIAL (J1940) IV SCH (18:11)
[2022-07-08] MEDS ORDERED: oxyCODONE 5MG TAB PO PRN (18:25)
[2022-07-08] MEDS ORDERED: REMDESIVIR 200 MG in NS 250 ML IV ONE (19:00)
[2022-07-08] MEDS: oxyCODONE 5MG TAB PO PRN ×2 (19:04→23:12)
[2022-07-08 19:07] LABS: APPEARANCE, URINE MANUAL CLEAR (CLEAR); BILIRUBIN, URINE MANUAL NEGATIVE (NEGATIVE); BLOOD URINE MANUAL NEGATIVE (NEGATIVE); COLOR, URINE MANUAL COLORLESS (YELLOW); GLUCOSE, URINE (UA) MANUAL NEGATIVE (NEGATIVE); KETONE, URINE MANUAL NEGATIVE (NEGATIVE); LEUKOCYTE ESTERASE, URINE MAN NEGATIVE (NEGATIVE); NITRITE, URINE MANUAL POSITIVE (NEGATIVE); PROTEIN, URINE MANUAL NEGATIVE (NEGATIVE); UROBILINOGEN, URINE MANUAL NORMAL (NORMAL)
[2022-07-08 19:34] LABS: BACTERIA, URINE SMALL AMOUNT; RBC, URINE 0-1 /hpf (0-3); SQUAMOUS EPITHELIAL CELL URINE NONE SEEN /hpf (SMALL AMT)
[2022-07-08] MEDS: COMBIVENT RESPIMAT 100-20MCG INHALER 4GM INH SCH (20:01)
[2022-07-08] MEDS: DOXYCYCLINE HYCLATE 100 MG in D5W MINI-BAG PLUS 100 ML IV SCH (21:43)
[2022-07-09] VITALS (17 sets, daily range): BP systolic 111–136; BP diastolic 56–81; O2SAT 87–94
[2022-07-09] MEDS: COMBIVENT RESPIMAT 100-20MCG INHALER 4GM INH SCH ×4 (02:34→18:27)
[2022-07-09] MEDS: oxyCODONE 5MG TAB PO PRN ×5 (03:18→22:11)
[2022-07-09 04:59] LABS: BASO % 0.2 % (0.0-1.0); HEMATOCRIT 34.3 % (36.0-47.0); HEMOGLOBIN 11.2 g/dl (12.0-15.5); LYMPH # 0.6 10^3/uL (1.5-5.0); LYMPH % 11.8 % (24.0-44.0); MEAN CORPUSCULAR HEMOGLOBIN 33.4 pg (27.0-33.0); MEAN CORPUSCULAR HGB CONC 32.7 g/dl (32.0-36.5); MEAN CORPUSCULAR VOLUME 102.4 fl (80.0-96.0); MONO # 0.4 10^3/uL (0.0-0.8); MONO % 8.3 % (2.0-8.0); NEUTROPHILS # 4.1 10^3/uL (1.5-8.5); NEUTROPHILS % 79.3 % (36.0-66.0); PLATELET COUNT, AUTOMATED 179 10^3/uL (150-450); RED BLOOD COUNT 3.35 10^6/uL (4.00-5.40); WHITE BLOOD COUNT 5.2 10^3/uL (4.0-10.0)
[2022-07-09 05:40] LABS: ALT/SGPT 10 U/L (12-78); BILIRUBIN,DIRECT < 0.1 MG/DL (0.0-0.2); BILIRUBIN,TOTAL 0.1 MG/DL (0.2-1.0); BLOOD UREA NITROGEN 16 MG/DL (7-18); CALCIUM LEVEL 8.8 MG/DL (8.8-10.2); CARBON DIOXIDE LEVEL 21 MEQ/L (21-32); CHLORIDE LEVEL 110 MEQ/L (98-107); CREATININE FOR GFR 0.82 MG/DL (0.55-1.30); GLOMERULAR FILTRATION RATE > 60.0 (>39); GLUCOSE, FASTING 162 MG/DL (70-100); MAGNESIUM LEVEL 1.9 MG/DL (1.8-2.4); POTASSIUM SERUM 3.7 MEQ/L (3.5-5.1); SODIUM LEVEL 137 MEQ/L (136-145); TOTAL PROTEIN 6.6 GM/DL (6.4-8.2)
[2022-07-09] MEDS: ASPIRIN 81MG ENTERIC TABLET PO SCH (08:13)
[2022-07-09] MEDS: ENOXAPARIN 30MG/0.3ML SYRINGE (J1650 PER 10MG) SC SCH (08:14)
[2022-07-09] MEDS: dexameTHASONE 4 MG/ML 1ML VIAL (J1100 PER 1MG) IV SCH (08:14)
[2022-07-09] MEDS: DOXYCYCLINE HYCLATE 100 MG in D5W MINI-BAG PLUS 100 ML IV SCH (08:16)
[2022-07-09] MEDS: LIDOCAINE 5% (LIDODERM) PATCH TD SCH ×2 (08:17→11:15)
[2022-07-09] MEDS: FUROSEMIDE 40MG/4ML VIAL (J1940) IV SCH (08:17)
[2022-07-09] MEDS ORDERED: dexameTHASONE 20MG/5ML VIAL (J1100 PER 1MG) IV SCH (09:00)
[2022-07-09] MEDS ORDERED: ENOXAPARIN 40MG/0.4ML SYRINGE (J1650 PER 10MG) SC SCH (09:00)
[2022-07-09] MEDS ORDERED: cefTRIAXone SOD 1 GM in D5W MINI-BAG PLUS 50 ML IV SCH (12:00)
[2022-07-09] MEDS: REMDESIVIR 100 MG in NS 250 ML IV SCH (18:08)
[2022-07-09] MEDS ORDERED: ALBUTEROL 90 MCG/ACT 8GM HFA INHALER INH PRN (22:45)
[2022-07-10] VITALS (15 sets, daily range): BP systolic 112–123; BP diastolic 56–67; O2SAT 87–95
[2022-07-10] MEDS: COMBIVENT RESPIMAT 100-20MCG INHALER 4GM INH SCH ×4 (01:59→20:42)
[2022-07-10] MEDS: oxyCODONE 5MG TAB PO PRN ×6 (02:13→23:35)
[2022-07-10 05:10] LABS: BASO % 0.1 % (0.0-1.0); HEMATOCRIT 34.6 % (36.0-47.0); HEMOGLOBIN 11.4 g/dl (12.0-15.5); LYMPH # 0.8 10^3/uL (1.5-5.0); LYMPH % 7.9 % (24.0-44.0); MEAN CORPUSCULAR HEMOGLOBIN 34.1 pg (27.0-33.0); MEAN CORPUSCULAR HGB CONC 32.9 g/dl (32.0-36.5); MEAN CORPUSCULAR VOLUME 103.6 fl (80.0-96.0); MONO # 0.7 10^3/uL (0.0-0.8); MONO % 6.8 % (2.0-8.0); NEUTROPHILS # 8.5 10^3/uL (1.5-8.5); NEUTROPHILS % 84.6 % (36.0-66.0); PLATELET COUNT, AUTOMATED 174 10^3/uL (150-450); RED BLOOD COUNT 3.34 10^6/uL (4.00-5.40); WHITE BLOOD COUNT 10.1 10^3/uL (4.0-10.0)
[2022-07-10 05:34] LABS: INR 1.21; PARTIAL THROMBOPLASTIN TIME 27.2 SECONDS (24.8-34.2); PROTHROMBIN TIME 15.5 SECONDS (12.5-14.5)
[2022-07-10 05:57] LABS: ALT/SGPT 11 U/L (12-78); BILIRUBIN,DIRECT < 0.1 MG/DL (0.0-0.2); BILIRUBIN,TOTAL 0.2 MG/DL (0.2-1.0); BLOOD UREA NITROGEN 32 MG/DL (7-18); CALCIUM LEVEL 8.7 MG/DL (8.8-10.2); CARBON DIOXIDE LEVEL 23 MEQ/L (21-32); CHLORIDE LEVEL 112 MEQ/L (98-107); CREATININE FOR GFR 0.82 MG/DL (0.55-1.30); FERRITIN 135 NG/ML (8-252); GLOMERULAR FILTRATION RATE > 60.0 (>39); GLUCOSE, FASTING 103 MG/DL (70-100); LDH LACTATE DEHYDROGENASE 158 U/L (84-246); MAGNESIUM LEVEL 1.9 MG/DL (1.8-2.4); NT-PRO BNP 11625 PG/ML (<125); POTASSIUM SERUM 4.2 MEQ/L (3.5-5.1); SODIUM LEVEL 144 MEQ/L (136-145)
[2022-07-10] MEDS ORDERED: MAGNESIUM OXIDE 400MG TAB (MAG-OX) PO ONE (08:00)
[2022-07-10] MEDS: ENOXAPARIN 30MG/0.3ML SYRINGE (J1650 PER 10MG) SC SCH (09:59)
[2022-07-10] MEDS: ASPIRIN 81MG ENTERIC TABLET PO SCH (09:59)
[2022-07-10] MEDS: dexameTHASONE 4 MG/ML 1ML VIAL (J1100 PER 1MG) IV SCH (09:59)
[2022-07-10] MEDS: FUROSEMIDE 40MG/4ML VIAL (J1940) IV SCH ×2 (09:59→21:47)
[2022-07-10] MEDS: LIDOCAINE 5% (LIDODERM) PATCH TD SCH ×2 (09:59→10:00)
[2022-07-10] MEDS ORDERED: FUROSEMIDE 40MG/4ML VIAL (J1940) IV ONE (13:00)
[2022-07-10] MEDS ORDERED: FUROSEMIDE 40MG/4ML VIAL (J1940) IV SCH (17:00)
[2022-07-10] MEDS: LevoFLOXacin 750 MG TABLET PO SCH (18:47)
[2022-07-10] MEDS: REMDESIVIR 100 MG in NS 250 ML IV SCH (18:47)
[2022-07-10] MEDS: BUDESONIDE 180MCG INHALER (PULMICORT FLEXHALER) INH SCH (20:00)
[2022-07-11] VITALS (31 sets, daily range): BP systolic 90–156; BP diastolic 48–87; PULSE 73; O2SAT 90–96
[2022-07-11] MEDS: COMBIVENT RESPIMAT 100-20MCG INHALER 4GM INH SCH ×4 (02:40→19:07)
[2022-07-11] MEDS: oxyCODONE 5MG TAB PO PRN ×4 (03:45→20:34)
[2022-07-11] MEDS: FUROSEMIDE 40MG/4ML VIAL (J1940) IV SCH (04:36)
[2022-07-11] MEDS: BUDESONIDE 180MCG INHALER (PULMICORT FLEXHALER) INH SCH (07:34)
[2022-07-11 08:03] LABS: BASO % 0.1 % (0.0-1.0); HEMATOCRIT 37.6 % (36.0-47.0); HEMOGLOBIN 12.2 g/dl (12.0-15.5); LYMPH # 0.9 10^3/uL (1.5-5.0); LYMPH % 10.8 % (24.0-44.0); MEAN CORPUSCULAR HEMOGLOBIN 33.4 pg (27.0-33.0); MEAN CORPUSCULAR HGB CONC 32.4 g/dl (32.0-36.5); MONO # 0.7 10^3/uL (0.0-0.8); MONO % 8.5 % (2.0-8.0); NEUTROPHILS % 80.1 % (36.0-66.0); PLATELET COUNT, AUTOMATED 199 10^3/uL (150-450); RED BLOOD COUNT 3.65 10^6/uL (4.00-5.40); WHITE BLOOD COUNT 8.7 10^3/uL (4.0-10.0)
[2022-07-11 08:29] LABS: BLOOD UREA NITROGEN 37 MG/DL (9-23); CALCIUM LEVEL 9.1 MG/DL (8.3-10.6); CARBON DIOXIDE LEVEL 27 MMOL/L (20-31); CHLORIDE LEVEL 102 MMOL/L (98-107); CREATININE FOR GFR 0.83 MG/DL (0.55-1.30); GLOMERULAR FILTRATION RATE > 60.0 (>39); GLUCOSE, FASTING 98 MG/DL (74-106); MAGNESIUM LEVEL 1.7 MG/DL (1.8-2.4); PHOSPHORUS LEVEL 4.8 MG/DL (2.4-5.1); POTASSIUM SERUM 3.7 MMOL/L (3.5-5.1); SODIUM LEVEL 143 MMOL/L (136-145)
[2022-07-11] MEDS: ASPIRIN 81MG ENTERIC TABLET PO SCH (09:16)
[2022-07-11] MEDS: ENOXAPARIN 30MG/0.3ML SYRINGE (J1650 PER 10MG) SC SCH (09:17)
[2022-07-11] MEDS: LIDOCAINE 5% (LIDODERM) PATCH TD SCH ×2 (09:18→09:19)
[2022-07-11] MEDS: dexameTHASONE 4 MG/ML 1ML VIAL (J1100 PER 1MG) IV SCH (09:24)
[2022-07-11] MEDS ORDERED: MAG SULF 1GM/100ML (MAG RUN) 1 GM in IV 1 EA IV ONE ×2 (12:00→20:00)
[2022-07-11] MEDS: ENTRESTO 24-26MG TABLET (SACUBITRIL/VALSARTAN) PO SCH ×2 (12:11→20:34)
[2022-07-11] MEDS ORDERED: ENTR1TAB PO (13:24)
[2022-07-11] MEDS ORDERED: COMBAER6 INH (17:06)
[2022-07-11 17:07] LABS: BODY FLUID CULTURE Not indicated. (.); LEGIONELLA ANTIGEN URINE Negative (Negative); ORGANISM ID Not indicated. (.); SPECIMEN SOURCE Urine (.); URINE STREP PNEUMONIAE ANTIGEN Negative (Negative)
[2022-07-11] MEDS: REMDESIVIR 100 MG in NS 250 ML IV SCH (18:20)
[2022-07-11] MEDS ORDERED: METOPROLOL TART 25 MG TABLET PO STA (20:55)
[2022-07-11 21:24] LABS: CK-MB VALUE MASS 1.3 NG/ML (<3.6); MB/CK RELATIVE INDEX 3.17 (< OR =4)
[2022-07-11 22:08] LABS: BLOOD UREA NITROGEN 31 MG/DL (9-23); CALCIUM LEVEL 9.3 MG/DL (8.3-10.6); CARBON DIOXIDE LEVEL 22 MMOL/L (20-31); CHLORIDE LEVEL 106 MMOL/L (98-107); CREATININE FOR GFR 0.87 MG/DL (0.55-1.30); GLOMERULAR FILTRATION RATE > 60.0 (>39); GLUCOSE, FASTING 150 MG/DL (74-106); POTASSIUM SERUM 3.9 MMOL/L (3.5-5.1); SODIUM LEVEL 143 MMOL/L (136-145)
[2022-07-12] VITALS (17 sets, daily range): BP systolic 90–106; BP diastolic 52–64; O2SAT 93–99
[2022-07-12] MEDS ORDERED: METOPROLOL TART 12.5 MG PER 1/2 TAB PO ONE
[2022-07-12] MEDS: oxyCODONE 5MG TAB PO PRN ×5 (00:38→17:46)
[2022-07-12 00:52] LABS: CK-MB VALUE MASS 1.2 NG/ML (<3.6); MB/CK RELATIVE INDEX 3.52 (< OR =4)
[2022-07-12] MEDS: COMBIVENT RESPIMAT 100-20MCG INHALER 4GM INH SCH ×4 (01:23→19:05)
[2022-07-12] MEDS: LevoFLOXacin 750 MG TABLET PO SCH (05:00)
[2022-07-12 06:09] LABS: HEMATOCRIT 40.4 % (36.0-47.0); MEAN CORPUSCULAR HEMOGLOBIN 33.9 pg (27.0-33.0); MEAN CORPUSCULAR HGB CONC 32.2 g/dl (32.0-36.5); MEAN CORPUSCULAR VOLUME 105.2 fl (80.0-96.0); PLATELET COUNT, AUTOMATED 198 10^3/uL (150-450); RED BLOOD COUNT 3.84 10^6/uL (4.00-5.40); WHITE BLOOD COUNT 9.3 10^3/uL (4.0-10.0)
[2022-07-12 07:34] LABS: ALBUMIN 3.3 G/DL (3.2-5.2); ALT/SGPT 11 U/L (7.0-40); BILIRUBIN,DIRECT 0.1 MG/DL (<0.4); BILIRUBIN,TOTAL 0.3 MG/DL (0.3-1.2); BLOOD UREA NITROGEN 36 MG/DL (9-23); CALCIUM LEVEL 9.6 MG/DL (8.3-10.6); CARBON DIOXIDE LEVEL 24 MMOL/L (20-31); CHLORIDE LEVEL 106 MMOL/L (98-107); CREATININE FOR GFR 0.76 MG/DL (0.55-1.30); GLOMERULAR FILTRATION RATE > 60.0 (>39); GLUCOSE, FASTING 100 MG/DL (74-106); MAGNESIUM LEVEL 2.5 MG/DL (1.8-2.4); POTASSIUM SERUM 4.1 MMOL/L (3.5-5.1); SODIUM LEVEL 143 MMOL/L (136-145); TOTAL PROTEIN 6.3 G/DL (5.7-8.2)
[2022-07-12] MEDS ORDERED: LORazepam 2 MG/ML VIAL IV PRN (08:05)
[2022-07-12] MEDS: LIDOCAINE 5% (LIDODERM) PATCH TD SCH ×2 (08:31→08:32)
[2022-07-12] MEDS: ENOXAPARIN 30MG/0.3ML SYRINGE (J1650 PER 10MG) SC SCH (08:32)
[2022-07-12] MEDS: dexameTHASONE 4 MG/ML 1ML VIAL (J1100 PER 1MG) IV SCH (08:33)
[2022-07-12] MEDS: AMIODARONE 200 MG TAB (PACERONE) PO SCH ×2 (08:33→21:00)
[2022-07-12] MEDS: ASPIRIN 81MG ENTERIC TABLET PO SCH (08:33)
[2022-07-12] MEDS: DOXYCYCLINE HYCLATE 100MG TABLET PO SCH ×2 (08:33→22:14)
[2022-07-12] MEDS: ENTRESTO 24-26MG TABLET (SACUBITRIL/VALSARTAN) PO SCH ×2 (08:33→22:13)
[2022-07-12] MEDS: METOPROLOL SUCC *XL* 12.5MG PER 1/2 TAB (TopROL *XL*) PO SCH (08:49)
[2022-07-12] MEDS ORDERED: FUROSEMIDE 40MG/4ML VIAL (J1940) IV SCH (09:00)
[2022-07-12] MEDS ORDERED: METOPROLOL TART 25 MG TABLET PO SCH (09:00)
[2022-07-12] MEDS: CEFDINIR 300 MG CAP (OMNICEF) PO SCH ×2 (10:34→22:13)
[2022-07-12] MEDS: ALPRAZolam 0.25 MG TAB PO PRN ×2 (10:34→23:21)
[2022-07-12] MEDS: FUROSEMIDE 40 MG TAB PO SCH (11:44)
[2022-07-12] MEDS: REMDESIVIR 100 MG in NS 250 ML IV SCH (20:16)
[2022-07-12] MEDS: SERTRALINE HCL 25 MG TABLET PO SCH (22:14)
[2022-07-13] VITALS (16 sets, daily range): BP systolic 80–116; BP diastolic 46–64; O2SAT 92–97
[2022-07-13] MEDS: COMBIVENT RESPIMAT 100-20MCG INHALER 4GM INH SCH ×4 (01:35→19:28)
[2022-07-13] MEDS ORDERED: MIDODRINE 5 MG TAB PO ONE (02:00)
[2022-07-13] MEDS: oxyCODONE 5MG TAB PO PRN ×5 (06:56→23:43)
[2022-07-13] MEDS: LIDOCAINE 5% (LIDODERM) PATCH TD SCH ×2 (08:10)
[2022-07-13] MEDS: DOXYCYCLINE HYCLATE 100MG TABLET PO SCH ×2 (08:10→20:14)
[2022-07-13] MEDS: CEFDINIR 300 MG CAP (OMNICEF) PO SCH ×2 (08:10→20:12)
[2022-07-13] MEDS: METOPROLOL SUCC *XL* 12.5MG PER 1/2 TAB (TopROL *XL*) PO SCH (08:10)
[2022-07-13] MEDS: ENOXAPARIN 30MG/0.3ML SYRINGE (J1650 PER 10MG) SC SCH (08:10)
[2022-07-13] MEDS: AMIODARONE 200 MG TAB (PACERONE) PO SCH ×2 (08:10→20:17)
[2022-07-13] MEDS: ASPIRIN 81MG ENTERIC TABLET PO SCH (08:11)
[2022-07-13] MEDS: ALPRAZolam 0.25 MG TAB PO PRN ×2 (08:11→21:56)
[2022-07-13] MEDS: ENTRESTO 24-26MG TABLET (SACUBITRIL/VALSARTAN) PO SCH ×2 (08:11→20:14)
[2022-07-13 10:26] LABS: BLOOD UREA NITROGEN 34 MG/DL (9-23); CALCIUM LEVEL 9.4 MG/DL (8.3-10.6); CARBON DIOXIDE LEVEL 21 MMOL/L (20-31); CHLORIDE LEVEL 109 MMOL/L (98-107); CREATININE FOR GFR 0.68 MG/DL (0.55-1.30); GLOMERULAR FILTRATION RATE > 60.0 (>39); GLUCOSE, FASTING 160 MG/DL (74-106); POTASSIUM SERUM 3.8 MMOL/L (3.5-5.1); SODIUM LEVEL 143 MMOL/L (136-145)
[2022-07-13] MEDS: FUROSEMIDE 40 MG TAB PO SCH (10:58)
[2022-07-13] MEDS ORDERED: POTASSIUM CHLORIDE 10MEQ SR TABLET PO ONE (14:45)
[2022-07-13 16:08] LABS: BODY FLUID CULTURE Not indicated. (.); LEGIONELLA ANTIGEN URINE Negative (Negative); ORGANISM ID Not indicated. (.); SPECIMEN SOURCE Urine (.); URINE STREP PNEUMONIAE ANTIGEN Negative (Negative)
[2022-07-13] MEDS: SERTRALINE HCL 25 MG TABLET PO SCH (20:13)
[2022-07-14] VITALS (11 sets, daily range): BP systolic 76–114; BP diastolic 42–62; O2SAT 92–97
[2022-07-14] MEDS: COMBIVENT RESPIMAT 100-20MCG INHALER 4GM INH SCH ×4 (01:17→19:20)
[2022-07-14] MEDS ORDERED: MIDODRINE 5 MG TAB PO ONE (03:00)
[2022-07-14] MEDS: oxyCODONE 5MG TAB PO PRN ×3 (05:50→14:05)
[2022-07-14 06:31] LABS: BLOOD UREA NITROGEN 44 MG/DL (9-23); CALCIUM LEVEL 8.5 MG/DL (8.3-10.6); CARBON DIOXIDE LEVEL 22 MMOL/L (20-31); CHLORIDE LEVEL 112 MMOL/L (98-107); CREATININE FOR GFR 0.84 MG/DL (0.55-1.30); GLOMERULAR FILTRATION RATE > 60.0 (>39); GLUCOSE, FASTING 84 MG/DL (74-106); MAGNESIUM LEVEL 1.9 MG/DL (1.8-2.4); PHOSPHORUS LEVEL 5.5 MG/DL (2.4-5.1); POTASSIUM SERUM 4.5 MMOL/L (3.5-5.1); SODIUM LEVEL 144 MMOL/L (136-145)
[2022-07-14] MEDS: AMIODARONE 200 MG TAB (PACERONE) PO SCH (09:00)
[2022-07-14] MEDS: METOPROLOL SUCC *XL* 12.5MG PER 1/2 TAB (TopROL *XL*) PO SCH (09:00)
[2022-07-14] MEDS: ENOXAPARIN 30MG/0.3ML SYRINGE (J1650 PER 10MG) SC SCH (10:23)
[2022-07-14] MEDS: ASPIRIN 81MG ENTERIC TABLET PO SCH (10:24)
[2022-07-14] MEDS: ENTRESTO 24-26MG TABLET (SACUBITRIL/VALSARTAN) PO SCH ×2 (10:24→21:15)
[2022-07-14] MEDS: LIDOCAINE 5% (LIDODERM) PATCH TD SCH ×2 (10:25)
[2022-07-14] MEDS ORDERED: FUROSEMIDE 20 MG TAB PO SCH (12:00)
[2022-07-14] MEDS ORDERED: SODIUM CHLORIDE 0.9% 1000ML IV ONE (13:25)
[2022-07-14] MEDS ORDERED: NS 500 ML IV ONE (15:10)
[2022-07-14] MEDS: ANEXSIA, NORCO 7.5MG/325MG TABLET(HYDROCODONE/APAP) PO PRN (17:48)
[2022-07-14] MEDS: AMIODARONE 100MG TABLET (PACERONE) PO SCH (21:00)
[2022-07-14] MEDS: SERTRALINE HCL 25 MG TABLET PO SCH (21:15)
[2022-07-15] VITALS (21 sets, daily range): BP systolic 90–112; BP diastolic 54–61; O2SAT 91–99
[2022-07-15] MEDS: COMBIVENT RESPIMAT 100-20MCG INHALER 4GM INH SCH ×4 (02:00→19:20)
[2022-07-15] MEDS: ANEXSIA, NORCO 7.5MG/325MG TABLET(HYDROCODONE/APAP) PO PRN ×3 (07:59→21:53)
[2022-07-15] MEDS: METOPROLOL SUCC *XL* 12.5MG PER 1/2 TAB (TopROL *XL*) PO SCH (09:00)
[2022-07-15] MEDS: AMIODARONE 100MG TABLET (PACERONE) PO SCH ×2 (09:00→21:52)
[2022-07-15] MEDS: ENTRESTO 24-26MG TABLET (SACUBITRIL/VALSARTAN) PO SCH ×2 (09:10→21:53)
[2022-07-15] MEDS: LIDOCAINE 5% (LIDODERM) PATCH TD SCH ×2 (09:10)
[2022-07-15] MEDS: ASPIRIN 81MG ENTERIC TABLET PO SCH (09:11)
[2022-07-15] MEDS: ENOXAPARIN 30MG/0.3ML SYRINGE (J1650 PER 10MG) SC SCH (09:18)
[2022-07-15] MEDS: SERTRALINE HCL 25 MG TABLET PO SCH (21:53)
[2022-07-16] VITALS (17 sets, daily range): BP systolic 92–109; BP diastolic 54–62; O2SAT 90–98
[2022-07-16] MEDS: COMBIVENT RESPIMAT 100-20MCG INHALER 4GM INH SCH ×4 (01:53→19:31)
[2022-07-16] MEDS: ANEXSIA, NORCO 7.5MG/325MG TABLET(HYDROCODONE/APAP) PO PRN (05:23)
[2022-07-16 06:14] LABS: HEMATOCRIT 42.1 % (36.0-47.0); HEMOGLOBIN 13.7 g/dl (12.0-15.5); MEAN CORPUSCULAR HEMOGLOBIN 34.3 pg (27.0-33.0); MEAN CORPUSCULAR HGB CONC 32.5 g/dl (32.0-36.5); MEAN CORPUSCULAR VOLUME 105.3 fl (80.0-96.0); PLATELET COUNT, AUTOMATED 156 10^3/uL (150-450); WHITE BLOOD COUNT 7.9 10^3/uL (4.0-10.0)
[2022-07-16] MEDS ORDERED: SERT25TA21 PO (06:51)
[2022-07-16] MEDS ORDERED: FURO20TA2 PO (06:51)
[2022-07-16] MEDS ORDERED: AMIO0.1T PO (06:51)
[2022-07-16] MEDS ORDERED: METO1TAB32 PO (06:51)
[2022-07-16 07:01] LABS: BLOOD UREA NITROGEN 22 MG/DL (9-23); CALCIUM LEVEL 8.7 MG/DL (8.3-10.6); CARBON DIOXIDE LEVEL 25 MMOL/L (20-31); CHLORIDE LEVEL 110 MMOL/L (98-107); CREATININE FOR GFR 0.72 MG/DL (0.55-1.30); GLOMERULAR FILTRATION RATE > 60.0 (>39); GLUCOSE, FASTING 88 MG/DL (74-106); PHOSPHORUS LEVEL 3.4 MG/DL (2.4-5.1); POTASSIUM SERUM 4.4 MMOL/L (3.5-5.1); SODIUM LEVEL 144 MMOL/L (136-145)
[2022-07-16] MEDS: ASPIRIN 81MG ENTERIC TABLET PO SCH (09:11)
[2022-07-16] MEDS: ENTRESTO 24-26MG TABLET (SACUBITRIL/VALSARTAN) PO SCH ×2 (09:12→21:22)
[2022-07-16] MEDS: AMIODARONE 100MG TABLET (PACERONE) PO SCH ×2 (09:12→21:00)
[2022-07-16] MEDS: ENOXAPARIN 30MG/0.3ML SYRINGE (J1650 PER 10MG) SC SCH (09:13)
[2022-07-16] MEDS: METOPROLOL SUCC *XL* 12.5MG PER 1/2 TAB (TopROL *XL*) PO SCH (09:13)
[2022-07-16] MEDS: LIDOCAINE 5% (LIDODERM) PATCH TD SCH ×2 (09:13→09:14)
[2022-07-16] MEDS: ALPRAZolam 0.25 MG TAB PO PRN ×2 (09:14→21:23)
[2022-07-16] MEDS ORDERED: ATOR40TA75 PO (11:32)
[2022-07-16] MEDS: FUROSEMIDE 20 MG TAB PO SCH (12:00)
[2022-07-16] MEDS: ATORVASTATIN 20 MG TAB PO SCH (21:22)
[2022-07-16] MEDS: SERTRALINE HCL 25 MG TABLET PO SCH (21:22)
[2022-07-17] VITALS (18 sets, daily range): BP systolic 86–107; BP diastolic 44–56; O2SAT 96–100
[2022-07-17] MEDS: COMBIVENT RESPIMAT 100-20MCG INHALER 4GM INH SCH ×4 (01:17→20:00)
[2022-07-17] MEDS: ANEXSIA, NORCO 7.5MG/325MG TABLET(HYDROCODONE/APAP) PO PRN ×4 (02:16→23:56)
[2022-07-17 04:09] LABS: HEMATOCRIT 36.1 % (36.0-47.0); HEMOGLOBIN 11.8 g/dl (12.0-15.5); MEAN CORPUSCULAR HEMOGLOBIN 33.7 pg (27.0-33.0); MEAN CORPUSCULAR HGB CONC 32.7 g/dl (32.0-36.5); MEAN CORPUSCULAR VOLUME 103.1 fl (80.0-96.0); PLATELET COUNT, AUTOMATED 118 10^3/uL (150-450); WHITE BLOOD COUNT 7.6 10^3/uL (4.0-10.0)
[2022-07-17 04:35] LABS: BLOOD UREA NITROGEN 17 MG/DL (9-23); CALCIUM LEVEL 8.4 MG/DL (8.3-10.6); CARBON DIOXIDE LEVEL 21 MMOL/L (20-31); CHLORIDE LEVEL 109 MMOL/L (98-107); GLOMERULAR FILTRATION RATE > 60.0 (>39); GLUCOSE, FASTING 97 MG/DL (74-106); MAGNESIUM LEVEL 1.8 MG/DL (1.8-2.4); PHOSPHORUS LEVEL 2.9 MG/DL (2.4-5.1); SODIUM LEVEL 140 MMOL/L (136-145)
[2022-07-17] MEDS: LIDOCAINE 5% (LIDODERM) PATCH TD SCH ×2 (08:25)
[2022-07-17] MEDS: AMIODARONE 100MG TABLET (PACERONE) PO SCH ×2 (08:25→21:00)
[2022-07-17] MEDS: ENOXAPARIN 30MG/0.3ML SYRINGE (J1650 PER 10MG) SC SCH (08:25)
[2022-07-17] MEDS: METOPROLOL SUCC *XL* 12.5MG PER 1/2 TAB (TopROL *XL*) PO SCH (08:26)
[2022-07-17] MEDS: ALPRAZolam 0.25 MG TAB PO PRN ×2 (08:27→21:25)
[2022-07-17] MEDS: ASPIRIN 81MG ENTERIC TABLET PO SCH (08:27)
[2022-07-17] MEDS: ENTRESTO 24-26MG TABLET (SACUBITRIL/VALSARTAN) PO SCH (08:28)
[2022-07-17] MEDS: SERTRALINE HCL 50 MG TAB PO SCH (21:24)
[2022-07-17] MEDS: ATORVASTATIN 20 MG TAB PO SCH (21:24)
[2022-07-18] VITALS (10 sets, daily range): BP systolic 94–119; BP diastolic 50–59; O2SAT 92–98
[2022-07-18] MEDS: COMBIVENT RESPIMAT 100-20MCG INHALER 4GM INH SCH ×4 (02:09→20:00)
[2022-07-18 05:24] LABS: HEMATOCRIT 35.2 % (36.0-47.0); HEMOGLOBIN 11.3 g/dl (12.0-15.5); MEAN CORPUSCULAR HEMOGLOBIN 33.7 pg (27.0-33.0); MEAN CORPUSCULAR HGB CONC 32.1 g/dl (32.0-36.5); MEAN CORPUSCULAR VOLUME 105.1 fl (80.0-96.0); PLATELET COUNT, AUTOMATED 112 10^3/uL (150-450); RED BLOOD COUNT 3.35 10^6/uL (4.00-5.40); WHITE BLOOD COUNT 6.5 10^3/uL (4.0-10.0)
[2022-07-18 05:55] LABS: BLOOD UREA NITROGEN 17 MG/DL (9-23); CALCIUM LEVEL 8.3 MG/DL (8.3-10.6); CARBON DIOXIDE LEVEL 21 MMOL/L (20-31); CHLORIDE LEVEL 111 MMOL/L (98-107); CREATININE FOR GFR 0.65 MG/DL (0.55-1.30); GLOMERULAR FILTRATION RATE > 60.0 (>39); GLUCOSE, FASTING 89 MG/DL (74-106); MAGNESIUM LEVEL 1.7 MG/DL (1.8-2.4); POTASSIUM SERUM 4.1 MMOL/L (3.5-5.1); SODIUM LEVEL 141 MMOL/L (136-145)
[2022-07-18] MEDS ORDERED: MAG SULF 1GM/100ML (MAG RUN) 1 GM in IV 1 EA IV ONE (07:00)
[2022-07-18] MEDS: METOPROLOL SUCC *XL* 12.5MG PER 1/2 TAB (TopROL *XL*) PO SCH (08:17)
[2022-07-18] MEDS: ASPIRIN 81MG ENTERIC TABLET PO SCH (08:30)
[2022-07-18] MEDS: ENOXAPARIN 30MG/0.3ML SYRINGE (J1650 PER 10MG) SC SCH (08:31)
[2022-07-18] MEDS: ANEXSIA, NORCO 7.5MG/325MG TABLET(HYDROCODONE/APAP) PO PRN ×2 (08:31→17:01)
[2022-07-18] MEDS: AMIODARONE 100MG TABLET (PACERONE) PO SCH ×2 (08:31→21:25)
[2022-07-18] MEDS: LIDOCAINE 5% (LIDODERM) PATCH TD SCH ×2 (08:32)
[2022-07-18] MEDS: ALPRAZolam 0.25 MG TAB PO PRN (10:57)
[2022-07-18] MEDS ORDERED: NYSTATIN CREAM 15GM EXT PRN (12:50)
[2022-07-18] MEDS: FUROSEMIDE 20 MG TAB PO SCH (13:43)
[2022-07-18] MEDS ORDERED: PILL CUTTER 1 EACH XX PRN (20:25)
[2022-07-18] MEDS: ATORVASTATIN 20 MG TAB PO SCH (21:25)
[2022-07-18] MEDS: ENTRESTO 24-26MG TABLET (SACUBITRIL/VALSARTAN) PO SCH (21:25)
[2022-07-18] MEDS: SERTRALINE HCL 50 MG TAB PO SCH (21:25)
[2022-07-19] VITALS (10 sets, daily range): BP systolic 100–111; BP diastolic 53–59; O2SAT 94–98
[2022-07-19] MEDS ORDERED: ATORVASTATIN 20 MG TAB PO SCH
[2022-07-19] MEDS ORDERED: ENTRESTO 24-26MG TABLET (SACUBITRIL/VALSARTAN) PO SCH
[2022-07-19] MEDS: ANEXSIA, NORCO 7.5MG/325MG TABLET(HYDROCODONE/APAP) PO PRN ×2 (00:14→08:05)
[2022-07-19] MEDS: ALPRAZolam 0.25 MG TAB PO PRN ×2 (00:14→12:20)
[2022-07-19] MEDS: COMBIVENT RESPIMAT 100-20MCG INHALER 4GM INH SCH ×2 (00:43→07:19)
[2022-07-19 06:02] LABS: BLOOD UREA NITROGEN 12 MG/DL (9-23); CALCIUM LEVEL 8.3 MG/DL (8.3-10.6); CARBON DIOXIDE LEVEL 24 MMOL/L (20-31); CHLORIDE LEVEL 109 MMOL/L (98-107); CREATININE FOR GFR 0.57 MG/DL (0.55-1.30); GLOMERULAR FILTRATION RATE > 60.0 (>39); GLUCOSE, FASTING 89 MG/DL (74-106); MAGNESIUM LEVEL 1.7 MG/DL (1.8-2.4); POTASSIUM SERUM 4.1 MMOL/L (3.5-5.1); SODIUM LEVEL 141 MMOL/L (136-145)
[2022-07-19] MEDS ORDERED: MAGNESIUM OXIDE 400MG TAB (MAG-OX) PO ONE (06:35)
[2022-07-19] MEDS ORDERED: ENTR1TAB PO (07:08)
[2022-07-19] MEDS: ASPIRIN 81MG ENTERIC TABLET PO SCH (08:05)
[2022-07-19] MEDS: ENTRESTO 24-26MG TABLET (SACUBITRIL/VALSARTAN) PO SCH (08:05)
[2022-07-19] MEDS: ENOXAPARIN 30MG/0.3ML SYRINGE (J1650 PER 10MG) SC SCH (08:05)
[2022-07-19] MEDS: LIDOCAINE 5% (LIDODERM) PATCH TD SCH ×2 (08:06)
[2022-07-19] MEDS: METOPROLOL SUCC *XL* 12.5MG PER 1/2 TAB (TopROL *XL*) PO SCH (08:12)
[2022-07-19] MEDS ORDERED: AMIO200T49 PO (08:37)
[2022-07-19] MEDS ORDERED: SERT-141 PO (08:40)
[2022-07-19] MEDS ORDERED: METO25TA PO (08:47)
[2022-07-19] MEDS ORDERED: ALPR0.25 PO (08:47)
[2022-07-19] MEDS ORDERED: AMIODARONE 200 MG TAB (PACERONE) PO SCH (09:00)
[2022-07-19] MEDS ORDERED: MAGN400C PO (10:00)
== END 2022-07-19 13:06 | disposition home health service (06) | DRG 177 ==
LOC: M ED 09:51 → M ED INP 15:27 → ENRESERV 16:23 → M PCU 17:45
PROVIDERS: ADMIT Student in an Organized Health Care Education/Training Program; ATTEND Student in an Organized Health Care Education/Training Program
DX: U07.1 COVID-19 (principal); J96.01 Acute respiratory failure with hypoxia; I50.23 Acute on chronic systolic (congestive) heart failure; J18.9 Pneumonia, unspecified organism; E87.20 Acidosis, unspecified; I47.20 Ventricular tachycardia, unspecified; J44.0 Chronic obstructive pulmonary disease with (acute) lower respiratory infection; I11.0 Hypertensive heart disease with heart failure; E78.5 Hyperlipidemia, unspecified; F17.210 Nicotine dependence, cigarettes, uncomplicated; M10.9 Gout, unspecified; I25.10 Atherosclerotic heart disease of native coronary artery without angina pectoris; E83.42 Hypomagnesemia; I25.2 Old myocardial infarction; Z85.72 Personal history of non-Hodgkin lymphomas; Z85.038 Personal history of other malignant neoplasm of large intestine; F41.9 Anxiety disorder, unspecified; Z79.899 Other long term (current) drug therapy; Z79.82 Long term (current) use of aspirin; Z88.6 Allergy status to analgesic agent; Z66 Do not resuscitate

== ENCOUNTER → 2022-10-01 | Outpatient (CLI) | payer MEDICARE ==
[~2022-10-01] MED LIST changes: +ALPR0.25 PO; +AMIO0.1T PO; +AMIO200T49 PO; +ATOR40TA75 PO; +COMBAER6 INH; +MAGN400C PO; +METO1TAB32 PO; +METO25TA PO; +SERT25TA21 PO
== END ==
LOC: M PAIN 15:30
PROVIDERS: ATTEND Anesthesiology
DX: M47.816 Spondylosis without myelopathy or radiculopathy, lumbar region (principal); M96.1 Postlaminectomy syndrome, not elsewhere classified; G89.29 Other chronic pain; I10 Essential (primary) hypertension; J44.9 Chronic obstructive pulmonary disease, unspecified; F17.210 Nicotine dependence, cigarettes, uncomplicated; Z88.6 Allergy status to analgesic agent; Z88.8 Allergy status to other drugs, medicaments and biological substances; Z91.02 Food additives allergy status; Z79.82 Long term (current) use of aspirin; Z79.899 Other long term (current) drug therapy

== ENCOUNTER → 2022-12-24 | Outpatient (CLI) | payer MEDICARE | LOC: M WHC 10:47 | PROVIDERS: ATTEND Family Medicine | DX: Z12.31 Encounter for screening mammogram for malignant neoplasm of breast (principal); Z78.0 Asymptomatic menopausal state; Z13.820 Encounter for screening for osteoporosis ==

== ENCOUNTER → 2023-01-02 | Outpatient (CLI) | payer MEDICARE | LOC: M PAIN 13:30 | PROVIDERS: ATTEND Anesthesiology | DX: M47.816 Spondylosis without myelopathy or radiculopathy, lumbar region (principal); M96.1 Postlaminectomy syndrome, not elsewhere classified; M79.18 Myalgia, other site; G89.29 Other chronic pain; I10 Essential (primary) hypertension; I25.2 Old myocardial infarction; J44.9 Chronic obstructive pulmonary disease, unspecified; F17.210 Nicotine dependence, cigarettes, uncomplicated; Z88.6 Allergy status to analgesic agent; Z88.8 Allergy status to other drugs, medicaments and biological substances; Z91.02 Food additives allergy status; Z79.82 Long term (current) use of aspirin; Z79.899 Other long term (current) drug therapy ==

== ENCOUNTER → 2023-04-17 | Outpatient (CLI) | payer MEDICARE | LOC: M PAIN 09:15 | PROVIDERS: ATTEND Anesthesiology | DX: M96.1 Postlaminectomy syndrome, not elsewhere classified (principal); M47.816 Spondylosis without myelopathy or radiculopathy, lumbar region; G89.29 Other chronic pain; I10 Essential (primary) hypertension; I25.2 Old myocardial infarction; J44.9 Chronic obstructive pulmonary disease, unspecified; F17.210 Nicotine dependence, cigarettes, uncomplicated; Z88.6 Allergy status to analgesic agent; Z88.8 Allergy status to other drugs, medicaments and biological substances; Z91.02 Food additives allergy status; Z79.82 Long term (current) use of aspirin; Z79.899 Other long term (current) drug therapy ==